=== PATIENT | female | born 1950 | race Caucasian/White ===

== ENCOUNTER 2017-04-01 11:14 | Day surgery (SDC) | payer MEDICARE, BC ==
[2017-03-31 08:33] VITALS: BMI 28.5
[~2017-04-01 11:14] MED LIST: ALBUTEROL NEB (CONC) 2.5 MG/0.5 ML INHALATION ONE; LACTATED RINGERS 1,000 ML IV ONE; LACTATED RINGERS 1,000 ML IV SCH; LIDOCAINE 1% 20 ML VIAL (10MG/ML) FOR IV START INTRADERMA PRN; LIDOCAINE 2% (PF) 20 MG/ML 10ML INHALATION ONE; Pre Op ABX Message 1 EACH MISC MISCELLANE ONE
[2017-04-01] MEDS ORDERED: PROPOFOL 10 MG/ML 20 ML VIAL IV ONE (12:44)
[2017-04-01] MEDS ORDERED: SUCCINYLCHOLINE CHLORIDE 100 MG/5 ML SYR IV ONE (12:44)
[2017-04-01] MEDS ORDERED: LIDOCAINE 1% 20 ML VIAL (10MG/ML) FOR IV START INTRATRACH ONE (12:51)
[2017-04-01 13:52] VITALS: RESP 16; TEMP 97.8
[2017-04-01] MEDS ORDERED: LACTATED RINGERS 1,000 ML IV ONE (14:28)
[2017-04-01 15:05] VITALS: BP 180/80; PULSE 65
--- NOTE | 2017-04-02 17:54 | P.PCN ---
Date of Procedure: 04/01/17 Preoperative Diagnosis: Mediastinal mass Postoperative Diagnosis: Mediastinal mass Procedure(s) Performed: bronchoscopy , TBNA of mediastinal mass/paratracheal LN Anesthesia: MAC Surgeon: Sasha Godfrey Counter Tacker #1: Aubrie Ramesh Estimated Blood Loss (ml): 500 Pathology: other Condition: stable Disposition: same day Operative Findings: The patient was brought in the bronchoscopy suite. A timeout was done. Following that the patient was started on sedation with the prevent under the supervision of TANGLED YARN WORKER. After achieving adequate sedation, a flexible bronchoscope was inserted through the right nostril was advanced upper airway. Examination of the upper airway included the posterior oropharynx, larynx, epiglottis, arytenoids and vocal cords and all of these upper airway structures were within normal limits. A total of 2 mL of 1% lidocaine was applied to the vocal cords and following that the bronchoscope was advanced upper trachea. Examination sacral bronchial tree was done. The upper and the mid trachea was within normal. The lower trachea was of normal. There was a mass effect over the anterolateral aspect of the tracheal wall and the cartilaginous rings were not well defined. Similarly, a mass effect was also seen in the right mainstem bronchus and the right upper lobe bronchus. All of the structures were extrinsically compressed and narrowed yet patent. I was able to pass the bronchoscope to the upper lobe and examination the right upper lobe was done along with a segments and no endobronchial tumor wasn't defined. Following that the bronchoscope was moved to the bronchus intermedius and then right middle lobe bronchus and right lower lobe bronchussegments were patent and within normal limits. Examination of the left side including left mainstem bronchus, left upper lobe and left lower lobe bronchi along with the various segments segments and the structures were all within normal limits. At this point in time, the bronchoscope was moved to the distal trachea and a transbronchial needle aspirate of the mediastinal/paratracheal mass was attempted. The 19-gauge cytology needle was introduced and as the needle touched the distal tracheal wall there was significant amount of bleeding from the tracheal surface which essentially obliterated the endoscopic visibility. After a single pass using the Levy needle, there was significant bleeding from the tracheal surface to the point where clots were forming and the bronchoscope was moved in and out of the airway several times while attempting to remove these blood clots. As the airway was being therapeutically suctioned and cleaned, we encountered bleeding from the right nostril which further complicated the visibility and our ability to maintain a patent airway. Immediately after and was applied to the right nostril and then to the left nostril. Pressure was also applied ,however ,at that point in time the patient started having some desaturation with her pulse ox dropped to the low 80s. Anesthesia was called to the scene and we felt it is most appropriate to secure the airway through an orotracheal tube. At that time, the patient was intubated by TANGLED YARN WORKER using a #7 orotracheal tube. The patient was ventilated using and on the back in the pulse ox was brought again up to 95%. A adapter was attached and orotracheal tube and as the patient was being ventilated, the flexible bronchoscope was introduced into the airway and tapered it was suctioning was done and the residual amount of blood clots were removed. At that point I attempted to take additional passes however this was quite difficult knowing that the patient had a #7 orotracheal tube and my ability to maneuver and manipulate the bronchoscope through the smaller orotracheal tube was quite limited. Few attempts were done, and similar to the original needle pass, we encountered significant amount of bleeding from the tracheal surface at the site of the puncture. Based on these findings, we decided to abort the procedure and sent the available samples for pathologic evaluation. We thought the available samples could potentially be best to a final diagnosis and we felt it was safer to abort the procedure specially the patient was having significant amount of bleeding in various puncture sites. During this time the epistaxis was controlled also. At the end of the procedure, therapeutic airway suctioning was done and the bronchoscope was removed. After the patient was fully awake the patient was extubated and she was transferred recovery in stable condition. The patient aroused nicely out of her sedation and she denies having any major it with difficulties in her pulse ox remained above 90% while her being on room air. I discussed the findings with the family. I also told them that the patient may possibly need a mediastinoscopy of the available samples stock turner to be nondiagnostic or not enough to make it final pathologic diagnosis. The patient was discharged home to follow up with me in the office.
== END 2017-04-01 15:16 | disposition home or self-care (01) ==
LOC: ORWHC2ENDO 11:14
PROVIDERS: ATTEND Internal Medicine Critical Care Medicine
DX: J44.9 Chronic obstructive pulmonary disease, unspecified (principal); I10 Essential (primary) hypertension; E03.9 Hypothyroidism, unspecified; Z87.891 Personal history of nicotine dependence; Z79.899 Other long term (current) drug therapy; Z88.0 Allergy status to penicillin
CPT/HCPCS: 94640; 88305; 88173; 31629; J2001; J0330; J2704

== ENCOUNTER → 2017-04-09 | Outpatient (CLI) | payer MEDICARE, BC ==
[2017-04-09 12:10] LABS: CH 29.5; CHCM 32.8; HCT 47.6 % (34.0-46.0); HDW 2.43; HGB 15.1 gm/dL (11.4-16.0); MCH 28.8 pg (25.0-35.0); MCHC 31.8 g/dL (31.0-37.0); MCV 90.4 fL (80.0-100.0); Mean Platelet Volume 6.2; RBC 5.26 m/uL (3.80-5.40); RDW 12.9 % (11.5-15.5); WBC 4.8 k/uL (3.8-10.6)
[2017-04-09 12:16] LABS: Anion Gap 12 mmol/L; Blood Urea Nitrogen 10 mg/dL (7-17); Carbon Dioxide 26 mmol/L (22-30); Chloride 104 mmol/L (98-107); Glucose 99 mg/dL (74-99); Non-African American GFR(MDRD) >60 (>60 ml/min/1.73 sqM); Potassium 3.9 mmol/L (3.5-5.1); Sodium 142 mmol/L (137-145)
[2017-04-09 12:17] LABS: Prothrombin Time 10.1 sec (9.0-12.0)
[2017-04-09 12:18] LABS: Partial Thromboplastin Time 22.6 sec (22.0-30.0)
== END | disposition home or self-care (01) ==
LOC: LABPAT 11:24
PROVIDERS: ATTEND Thoracic Surgery (Cardiothoracic Vascular Surgery)
DX: Z01.812 Encounter for preprocedural laboratory examination (principal); C34.90 Malignant neoplasm of unspecified part of unspecified bronchus or lung
CPT/HCPCS: 80051; 82565; 82947; 84520; 85027; 85610; 85730; 86850; 86900; 86901

== ENCOUNTER 2017-04-10 09:32 | Day surgery (SDC) | payer MEDICARE, BC ==
[2017-04-09 13:32] VITALS: BMI 28.2
[~2017-04-10 09:32] MED LIST changes: -ALBUTEROL NEB (CONC) 2.5 MG/0.5 ML INHALATION ONE; +CLINDAMYCIN 900 MG in DEXTROSE 5% IN WATER 50 ML IVPB ONE; +DEXAMETHASONE SOD PHOSPHATE 10 MG/ML 1 ML VIAL IV ONE; -LACTATED RINGERS 1,000 ML IV ONE; -LIDOCAINE 1% 20 ML VIAL (10MG/ML) FOR IV START INTRADERMA PRN; -LIDOCAINE 2% (PF) 20 MG/ML 10ML INHALATION ONE; +MIDAZOLAM 2 MG/2 ML VIAL IV PRN; -Pre Op ABX Message 1 EACH MISC MISCELLANE ONE
[2017-04-10] MEDS ORDERED: LIDOCAINE 1% 20 ML VIAL (10MG/ML) FOR IV START INTRADERMA ONE (10:18)
[2017-04-10] MEDS: ONDANSETRON 4 MG/2 ML VIAL IVP ONE ×2 (10:24→14:41)
[2017-04-10] MEDS ORDERED: MIDAZOLAM 2 MG/2 ML VIAL IV ONE (11:19)
[2017-04-10] MEDS ORDERED: MIDAZOLAM 2 MG/2 ML VIAL ONE (13:02)
[2017-04-10] MEDS ORDERED: LIDOCAINE 1% INJ 10MG/ML (20 ML MDV) ONE (13:02)
[2017-04-10] MEDS ORDERED: SUCCINYLCHOLINE CHLORIDE 100 MG/5 ML SYR IV ONE (13:02)
[2017-04-10] MEDS ORDERED: fentaNYL (PF) 50 MCG/ML 2 ML AMP ONE (13:02)
[2017-04-10] MEDS ORDERED: GLYCOPYRROLATE 0.2 MG/ML 2 ML VIAL ONE (13:02)
[2017-04-10] MEDS ORDERED: NEOSTIGMINE 1 MG/ML 10 ML VIAL ONE (13:02)
[2017-04-10] MEDS ORDERED: PROPOFOL 10 MG/ML 20 ML VIAL IV ONE (13:02)
[2017-04-10] MEDS ORDERED: ePHEDrine 50 MG/ML 1 ML AMP ONE (13:02)
[2017-04-10] MEDS ORDERED: ROCURONIUM BROMIDE 10 MG/ML 10 ML VIAL IV ONE (13:02)
[2017-04-10] MEDS ORDERED: THROMBIN (BOVINE) 5,000 UNIT VIAL TOPICAL ONE (13:34)
--- NOTE | 2017-04-10 14:28 | P.OP ---
Date of Procedure: 04/10/17 Preoperative Diagnosis: mediastinal mass Postoperative Diagnosis: mediastinal mass Procedure(s) Performed: Mediastinal endoscopy with biopsy of mediastinal mass Anesthesia: BETHANY Surgeon: Mariusz Zhao Estimated Blood Loss (ml): 10 IV fluids (ml): 200 Pathology: other (Mediastinal mass sent for frozen and permanent. Frozen section demonstrates benign tissue. Fluid from within mediastinal mass also sent for cytology) Condition: stable Disposition: PACU Indications for Procedure: Patient has a long distant smoking history she reports presented with a right- sided lung mass hilar fullness and a large mediastinal mass the mediastinal masses multiloculated multiple enlarged lymph nodes. Mediastinoscopy was indicated for both diagnosis and staging. Operative Findings: Anterior to the distal trachea we encountered a large multi loculated cystic mass. A needle was placed within the mass and murky fluid was obtained. This was sent for cytology. Multiple areas were aspirated. Once we had ascertained that there did not appear to be any specifically solid component to this mass, we biopsied the mass. A portion of the wall of the cyst was sent for pathology. The frozen section on this returned benign. Within the cystic mass there was more tissue and some of this was biopsied. All of the tissue was sent for pathology for permanent section. The area was packed with some thrombin and Gelfoam and good hemostasis was obtained. After assuring good hemostasis, 80 Stiner scope was removed and the incision closed with layers of Vicryl suture it was dressed with skin glue. The patient was extubated and transferred to recovery room in stable condition. Plan - Discharge Summary Discharge Medication List Levothyroxine Sodium [Synthroid] 125 mcg PO 0500 03/31/17 [History] Losartan Potassium [Cozaar] 50 mg PO QAM 03/31/17 [History] Methylphenidate HCl [Ritalin] 20 mg PO BID 04/09/17 [History]
[2017-04-10 14:35] VITALS: TEMP 98
[2017-04-10] MEDS: HYDROmorphone 1 MG/ML 1 ML SYRINGE IVP PRN ×4 (14:41→15:05)
[2017-04-10 15:00] VITALS: RESP 16
[2017-04-10 16:59] VITALS: BP 140/83; PULSE 60
== END 2017-04-10 16:56 | disposition home or self-care (01) ==
LOC: OR 09:32
PROVIDERS: ATTEND Thoracic Surgery (Cardiothoracic Vascular Surgery)
DX: J98.59 Other diseases of mediastinum, not elsewhere classified (principal); Q34.1 Congenital cyst of mediastinum; J44.9 Chronic obstructive pulmonary disease, unspecified; Z87.891 Personal history of nicotine dependence; Z79.899 Other long term (current) drug therapy; Z88.0 Allergy status to penicillin
CPT/HCPCS: 88108; 88305; 88342; 88331; 88341; 39401; J2250; J1100; J2710; J2405; J2001; J3010; J1170; J0330; J2704; 86850; 86900; 86901

== ENCOUNTER → 2017-04-18 | Outpatient (CLI) | payer MEDICARE, BC ==
--- NOTE | 2017-04-22 14:52 | PE ---
Nuclear medicine PET/CT HISTORY: R 91.8, lung carcinoma The patient received 13.5 mCi F-18 FDG intravenously. Delayed scanning performed from the skull base to the mid thighs. An attenuation correction CT, localization CT was also performed. No exam available for correlation. Neck and chest: The midline at the level of the thyroid gland there is a focus of activity present wi thin the ill-defined area of soft tissue which corresponds to a possible thyroid remnant or a thyrogl ossal duct remnant. SUV is 6.2 At the supraclavicular location on the right there is a soft tissue mass measuring approximately 16 m m in short axis with corresponding hypermetabolic activity, SUV is 4.5. At the lower aspect of the an terior cervical chain deep to the posterior margin of the sternocleidomastoid muscle, there is a soft tissue nodule which is not enlarged and shows an SUV of 2.6, there a is slightly larger lesion just inferiorly shows hypermetabolic uptake SUV 2.9 with a short axis of 14 mm. Right paratracheal, retroc aval pretracheal adenopathy is suspected with central low attenuation which may be due to necrosis, s imilar appearance in the subcarinal location, SUV mildly increased ranging 4-5. Right hilar adenopath y suspected, SUV 9.2. Mass in the right hilar location is noted, metabolic activity greatest anterio rly towards the right middle lobe, SUV 13.6. There are some associated air bronchograms, mass extensi on from the right hilum into the right lower lobe additionally. Extensive emphysematous changes are p resent within the lungs. Abdomen pelvis: Lucency within the liver likely related to pneumobilia. Left adrenal mass measures 13 mm it shows low attenuation likely represent adenoma, there is no associated hypermetabolic uptake. No retroperitoneal adenopathy. Osseous structures show degenerative changes. No suspicious hypermetabolic uptake No evident adrenal mass on the right. IMPRESSION: Findings compatible with patient's history of lung carcinoma. There is extensive mediasti nal, supraclavicular and lower anterior cervical adenopathy.
== END | disposition home or self-care (01) ==
LOC: RADPETMAIN 11:47
PROVIDERS: ATTEND Internal Medicine Critical Care Medicine
DX: R91.8 Other nonspecific abnormal finding of lung field (principal); R59.1 Generalized enlarged lymph nodes
CPT/HCPCS: 78815

== ENCOUNTER → 2017-05-19 | Outpatient (CLI) | payer MEDICARE, BC ==
--- NOTE | 2017-05-19 23:09 | MR ---
EXAMINATION TYPE: MR brain wo/w con DATE OF EXAM: 05/19/2017 COMPARISON: NONE HISTORY: HX off newly diagnosed Lung CA April 2017 per order. Symptoms of dizziness per patient. TECHNIQUE: Multiplanar, multisequence images of the brain and brainstem is performed without and with IV contras t, utilizing 15 mL intravenous MultiHance . FINDINGS: Diffusion weighted images demonstrate no evidence of a recent infarct or other diffusion ab normality. There is no extra-axial fluid collection or significant white matter signal abnormality. The ventricular system and cisternal spaces are normal in size and appearance. The brain volume is age appropriate. Midline structures demonstrate normal morphology. The craniocervical junction appears within normal limits. Post contrast images demonstrate no abnormal enhancement. The dural venous sinuses appear pa tent. The visualized sinuses are clear and the globes are intact. IMPRESSION: No suspicious enhancing intraparenchymal mass is seen to suggest metastatic disease. No s ignificant abnormality identified.
== END | disposition home or self-care (01) ==
LOC: RADMRIMAIN 21:26
PROVIDERS: ATTEND Radiology Radiation Oncology
DX: C34.2 Malignant neoplasm of middle lobe, bronchus or lung (principal)
CPT/HCPCS: 70553; A9577

== ENCOUNTER → 2017-05-20 | Outpatient (CLI) | payer MEDICARE, BC ==
--- NOTE | 2017-05-20 15:07 | XR ---
EXAMINATION TYPE: XR chest 2V DATE OF EXAM: 05/20/2017 COMPARISON: Nuclear medicine PET/CT 04/18/2017 HISTORY: Lung carcinoma TECHNIQUE: Frontal and lateral views of the chest are obtained. FINDINGS: Abnormal increased attenuation present at the right lung base compatible with effusion and associated atelectasis. There is thickening of the right paratracheal margin. No evident pneumothora x. Heart is enlarged. IMPRESSION: Findings compatible with patient's history of lung carcinoma. Cardiomegaly.
== END | disposition home or self-care (01) ==
LOC: RADXRMAIN 11:48
PROVIDERS: ATTEND Surgery
DX: C34.90 Malignant neoplasm of unspecified part of unspecified bronchus or lung (principal); I51.7 Cardiomegaly
CPT/HCPCS: 71020

== ENCOUNTER 2017-05-21 10:16 | Day surgery (SDC) | payer MEDICARE, BC ==
[2017-05-20 12:45] VITALS: BMI 27.6
[~2017-05-21 10:16] MED LIST changes: -DEXAMETHASONE SOD PHOSPHATE 10 MG/ML 1 ML VIAL IV ONE; +HEPARIN SODIUM,PORCINE 100 UNIT/ML 5 ML VIAL IV ONE; +IOHEXOL 350 MG/ML 50ML BOTTLE MISCELLANE ONE; -LACTATED RINGERS 1,000 ML IV SCH; +LIDOCAINE (PF) 10 MG/ML 2 ML VIAL SQ ONE; -MIDAZOLAM 2 MG/2 ML VIAL IV PRN
[2017-05-21] MEDS ORDERED: LACTATED RINGERS 1,000 ML IV ONE (10:44)
[2017-05-21] MEDS ORDERED: LIDOCAINE 1% 20 ML VIAL (10MG/ML) FOR IV START SQ ONE (10:45)
[2017-05-21] MEDS ORDERED: ONDANSETRON 4 MG/2 ML VIAL IVP ONE ×2 (10:54→12:47)
[2017-05-21] MEDS ORDERED: MIDAZOLAM 2 MG/2 ML VIAL IVP ONE (10:54)
[2017-05-21] MEDS ORDERED: MIDAZOLAM 2 MG/2 ML VIAL ONE (11:11)
[2017-05-21] MEDS ORDERED: fentaNYL (PF) 50 MCG/ML 2 ML AMP ONE (11:11)
[2017-05-21] MEDS ORDERED: LIDOCAINE (PF) 10 MG/ML 2 ML VIAL SQ ONE ×3 (11:11→12:28)
[2017-05-21] MEDS ORDERED: HEPARIN SODIUM,PORCINE 100 UNIT/ML 5 ML VIAL IV ONE (11:11)
[2017-05-21] MEDS ORDERED: IOHEXOL 350 MG/ML 50ML BOTTLE MISCELLANE ONE (11:11)
[2017-05-21] MEDS ORDERED: LIDOCAINE 1% INJ 10MG/ML (20 ML MDV) ONE (11:11)
[2017-05-21] MEDS ORDERED: PROPOFOL 10 MG/ML 20 ML VIAL IV ONE (11:11)
--- NOTE | 2017-05-21 12:41 | P.OP ---
Date of Procedure: 05/21/17 Preoperative Diagnosis: malignant Neoplasm of right lung Postoperative Diagnosis: Malignant neoplasm of right lung Procedure(s) Performed: Placement of 8 fr mediport on the left side Implants: 8 Fr mediport Anesthesia: regional Surgeon: Margaret Etienne Pathology: none sent Condition: stable Disposition: PACU Indications for Procedure: Operative Findings: Flouro 3 min 35 s Description of Procedure: The patient was brought to the operating room and placed in supine position with both arms tucked. A footboard was placed. Chlorhexidine was used to prep the neck followed by application of sterile drapes and an Ioban dressing . A timeout was performed to verify correct patient and correct procedure. Patient was confirmed to receive perioperative IV antibiotics and VTE prophylaxis. An ultrasound was performed of the right neck to identify the carotid artery and internal jugular vein. The internal jugular vein was compressible and patent . Photodocumentation was made. Local anesthetic was infiltrated to create a field block. Seldinger technique was used and the internal jugular vein was accessed under direct ultrasound guidance. There was good backflow of dark venous blood. The guidewire was inserted and fluoroscopic images obtained to confirm the tip in brachiocephalic vein The needle was removed followed by insertion of a dilator peel-away sheath. Local anesthetic was infiltrated along the inferior aspect of the right clavicle. A 2.5 cm skin incision was made and dissection was carried up to the pectoralis major muscle. A pocket was created for the port. The peel- away was cracked and removed with the port in appropriate position as confirmed by fluoroscopy and dye. A Rodrigo was used to tunnel from the expected port site all the way up to the small incision in the neck and the catheter was pulled down into the cavity and then, once cut to size and attached to the port. The connector was clipped shut into position after which fluoroscopy was done positioning. We did use radiopaque dye for this roughly 10 mL. all the was good flow when we tried to use hep saline there was no backflow and was noted there was a kink in the neck. At that time the catheter was repositioned so that the kink was removed and there was good backflow easily with hep saline. Position was checked and was at the junction of the brachiocephalic and the SVC. Once that was done subcutaneous tissue in the right pocket area was closed with 2-0 Vicryl. Skin was closed with 4-0 Monocryl for the port site as well as the initial access site. Dermabond was applied slight pressure dressing in the neck as well as Telfa with Tegaderm for the right pectoral region. Total fluoroscopic time was 2 minutes 34 seconds . Prior to leaving the operating room fluoroscopy showed the catheter tip in the appropriate site patient will get a chest x-ray in recovery. Plan - Discharge Summary New Discharge Prescriptions: No Action Levothyroxine Sodium [Synthroid] 125 mcg PO DAILY Losartan Potassium [Cozaar] 50 mg PO QAM Methylphenidate HCl [Ritalin] 20 mg PO BID Melatonin 1 mg PO HS HYDROcodone/APAP 7.5-325MG [[place] 7.5-325] 1 tab PO Q6HR PRN PRN Reason: Pain Discharge Medication List Levothyroxine Sodium [Synthroid] 125 mcg PO DAILY 03/31/17 [History] Losartan Potassium [Cozaar] 50 mg PO QAM 03/31/17 [History] Methylphenidate HCl [Ritalin] 20 mg PO BID 04/09/17 [History] HYDROcodone/APAP 7.5-325MG [[place] 7.5-325] 1 tab PO Q6HR PRN 05/20/17 [History] Melatonin 1 mg PO HS 05/20/17 [History]
[2017-05-21 12:46] VITALS: TEMP 97.2
--- NOTE | 2017-05-21 12:46 | FL ---
EXAMINATION TYPE: FL guided central line placemt DATE OF EXAM: 05/21/2017 CLINICAL HISTORY: Fluoroscopy time TECHNIQUE: Fluoroscopy. COMPARISON: None. FINDINGS: A total of 3 minutes and 35 seconds of fluoroscopic time was utilized during the procedur e. IMPRESSION: As Above.
[2017-05-21] MEDS ORDERED: HYDROcodone/APAP 7.5-325MG 1 EACH TAB PO ONE ×2 (12:59→13:00)
--- NOTE | 2017-05-21 13:00 | XR ---
EXAMINATION TYPE: XR chest 1V portable DATE OF EXAM: 05/21/2017 COMPARISON: 05/20/2017 HISTORY: Line placement FINDINGS: There are right pleural effusion with cardiomegaly and right basilar infiltrate. There is a diffuse interstitial pattern. Mediport catheter seen with no sizable pneumothorax. Tip overlies the SVC. Hype rtrophic change of the spine and shoulders noted. IMPRESSION: 1. Right-sided consolidation and pleural effusion are stable. Mediastinal widening may been the basis of adenopathy. 2. PICC line with the tip overlying the SVC and no sizable pneumothorax.
[2017-05-21 13:17] VITALS: BP 134/79; PULSE 74; RESP 18
== END 2017-05-21 13:29 | disposition home or self-care (01) ==
LOC: OR 10:16
PROVIDERS: ATTEND Surgery
DX: C34.91 Malignant neoplasm of unspecified part of right bronchus or lung (principal); I10 Essential (primary) hypertension; J90 Pleural effusion, not elsewhere classified; E07.9 Disorder of thyroid, unspecified; F17.200 Nicotine dependence, unspecified, uncomplicated; Z79.891 Long term (current) use of opiate analgesic; Z79.899 Other long term (current) drug therapy; Z88.0 Allergy status to penicillin
CPT/HCPCS: 71010; 77001; 36561; C1788; J2250; J2001 ×2; J1642; J2405; J3010; J2704; J1644; Q9967

== ENCOUNTER → 2017-07-09 | Outpatient (CLI) | payer MEDICARE, BC ==
[2017-07-09 14:23] LABS: Blood Urea Nitrogen 16 mg/dL (7-17); Non-African American GFR(MDRD) >60 (>60 ml/min/1.73 sqM)
--- NOTE | 2017-07-09 15:44 | CT ---
EXAMINATION TYPE: CT chest w con DATE OF EXAM: 07/09/2017 COMPARISON: Prior nuclear medicine PET/CT 04/18/2017 HISTORY: Patient has no complaints at time of study. Follow up for known lung CA. CT DLP: 288.2 mGycm Automated exposure control for dose reduction was used. CONTRAST: CT scan of the chest is performed with IV Contrast, patient injected with 100 mL of Omnipaque 300. FINDINGS: LUNGS: Extensive emphysematous changes are present. The perihilar density on the right has decreased in volume, the right hilar mass now shows low attenuation suggestive of necrotic nodes. MEDIASTINUM: Subcarinal location shows some low-attenuation, the retrocaval pretracheal node shows ce ntral low-attenuation and measures similar AP dimension and 3.7 cm. Superior mediastinal nodes show l ess full than on prior. No pleural or pericardial effusion. Vermiform high attenuation present at the level of the right middle lobe may represent posttreatment change. AORTA: No additional significant abnormality is seen. OTHER: Small nodule associated with the left adrenal gland is again noted and shows low attenuation. There is pneumobilia as on prior exam. Liver shows low attenuation likely due to fatty infiltration. IMPRESSION: Posttreatment changes are suspected.
== END | disposition home or self-care (01) ==
LOC: RADPROMAIN 13:35
PROVIDERS: ATTEND Internal Medicine Hematology & Oncology
DX: C34.31 Malignant neoplasm of lower lobe, right bronchus or lung (principal)
CPT/HCPCS: 82565; 84520; 71260; 36415; Q9967; J1642

== ENCOUNTER → 2017-10-13 | Outpatient (CLI) | payer MEDICARE, BC ==
[2017-10-13 11:02] LABS: Blood Urea Nitrogen 10 mg/dL (7-17); Non-African American GFR(MDRD) >60 (>60 ml/min/1.73 sqM)
--- NOTE | 2017-10-13 13:31 | CT ---
EXAMINATION TYPE: CT chest w con DATE OF EXAM: 10/13/2017 COMPARISON: 07/09/2017 and 04/18/2017 HISTORY: 67-year-old female Lung cancer, Observation for mets TECHNIQUE: Contiguous axial scanning of the chest after the administration of 100 ml mL of Omnipaque 300. Coronal/sagittal reconstructions performed. CT DLP: 242.40mGycm. Automatic exposure control utilized for a dose reduction. FINDINGS: Left anterior chest wall injection port with catheter tip in the upper to mid SVC. Heart is upper limits of normal size with trace pericardial fluid. Ascending aorta is ectatic at 3.6 cm. There is conventional branching anatomy. Residual precarinal lymph node measuring 2.2 x 2.0 cm versus 3.4 x 2.0 cm, previously. Fat stranding throughout the mediastinal fat likely posttreatment change. Subcarinal lymph node small at 1.1 cm versus 1.7 cm, previously. The right paratracheal lymphadenopathy has resolved. There is moderate to advanced centrilobular emphysema with surgical changes at the basilar right midd le lobe and essentially complete clearance of the right suprahilar density seen on the PET/CT of 04/18. Strandy atelectasis and scarring at the basilar right middle lobe. Small hiatal hernia. Suggestion of a trace right pleural effusion which is new from prior. Pneumobilia is unchanged as is the probable 1.5 cm left adrenal adenoma. There is Katie-en-Y gastric bypass. Bones: Endplate spondylosis throughout renal osseous destructive process seen. IMPRESSION: 1. Mediastinal lymph nodes show further improvement in size now measuring up to 2.2 cm versus 3.4 cm on 07/09/2017. 2. COPD with moderate to advanced emphysema and postsurgical changes at the basilar right middle lobe . 3. Unchanged 1.5 cm left adrenal gland nodule, likely adrenal adenoma.
== END | disposition home or self-care (01) ==
LOC: RADCTMAIN 10:13
PROVIDERS: ATTEND Internal Medicine Hematology & Oncology
DX: J43.9 Emphysema, unspecified (principal); C34.31 Malignant neoplasm of lower lobe, right bronchus or lung; Z98.890 Other specified postprocedural states
CPT/HCPCS: 82565; 84520; 71260; 36415; Q9967

== ENCOUNTER → 2017-12-08 | Outpatient (CLI) | payer MEDICARE, BC ==
[2017-12-08 14:11] LABS: Blood Urea Nitrogen 12 mg/dL (7-17)
--- NOTE | 2017-12-08 15:53 | CT ---
EXAMINATION TYPE: CT chest w con DATE OF EXAM: 12/08/2017 COMPARISON: 10/13/2017 HISTORY: Left sided Chest discomfort. Follow up lung cancer CT DLP: 556 mGycm, Automated exposure control for dose reduction was used. CONTRAST: Performed injected with 100 mL of Omnipaque 300. TECHNIQUE: Axial images were obtained at 5 mm thick sections. Reconstructed images are reviewed on [employer] computer in the coronal plane. FINDINGS: Thyroid is not visualized. No suspicious lung nodules or focal infiltrates are present. A small right pleural effusion is present. There is some vague increased density within the pretracheal space. Discrete enlarged lymph nodes or not identified. Underlying adenopathy however cannot be excluded. Findings appear stable. The ascend ing aorta diameter at the level of the main pulmonary artery is 3.4 cm. The main pulmonary artery di ameter at the bifurcation is 2.[address] sections are obtained through the upper abdomen. Some mild thickening of the left adrenal gland may be present measuring 1.2 cm. There is air within the biliary tree of the liver. IMPRESSIONS: 1. Stable appearance of mediastinum from comparison. 2. Minimal right pleural effusion, slightly increased from the previous exam
== END ==
LOC: RADPROMAIN 13:42
PROVIDERS: ATTEND Internal Medicine Hematology & Oncology
DX: Z03.89 Encounter for observation for other suspected diseases and conditions ruled out (principal); C34.31 Malignant neoplasm of lower lobe, right bronchus or lung; J90 Pleural effusion, not elsewhere classified; Z88.0 Allergy status to penicillin
CPT/HCPCS: 82565; 84520; 71260; 36415; Q9967

== ENCOUNTER → 2018-02-03 | Outpatient (CLI) | payer MEDICARE, BC ==
[2018-02-03 15:49] LABS: Blood Urea Nitrogen 15 mg/dL (7-17)
--- NOTE | 2018-02-03 16:57 | XR ---
EXAMINATION TYPE: XR Hip Bilateral and AP pelvis DATE OF EXAM: 02/03/2018 COMPARISON: Nuclear medicine PET/CT 04/18/2017 HISTORY: Hip pain TECHNIQUE: A single AP view of the pelvis is obtained. Two views of the bilateral hips are obtained. FINDINGS: There is no acute fracture/dislocation evident in the pelvis. The hips and sacroiliac abimael nts appear symmetric and unremarkable. The overlying soft tissue appears unremarkable. Bone minerali zation is mildly reduced. Two views of bilateral hips show no acute fracture or dislocation. No focal lytic or sclerotic lesio n seen in the proximal bilateral femurs. The overlying soft tissue is unremarkable. Probable calcif ied fibroid within the pelvis. Degenerative disc changes are present at the lumbosacral junction. Mil d marginal spurring at the hip joints. Vascular calcifications also noted incidentally. IMPRESSION: There is no acute fracture or dislocation in the pelvis or bilateral hips. Mild osteoart hritis suspected Degenerative disc disease, lumbar MRI may be of benefit.
--- NOTE | 2018-02-03 17:06 | CT ---
EXAMINATION TYPE: CT chest w con DATE OF EXAM: 02/03/2018 COMPARISON: Prior chest CT 01/04/2018, 12/08/2017 and 03/23/2017 HISTORY: Squamous cell carcinoma CT DLP: 257.5 mGycm Automated exposure control for dose reduction was used. CONTRAST: CT scan of the chest is performed with IV Contrast, patient injected with 100 mL of Omnipaque 300. FINDINGS: LUNGS: The lungs are remarkable for extensive emphysematous changes. Reticular bands are again noted in the perihilar region, right lower lobe and right middle lobe. No evident lung mass. Postop changes or calcification, posttreatment change suspected in the right middle lobe., there is no concerning p arenchymal mass or nodule identified. There is no pleural effusion or pneumothorax seen. The trach eobronchial tree is patent. MEDIASTINUM: Retrocaval pretracheal density shows a similar appearance to most recent exam, there is some esophageal thickening again noted at this level. Mediastinal fat shows some increased attenuatio n similar to most recent exam. There is a port the left pectoral region with the catheter present gosia aterally jugular approach and extending across the midline in the innominate vein from the left.. N o pericardial effusion is seen. AORTA: No additional significant abnormality is seen. Mild prominence of the pulmonary artery, corre late for possible pulmonary artery hypertension. Heart shows a stable appearance. OTHER: Low dense left adrenal mass is stable. There is pneumobilia as on previous exams. Postop peralta ges are noted to the stomach. Some prominence of the body of the pancreas is not thought to be signif icantly changed. There is a small hiatal hernia present. IMPRESSION: There is not a significant interval change from most recent exam. Posttreatment changes. Additional findings above.
== END | disposition home or self-care (01) ==
LOC: RADCTMAIN 15:11
PROVIDERS: ATTEND Internal Medicine Critical Care Medicine
DX: J43.9 Emphysema, unspecified (principal); C34.90 Malignant neoplasm of unspecified part of unspecified bronchus or lung; M16.0 Bilateral primary osteoarthritis of hip; J98.4 Other disorders of lung; Z88.0 Allergy status to penicillin; Z98.890 Other specified postprocedural states
CPT/HCPCS: 82565; 84520; 73521; 71260; 36415; Q9967

== ENCOUNTER → 2018-06-07 | Outpatient (CLI) | payer MEDICARE, BC ==
[2018-06-07 13:12] LABS: Blood Urea Nitrogen 11 mg/dL (7-17)
--- NOTE | 2018-06-07 15:03 | CT ---
EXAMINATION TYPE: CT brain w con DATE OF EXAM: 06/07/2018 COMPARISON: None HISTORY: 67-year-old female history of lung cancer, Confusion CT DLP: 1121.01 mGycm Automated exposure control for dose reduction was used. CONTRAST: CT scan of the head is performed with IV Contrast, patient injected with 100 ml mL of Isovue 300. FINDINGS: There is no abnormal enhancing mass or midline shift identified. The ventricles and sulci are within normal limits in size. Dural venous sinuses are patent. Partially empty sella incidentally noted. T he globes are intact. Mild mucosal thickening left maxillary sinus. IMPRESSION: No CT evidence for brain metastases.
--- NOTE | 2018-06-07 15:14 | CT ---
EXAMINATION TYPE: CT chest w con DATE OF EXAM: 06/07/2018 COMPARISON: 02/03/2018 and 12/08/2017 HISTORY: 67-year-old female follow-up lung cancer Lung Cancer TECHNIQUE: Contiguous axial scanning of the chest after the administration of 100 ml mL of Isovue 300 . Coronal/sagittal reconstructions performed. CT DLP: 547.08mGycm. Automatic exposure control utilized for a dose reduction. FINDINGS: Left anterior chest wall injection port with catheter tip at the upper to mid SVC level. Heart upper limits of normal in size without pericardial effusion. Mild ectasia ascending aorta at 3.6 cm. Conventional arch vessel branching anatomy. Pretracheal lymph node at 1.7 cm versus 1.9 cm on 02/03/2018. No enlarging thoracic lymphadenopathy see n. Volume loss and consolidation right perihilar region and medial aspect of the right middle lobe and r ight lower lobe. Some new nodularity measuring up to 5 mm peripheral right lower lobe and peripheral inferior right up per lobe, for example, axial images 27, 28, and 31 suspected to be on a inflammatory basis. Extensive volume loss and consolidation right middle lobe, superior segment right lower lobe, and sparkle ng the segmental basilar right lower lobe bronchi is redemonstrated. Some of the consolidative change s in the right middle lobe and superior segment right lower lobe are increased from 02/03/2018 but over all relatively similar. These changes have increased from 12/08/2017. Some postsurgical material at the basilar right middle lobe versus calcifications. There is COPD with moderate centrilobular emphysema noted. Left lung and pleural space are clear. No pleural effusions. Visualized upper abdomen shows a stable 1.5 cm nodule in the left adrenal gland, postsurgical changes of gastrojejunostomy, and redemonstrated pneumobilia. Bones: Endplate spondylosis at the lower thoracic spine. No osseous destructive process. IMPRESSION: 1. Volume loss and consolidation right perihilar region extending along the medial aspect of the righ t mid and lower lung likely corresponds to radiation port and post therapy change. The overall change s are relatively similar to 02/03/2018 but progressed from 12/08/2017. 2. Some new 5 mm and smaller nodularity peripherally in the right mid and lower lung suspected to be on an infectious/inflammatory basis such as due to bronchiolitis or other distal small airways impact ion either from mucoid debris or inflammatory cells. Follow-up can be performed to exclude any enlar ging pulmonary nodules. 3. A 1.7 cm pretracheal lymph node is slightly smaller, having measured 1.9 cm on 02/03/2018. 4. Stable 1.5 cm left adrenal nodule and pneumobilia. 5. COPD with moderate emphysema.
== END | disposition home or self-care (01) ==
LOC: RADCTMAIN 12:28
PROVIDERS: ATTEND Internal Medicine Critical Care Medicine
DX: C34.90 Malignant neoplasm of unspecified part of unspecified bronchus or lung (principal); J43.9 Emphysema, unspecified; R91.8 Other nonspecific abnormal finding of lung field
CPT/HCPCS: 82565; 84520; 70460; 71260; 36415; Q9967

== ENCOUNTER → 2018-10-04 | Outpatient (CLI) | payer MEDICARE, BC ==
[2018-10-04 10:19] LABS: Blood Urea Nitrogen 11 mg/dL (7-17)
--- NOTE | 2018-10-04 10:59 | CT ---
EXAMINATION TYPE: CT chest w con DATE OF EXAM: 10/04/2018 COMPARISON: 06/07/2018 HISTORY: Follow up of lung cancer CT DLP: 343.6 mGycm Automated exposure control for dose reduction was used. CONTRAST: CT scan of the chest is performed with IV Contrast, patient injected with 100 mL of . FINDINGS: LUNGS: Volume loss and consolidation right perihilar region and medial aspect of the right middle lob e and right lower lobe. Extensive volume loss and consolidation right middle lobe, superior segment right lower lobe, and sparkle ng the segmental basilar right lower lobe bronchi is redemonstrated. Some of the consolidative change s in the right middle lobe and superior segment right lower lobe are overall relatively similar. A previously noted peripheral nodularity in the right mid and lower lung is less apparent on today's exam and may be postinflammatory. Some postsurgical material in the right middle lobe versus calcifications. There is COPD with moderate centrilobular emphysema noted. Left lung and pleural space are clear. MEDIASTINUM: Mild ectasia ascending aorta at 3.6 cm. Conventional arch vessel branching anatomy. Pret valentino lymph node at 1.7 cm and stable. No enlarging thoracic lymphadenopathy seen. Stable mild aneu rysmal dilation of the origin of the brachiocephalic artery measuring 1.5 cm. OTHER: Visualized upper abdomen shows a stable 1.5 cm nodule in the left adrenal gland , postsurgica l changes of gastrojejunostomy, and redemonstrated pneumobilia. Bones: Endplate spondylosis at the lo wer thoracic spine. No osseous destructive process. Mediport catheter stable. Small hiatal hernia not ed. IMPRESSION: 1. Volume loss and consolidation right perihilar region extending along the medial aspect of the righ t mid and lower lung likely corresponds to radiation port and post therapy change. The overall change s are relatively similar to prior exam. 2. A 1.7 cm pretracheal lymph node is stable 3. Stable 1.5 cm left adrenal nodule and pneumobilia. 4. COPD with moderate emphysema.
== END | disposition home or self-care (01) ==
LOC: RADCTMAIN 09:51
PROVIDERS: ATTEND Internal Medicine Critical Care Medicine
DX: J43.9 Emphysema, unspecified (principal); C34.90 Malignant neoplasm of unspecified part of unspecified bronchus or lung; Z98.890 Other specified postprocedural states
CPT/HCPCS: 82565; 84520; 71260; 36415; Q9967

== ENCOUNTER → 2019-01-31 | Outpatient (CLI) | payer MEDICARE, BC ==
[2019-01-31 09:35] LABS: Blood Urea Nitrogen 16 mg/dL (7-17)
--- NOTE | 2019-01-31 10:57 | CT ---
EXAMINATION TYPE: CT chest w con DATE OF EXAM: 01/31/2019 COMPARISON: Prior CT chest 10/04/2018 HISTORY: Lung cancer follow up CT DLP: 364.4 mGycm Automated exposure control for dose reduction was used. CONTRAST: CT scan of the chest is performed with IV Contrast, patient injected with 100 mL of Isovue 300. FINDINGS: Left-sided port is in place via left jugular approach. LUNGS: The lungs are stable, probable scarring present in the right middle lobe, perihilar location a s on prior, there are extensive emphysematous changes present as on previous exam. There is no pleu ral effusion or pneumothorax seen. The tracheobronchial tree is patent. MEDIASTINUM: Soft tissue in the subcarinal, perihilar region on the right, retrocaval caval pretrache al location shows a similar appearance. No pericardial effusion is seen. AORTA: No additional significant abnormality is seen. OTHER: Postop changes are noted to the stomach as on prior exam. Pneumobilia is present, patient is post cholecystectomy. Liver shows low attenuation. Focal higher attenuation present in the posterior right lobe of the liver on axial image 45 shows a similar appearance however there is a focal oval ar ea of higher attenuation on axial image 46 measuring approximately 2.3 cm which was not seen on prior Left adrenal low dense lesion is stable. IMPRESSION: Chest shows a stable appearance. Findings in the liver are indeterminate and could be re lated to focal fatty sparing, liver MRI could be performed for additional evaluation versus short int erval follow-up to assess for stability, difficult to exclude mass.
== END ==
LOC: RADCTMAIN 08:59
PROVIDERS: ATTEND Internal Medicine Critical Care Medicine
DX: C34.90 Malignant neoplasm of unspecified part of unspecified bronchus or lung (principal); Z88.0 Allergy status to penicillin
CPT/HCPCS: 82565; 84520; 71260; 36415; Q9967

== ENCOUNTER → 2019-06-09 | Outpatient (CLI) | payer MEDICARE, BC ==
[2019-06-09 09:53] LABS: African American GFR (CKD) >90 (>60 ml/min/1.73 sqM); Blood Urea Nitrogen 15 mg/dL (7-17)
--- NOTE | 2019-06-09 19:23 | CT ---
EXAMINATION TYPE: CT chest w con DATE OF EXAM: 06/09/2019 COMPARISON: 01/31/2019 HISTORY: Follow up to lung CA CT DLP: 358.7 mGycm, Automated exposure control for dose reduction was used. CONTRAST: Performed injected with 100 mL of Isovue 300. TECHNIQUE: Axial images were obtained at 5 mm thick sections. Reconstructed images are reviewed on [employer] computer in the coronal plane. FINDINGS: Portion of the thyroid visualized is normal. Emphysematous changes are present. There is some stranding in the posterior medial left lung. Some st randing is through the mid right posterior lung, example images is for image 23. There is stranding a nd consolidation to the medial right lung base can be postradiation changes. Findings are similar to the comparison. Correlate with the history. No enlarged mediastinal or hilar adenopathy is evident. The ascending aorta diameter at the level o f the main pulmonary artery is 3.4 cm. The main pulmonary artery diameter at the bifurcation is 2.[address] sections are obtained through the upper abdomen. Note is made of a small amount of biliary air. Adrenal gland is enlarged measuring 1.6 cm. This is stable. IMPRESSIONS: 1. Chronic appearing changes which may reflect emphysematous change, scarring, radiation changes. 2. Stable appearance of an enlarged left adrenal gland.
== END | disposition home or self-care (01) ==
LOC: RADCTMAIN 09:21
PROVIDERS: ATTEND Internal Medicine Critical Care Medicine
DX: E27.8 Other specified disorders of adrenal gland (principal); C34.90 Malignant neoplasm of unspecified part of unspecified bronchus or lung; R22.2 Localized swelling, mass and lump, trunk; Z88.0 Allergy status to penicillin
CPT/HCPCS: 82565; 84520; 71260; 36415; Q9967

== ENCOUNTER → 2019-09-27 | Outpatient (CLI) | payer MEDICARE, BC ==
[2019-09-27 13:38] LABS: Basophils % (A) 0 %; Eosinophils # (A) 0.2 k/uL (0-0.7); Eosinophils % (A) 3 %; HCT 41.8 % (34.0-46.0); HGB 13.8 gm/dL (11.4-16.0); Lymphocytes # (A) 0.4 k/uL (1.0-4.8); Lymphocytes % (A) 8 %; MCH 29.2 pg (25.0-35.0); MCHC 32.9 g/dL (31.0-37.0); MCV 88.5 fL (80.0-100.0); Mean Platelet Volume 5.7; Monocytes # (A) 0.3 k/uL (0-1.0); Monocytes % (A) 5 %; Neutrophils # (A) 4.4 k/uL (1.3-7.7); Neutrophils % (A) 81 %; Platelet Count 306 k/uL (150-450); RBC 4.73 m/uL (3.80-5.40); RDW 13.2 % (11.5-15.5); WBC 5.5 k/uL (3.8-10.6)
[2019-09-27 19:58] LABS: African American GFR (CKD) 101.7 (60.0-200.0); Albumin 4.1 g/dL (3.80-4.90); Albumin/Globulin Ratio 1.64 (1.60-3.17); Anion Gap 11.7 mmol/L (4.00-12.00); BUN/Creat Ratio 15.71 Ratio (12.00-20.00); Calcium 8.4 mg/dL (8.7-10.3); Carbon Dioxide 27.3 mmol/L (21.6-31.8); Globulin 2.5 g/dL (1.6-3.3); Potassium 4.1 mmol/L (3.5-5.5); Total Bilirubin 0.4 mg/dL (0.2-1.2); Total Protein 6.6 g/dL (6.2-8.2)
[2019-09-27 20:04] LABS: T4, Free (Free Thyroxine) 1.3 ng/dL (0.80-1.80)
== END | disposition home or self-care (01) ==
LOC: LABWHC1 12:52
PROVIDERS: ATTEND Internal Medicine Critical Care Medicine
DX: C34.90 Malignant neoplasm of unspecified part of unspecified bronchus or lung (principal)
CPT/HCPCS: 36415; 80053; 84439; 84443; 85025

== ENCOUNTER → 2019-10-11 | Outpatient (CLI) | payer MEDICARE, BC ==
--- NOTE | 2019-10-11 12:18 | CT ---
EXAMINATION TYPE: CT soft tissue neck w con DATE OF EXAM: 10/11/2019 HISTORY: History of lung cancer. No complaints at time of scan COMPARISON: CT chest of the same date CT DLP: 449.9 mGycm. Automated Exposure Control for Dose Reduction was Utilized. TECHNIQUE: CT scan of the neck is performed with IV Contrast, patient injected with 100 mL of Isovue 300, axial images are obtained, coronal and sagittal reformatted images are reviewed. FINDINGS: The visualized portions of the chest chest in the CT chest dictation of the same date. Airway: Airway appears maintained. Parotid/submandibular glands: No gross abnormality seen. Carotid/Vascular Structures: No hemodynamically significant stenosis is seen. There is approximately 40% caliber narrowing of the right carotid bulb. Osseous Structures: There is moderate multilevel degenerative disc disease of the cervical spine and diffuse osseous demineralization. Posterior disc osteophyte complexes are seen at C3-C4, C4-C5, and C 5-C6. No high-grade spinal canal stenosis. No abnormal prevertebral soft tissue swelling Paranasal si nuses and mastoid air cells appear well aerated. Other: No new supraclavicular adenopathy is seen. No greater than 1 cm short axis lymph nodes in the neck. Slightly asymmetric but nonenlarged left submandibular lymph node measuring only 4 mm in short axis. Again there is redemonstration of a left-sided Mediport. IMPRESSION: No cervical adenopathy in this patient with history of lung cancer. No supraclavicular ad enopathy is seen. No suspicious osseous lesion.
== END | disposition home or self-care (01) ==
LOC: RADCTMAIN 09:42
PROVIDERS: ATTEND Internal Medicine Critical Care Medicine
DX: C34.90 Malignant neoplasm of unspecified part of unspecified bronchus or lung (principal)
CPT/HCPCS: 70491

== ENCOUNTER → 2019-10-11 | Outpatient (CLI) | payer MEDICARE, BC ==
[2019-10-11 10:36] LABS: African American GFR (CKD) >90 (>60 ml/min/1.73 sqM); Blood Urea Nitrogen 15 mg/dL (7-17)
--- NOTE | 2019-10-11 11:52 | CT ---
EXAMINATION TYPE: CT chest w con DATE OF EXAM: 10/11/2019 COMPARISON: Chest CTs of 06/09/2019 and 10/13/2017. HISTORY: History of lung cancer. No complaints at time of scan CT DLP: 455.4 mGycm. Automated Exposure Control for Dose Reduction was Utilized. TECHNIQUE: CT scan of the thorax is performed following with IV Contrast, patient injected with 100 mL of Isovue 300. FINDINGS: LUNGS: Postsurgical change and posttreatment changes seen in the right hilum. Consolidation in the ri ght middle lobe is likely postsurgical and atelectasis. This is difficult to measure as this abuts th e hemidiaphragm but overall appears similar in thickness to the prior. Within the posterior medial to right lung there is also a linear bandlike consolidation that appeared slightly hyperdense on the pr ior of 06/09/2019 and now appears hypoattenuated. This also appears smaller in thickness measuring 1.0 cm in thickness on image 32 and previously measuring up to 1.2 cm in greatest thickness. Trace right pleural effusion is also seen. Background advanced centrilobular and paraseptal emphysematous changes are present. There is interval enlargement of a left upper lobe pulmonary nodule on series 5 image 32 measuring 1. 0 x 0.8 cm on the current exam and previously measuring only 5 x 4 mm. MEDIASTINUM: There is a left-sided Mediport. There are no greater than 1 cm hilar or mediastinal lymp h nodes. No pericardial effusion is seen. Mild coronary calcifications are seen. No enlargement of the ascending thoracic aorta or main pulmonary artery. No central pulmonary embolus. Haziness throug hout the mediastinum is seen without discrete adenopathy, likely post radiation change. OTHER: There is low density of the hepatic parenchyma related to mild degree hepatic steatosis most c ommonly. This finding limits evaluation for hepatic masses although no gross hepatic masses seen on t cara's exam. The liver is not imaged in its entirety. Pneumobilia is again noted as well as right hem idiaphragm elevation, posttreatment change from right hemithorax volume loss. Left adrenal gland nodu le is similar measuring 1.5 cm. This does not have a Hounsfield unit compatible with a benign adenoma . Small hiatal hernia is seen. Moderate degenerative changes of the spine. Anterior osteophytes sugge sting diffuse atrophic silhouette hyperostosis. Diffuse osseous demineralization is also seen. IMPRESSION: 1. Definitive interval growth of a suspicious nodule on the left upper lobe pulmonary nodule measurin g up to 1.0 x [address] is recommended for this nodule. Percutaneous biopsy would be high risk g iven the advanced chronic emphysema. 2. Stable post therapy changes of the right hemithorax as detailed above. 3. Unchanged nonspecific left adrenal gland nodule (that does not fit criteria for a benign adenoma).
== END | disposition home or self-care (01) ==
LOC: RADCTMAIN 09:39
PROVIDERS: ATTEND Internal Medicine Hematology & Oncology
DX: Z03.89 Encounter for observation for other suspected diseases and conditions ruled out (principal); C34.31 Malignant neoplasm of lower lobe, right bronchus or lung; Z88.0 Allergy status to penicillin; Z98.890 Other specified postprocedural states
CPT/HCPCS: 82565; 84520; 71260; Q9967

== ENCOUNTER → 2019-11-24 | Outpatient (CLI) | payer MEDICARE, BC ==
--- NOTE | 2019-11-24 15:50 | XR ---
EXAMINATION TYPE: XR chest 2V DATE OF EXAM: 11/24/2019 COMPARISON: 10/11/2019 TECHNIQUE: PA and lateral views submitted. HISTORY: Lung cancer FINDINGS: Diffuse emphysematous changes are noted. Mediport catheter noted with no pneumothorax. Bilateral area s of vague consolidation are seen. No sizable pleural effusion or pneumothorax. Left upper lobe pulmo nary nodule noted by CT scan not as well-seen by standard x-ray. Heart size is prominent but stable. Degenerative change of the spine. Hyperinflation suggests COPD. IMPRESSION: 1. Vague areas of subsegmental consolidation may been the basis of atelectasis or infiltrate correlat e clinically. 2. Left upper lobe nodule not as well-seen by standard chest x-ray as reported by previous CT scan.
== END | disposition home or self-care (01) ==
LOC: RADXRMAIN 15:26
PROVIDERS: ATTEND Internal Medicine Hematology & Oncology
DX: C34.31 Malignant neoplasm of lower lobe, right bronchus or lung (principal); R91.8 Other nonspecific abnormal finding of lung field; J43.9 Emphysema, unspecified; M79.7 Fibromyalgia
CPT/HCPCS: 71046

== ENCOUNTER → 2019-12-31 | Outpatient (CLI) | payer MEDICARE, BC ==
--- NOTE | 2020-01-03 07:11 | PE ---
EXAMINATION TYPE: PET CT fusion skull to thigh DATE OF EXAM: 12/31/2019 COMPARISON: Chest CT October 11, 2019 and older CTs. Prior PET/CT April 18, 2017 HISTORY: Lung cancer progress study. Originally diagnosed 2017 with radiation and chemotherapy treatm ent. TECHNIQUE: Following the intravenous administration of 11.65mCi of F-18 FDG, whole body images are p erformed from the skull base to the midthigh. Images are reviewed on the computer in the coronal, ax ial, and sagittal planes. Reconstructed rotating images are created on independent workstation and r eviewed on the computer. A localization and attenuation correction CT is performed in conjunction w ith the PET scan. SCAN: Subsequent Scan FINDINGS: SKULL BASE AND NECK: No new areas of suspicious hypermetabolic uptake. Area of prior hypermetabolic uptake midline near the level of thyroid gland is not identified on current study. CHEST, MEDIASTINUM, AND HILAR REGION: No areas of recurrent or residual hypermetabolic uptake right s upraclavicular region, right paratracheal region along with right hilar and subcarinal levels. Backgr ound moderate to advanced underlying emphysematous change is redemonstrated. Surgical changes anterio r right lung base with sutures is now noted. There are air bronchograms centrally right infrahilar le marimar extending into the middle and lower lobes. There is trace right pleural effusion on current study . No abnormal hypermetabolic uptake. There is however hypermetabolic uptake in the new suspicious 1.1 x 1.0 cm left mid lung nodule axial image 78, max SUV is 3.44. ABDOMEN AND PELVIS: Prominent excretion in both kidneys. Stable 1.5 cm low dense left adrenal mass th at is ametabolic. No new areas of suspicious hypermetabolic uptake. OSSEOUS STRUCTURES: No new areas of suspicious hypermetabolic uptake. OTHER CT: Stable left internal jugular Mediport catheter terminating in SVC. Coronary artery calcific ation is present which is noted marked underlying coronary artery disease. Small hiatal hernia. Redemonstration of central pneumobilia. Gallbladder not visualized presumed surgically absent. Postsu rgical changes distal stomach with bowel anastomosis redemonstrated. Calcified fibroid uterus. Mild c alcified plaque of aorta extends into branch vessels. Moderate disc space narrowing L4-L5 and L5-S1 levels with some facet arthropathy. IMPRESSION: Abnormal hypermetabolic uptake is confirmed in the enlarging left mid lung 1.1 cm nodule consistent with active neoplastic recurrence.
== END | disposition home or self-care (01) ==
LOC: RADPETMAIN 08:46
PROVIDERS: ATTEND Internal Medicine Critical Care Medicine
DX: C34.82 Malignant neoplasm of overlapping sites of left bronchus and lung (principal)
CPT/HCPCS: 78815; A9552

== ENCOUNTER → 2020-03-27 | Outpatient (CLI) | payer MEDICARE, BC ==
[2020-03-27 12:17] LABS: African American GFR (CKD) >90 (>60 ml/min/1.73 sqM); Blood Urea Nitrogen 14 mg/dL (7-17); Non-African American GFR(CKD) 89 (>60 ml/min/1.73 sqM)
--- NOTE | 2020-03-27 13:09 | CT ---
EXAMINATION TYPE: CT chest w con DATE OF EXAM: 03/27/2020 COMPARISON: 10/11/2019 HISTORY: Follow up scan. Lung cancer CT DLP: 364 mGycm, Automated exposure control for dose reduction was used. CONTRAST: Performed injected with 100 mL of Isovue 300. TECHNIQUE: Axial images were obtained at 5 mm thick sections. Reconstructed images are reviewed on [employer] computer in the coronal plane. FINDINGS: Portion of the thyroid visualized is normal. Emphysematous changes are present. Some mild increased linear opacities are in the posterior medial l eft apex. There is a 0.7 x 1.3 cm area within the anterior left upper lung field. This has enlarged f rom comparison. Series 4 image 21 on lung windows. Mild increased pneumonitis changes within the righ t posterior midlung. Series 4 image 23. Additional areas of pneumonitis change within the right middl e lobe. Series 4 image 27-28. There is collapse and air bronchograms within the right middle lobe. Postsurgical changes also presen t. This area appears stable from 10/11/2019. There is a 1.0 cm lymph node in the pretracheal space. Series 3 image 20. The ascending aorta diamet er at the level of the main pulmonary artery is 3.7 cm. The main pulmonary artery diameter at the bi furcation is 2.[address] sections are obtained through the upper abdomen. Small amount of biliary air is present. L eft adrenal gland is thickened at 1.6 cm. IMPRESSIONS: 1. Slight increased size of the pneumonitis change within the left upper lung field. This was positiv e on the most recent PET scan at 12/31/2019. 2. Right middle lobe postsurgical changes appear stable. 3. Stable 1.0 cm lymph node pretracheal space.
== END | disposition home or self-care (01) ==
LOC: RADPROMAIN 11:14
PROVIDERS: ATTEND Internal Medicine Hematology & Oncology
DX: C34.31 Malignant neoplasm of lower lobe, right bronchus or lung (principal); Z88.0 Allergy status to penicillin; J18.9 Pneumonia, unspecified organism; R59.9 Enlarged lymph nodes, unspecified; Z98.890 Other specified postprocedural states
CPT/HCPCS: 82565; 84520; 71260; 36415; Q9967

== ENCOUNTER → 2020-08-09 | Outpatient (CLI) | payer MEDICARE, BC ==
[2020-08-09 14:25] LABS: African American GFR (CKD) >90 (>60 ml/min/1.73 sqM); Blood Urea Nitrogen 11 mg/dL (7-17); Non-African American GFR(CKD) 80 (>60 ml/min/1.73 sqM)
--- NOTE | 2020-08-09 15:25 | CT ---
EXAMINATION TYPE: CT chest abdomen w con DATE OF EXAM: 08/09/2020 COMPARISON: Most recent chest CT March 27, 2020 and older studies. Prior PET/CT December 31, 2019 and older study 2017. HISTORY: History of right-sided lung cancer diagnosed 2017 treated with surgery radiation and chemoth erapy. CT DLP: 990.5 mGycm. Automated Exposure Control for Dose Reduction was Utilized. CONTRAST: CT scan of the thorax and abdomen are performed with oral and with IV Contrast, patient injected with 100 mL of Isovue M300. FINDINGS: LUNGS: Bilateral moderate to advanced underlying emphysematous changes redemonstrated. Tiny right ple ural fluid collection on current study redemonstrated. Persistent scarring right hilar level extendin g inferiorly. Persistent focal surgical change and scarring anterior right lung base. Persistent righ t-sided volume loss. Prior visualized suspicious anterior left upper lung nodule is now slightly smaller and less well-def ined measuring 8 x 7 mm axial image 19. No new nodules or masses are present bilaterally. No pleural effusion or pneumothorax is seen. MEDIASTINUM: There are no new greater than 1 cm hilar or mediastinal lymph nodes. No cardiomegaly o r pericardial effusion is seen. OTHER: Stable left internal jugular Mediport catheter terminates in SVC. LIVER/GB: Pneumobilia is redemonstrated. Gallbladder noted surgically absent. PANCREAS: Resected pancreatic head once again demonstrated. SPLEEN: No significant abnormality is seen. ADRENALS: Stable 1.5 cm left adrenal mass axial image 50 back through 2017 study. KIDNEYS: No significant abnormality is seen. BOWEL: Oral contrast does not reach colonic level. No suspicious small or large bowel dilatation. LYMPH NODES: No greater than 1cm abdominal lymph nodes are appreciated. OSSEOUS STRUCTURES: Multilevel spurring in the spine. Disc space narrowing lumbosacral junction. OTHER: Suspected ventral wall hernia repair through the mid abdomen centrally. Mild to moderate mixed plaque in the aorta extends into branch vessels. IMPRESSION: Diminished size and prominence to the nonspecific area of concern roughly 1 cm left upper lung nodule. Stable posttreatment changes to the right lung. No new suspicious nodules or masses emeka yuriy identified.
== END | disposition home or self-care (01) ==
LOC: RADCTMAIN 13:52
PROVIDERS: ATTEND Internal Medicine Critical Care Medicine
DX: R91.1 Solitary pulmonary nodule (principal); Z98.890 Other specified postprocedural states; C34.90 Malignant neoplasm of unspecified part of unspecified bronchus or lung; K21.9 Gastro-esophageal reflux disease without esophagitis
CPT/HCPCS: 82565; 84520; 71260; 74160; 36415; Q9967 ×2

== ENCOUNTER 2020-08-22 11:20 | Day surgery (SDC) | payer MEDICARE, BC ==
[2020-08-20 16:41] VITALS: BMI 29.5
[2020-08-22 11:52] VITALS: BP 164/75; PULSE 81; TEMP 98.5
--- NOTE | 2020-09-14 09:46 | IR ---
Fluoroscopic portogram([facility]). HISTORY: Device malfunction. The patient presented to the [facility] with a Mccain needle within the port. Preliminary fluoroscopy demonst rated the catheter to be intact. 0.2 minutes of fluoroscopy. No aspirate could be obtained from th e catheter and therefore injection could not be performed. There is ectasia of the catheter extending up into the left neck with curvature. The tip of the catheter does appear to be overlying the region of the SVC. Correlate clinically. IMPRESSION: 1. See above.
== END 2020-08-22 12:33 | disposition home or self-care (01) ==
LOC: CATHCVL 11:20
PROVIDERS: ATTEND Radiology Diagnostic Radiology
DX: T85.618A Breakdown (mechanical) of other specified internal prosthetic devices, implants and grafts, initial encounter (principal); C34.31 Malignant neoplasm of lower lobe, right bronchus or lung; C34.90 Malignant neoplasm of unspecified part of unspecified bronchus or lung; J43.9 Emphysema, unspecified; M79.7 Fibromyalgia; A69.20 Lyme disease, unspecified; I10 Essential (primary) hypertension; E89.0 Postprocedural hypothyroidism; Z79.899 Other long term (current) drug therapy; Z79.52 Long term (current) use of systemic steroids; Z79.890 Hormone replacement therapy; Z88.0 Allergy status to penicillin; Z90.89 Acquired absence of other organs; Z98.890 Other specified postprocedural states; Z87.19 Personal history of other diseases of the digestive system; Z90.2 Acquired absence of lung [part of]; Z86.19 Personal history of other infectious and parasitic diseases; Z87.891 Personal history of nicotine dependence; Z78.0 Asymptomatic menopausal state; Z80.0 Family history of malignant neoplasm of digestive organs
CPT/HCPCS: 36598

== ENCOUNTER 2020-09-27 15:56 | Day surgery (SDC) | payer MEDICARE, BC ==
--- NOTE | 2020-09-27 07:39 | P.GSHP ---
History of Present Illness H&P Date: 09/27/20 CHIEF COMPLAINT: Lung cancer HISTORY OF PRESENT ILLNESS: The patient is a 70-year-old female diagnosed with lung cancer. She had a Mediport placement. She presents for Port-A-Cath removal upon completion of her chemotherapy. PAST MEDICAL HISTORY: Breast cancer. PAST SURGICAL HISTORY: Breast biopsy. CURRENT MEDICATIONS: See list. ALLERGIES: See list. SOCIAL HISTORY: See list. FAMILY HISTORY: See list. REVIEW OF ORGAN SYSTEMS: CONSTITUTIONAL: Denies any fever or chills. Denies recent weight loss or weight gain. HEENT: Denies any trouble with vision, hearing or nosebleeds. No difficulty swallowing. PHYSICAL EXAMINATION: Vital signs: Stable GENERAL: Well developed female and in no acute distress. Pleasant. HEENT: No sclera icterus. Extraocular movements grossly intact. Moist buccal mucosa. Head is atraumatic, normocephalic. Hears conversational speech. No nasal drainage. NECK: Supple without lymphadenopathy. No JV distention. CHEST: Non-labored respirations and equal bilateral excursions. CARDIOVASCULAR: Regular rate and rhythm. Palpable 2+ radial pulses. ABDOMEN: Nontender. MUSCULOSKELETAL: No clubbing, cyanosis or edema. NEUROLOGIC: No focal or lateralizing signs. PSYCH: Appropriate affect. Alert and oriented to person, place and time. ASSESSMENT: 1. Lung cancer 2. Need for chemotherapeutic access. PLAN: 1. Agree with Port-A-Cath Past Medical History Past Medical History: Cancer, COPD, Fibromyalgia, GERD/Reflux, Hypertension, Thyroid Disorder Additional Past Medical History / Comment(s): Pancreatic tumor 2006, had Whipple; hx benign tumor Thyroid. 2017 Lung cancer-had sx, chemo and radiation. Tick bite 20 years ago, lyme's disease. History of Any Multi-Drug Resistant Organisms: ESBL Date of last positivie culture/infection: 08/19/17 MDRO Source:: ESBL URINE Past Surgical History: Adenoidectomy, Breast Surgery, Hernia Repair, Tonsillectomy Additional Past Surgical History / Comment(s): Bronchoscopy, mediastinoscopy w/biopsy in March 2017, right partial lobectomy @[facility] 05-05-17, mediport lt upper chest. RT BREAST x 3 bx-neg. BILAT CATARACTS REMOVED. WHIPPLE 2006. Total Thyroidectomy. THYROIDECTOMY. VOCAL CORD SX Past Anesthesia/Blood Transfusion Reactions: Previous Problems w/ Anesthesia Additional Past Anesthesia/Blood Transfusion Reaction / Comment(s): Told I have "very skinny windpipe," difficult intubation. WOKE UP DURING CATARACT SURGERY. Past Psychological History: No Psychological Hx Reported Smoking Status: Former smoker Past Alcohol Use History: None Reported Additional Past Alcohol Use History / Comment(s): started smoking at age 12, quit smoking 2007, smoked 3ppd , recovering alcoholic-hasn't drank in 35 yrs. Past Drug Use History: None Reported - Past Family History Mother Family Medical History: Deep Vein Thrombosis (DVT) Father Family Medical History: Cancer Additional Family Medical History / Comment(s): lung cancer Medications and Allergies Home Medications Medication Instructions Recorded Confirmed Type Levothyroxine Sodium [Synthroid] 125 mcg PO QAM 03/31/17 09/25/20 History Losartan Potassium [Cozaar] 50 mg PO HS 03/31/17 09/25/20 History Acetaminophen Tab [Tylenol] 325 mg PO Q4H PRN 08/20/20 09/25/20 History Omeprazole [PriLOSEC] 20 mg PO HS 08/20/20 09/25/20 History Opdivo Infusion (Unknown Dose) 1 dose IV Q30D 08/20/20 09/25/20 History diphenhydrAMINE [Benadryl] 25 mg PO HS 08/20/20 09/25/20 History Cholecalciferol [Vitamin D3 (25 1 tab PO DAILY 09/25/20 09/25/20 History Mcg = 1000 Iu)] Flaxseed Oil 1,200 mg PO DAILY 09/25/20 09/25/20 History Allergies Allergy/AdvReac Type Severity Reaction Status Date / Time Penicillins Allergy Anaphylaxis Verified 09/25/20 10:52 ethanol alcohol AdvReac avoids Uncoded 09/25/20 10:52 drinking alcohol (recovering alcoholic)
[~2020-09-27 15:56] MED LIST changes: +DEXAMETHASONE SOD PHOSPHATE 10 MG/ML 1 ML VIAL IV ONE; -HEPARIN SODIUM,PORCINE 100 UNIT/ML 5 ML VIAL IV ONE; +HYDROmorphone 0.5 MG/0.5 ML SYRINGE IVP PRN; -IOHEXOL 350 MG/ML 50ML BOTTLE MISCELLANE ONE; +LACTATED RINGERS 1,000 ML IV SCH; -LIDOCAINE (PF) 10 MG/ML 2 ML VIAL SQ ONE; +ONDANSETRON 4 MG/2 ML VIAL IVP ONE
[2020-09-27] MEDS ORDERED: LIDOCAINE 1% (10MG/ML) FOR IV START INTRADERMA ONE (16:43)
[2020-09-27] MEDS ORDERED: MIDAZOLAM 2 MG/2 ML VIAL IV ONE (16:46)
[2020-09-27 16:53] VITALS: BP 149/79; PULSE 85; RESP 18; TEMP 98.9
--- NOTE | 2020-09-27 17:05 | P.HPADDEND ---
H&P Addendum H&P Addendum Date: 09/27/20 Patient reports first port placed on the left side not working. Port has not worked in 3 years. Patient was here for port removal. She reported port placement on the right side is being requested. As case was scheduled initially for port removal after hours, now with port placement, additional resources needed. Patient rescheduled for port placement for different day
--- NOTE | 2020-09-28 21:19 | P.PCN ---
Date of Procedure: 09/28/20 Description of Procedure: No procedures done for 09/27/20
== END 2020-09-27 17:22 | disposition home or self-care (01) ==
LOC: OR 15:56
PROVIDERS: ATTEND Surgery Plastic and Reconstructive Surgery
DX: C34.10 Malignant neoplasm of upper lobe, unspecified bronchus or lung (principal); Z53.8 Procedure and treatment not carried out for other reasons
CPT/HCPCS: J2250; J1100; J2405

== ENCOUNTER 2020-10-04 10:11 | Day surgery (SDC) | payer MEDICARE, BC ==
[2020-10-03 08:21] VITALS: BMI 29.0
--- NOTE | 2020-10-04 09:07 | P.GSHP ---
History of Present Illness H&P Date: 10/04/20 CHIEF COMPLAINT: Lung cancer HISTORY OF PRESENT ILLNESS: The patient is a 70-year-old female diagnosed with lung cancer. She needs a Mediport placement for chemotherapy. Separately she has a malfunctioning port that needs removal. PAST MEDICAL HISTORY: See list PAST SURGICAL HISTORY: See list CURRENT MEDICATIONS: See list. ALLERGIES: See list. SOCIAL HISTORY: See list. FAMILY HISTORY: See list. REVIEW OF ORGAN SYSTEMS: CONSTITUTIONAL: No fevers chills. PHYSICAL EXAMINATION: Vital signs: Stable GENERAL: Well developed and in no acute distress. Pleasant. HEENT: No sclera icterus. Extraocular movements grossly intact. Moist buccal mucosa. Head is atraumatic, normocephalic. Hears conversational speech. No nasal drainage. NECK: Supple without lymphadenopathy. No JV distention. CHEST: Non-labored respirations and equal bilateral excursions. CARDIOVASCULAR: Regular rate and rhythm. Palpable 2+ radial pulses. ABDOMEN: Nontender. MUSCULOSKELETAL: No clubbing, cyanosis or edema. NEUROLOGIC: No focal or lateralizing signs. PSYCH: Appropriate affect. Alert and oriented to person, place and time. ASSESSMENT: 1. Lung cancer 2. Need for chemotherapeutic access. PLAN: 1. Agree with Port-A-Cath placement with removal of nonfunctioning port along the left internal jugular vein Past Medical History Past Medical History: Cancer, COPD, Fibromyalgia, GERD/Reflux, Hypertension, Thyroid Disorder Additional Past Medical History / Comment(s): Pancreatic tumor 2006, had Whipple; hx benign tumor Thyroid. 2017 Lung cancer-had sx, chemo and radiation. Tick bite 20 years ago, lyme's disease. History of Any Multi-Drug Resistant Organisms: ESBL Date of last positivie culture/infection: 08/19/17 MDRO Source:: ESBL URINE Past Surgical History: Adenoidectomy, Breast Surgery, Hernia Repair, Tonsillectomy Additional Past Surgical History / Comment(s): Bronchoscopy, mediastinoscopy w/biopsy in March 2017, right partial lobectomy @[facility] 05-05-17, mediport lt upper chest. RT BREAST x 3 bx-neg. BILAT CATARACTS REMOVED. WHIPPLE 2006. Total Thyroidectomy. THYROIDECTOMY. VOCAL CORD SX Past Anesthesia/Blood Transfusion Reactions: Previous Problems w/ Anesthesia Additional Past Anesthesia/Blood Transfusion Reaction / Comment(s): Told I have "very skinny windpipe," difficult intubation. WOKE UP DURING CATARACT SURGERY, and was aware during breast sx Smoking Status: Former smoker - Past Family History Mother Family Medical History: Deep Vein Thrombosis (DVT) Father Family Medical History: Cancer Additional Family Medical History / Comment(s): lung cancer Medications and Allergies Home Medications Medication Instructions Recorded Confirmed Type Levothyroxine Sodium [Synthroid] 125 mcg PO QAM 03/31/17 10/03/20 History Losartan Potassium [Cozaar] 50 mg PO HS 03/31/17 10/03/20 History Acetaminophen Tab [Tylenol] 325 mg PO Q4H PRN 08/20/20 10/03/20 History Omeprazole [PriLOSEC] 20 mg PO HS 08/20/20 10/03/20 History Opdivo Infusion (Unknown Dose) 1 dose IV Q30D 08/20/20 10/03/20 History diphenhydrAMINE [Benadryl] 25 mg PO HS 08/20/20 10/03/20 History Cholecalciferol [Vitamin D3 (25 1 tab PO DAILY 09/25/20 10/03/20 History Mcg = 1000 Iu)] Flaxseed Oil 1,200 mg PO DAILY 09/25/20 10/03/20 History Allergies Allergy/AdvReac Type Severity Reaction Status Date / Time Penicillins Allergy Anaphylaxis Verified 10/03/20 08:18 ethanol alcohol AdvReac avoids Uncoded 10/03/20 08:18 drinking alcohol (recovering alcoholic)
[~2020-10-04 10:11] MED LIST changes: -DEXAMETHASONE SOD PHOSPHATE 10 MG/ML 1 ML VIAL IV ONE; +DEXAMETHASONE SOD PHOSPHATE 4 MG/ML 1 ML VIAL IV ONE; +LIDOCAINE 1% (10MG/ML) FOR IV START INTRADERMA PRN
[2020-10-04 11:11] VITALS: RESP 18; TEMP 98.6
[2020-10-04] MEDS ORDERED: MIDAZOLAM 2 MG/2 ML VIAL IVP ONE ×2 (11:23→11:28)
[2020-10-04] MEDS ORDERED: KETAMINE 10 MG/ML 20 ML VIAL ONE (11:39)
[2020-10-04] MEDS ORDERED: PROPOFOL 10 MG/ML 20 ML VIAL IV ONE (11:39)
[2020-10-04] MEDS ORDERED: fentaNYL (PF) 50 MCG/ML 2 ML AMP ONE (11:39)
[2020-10-04] MEDS ORDERED: MIDAZOLAM 2 MG/2 ML VIAL ONE (11:39)
[2020-10-04] MEDS ORDERED: HEPARIN SODIUM,PORCINE 100 UNIT/ML 5 ML VIAL IV ONE ×3 (11:58→12:52)
[2020-10-04] MEDS ORDERED: BUPIVACAINE (PF) 0.25% 30 ML VIAL SQ ONE ×3 (11:59→12:13)
[2020-10-04] MEDS ORDERED: SODIUM CHLORIDE 0.9% 500 ML 500 ML with HEPARIN SODIUM,PORCINE 5,000 UNIT IV ONE ×2 (12:20)
[2020-10-04] MEDS ORDERED: LACTATED RINGERS 1,000 ML IV ONE (12:44)
--- NOTE | 2020-10-04 13:14 | FL ---
EXAMINATION TYPE: FL guided central line placemt HISTORY: Fluoroscopy time Impression: 1. Fluoroscopy support provided to the referring physician. 3 seconds of fluoroscopy provided.
--- NOTE | 2020-10-04 13:35 | P.OP ---
Date of Procedure: 10/04/20 Description of Procedure: SURGEON: ESSENCE SUAREZ MD SCIENTIFIC PUBLICATIONS EDITOR: None. PREOPERATIVE DIAGNOSES: 1. Right lower lobe lung carcinoma 2. Need for chemotherapeutic access. 3. Chronic obstructive lung disease 4. Malfunctioning left internal jugular vein Port-A-Cath 5. Hypertensive heart disease 6. Hypothyroidism 7. Gastroesophageal reflux disease 8. History of pancreatic tumor POSTOPERATIVE DIAGNOSES: 1. Right lower lobe lung carcinoma 2. Need for chemotherapeutic access. 3. Chronic obstructive lung disease 4. Malfunctioning left internal jugular vein Port-A-Cath 5. Hypertensive heart disease 6. Hypothyroidism 7. Gastroesophageal reflux disease 8. History of pancreatic tumor PROCEDURES PERFORMED: 1. Ultrasound guided central venous access of the right internal jugular venous vein. 2. Fluoroscopic guidance for central venous access right internal jugular vein and removal of left internal jugular vein Port-A-Cath, 3 seconds 3. Placement of right internal jugular power port 6 Cymraes by AngiodynamSaqina, Xcela Plus Port 4. Removal of left internal jugular Port-A-Cath ANESTHESIA: IV sedation with local. ESTIMATED BLOOD LOSS: 2 mL. SPECIMENS REMOVED: None. COMPLICATIONS: None. INDICATIONS: The patient is a 70-year-old female with lung cancer. She has history of malfunctioning left internal jugular vein Port-A-Cath. She presents for chemotherapeutic access. Benefits and risks of surgical intervention were described including bleeding, infection, mechanical problems with his port. Informed consent was obtained. DESCRIPTION OR PROCEDURE: Patient was brought into the operating room, laid in supine position. After adequate IV sedation, the chest and right neck were prepped and draped in a standard sterile fashion including the shoulder with ChloraPrep. Timeout protocol was confirmed with the surgical team regarding the patient's name, procedure to be performed including preoperative medications for which she received IV antibiotics. Bilateral SCDs were placed. An ultrasound was used to capture views of the right internal jugular vein including right carotid artery, which was patent and without thrombus along its course. The right IJ was then localized using anesthetic for the skin. A 16 Cymraes needle was used to access the IJ. A guidewire was advanced into the IJ with dark nonpulsatile venous blood. Two fingerbreadths distal to the clavicle, on the lateral third, a transverse 1.5 to 2 cm incision was deepened into the skin after localizing the skin. A pocket was created for the port. The port on the back table was flushed with heparinized saline and then attached to the catheter tubing. An adapter was fastened to the actual port site over the tubing. The port easily had fit snug into the pocket. A subcutaneous tunneler was placed along the open end of the tubing and brought out through the separate stab incision. Fluoroscopic guidance confirmed no kinking along the tubing and the port site. Next, the J-wire was exchanged for a catheter sheath for which the tubing was cut to 40 cm marking (20 cm length) and then advanced through the catheter sheath. The Peel-away sheath was then removed and the tubing was secured at the junction of the superior vena cava as well as the right atrium. The tubing was found to be crossed however functional. This was all done under fluoroscopic guidance under 1 seconds. Easy pullback as well as return and aspiration was obtained of the port site. The skin incision was closed using layers using 3-0 Vicryl for the subcu followed by 4-0 Monocryl in a running subcuticular fashion. At the stick site this was also reapproximated using 4-0 Monocryl. The incisions were covered with Optifoam, The skin was cleansed and Exofin liquid glue was applied. Optifoam dressing was placed over the port site. Attention was brought to the left Port-A-Cath site which was localized with anesthetic. Attention was brought to the area of the port site, whereby a total of 30 mL of local was infiltrated into the skin for a field block. A #15 blade was used to incise along the previous cicatrix. Electro- Bovie cautery was used to control for hemostasis. Adhesions were lysed around the Mediport. The port was extracted without sequelae under fluoroscopy. Pressure for 2 minutes was placed along the internal jugular vein. Hemostasis was checked along the pocket of the Port-A-Cath site. The wound was closed in layers using 3-0 Vicryl for the deep subcutaneous tissues followed by 4-0 Monocryl in a running subcuticular fashion. Exofin was applied to the skin. Once dried a 4 x 4 Optifoam was applied. At the end of the procedure, needle, sponge, and instrument count was verified correct by surgical lead. Heparin lock of 5 mL was placed. The patient was awoken and pain free and taken to the second stage postanesthesia care unit. The patient tolerated the procedure well. FINDINGS: 1. No thrombus encountered along the right carotid artery or internal jugular vein. 2. Access of the right internal jugular vein under ultrasound guidance. 3. Unremarkable extraction of left internal jugular vein Port-A-Cath Plan - Discharge Summary Discharge Rx Participant: No New Discharge Prescriptions: New Acetaminophen [Tylenol] 325 mg PO Q4H #30 tab Continue Levothyroxine Sodium [Synthroid] 125 mcg PO QAM Losartan Potassium [Cozaar] 50 mg PO HS diphenhydrAMINE [Benadryl] 25 mg PO HS Omeprazole [PriLOSEC] 20 mg PO HS Acetaminophen Tab [Tylenol] 325 mg PO Q4H PRN PRN Reason: Pain Opdivo Infusion (Unknown Dose) 1 dose IV Q30D Cholecalciferol [Vitamin D3 (25 Mcg = 1000 Iu)] 1 tab PO DAILY Flaxseed Oil 1,200 mg PO DAILY Discharge Medication List Levothyroxine Sodium [Synthroid] 125 mcg PO QAM 03/31/17 [History] Losartan Potassium [Cozaar] 50 mg PO HS 03/31/17 [History] Acetaminophen Tab [Tylenol] 325 mg PO Q4H PRN 08/20/20 [History] Omeprazole [PriLOSEC] 20 mg PO HS 08/20/20 [History] Opdivo Infusion (Unknown Dose) 1 dose IV Q30D 08/20/20 [History] diphenhydrAMINE [Benadryl] 25 mg PO HS 08/20/20 [History] Cholecalciferol [Vitamin D3 (25 Mcg = 1000 Iu)] 1 tab PO DAILY 09/25/20 [History] Flaxseed Oil 1,200 mg PO DAILY 09/25/20 [History] Acetaminophen [Tylenol] 325 mg PO Q4H #30 tab 10/04/20 [Rx] Follow up Appointment(s)/Referral(s): Essence Suarez MD [STAFF PHYSICIAN] - As Needed Patient Instructions/Handouts: *Surgery [facility] - (Anesthesia) Discharge Instructions Outpatient Surgery, Implanted Venous Access Port (DC), Central Line Removal (DC) Activity/Diet/Wound Care/Special Instructions: Remove dressing on Oct 09. May shower. No bathtub soaks for 2 weeks, Oct 18 No wide motions of the right arm to prevent dislodge of your port for 2 weeks, Oct 18 EXPECT BRUISING AND SLEEP WITH 2 TO 3 PILLOWS. BRUISING RESOLVES IN 2 TO 3 WEEKS. Take Tylenol, Aleve or ibuprofen for pain as needed Discharge Disposition: HOME SELF-CARE
[2020-10-04 13:36] VITALS: BP 126/75; PULSE 91
--- NOTE | 2020-10-04 13:46 | XR ---
EXAMINATION TYPE: XR chest 1V confirm line [facility] DATE OF EXAM: 10/04/2020 COMPARISON: 10/25/2019 HISTORY: Lung cancer TECHNIQUE: Single frontal view of the chest is obtained. FINDINGS: Right-sided Mediport catheter seen and there is increased density in the right hilum and r ight lower lobe. Underlying COPD and chronic pulmonary fibrosis suspected. No sizable pneumothorax. T ip of the catheter overlies the SVC. IMPRESSION: 1. COPD with chronic interstitial lung disease and right perihilar increased density similar to the p rior exam. 2. New right-sided Mediport catheter with the tip overlying the SVC and no pneumothorax.
== END 2020-10-04 14:09 | disposition home or self-care (01) ==
LOC: OR 10:11
PROVIDERS: ATTEND Surgery Plastic and Reconstructive Surgery
DX: T82.594A Other mechanical complication of infusion catheter, initial encounter (principal); C34.31 Malignant neoplasm of lower lobe, right bronchus or lung; J44.9 Chronic obstructive pulmonary disease, unspecified; I11.9 Hypertensive heart disease without heart failure; K21.9 Gastro-esophageal reflux disease without esophagitis; M79.7 Fibromyalgia; E89.0 Postprocedural hypothyroidism; Z87.19 Personal history of other diseases of the digestive system; Z88.0 Allergy status to penicillin; Z98.890 Other specified postprocedural states; Z92.21 Personal history of antineoplastic chemotherapy; Z92.3 Personal history of irradiation; Z86.19 Personal history of other infectious and parasitic diseases; Z90.89 Acquired absence of other organs; Z90.2 Acquired absence of lung [part of]; Z98.41 Cataract extraction status, right eye; Z98.42 Cataract extraction status, left eye; Z91.89 Other specified personal risk factors, not elsewhere classified; Z87.891 Personal history of nicotine dependence; Z79.890 Hormone replacement therapy; Z79.899 Other long term (current) drug therapy; Z97.2 Presence of dental prosthetic device (complete) (partial); Z82.49 Family history of ischemic heart disease and other diseases of the circulatory system; Z80.1 Family history of malignant neoplasm of trachea, bronchus and lung
CPT/HCPCS: 77001; 36561; 36590; C1788; J2250; J1644; J1642; J1100; J2405; J3010; J2704

== ENCOUNTER → 2020-11-19 | Outpatient (CLI) | payer MEDICARE, BC ==
[2020-11-19 09:20] LABS: African American GFR (CKD) >90 (>60 ml/min/1.73 sqM); Blood Urea Nitrogen 14 mg/dL (7-17); Non-African American GFR(CKD) 80 (>60 ml/min/1.73 sqM)
--- NOTE | 2020-11-19 11:17 | CT ---
EXAMINATION TYPE: CT chest w con DATE OF EXAM: 11/19/2020 COMPARISON: 08/09/2020 HISTORY: 70-year-old female C34.31, follow-up Lung cancer TECHNIQUE: Contiguous axial scanning of the chest after the administration of 100 ml mL of Isovue 300 . Coronal/sagittal reconstructions performed. CT DLP: 446mGycm. Automatic exposure control utilized for a dose reduction. FINDINGS: Heart upper limits of normal size without pericardial effusion. Ectatic ascending aorta at 3.5 cm with conventional arch vessel branching anatomy. Right anterior chest wall injection port with catheter tip at the cavoatrial junction. Moderate to advanced centrilobular emphysema. 8 mm lower pretracheal lymph node is unchanged. No new or progressive thoracic lymphadenopathy. Surgical material and postsurgical change right middle lobe. Volume loss and consolidation extending to the right infrahilar level and around the bronchus basalis is unchanged. Trace right pleural effusion remains, unchanged. No significant residual nodularity anterior left midlung as seen on 08/09/2020 or 03/27/2020 exams. Small hiatal hernia. Query prior hepaticojejunostomy with biliary air which is unchanged. Additional gastrojejunostomy partially seen. 1.7 cm left adrenal nodule is unchanged. Bones: DISH within the mid and lower thoracic spine with accentuated midthoracic kyphosis. IMPRESSION: 1. Stable surgical change in the right middle lobe with volume loss and consolidation extending up to the right infrahilar region and down the right bronchus basalis. Likely corresponds to site of treat ed disease and posttreatment change. No changes to suggest disease progression at this time. Trace ri ght pleural effusion also unchanged. 2. COPD with moderate to advanced emphysema.
== END | disposition home or self-care (01) ==
LOC: RADCTMAIN 08:24
PROVIDERS: ATTEND Internal Medicine Hematology & Oncology
DX: J43.9 Emphysema, unspecified (principal); C34.31 Malignant neoplasm of lower lobe, right bronchus or lung; J90 Pleural effusion, not elsewhere classified; Z88.0 Allergy status to penicillin
CPT/HCPCS: 82565; 84520; 71260; 36415; Q9967

== ENCOUNTER → 2020-12-31 | Outpatient (CLI) | payer MEDICARE, BC ==
--- NOTE | 2020-12-31 13:43 | MR ---
EXAMINATION TYPE: MR brain wo/w con DATE OF EXAM: 12/31/2020 12:53 PM COMPARISON: 05/19/2017 HISTORY: Lung cancer and confusion CONTRAST: Patient received 7.5 mL intravenous Gadavist gadolinium contrast. Multiplanar and multispin-echo imaging of the brain was performed . Pre and post contrast enhanced i mages are obtained. The ventricles, basal cisterns and sulci overlying the cerebral convexities are mildly enlarged. There is evidence of mild periventricular white matter ischemic demyelination. Remote deep white matter insults are also noted. No acute edema is seen on diffusion weighted imaging. There is no evidence for midline shift or mass effect. Acute intracranial hemorrhage or extra-axial collection is not evident. No enhancing lesions are seen. The paranasal sinuses and mastoid air cells are well-aerated. IMPRESSION: Age-related atrophic and chronic small vessel ischemic change. No acute intracranial process at this time. No enhancing lesions are seen.
== END | disposition home or self-care (01) ==
LOC: RADMRIMAIN 11:48
PROVIDERS: ATTEND Internal Medicine Hematology & Oncology
DX: G31.9 Degenerative disease of nervous system, unspecified (principal); I67.82 Cerebral ischemia; C34.31 Malignant neoplasm of lower lobe, right bronchus or lung; R41.0 Disorientation, unspecified
CPT/HCPCS: 70553; A9585

== ENCOUNTER → 2021-04-12 | Outpatient (CLI) | payer MEDICARE, BC ==
[2021-04-12 14:51] LABS: African American GFR (CKD) >90 (>60 ml/min/1.73 sqM); Blood Urea Nitrogen 12 mg/dL (7-17); Non-African American GFR(CKD) 90 (>60 ml/min/1.73 sqM)
--- NOTE | 2021-04-12 19:48 | CT ---
EXAMINATION TYPE: CT chest w con DATE OF EXAM: 04/12/2021 COMPARISON: 11/19/2020 HISTORY: f/u lung ca CT DLP: 506 mGycm Automated exposure control for dose reduction was used. TECHNIQUE: CT scan of the chest is performed with IV Contrast, patient injected with 100 mL of Isovue 300. MIP Images are created on CT scanner and reviewed. 3D reconstructed images are created on an independent workstation and reviewed. FINDINGS: LUNGS: Emphysematous changes are seen. There is interlobular septal thickening compatible with chroni c interstitial lung disease and there is areas of consolidation involving the left upper and lower lo be with groundglass changes. Calcific density involving the medial margin of the right upper lobe not ed and appears stable. Postsurgical changes are noted involving the right middle lobe with volume los s. MEDIASTINUM: There are no greater than 1 cm hilar or mediastinal lymph nodes. No pericardial effusi on is seen. OTHER: Mediport catheter noted. Stable pneumobilia. Hypodensity within the liver too small to charac terize but retrospectively stable from prior exam measuring 4 mm. Left adrenal nodule measures 1.7 cm and 46 Hounsfield units and is indeterminate. Hypertrophic and degenerative changes of the spine. Th ickening along the right hemidiaphragm stable from prior exam. Postsurgical change involving the stom ach and bowel are noted with a few prominent small bowel loops in the upper abdomen. Correlate for ga strojejunostomy. IMPRESSION: 1. Stable diffuse emphysematous and chronic interstitial lung disease suggestive of pulmonary fibrosi s. Stable postsurgical changes involving the right middle lobe with areas of consolidation unchanged from prior exam and therefore likely benign and related to posttreatment change. 2. Stable thickening of the right hemidiaphragm unchanged from prior exam. 3. Stable left adrenal nodule indeterminate by Hounsfield unit measurement. 4. Stable adenopathy in the peripancreatic space unchanged from prior exam with the maximal measureme nt of 1 cm in short axis. 5. Stable sub-5 mm hepatic lesion too small to characterize but stable from prior exam. Most likely b enign.
== END | disposition home or self-care (01) ==
LOC: RADPROMAIN 13:50
PROVIDERS: ATTEND Internal Medicine Hematology & Oncology
DX: C34.90 Malignant neoplasm of unspecified part of unspecified bronchus or lung (principal); J84.9 Interstitial pulmonary disease, unspecified; J43.9 Emphysema, unspecified
CPT/HCPCS: 82565; 84520; 71260; 36415; Q9967

== ENCOUNTER → 2021-09-05 | Outpatient (CLI) | payer MEDICARE, BC ==
--- NOTE | 2021-09-05 16:10 | CT ---
EXAMINATION TYPE: CT chest w con DATE OF EXAM: 09/05/2021 COMPARISON: Chest CT April 12, 2021 and older studies. HISTORY: h/o lung CA originally diagnosed 2017 CT DLP: 367.5 mGycm. Automated Exposure Control for Dose Reduction was Utilized. TECHNIQUE: CT scan of the thorax is performed following with IV Contrast, patient injected with 100 mL of Isovue 300. FINDINGS: LUNGS: Bilateral moderate to advanced underlying emphysematous change is redemonstrated. Tiny right p leural fluid collection on current study redemonstrated. Persistent scarring right hilar level extend ing anteriorly inferiorly redemonstrated. Persistent focal surgical change and scarring anterior righ t lung base. Persistent right-sided volume loss. Moderate focal scarring anterior left upper to mid lung at site of prior recurrent neoplasm or nodule axial image 19 is not significantly changed from most recent CT. No new or enlarging greater than 5 mm nodules or masses are present bilaterally. No pleural effusion or pneumothorax is seen. MEDIASTINUM: There are no new greater than 1 cm mediastinal lymph nodes. Prominent but subcentimeter bilateral hilar lymph nodes redemonstrated. Stable mild cardiomegaly. No pericardial effusion is seen . OTHER: Right internal jugular Mediport catheter terminates in right atrium on current study. Central pneumobilia is redemonstrated. Stable 1.7 cm left adrenal mass. Osseous structures are demineralized. Bridging osteophytes anteriorly and laterally are present. Resected pancreatic head redemonstrated. IMPRESSION: Moderate to advanced emphysematous change with posttreatment changes bilaterally redemons trated. No new suspicious mass or adenopathy to suggest active neoplastic recurrence. No significant change from most recent CT.
== END | disposition home or self-care (01) ==
LOC: RADCTMAIN 14:56
PROVIDERS: ATTEND Internal Medicine Hematology & Oncology
DX: J43.9 Emphysema, unspecified (principal); Z85.118 Personal history of other malignant neoplasm of bronchus and lung
CPT/HCPCS: 82565; 84520; 71260; 36415; Q9967

== ENCOUNTER → 2021-10-12 | Outpatient (CLI) | payer MEDICARE, BC ==
--- NOTE | 2021-10-12 15:27 | MR ---
EXAMINATION TYPE: MR brain wo/w con DATE OF EXAM: 10/12/2021 COMPARISON: 12/31/2020 HISTORY: Lung Cancer, Headache, Occular pain left eye CONTRAST: Performed utilizing 8 mL intravenous Gadavist gadolinium contrast. TECHNIQUE: Multiplanar, multiecho imaging on a 3.0 Rahel magnet is performed through the brain. Stud y is performed within 24 hours of arrival to the hospital. The craniovertebral junction is normal. The pituitary is normal. Diffusion-weighted imaging is performed. No abnormal hyperintensity is present to suggest an acute i ntracranial infarct or acute ischemic change. There are a few scattered punctate areas of hyperintensity on T2 and Inversion Recovery weighted sequ ences which are non-specific but can be related to microvascular ischemic changes. No suspicious changes to suggest metastatic lesions. Following contrast administration, no abnormal e nhancement is evident. Orbits appear normal. Suprasellar cistern is normal. No abnormality to account for left ocular pain. Ventricles and sulci are appropriate for the patient age. IMPRESSIONS: 1. Mild punctate white matter changes, likely on the basis of chronic white matter ischemic change. 2. No suspicious change to suggest metastatic disease.
== END ==
LOC: RADMRIMAIN 09:41
PROVIDERS: ATTEND Internal Medicine Hematology & Oncology
DX: C34.31 Malignant neoplasm of lower lobe, right bronchus or lung (principal); M54.50 Low back pain, unspecified; R51.9 Headache, unspecified; H57.12 Ocular pain, left eye
CPT/HCPCS: 70553; A9585

== ENCOUNTER → 2022-05-26 | Outpatient (CLI) | payer MEDICARE, BC ==
--- NOTE | 2022-05-27 04:12 | MR ---
EXAMINATION TYPE: MR brain wo/w con DATE OF EXAM: 05/26/2022 COMPARISON: 10/12/2021 HISTORY: Vertigo, hx lung cancer. CONTRAST: Standard multiplanar, multisequence MRI departmental protocol images were obtained without contrast a nd with 8 mL intravenous Gadavist gadolinium contrast. FINDINGS: The diffusion images show no sign of an acute infarct. There is mild cerebral cortical atrophy. There is no mass effect or midline shift. No sign of intracranial hemorrhage. There are scattered's tiny w yumiko matter high signal foci on the T2 and FLAIR images at the avila-white matter junction of the cere bral hemispheres that measure less than 3 mm. Total numbers less than 10. The brainstem is intact. Ce rebellum is intact. Corpus callosum is intact. Sella turcica appears normal. No evidence of orbital m ass. The contrast images show no pathologic enhancement. There is normal enhancement of the venous sinuses . IMPRESSION: Minimal white matter signal changes could relate to some microvascular ischemia with no adverse pickens e compared to old exam. No evidence of metastatic disease.
== END | disposition home or self-care (01) ==
LOC: RADMRIMAIN 10:17
PROVIDERS: ATTEND Internal Medicine Hematology & Oncology
DX: I67.82 Cerebral ischemia (principal)
CPT/HCPCS: 70553; A9585

== ENCOUNTER → 2022-07-02 | Outpatient (CLI) | payer MEDICARE, BC ==
[2022-07-02 15:22] LABS: African American GFR (CKD) >90 (>60 ml/min/1.73 sqM); Blood Urea Nitrogen 11 mg/dL (7-17); Non-African American GFR(CKD) >90 (>60 ml/min/1.73 sqM)
--- NOTE | 2022-07-02 16:57 | CT ---
EXAMINATION TYPE: CT chest w con DATE OF EXAM: 07/02/2022 COMPARISON: 03/03/2022 HISTORY: malignant neoplasm of lower lobe CT DLP: 393.80 mGycm, Automated exposure control for dose reduction was used. CONTRAST: Performed injected with 100 mL of Isovue 300. TECHNIQUE: Axial images were obtained at 5 mm thick sections. Reconstructed images are reviewed on [employer] computer in the coronal plane. FINDINGS: Portion of the thyroid visualized is normal. Infiltrate extends through the left anterior midlung. This was present previously. Some mild streak o pacities in the posterior right lower lung field appears stable. Right middle lobe consolidation and atelectasis is evident. Underlying mass could be considered at this level. This is stable from compar cordell. No enlarged mediastinal or hilar adenopathy is evident. The ascending aorta diameter at the level o f the main pulmonary artery is 3.5 cm. The main pulmonary artery diameter at the bifurcation is 3.[address] sections are obtained through the upper abdomen. Abdomen is essentially unremarkable. IMPRESSIONS: 1. Diffuse increased density especially noted in the right middle lobe are present within the posteri or right lung base and through the lingular region. Findings appear present previously and stable. 2. No suspicious changes to suggest recurrent or metastatic lung cancer. 3. Emphysematous changes remain present.
== END | disposition home or self-care (01) ==
LOC: RADCTMAIN 14:37
PROVIDERS: ATTEND Internal Medicine Hematology & Oncology
DX: C34.31 Malignant neoplasm of lower lobe, right bronchus or lung (principal); J43.9 Emphysema, unspecified
CPT/HCPCS: 82565; 84520; 71260; 36415; J1642; Q9967; 80053

== ENCOUNTER 2022-07-31 17:21 | Inpatient (IN) | payer MEDICARE, BC ==
[2022-07-31 18:07] LABS: Basophils % (A) 1 %; Eosinophils # (A) 0.3 k/uL (0-0.7); Eosinophils % (A) 5 %; HCT 40.1 % (34.0-46.0); HGB 12.7 gm/dL (11.4-16.0); Lymphocytes # (A) 0.2 k/uL (1.0-4.8); Lymphocytes % (A) 4 %; MCH 27.8 pg (25.0-35.0); MCHC 31.8 g/dL (31.0-37.0); MCV 87.4 fL (80.0-100.0); Mean Platelet Volume 7.1; Monocytes # (A) 0.3 k/uL (0-1.0); Monocytes % (A) 5 %; Neutrophils % (A) 85 %; Platelet Count 257 k/uL (150-450); RBC 4.59 m/uL (3.80-5.40); RDW 13.2 % (11.5-15.5); WBC 5.9 k/uL (3.8-10.6)
[2022-07-31 18:21] LABS: ALT 20 U/L (4-34); AST 28 U/L (14-36); African American GFR (CKD) >90 (>60 ml/min/1.73 sqM); Albumin 3.3 g/dL (3.5-5.0); Alkaline Phosphatase 127 U/L (38-126); Amylase 47 U/L (30-110); Anion Gap 10 mmol/L; Blood Urea Nitrogen 7 mg/dL (7-17); Calcium 7.4 mg/dL (8.4-10.2); Carbon Dioxide 23 mmol/L (22-30); Chloride 104 mmol/L (98-107); Creatine Kinase 38 U/L (30-135); Glucose 106 mg/dL (74-99); Lipase 51 U/L (23-300); Magnesium 1.7 mg/dL (1.6-2.3); Non-African American GFR(CKD) 86 (>60 ml/min/1.73 sqM); Potassium 3.7 mmol/L (3.5-5.1); Sodium 137 mmol/L (137-145); Total Bilirubin 0.2 mg/dL (0.2-1.3); Total Protein 6.1 g/dL (6.3-8.2)
--- NOTE | 2022-07-31 18:35 | XR ---
EXAM: Abdomen radiograph. HISTORY: Pain. TECHNIQUE: Supine and upright AP views of the abdomen. COMPARISON: None available FINDINGS: There are nondilated bowel loops with a nonobstructive pattern. There are no pathologic calcification s. No acute osseous abnormality seen. No pneumoperitoneum. Calcified fibroid noted. IMPRESSION: No acute process.
--- NOTE | 2022-07-31 18:38 | XR ---
Result: History: Low back pain. Comparison: None available. Technique: 5 views of the lumbar spine. Findings: The bone mineralization is normal. Images of the lumbar spine demonstrate 5 lumbar-type vertebrae. There is no acute fracture or sublux ation. The vertebral body heights are preserved throughout the imaged lumbar spine. The vertebral e lements are in anatomic alignment. There is moderate to severe disc height narrowing and facet arthr opathy at L4-S1. No definite pars defects. Impression: Degenerative changes without acute osseous abnormality.
[2022-07-31] MEDS ORDERED: HYDROmorphone 1 MG/ML 1 ML SYRINGE IVP STA (19:03)
--- NOTE | 2022-07-31 19:46 | ED ---
General Adult HPI - General Chief complaint: Urogenital Stated complaint: UTI back pain Time Seen by Provider: 07/31/22 17:28 Source: patient, EMS, RN notes reviewed Mode of arrival: EMS Limitations: no limitations - History of Present Illness Initial comments: 72-year-old female sent here for evaluation due to abdominal pain. She states she has had lower abdominal pain it radiates around to the back. Sharp in nature no trauma no recent heavy lifting. She was brought here from an urgent care she was noted have a blood pressure 90/56 initially she does have a history of small cell lung cancer several years ago which she believes is in remission right now. Also had a history of recent UTI. She has a fevers chills nausea vomiting sweats. She was given Toradol and morphine by paramedics which did totally resolve the pain. - Related Data Home Medications Medication Instructions Recorded Confirmed Losartan Potassium [Cozaar] 50 mg PO HS 03/31/17 12/03/21 Acetaminophen Tab [Tylenol] 325 - 650 mg PO Q4H PRN 08/20/20 12/03/21 Opdivo Infusion (Unknown Dose) 1 dose IV Q30D 08/20/20 12/03/21 Levothyroxine Sodium 100 mcg PO DAILY 12/03/21 Allergies Allergy/AdvReac Type Severity Reaction Status Date / Time Penicillins Allergy Anaphylaxis Verified 07/31/22 17:33 ethanol alcohol AdvReac avoids Uncoded 07/31/22 17:33 drinking alcohol (recovering alcoholic) Review of Systems ROS Statement: Those systems with pertinent positive or pertinent negative responses have been documented in the HPI. ROS Other: All systems not noted in ROS Statement are negative. Past Medical History Past Medical History: Cancer, COPD, Fibromyalgia, GERD/Reflux, Hypertension, Thyroid Disorder Additional Past Medical History / Comment(s): Pancreatic tumor 2006, had Whipple; hx benign tumor Thyroid. 2017 Lung cancer-had sx, chemo and radiation. Tick bite 20 years ago, lyme's disease. History of Any Multi-Drug Resistant Organisms: ESBL Date of last positivie culture/infection: 08/19/17 MDRO Source:: ESBL URINE Past Surgical History: Adenoidectomy, Breast Surgery, Hernia Repair, Tonsillectomy Additional Past Surgical History / Comment(s): Bronchoscopy, mediastinoscopy w/biopsy in March 2017, right partial lobectomy @[facility] 05-05-17, mediport lt upper chest. RT BREAST x 3 bx-neg. BILAT CATARACTS REMOVED. FREIDA 2007. Total Thyroidectomy. THYROIDECTOMY. VOCAL CORD SX Past Anesthesia/Blood Transfusion Reactions: Previous Problems w/ Anesthesia Additional Past Anesthesia/Blood Transfusion Reaction / Comment(s): Told I have "very skinny windpipe," difficult intubation. WOKE UP DURING CATARACT SURGERY, and was aware during breast sx Past Psychological History: No Psychological Hx Reported Smoking Status: Former smoker - Past Family History Mother Family Medical History: Deep Vein Thrombosis (DVT) Father Family Medical History: Cancer Additional Family Medical History / Comment(s): lung cancer General Exam - General Exam Comments Initial Comments: This is a well-developed well-nourished awake alert oriented 4 female Limitations: no limitations General appearance: alert, in no apparent distress Head exam: Present: atraumatic, normocephalic, normal inspection Eye exam: Present: normal appearance, PERRL, EOMI. Absent: scleral icterus, conjunctival injection, periorbital swelling ENT exam: Present: normal exam, mucous membranes moist Neck exam: Present: normal inspection, full ROM, other (stridor JVD or bruits). Absent: tenderness, meningismus, lymphadenopathy Respiratory exam: Present: normal lung sounds bilaterally. Absent: respiratory distress, wheezes, rales, rhonchi, stridor Cardiovascular Exam: Present: regular rate, normal rhythm, normal heart sounds. Absent: systolic murmur, diastolic murmur, rubs, gallop, clicks GI/Abdominal exam: Present: soft, normal bowel sounds. Absent: distended, tenderness, guarding, rebound, rigid, bruit, pulsatile mass Rectal exam: Present: deferred Extremities exam: Present: normal inspection, full ROM, normal capillary refill. Absent: tenderness, pedal edema, joint swelling, calf tenderness Back exam: Present: normal inspection Neurological exam: Present: alert, oriented X3, CN II-XII intact Psychiatric exam: Present: normal affect, normal mood Skin exam: Present: warm, dry, intact, normal color. Absent: rash Course Vital Signs 07/31/22 07/31/22 07/31/22 17:29 17:33 19:02 Temperature 98.7 F Pulse Rate 88 85 Respiratory 18 18 Rate Blood Pressure 134/66 127/73 O2 Sat by Pulse 89 L 95 92 L Oximetry 07/31/22 07/31/22 07/31/22 20:00 20:49 22:09 Temperature 98.4 F Pulse Rate 87 101 H 92 Respiratory 17 18 Rate Blood Pressure 137/72 128/79 O2 Sat by Pulse 94 L 96 Oximetry - Reevaluation(s) Reevaluation #1: 07/31/22 21:42 Repeat EKG after the patient complained of some indigestion sinus rhythm 85 AZ interval 210 QRS duration 80 QT since QTC 375/417 evidence of first-degree AV block RVH Reevaluation #2: 07/31/22 21:43 The patient was noted continuously redemonstrate desaturation into the 70s on room air 1 she walked to the bathroom origin or so. The patient will be admitted I did discuss the case with Dr. Dwyer. Also the patient and her . EKG Findings - EKG Results: EKG: interpreted by ESTEE, sinus rhythm (Sinus rhythm of 81. Interval 201 QRS duration 99 QT since QTC 397/434 indeterminate axis low-voltage) Medical Decision Making - Medical Decision Making Patient was noted be hypoxic on ambulation she does have a history of smoking she states she quit 15 years ago. She is short of breath with exertion. She also did complain of a couple episodes of "indigestion" initial EKG showed no acute findings initial troponin within normal limits d-dimer was mildly elevated patient will be admitted I did discuss case with Dr. Dwyer. UA is pending at this time as his repeat troponins - Lab Data Result diagrams: 07/31/22 17:43 07/31/22 17:43 Lab Results 07/31/22 07/31/22 07/31/22 Range/Units 17:43 17:43 17:43 WBC 5.9 (3.8-10.6) k/uL RBC 4.59 (3.80-5.40) m/uL Hgb 12.7 (11.4-16.0) gm/dL Hct 40.1 (34.0-46.0) % MCV 87.4 (80.0-100.0) fL MCH 27.8 (25.0-35.0) pg MCHC 31.8 (31.0-37.0) g/dL RDW 13.2 (11.5-15.5) % Plt Count 257 (150-450) k/uL MPV 7.1 Neutrophils % 85 % Lymphocytes % 4 % Monocytes % 5 % Eosinophils % 5 % Basophils % 1 % Neutrophils # 5.0 (1.3-7.7) k/uL Lymphocytes # 0.2 L (1.0-4.8) k/uL Monocytes # 0.3 (0-1.0) k/uL Eosinophils # 0.3 (0-0.7) k/uL Basophils # 0.0 (0-0.2) k/uL D-Dimer (<0.60) mg/L FEU Sodium 137 (137-145) mmol/L Potassium 3.7 (3.5-5.1) mmol/L Chloride 104 (98-107) mmol/L Carbon Dioxide 23 (22-30) mmol/L Anion Gap 10 mmol/L BUN 7 (7-17) mg/dL Creatinine 0.70 (0.52-1.04) mg/dL Est GFR (CKD-EPI)AfAm >90 (>60 ml/min/1.73 sqM) Est GFR (CKD-EPI)NonAf 86 (>60 ml/min/1.73 sqM) Glucose 106 H (74-99) mg/dL Plasma Lactic Acid Eduardo 0.9 (0.7-2.0) mmol/L Calcium 7.4 L (8.4-10.2) mg/dL Magnesium 1.7 (1.6-2.3) mg/dL Total Bilirubin 0.2 (0.2-1.3) mg/dL AST 28 (14-36) U/L ALT 20 (4-34) U/L Alkaline Phosphatase 127 H (38-126) U/L Creatine Kinase 38 (30-135) U/L Troponin I (0.000-0.034) ng/mL Total Protein 6.1 L (6.3-8.2) g/dL Albumin 3.3 L (3.5-5.0) g/dL Amylase 47 (30-110) U/L Lipase 51 (23-300) U/L 07/31/22 07/31/22 Range/Units 17:43 17:43 WBC (3.8-10.6) k/uL RBC (3.80-5.40) m/uL Hgb (11.4-16.0) gm/dL Hct (34.0-46.0) % MCV (80.0-100.0) fL MCH (25.0-35.0) pg MCHC (31.0-37.0) g/dL RDW (11.5-15.5) % Plt Count (150-450) k/uL MPV Neutrophils % % Lymphocytes % % Monocytes % % Eosinophils % % Basophils % % Neutrophils # (1.3-7.7) k/uL Lymphocytes # (1.0-4.8) k/uL Monocytes # (0-1.0) k/uL Eosinophils # (0-0.7) k/uL Basophils # (0-0.2) k/uL D-Dimer 1.25 H (<0.60) mg/L FEU Sodium (137-145) mmol/L Potassium (3.5-5.1) mmol/L Chloride (98-107) mmol/L Carbon Dioxide (22-30) mmol/L Anion Gap mmol/L BUN (7-17) mg/dL Creatinine (0.52-1.04) mg/dL Est GFR (CKD-EPI)AfAm (>60 ml/min/1.73 sqM) Est GFR (CKD-EPI)NonAf (>60 ml/min/1.73 sqM) Glucose (74-99) mg/dL Plasma Lactic Acid Eduardo (0.7-2.0) mmol/L Calcium (8.4-10.2) mg/dL Magnesium (1.6-2.3) mg/dL Total Bilirubin (0.2-1.3) mg/dL AST (14-36) U/L ALT (4-34) U/L Alkaline Phosphatase (38-126) U/L Creatine Kinase (30-135) U/L Troponin I <0.012 (0.000-0.034) ng/mL Total Protein (6.3-8.2) g/dL Albumin (3.5-5.0) g/dL Amylase (30-110) U/L Lipase (23-300) U/L - Radiology Data Radiology results: report reviewed (Imaging reviewed no acute findings aorta appears be intact), image reviewed Disposition Clinical Impression: COPD exacerbation, Hypoxemia, Low back pain, Epigastric pain Disposition: ADMITTED IP TO THIS [facility] Condition: Fair Referrals: Cas Lomeli MD [Primary Care Provider] - 1-2 days Decision Date: 07/31/22 Decision Time: 21:30
--- NOTE | 2022-07-31 20:01 | CT ---
Exam: CTA ABDOMEN AND PELVIS Clinical Indication: Radiating back pain. Comparison: None. Technique: CTA imaging of the abdomen and pelvis is performed following the use of 200 mL Isovue 370 intravenous contrast. Coronal , sagittal and MIPs reformats are provided and reviewed. Findings: CT ANGIOGRAM: The abdominal aorta is grossly normal in caliber. There is mild to moderate atherosclerotic disease. There is no evidence of aneurysmal dilatation, dissection or rupture. The SMA, HONEY and bilateral iliac arteries and branches are grossly intact without high-grade stenosis , dissection or rupture. ABDOMEN/PELVIS: The visualized lower lung shows small right pleural effusion with accompanying moderate bibasilar opa city. There is a hepatic steatosis. Otherwise no acute abnormality of the liver, pancreas, bilateral adrena l glands or spleen. No hydronephrosis or nephrolithiasis. A 13 mm left adrenal nodule. Cholecystectom y with benign pneumobilia seen. No significant biliary ductal dilatation. There is no bowel obstruction, free air or fluid. No acute appendicitis. Multiple borderline to mildl y prominent upper abdominal mesenteric lymph nodes with index lesion measuring up to 0.8 cm. The urinary bladder is unremarkable. A 4 cm calcified fibroid noted. OSSEOUS STRUCTURES: There is no acute fracture or dislocation of the imaged osseous structures. The vertebral and disc he ights are maintained throughout the spine. Impression: Small right pleural effusion with bibasilar opacity. Nonspecific borderline to mildly prominent upper abdominal mesenteric lymph nodes. Recommend clinical correlation and follow-up as indicated. Left adrenal nodule. Otherwise no acute abnormality of the CTA abdomen/pelvis. Additional chronic and incidental findings as above.
[2022-07-31] MEDS ORDERED: ONDANSETRON 4 MG/2 ML VIAL IVP STA (20:26)
[2022-07-31] MEDS ORDERED: KETOROLAC 15 MG/ML 1 ML VIAL IVP STA (20:26)
[2022-07-31] MEDS ORDERED: IPRATROPIUM-ALBUTEROL 3 ML NEB INHALATION STA (20:47)
[2022-07-31] MEDS ORDERED: NALOXONE 0.4 MG/ML 1 ML VIAL IVP PRN (22:16)
[2022-07-31] MEDS ORDERED: NITROGLYCERIN SL TABS 0.4 MG TAB SUBLINGUAL PRN (22:18)
[2022-08-01 00:01] LABS: Appearance,Urine Clear (Clear); Bacteria,Urine Rare /hpf; Bilirubin,Urine Negative (Negative); Blood,Urine Negative (Negative); Color,Urine Yellow; Glucose,Urine (UA) Negative (Negative); Ketones,Urine Negative (Negative); Leukocyte Esterase,Urine Small (Negative); Mucus,Urine Rare /hpf; Nitrite,Urine Negative (Negative); Protein,Urine Trace (Negative); Squamous Epithelial Cell,Urine 16 /hpf (0-4); Urobilinogen,Urine <2.0 mg/dL (<2.0); WBC,Urine 29 /hpf (0-5)
[2022-08-01 00:24] LABS: Specific Gravity,Urine >1.050 (1.001-1.035)
[2022-08-01] MEDS: methylPREDNISolone SOD SUCCI 125 MG/2 ML VIAL IV SCH ×5 (00:54→23:41)
[2022-08-01] MEDS: ACETAMINOPHEN TAB 325 MG TAB PO PRN ×3 (00:57→23:48)
[2022-08-01] MEDS: LEVOTHYROXINE 100 MCG TAB PO SCH (06:10)
[2022-08-01] MEDS: IPRATROPIUM-ALBUTEROL 3 ML NEB INHALATION SCH ×4 (07:30→19:56)
[2022-08-01] MEDS ORDERED: ASPIRIN 325 MG TAB PO SCH (09:00)
[2022-08-01 09:26] LABS: Chol/HDL Ratio 3.99 Ratio; LDL Cholesterol,Calculated 101.8 mg/dL (0.0-131.0)
--- NOTE | 2022-08-01 13:46 | XR ---
EXAMINATION TYPE: XR chest 2V DATE OF EXAM: 08/01/2022 COMPARISON: 10/04/2020 TECHNIQUE: PA and lateral views submitted. HISTORY: SOB FINDINGS: Mediport catheter seen with tip over the SVC. There is right perihilar and left. Hilar subsegmental a reas of consolidation. Right-sided consolidation and pleural effusion stable. Coarsened interstitium suggests chronic interstitial lung disease. No pneumothorax. Arthropathy of the shoulders with diffus e osteopenia. Hypertrophic and degenerative changes of the spine. IMPRESSION: 1. Correlate for chronic interstitial lung disease with bilateral areas of consolidation and small ri ght pleural effusion similar to prior exam.
[2022-08-01] MEDS: BUDESONIDE 1 MG/2 ML NEBU INHALATION SCH ×2 (14:18→19:56)
--- NOTE | 2022-08-01 14:35 | CT ---
EXAMINATION TYPE: CT lumbar spine w con DATE OF EXAM: 08/01/2022 COMPARISON: CTA abdomen and pelvis one day earlier. Lumbar spine x-ray one day earlier. HISTORY: back pain, hx of lung ca CT DLP: 1508.3 mGycm Automated exposure control for dose reduction was used. CONTRAST: CT scan of the lumbar is performed with IV Contrast, patient injected with 100 mL of Isovue 370. Images are pulled and reconstructed 1 day earlier from CTA study. Technologist uses the noncontrast i mages. There are 5 lumbar-type vertebra. No acute displaced fracture. Vertebral body heights are maintained. Ixch-lj-jhmmxsks disc space narrowing at L2-L3 level. Moderate to borderline severe disc space narro wing with some endplate sclerosis at the L4-L5 level. Wgyrahds-cx-nyodal disc space narrowing with mo derate left lateral spurring at L5-S1 level. Axial images at L2-L3 level mild broad disc bulge mildly effaces the anterior thecal sac and mild fac et arthropathy bilaterally. There is mild bilateral intervertebral foraminal narrowing seen. Axial images at L4-L5 level show mild/moderate central disc protrusion effacing anterior thecal sac. There is mild facet arthropathy and ligamentum flavum hypertrophy effacing posterior lateral thecal s ac. There is mild bilateral anterior inferior neural foraminal narrowing. Axial images at the L5-S1 level show mild facet arthropathy bilaterally. There is tiny central disc p rotrusion. Bilateral neural foramina are patent. Review of the postcontrast images shows no suspicious enhancement in the region of the lumbar spine. IMPRESSION: Multilevel degenerative changes in the lumbar spine as detailed above. No acute findings are evident.
--- NOTE | 2022-08-01 15:39 | P.HPIM ---
History of Present Illness H&P Date: 08/01/22 Chief Complaint: Not feeling well This is a very pleasant 72-year-old patient who follows with Dr. Cas david. Chronic stable medical conditions include fibromyalgia, GERD, hypertension, hypothyroid, 2006 had pancreatic tumor with Whipple's procedure, 2016 had lung cancer with right partial lobectomy at [facility] in 2016 followed by chemotherapy and radiation. 20 years ago had Lyme's disease with tick bite. Patient had baseline does get short of breath. Her 2 weeks has been increasing fever and chills. Feeling terrible. Went to see her family doctor 2 days ago was diagnosed over UTI and was given Bactrim. Last few days patient had been having increasing shortness of breath cough and significant amount of wheezing. Poor appetite. Some cloudy sputum. Also has lost about 6 pounds this week. No real urinary symptoms. Ex up some dysuria for 1 day. In the ER patient was noted to drop on her pulse ox to 77%. 2 days ago she noticed significant pain in the sacral area going across to both the hips. He lung cancer has been in remission. She has followed with Dr. Godfrey. On July [address] chest with contrast that showed: Diffuse increased density especially noted in the right middle lobe felt to be unchanged from before. Advised many changes. No suspicious changes to suggest recurrence or metastatic lung cancer. Review of systems: GEN.: Fever or chills decreased appetite tired some weight loss EYES: None HEENT: None NECK: None RESPIRATORY: As above CARDIOVASCULAR: None GASTROINTESTINAL: None GENITOURINARY: None MUSCULOSKELETAL: None LYMPHATICS: None HEMATOLOGICAL: None PSYCHIATRY: None NEUROLOGICAL: None Past medical history to include: Pancreatic tumor 2006 with Whipple's procedure, 2069 lung cancer treated with right partial lobectomy at [facility] in 2016 with followed by chemotherapy and radiation treatment, tick bite. Lyme's disease, fibromyalgia, GERD, hypertension, hypothyroid Social history: . Started smoking age of 12 stopped in 2007 smoked 3 packs a day. Has not drank alcohol over 35 years. Physical examination: VITAL SIGNS: 98.7, 88, 18, 1 34 x 66, 89% room air/dropping down to 77% with activity GENERAL: BMI 28.8, reclining in bed awake not in distress. EYES: Pupils equal. Conjunctiva normal. HEENT: External appearance of nose and ears normal, oral cavity grossly normal. NECK: JVD not raised; masses not palpable. HEART: First and second heart sounds are normal; no edema. LUNGS: Respiratory rate increased; diminished breath sounds. ABDOMEN: Soft, nontender, liver spleen not palpable, no masses palpable. PSYCH: Alert and oriented x3; mood and affect normal. MUSCULOSKELETAL:No Clubbing/cyanosis;muscles-grossly intact, evidence of OA NEUROLOGICAL: Cranial nerves grossly intact; no facial asymmetry, power and sensation grossly intact. LYMPHATICS: No lymph nodes palpable in the axilla and neck INVESTIGATIONS, reviewed in the clinical context: White count 5.9 hemoglobin 12.7 platelets 257 potassium 3.7 creatinine 0.7 Troponin I less than 0.0123 Amylase 47 lipase 51 UA: Negative for nitrite Coronavirus PCR: Not detected EKG tracing personally reviewed by me-normal sinus rhythm. Rate 81 Chest x-ray film personally reviewed by me-mediastinal border the right. Decreased right-sided lung volume. Possible infiltrate Lumbar spine x-ray: Moderate to severe disc height narrowing and facet arthropathy at L4-L5. CT abdomen pelvis: Left adrenal nodule. Other nonspecific findings. Lumbar spine CT: Multiple level DJD changes. Assessment and plan: -Pneumonia, suspect gram-negative organism. IV ceftriaxone. Sputum for Gram stain and culture. Mucinex. Pulmonary consulted. -Acute hypoxic respiratory failure from underlying pneumonia Supplemental oxygen, currently on 3 L -Acute COPD exacerbation in a ex-smoker DuoNeb. IV Solu-Medrol. Nebulized Pulmicort. -Suspect underlying chronic hypoxic respiratory failure with activity. Does of discharge to evaluate oxygen with activity. Recheck with Dr. Godfrey the patient has PFTs of the office. -History of lung cancer in 2017 with right-sided lumpectomy and chemoradiation treatment. In remission -History of Whipple's procedure for pancreatic tumor 2006 -GERD Pepcid -Essential hypertension Cozaar -Hypothyroid Levothyroxine -Chronic fibromyalgia IV ceftriaxone. DuoNeb. IV Solu-Medrol. Nebulized Pulmicort. Sputum for Gram stain and culture. Home medications resumed. Subcu Lovenox. Given the complexity and severity of patient's condition expect the patient to be in the hospital at least for 2 overnights Past Medical History Past Medical History: Cancer, COPD, Fibromyalgia, GERD/Reflux, Hypertension, Thyroid Disorder Additional Past Medical History / Comment(s): Pancreatic tumor 2006, had Whipple; hx benign tumor Thyroid. 2017 Lung cancer-had sx, chemo and radiation. Tick bite 20 years ago, lyme's disease. History of Any Multi-Drug Resistant Organisms: ESBL Date of last positivie culture/infection: 08/19/17 MDRO Source:: ESBL URINE Past Surgical History: Adenoidectomy, Breast Surgery, Hernia Repair, Tonsillectomy Additional Past Surgical History / Comment(s): Bronchoscopy, mediastinoscopy w/biopsy in March 2017, right partial lobectomy @[facility] 05-05-17, mediport lt upper chest. RT BREAST x 3 bx-neg. BILAT CATARACTS REMOVED. WHIPPLE 2006. Total Thyroidectomy. THYROIDECTOMY. VOCAL CORD SX Past Anesthesia/Blood Transfusion Reactions: Previous Problems w/ Anesthesia Additional Past Anesthesia/Blood Transfusion Reaction / Comment(s): Told I have "very skinny windpipe," difficult intubation. WOKE UP DURING CATARACT SURGERY, and was aware during breast sx Past Psychological History: No Psychological Hx Reported Smoking Status: Former smoker - Past Family History Mother Family Medical History: Deep Vein Thrombosis (DVT) Father Family Medical History: Cancer Additional Family Medical History / Comment(s): lung cancer Medications and Allergies Home Medications Medication Instructions Recorded Confirmed Type Losartan Potassium [Cozaar] 50 mg PO DAILY 03/31/17 07/31/22 History Acetaminophen Tab [Tylenol Tab] 1,000 mg PO Q6HR PRN 07/31/22 07/31/22 History Levothyroxine Sodium [Euthyrox] 125 mcg PO DAILY 07/31/22 07/31/22 History Sulfamethoxazole/Trimethoprim 1 tab PO BID 07/31/22 07/31/22 History [Bactrim DS 800-160 mg] diphenhydrAMINE [Benadryl] 25 mg PO HS 07/31/22 07/31/22 History Allergies Allergy/AdvReac Type Severity Reaction Status Date / Time Penicillins Allergy Anaphylaxis, Verified 07/31/22 23:16 swelling ethanol alcohol AdvReac avoids Uncoded 07/31/22 17:33 drinking alcohol (recovering alcoholic) Physical Exam Vitals: Vital Signs Temp Pulse Resp BP Pulse Ox 08/01/22 09:44 90 16 134/74 96 08/01/22 08:24 98.1 F 94 18 116/62 96 08/01/22 07:38 91 08/01/22 07:35 98.6 F 89 16 110/55 97 08/01/22 07:30 90 94 L 08/01/22 06:12 77 17 116/59 94 L 08/01/22 06:00 98.2 F 93 16 135/70 95 08/01/22 05:00 88 17 133/70 94 L 08/01/22 02:00 98.6 F 89 16 106/74 95 08/01/22 00:00 82 16 114/60 95 07/31/22 22:19 100 07/31/22 22:09 92 07/31/22 22:00 83 18 148/99 93 L 07/31/22 20:49 101 H 18 128/79 96 07/31/22 20:00 98.4 F 87 17 137/72 94 L 07/31/22 19:02 85 18 127/73 92 L 07/31/22 17:33 95 07/31/22 17:29 98.7 F 88 18 134/66 89 L Intake and Output 07/31/22 08/01/22 08/01/22 22:59 06:59 14:59 Other: Weight 78.471 kg Results CBC & Chem 7: 07/31/22 17:43 07/31/22 17:43 Labs: Abnormal Lab Results - Last 24 Hours (Table) 07/31/22 07/31/22 07/31/22 Range/Units 17:43 17:43 17:43 Lymphocytes # 0.2 L (1.0-4.8) k/uL D-Dimer 1.25 H (<0.60) mg/L FEU Glucose 106 H (74-99) mg/dL Calcium 7.4 L (8.4-10.2) mg/dL Alkaline Phosphatase 127 H (38-126) U/L Total Protein 6.1 L (6.3-8.2) g/dL Albumin 3.3 L (3.5-5.0) g/dL Ur Specific [place] (1.001-1.035) Urine Protein (Negative) Ur Leukocyte Esterase (Negative) Urine WBC (0-5) /hpf Ur Squamous Epith Cells (0-4) /hpf Urine Bacteria (None) /hpf Urine Mucus (None) /hpf 07/31/22 Range/Units 23:15 Lymphocytes # (1.0-4.8) k/uL D-Dimer (<0.60) mg/L FEU Glucose (74-99) mg/dL Calcium (8.4-10.2) mg/dL Alkaline Phosphatase (38-126) U/L Total Protein (6.3-8.2) g/dL Albumin (3.5-5.0) g/dL Ur Specific [place] >1.050 H (1.001-1.035) Urine Protein Trace H (Negative) Ur Leukocyte Esterase Small H (Negative) Urine WBC 29 H (0-5) /hpf Ur Squamous Epith Cells 16 H (0-4) /hpf Urine Bacteria Rare H (None) /hpf Urine Mucus Rare H (None) /hpf Microbiology - Last 24 Hours (Table) 07/31/22 23:15 Urine Culture - Preliminary Urine,Voided
--- NOTE | 2022-08-01 15:42 | P.CNPUL ---
History of Present Illness Consult date: 08/01/22 Reason for consult: dyspnea History of present illness: 72-year-old female patient who is having some difficulty is with shortness of breath and hypoxemia. This is unusual for her as the patient does not use home O2. She is known to me for COPD and previous history of non-small cell lung cancer that has been in remission for now. 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 She end up having a lot of side effects to immunotherapy that was subsequently discontinued. Follow-up CAT scan from September 2019 showed a new left upper lobe pulmonary nodule measuring 10 x 8 mm in size that was growing. The patient had a PET/CT that showed increased uptake in that area and the patient was given radiosurgery. Subsequently, she was placed on OPdivo. Ultimately, the abnormalities disappeared and follow-up CAT scans of the chest from 2020 and 2021 showed no acute abnormalities. Most recent CAT scan of the chest that was done on 07/02/2022 showed no evidence of any disease recurrence and will believe that the patient is currently in remission. The patient was having some issues with back pain and UTI and she was seen in urgent care. Subsequently she became more sick and hypotensive and she came in to the ED having a blood pressure 90/56 with a suspected UTI. Denied having any fever or chills. Denied having any cough or sputum production. She was noticing some worsening shortness of breath, exertional. In the ED, the patient was afebrile hemodynamically stable. Pulse ox was ranging between 89-95% and she was desaturating with activity. The white cell count of 5.9 with hemoglobin of 12.7 and a platelet count of 257. The BUN is at 7 with a creatinine of 0.7 and sodium level of 137. Glucose is 106. The LFTs were essentially within normal limits. D-dimer was 1.25. Troponins were negative. She has been fully vaccinated for COVID 19. A repeat scope in testing came back negative. UA was abnormal. The patient was given a CAT scan of the abdomen and pelvis and this showed very tiny right-sided pleural effusion and basilar opacity. Otherwise, no other acute abnormalities within the abdomen. Some mildly prominent upper abdominal mesenteric lymph nodes were noted. The KUB and x-ray of the lumbar spine showed degenerative changes and this was followed up by CAT scan of the lumbar spine that showed multilevel degenerative changes in the lumbar spine without any acute abnormalities. Patient was started on IV Rocephin. The patient is also on DuoNeb and IV Solu-Medrol for any potential COPD exacerbation. He is currently on 2 L of O2 nasal cannula. She was taken a course of Bactrim on outpatient basis. as far as his COPD, the patient has an FEV1 of 67% of predictedbaseline spirometry was done in 2019. Her previous PFT that was done in 2017 showed an FEV1 of 81%, diffusion capacity of 52% and the total lung capacity of 89%. comorbid conditions include fibromyalgia, hypertension, hypothyroidism Review of Systems Patient reports no night sweats and no exercise intolerance; chronic fatigue without any significant weight loss. She reports shortness of breath but reports no coughing up blood and no sleep apnea; Mainly on exertion. She reports arthralgias/joint pain but reports no muscle aches, no muscle weakness, no back pain, and no swelling in the extremities; hip pain. She reports weakness but reports no loss of consciousness, no numbness, no seizures, no dizziness, no migraines, no headaches, and no tremor. She reports fatigue. She reports no dry eyes, no vision change, and no irritation. She reports no difficulty hearing and no ear pain. She reports no frequent nosebleeds, no nose problems, and no sinus problems. She reports no sore throat, no bleeding gums, no snoring, no dry mouth, no mouth ulcers, no oral abnormalities, and no teeth problems. She repor ts no chest pain, no arm pain on exertion, no shortness of breath when walking, no shortness of breath when lying down, no palpitations, and no known heart murmur. She reports no abdominal pain, no nausea, no vomiting, no constipation, normal appetite, no diarrhea, not vomiting blood, no dyspepsia, and no GERD. She reports no incontinence, no difficulty urinating, no hematuria, and no increased frequency. She reports no abnormal mole, no jaundice, no rashes, and no laceration. She reports no depression, no sleep disturbances, feeling safe in a relationship, no alcohol abuse, no anxiety, no hallucinations, and no suicidal thoughts. She reports no swollen glands, no bruising, and no excessive bleeding. She reports no runny nose, no sinus pressure, no itching, no hives, and no frequent sneezing. Past Medical History Past Medical History: Cancer, COPD, Fibromyalgia, GERD/Reflux, Hypertension, Thyroid Disorder Additional Past Medical History / Comment(s): Pancreatic tumor 2006, had Whipple; hx benign tumor Thyroid. 2017 Lung cancer-had sx, chemo and radiation. Tick bite 20 years ago, lyme's disease. History of Any Multi-Drug Resistant Organisms: ESBL Date of last positivie culture/infection: 08/19/17 MDRO Source:: ESBL URINE Past Surgical History: Adenoidectomy, Breast Surgery, Hernia Repair, Tonsillectomy Additional Past Surgical History / Comment(s): Bronchoscopy, mediastinoscopy w/biopsy in March 2017, right partial lobectomy @[facility] 05-05-17, [facility] upper chest. RT BREAST x 3 bx-neg. BILAT CATARACTS REMOVED. WHIPPLE 2006. Total Thyroidectomy. THYROIDECTOMY. VOCAL CORD SX Past Anesthesia/Blood Transfusion Reactions: Previous Problems w/ Anesthesia Additional Past Anesthesia/Blood Transfusion Reaction / Comment(s): Told I have "very skinny windpipe," difficult intubation. WOKE UP DURING CATARACT SURGERY, and was aware during breast sx Past Psychological History: No Psychological Hx Reported Smoking Status: Former smoker - Past Family History Mother Family Medical History: Deep Vein Thrombosis (DVT) Father Family Medical History: Cancer Additional Family Medical History / Comment(s): lung cancer Medications and Allergies Home Medications Medication Instructions Recorded Confirmed Type Losartan Potassium [Cozaar] 50 mg PO DAILY 03/31/17 07/31/22 History Acetaminophen Tab [Tylenol Tab] 1,000 mg PO Q6HR PRN 07/31/22 07/31/22 History Levothyroxine Sodium [Euthyrox] 125 mcg PO DAILY 07/31/22 07/31/22 History Sulfamethoxazole/Trimethoprim 1 tab PO BID 07/31/22 07/31/22 History [Bactrim DS 800-160 mg] diphenhydrAMINE [Benadryl] 25 mg PO HS 07/31/22 07/31/22 History Allergies Allergy/AdvReac Type Severity Reaction Status Date / Time Penicillins Allergy Anaphylaxis, Verified 07/31/22 23:16 swelling ethanol alcohol AdvReac avoids Uncoded 07/31/22 17:33 drinking alcohol (recovering alcoholic) Physical Exam Vitals: Vital Signs Temp Pulse Resp BP Pulse Ox 08/01/22 15:29 100 08/01/22 15:27 98.5 F 89 16 124/52 95 08/01/22 15:21 98 08/01/22 13:29 96 18 151/82 94 L 08/01/22 12:07 98 18 143/96 93 L 08/01/22 11:27 97 08/01/22 11:16 92 08/01/22 11:00 98.8 F 92 16 114/76 96 08/01/22 10:42 98.8 F 98 18 125/80 95 08/01/22 09:44 90 16 134/74 96 08/01/22 08:24 98.1 F 94 18 116/62 96 08/01/22 07:38 91 08/01/22 07:35 98.6 F 89 16 110/55 97 08/01/22 07:30 90 94 L 08/01/22 06:12 77 17 116/59 94 L 08/01/22 06:00 98.2 F 93 16 135/70 95 08/01/22 05:00 88 17 133/70 94 L 08/01/22 02:00 98.6 F 89 16 106/74 95 08/01/22 00:00 82 16 114/60 95 07/31/22 22:19 100 07/31/22 22:09 92 07/31/22 22:00 83 18 148/99 93 L 07/31/22 20:49 101 H 18 128/79 96 07/31/22 20:00 98.4 F 87 17 137/72 94 L 07/31/22 19:02 85 18 127/73 92 L 07/31/22 17:33 95 07/31/22 17:29 98.7 F 88 18 134/66 89 L Intake and Output 08/01/22 08/01/22 08/01/22 06:59 14:59 22:59 Other: Voiding Method Toilet Gen. appearance this is calm and comfortable no distress on 2 L by nasal cannula Head exam was generally normal. There was no scleral icterus or corneal arcus. Mucous membranes were moist. Neck was supple and without jugular venous distension, thyromegaly, or carotid bruits. Carotids were easily palpable bilaterally. There was no adenopathy.Patient is currently a thyroidectomy over the lower neck area. Cardiac exam revealed the PMI to be normally situated and sized. The rhythm was regular and no extrasystoles were noted during several minutes of auscultation. The first and second heart sounds were normal and physiologic splitting of the second heart sound was noted. There were no murmurs, rubs, clicks, or gallops. Lungs sounds are diminished bilaterally along with some few scattered expiratory wheeze Abdominal exam revealed normal bowel sounds. The abdomen was soft, non-tender, and without masses, organomegaly, or appreciable enlargement of the abdominal aorta. Examination of the extremities revealed easily palpable radial, femoral and pe kahlil pulses. There was no cyanosis, clubbing or edema. Examination of the skin revealed no evidence of significant rashes, suspicious appearing nevi or other concerning lesions. Neurologically, the patient is awake and alert and the patient does not have any focal neurological deficit. Cranial nerves are essentially intact. Results - Laboratory Findings CBC and BMP: 07/31/22 17:43 07/31/22 17:43 PT/INR, D-dimer D-Dimer 1.25 mg/L FEU (<0.60) H 07/31/22 17:43 Abnormal lab findings: Abnormal Labs 07/31/22 07/31/22 07/31/22 17:43 17:43 17:43 Lymphocytes # 0.2 L D-Dimer 1.25 H Glucose 106 H Calcium 7.4 L Alkaline Phosphatase 127 H Total Protein 6.1 L Albumin 3.3 L Ur Specific [place] Urine Protein Ur Leukocyte Esterase Urine WBC Ur Squamous Epith Cells Urine Bacteria Urine Mucus 07/31/22 23:15 Lymphocytes # D-Dimer Glucose Calcium Alkaline Phosphatase Total Protein Albumin Ur Specific [place] >1.050 H Urine Protein Trace H Ur Leukocyte Esterase Small H Urine WBC 29 H Ur Squamous Epith Cells 16 H Urine Bacteria Rare H Urine Mucus Rare H - Diagnostic Findings Chest x-ray: image reviewed Assessment and Plan Plan: acute hypoxic respiratory failure, likely on the basis of COPD, rule out possible bibasilar pneumonia COPD moderate severe with an FEV1 of 67% of predicted at baseline History of squamous cell carcinoma .Patient has stage III B squamous cell carcinoma of the lung and she underwent a wedge resection of the right upper lobe along with lymph node dissection and establish the diagnosis. She was given systemic chemotherapy and following that she was given immunotherapy utilizing Imfinzi. She did well initially, however after that, she experienced a lot of side effects. Upon follow-up CAT scan from September 2019, there was a new left upper lobe pulmonary nodule measuring 10 x 8 mm in size that had grown and there was a concern for malignancy. The PET scan showed some increased uptake in that area. Patient received SBRT. Subsequently, she was placed on Opdivo . most recent CAT scan of the chest that was done on 07/02/2022 showed that the patient's disease remains in remission. The patient had moderate emphysematous changes bilaterally along with postsurgical changes without evidence of any disease recurrence or tumors. UTI Back pain with degenerative changes as noted in the CAT scan of the lumbar spine Fibromyalgia History of pancreatic tumor with previous Whipple's procedure History of benign thyroid tumor Hypertension Plan admit the patient to the hospital DuoNeb nebulizers [id number] IV Solu Medrol 60 milligrams Every [address] angiogram to rule out any pulmonary embolism urine cultures Pro calcitonin level We'll continue to follow
[2022-08-01 17:39] LABS: African American GFR (CKD) >90 (>60 ml/min/1.73 sqM); Blood Urea Nitrogen 11 mg/dL (7-17); Non-African American GFR(CKD) 89 (>60 ml/min/1.73 sqM)
--- NOTE | 2022-08-01 18:40 | CT ---
EXAMINATION TYPE: CT chest angio for PE DATE OF EXAM: 08/01/2022 COMPARISON: None HISTORY: SOB, lung ca CT DLP: 315 mGycm Automated exposure control for dose reduction was used. CONTRAST: Performed with IV Contrast, patient injected with 60cc mL of Isovue 370. Images obtained from the thoracic inlet through the diaphragm with the IV contrast. There are Three-D postprocessed images. There is mild to moderate right pleural effusion. There is air in the biliary tree consistent with re flux. Heart size is fairly normal. No pericardial effusion. There is patchy consolidation and atelect asis in the right mid and lower lung field. There is pulmonary interstitial moderate infiltrates. The re is pulmonary emphysema. There is some patchy anterior left upper lobe airspace infiltrate. There is no evidence of filling defect in the pulmonary arteries. The thoracic spine is intact. There is degenerative spur formation. No compression fracture. The ster num is intact. No rib fractures seen. IMPRESSION: No evidence of pulmonary embolism. Extensive pulmonary interstitial infiltrates and emphysema. There is coalescent airspace infiltrate and atelectasis right lower lobe and in the anterior segment left u pper lobe. Right pleural effusion increased compared to old exam. Pulmonary infiltrates are increased compared to old exam.
[2022-08-01] MEDS: guaiFENesin 600 MG TABLET.ER PO SCH ×2 (18:45→21:38)
[2022-08-01] MEDS: ENOXAPARIN 40 MG/0.4 ML SYRINGE SQ SCH (18:45)
[2022-08-01] MEDS ORDERED: ZOLPIDEM 5 MG TAB PO PRN (18:59)
[2022-08-01] MEDS ORDERED: LOSARTAN 50 MG TAB PO SCH (21:00)
[2022-08-02] MEDS: methylPREDNISolone SOD SUCCI 125 MG/2 ML VIAL IV SCH (06:57)
[2022-08-02] MEDS: LEVOTHYROXINE 100 MCG TAB PO SCH (06:57)
[2022-08-02] MEDS: BUDESONIDE 1 MG/2 ML NEBU INHALATION SCH (08:27)
[2022-08-02] MEDS: IPRATROPIUM-ALBUTEROL 3 ML NEB INHALATION SCH ×2 (08:27→12:02)
[2022-08-02] MEDS: guaiFENesin 600 MG TABLET.ER PO SCH ×2 (09:44→13:07)
[2022-08-02] MEDS: ENOXAPARIN 40 MG/0.4 ML SYRINGE SQ SCH (09:44)
[2022-08-02] MEDS ORDERED: predniSONE 20 MG TAB PO SCH (11:15)
[2022-08-02 11:30] VITALS: BP 160/86; RESP 22; TEMP 98.6
[2022-08-02 12:05] VITALS: PULSE 100
--- NOTE | 2022-08-02 14:02 | P.PN ---
Subjective Progress Note Date: 08/02/22 On 08/02/2022, the patient is feeling well and she has no specific complaints and currently is on 2 L of oxygen by nasal cannula. She is still desaturating with mobility. CAT scan of the chest was done that showed no evidence of any malignancy. It showed no evidence of any pulmonary embolism. There was some postsurgical changes and some postsurgical inflammatory changes and radiation changes or chronic. There could be also some new areas of infiltration and this obviously raises the concern for immunotherapy induced pneumonitis. The patient is currently off immunotherapy and the patient is subjected to a prednisone taper course. I'm suggesting 20 mg for one week, 10 mg for one week along with a home oxygen therapy for this patient also has moderate to severe emphysema. She can discharge home on oral antibiotics consisting covering UTI. Urine cultures been negative. The patient was on antibiotics on outpatient basis. COVID 19 testing was also negative. Objective - Vital Signs Vital signs: Vital Signs Temp 98.6 F 08/02/22 11:28 Pulse 100 08/02/22 12:16 Resp 22 08/02/22 11:28 BP 160/86 08/02/22 11:28 Pulse Ox 95 08/02/22 11:28 FiO2 Intake & Output 08/01/22 08/02/22 08/02/22 18:59 06:59 18:59 Intake Total 480 123 Balance 480 123 Weight 78.471 kg Intake: IV 5 Invasive Line 1 5 Oral 480 118 Other: Voiding Method Toilet Toilet Toilet # Voids 2 - Exam Gen. appearance this is calm and comfortable no distress on 2 L by nasal cannula Head exam was generally normal. There was no scleral icterus or corneal arcus. Mucous membranes were moist. Neck was supple and without jugular venous distension, thyromegaly, or carotid bruits. Carotids were easily palpable bilaterally. There was no a denopathy.Patient is currently a thyroidectomy over the lower neck area. Cardiac exam revealed the PMI to be normally situated and sized. The rhythm was regular and no extrasystoles were noted during several minutes of auscultation. The first and second heart sounds were normal and physiologic splitting of the second heart sound was noted. There were no murmurs, rubs, clicks, or gallops. Lungs sounds are diminished bilaterally along with some few scattered expiratory wheeze Abdominal exam revealed normal bowel sounds. The abdomen was soft, non-tender, and without masses, organomegaly, or appreciable enlargement of the abdominal aorta. Examination of the extremities revealed easily palpable radial, femoral and pedal pulses. There was no cyanosis, clubbing or edema. Examination of the skin revealed no evidence of significant rashes, suspicious appearing nevi or other concerning lesions. Neurologically, the patient is awake and alert and the patient does not have any focal neurological deficit. Cranial nerves are essentially intact. - Labs CBC & Chem 7: 07/31/22 17:43 08/01/22 17:22 Labs: Microbiology - Last 24 Hours (Table) 07/31/22 23:15 Urine Culture - Final Urine,Voided Assessment and Plan Plan: acute hypoxic respiratory failure, likely on the basis of COPD, rule out possible bibasilar pneumonia, improved clinically. The patient will need oxygen at 2 L at the time of discharge. CAT scan of the chest was noted. No significant concerns of pneumonia. Pneumonitis latest immunotherapy is felt to be less likely. COPD moderate severe with an FEV1 of 67% of predicted at baseline History of squamous cell carcinoma .Patient has stage III B squamous cell carcinoma of the lung and she underwent a wedge resection of the right upper lobe along with lymph node dissection and establish the diagnosis. She was given systemic chemotherapy and following that she was given immunotherapy utilizing Imfinzi. She did well initially, however after that, she experienced a lot of side effects. Upon follow-up CAT scan from September 2019, there was a new left upper lobe pulmonary nodule measuring 10 x 8 mm in size that had grown and there was a concern for malignancy. The PET scan showed some increased uptake in that area. Patient received SBRT. Subsequently, she was placed on Opdivo . most recent CAT scan of the chest that was done on 07/02/2022 showed that the patient's disease remains in remission. The patient had moderate emphysematous changes bilaterally along with postsurgical changes without evidence of any disease recurrence or tumors. UTI Back pain with degenerative changes as noted in the CAT scan of the lumbar spine Fibromyalgia History of pancreatic tumor with previous Whipple's procedure History of benign thyroid tumor Hypertension Plan Discharge the patient home today DuoNeb nebulizers [id number] Arrange home O2 Prednisone 20 mg for one week and 10 mg for only can discontinue Oral Ceftin Outpatient follow-up can be discharged home today
--- NOTE | 2022-08-02 18:07 | P.DS ---
Providers Date of admission: 07/31/22 22:16 Expected date of discharge: 08/02/22 Attending physician: David Dwyer Consults: 07/31/22 22:16 Consult Physician Routine Consulting Provider: Sasha Godfrey Consult Reason/Comments: COPD exacerbation, hypoxemia Do you want consulting provider notified?: Yes, Notify in am Primary care physician: Cas Lomeli Procedures: Chief Complaint: Not feeling well This is a very pleasant 72-year-old patient who follows with Dr. Cas lomeli. Chronic stable medical conditions include fibromyalgia, GERD, hypertension, hypothyroid, 2006 had pancreatic tumor with Whipple's procedure, 2016 had lung cancer with right partial lobectomy at [facility] in 2016 followed by chemotherapy and radiation. 20 years ago had Lyme's disease with tick bite. Patient had baseline does get short of breath. Her 2 weeks has been increasing fever and chills. Feeling terrible. Went to see her family doctor 2 days ago was diagnosed over UTI and was given Bactrim. Last few days patient had been having increasing shortness of breath cough and significant amount of wheezing. Poor appetite. Some cloudy sputum. Also has lost about 6 pounds this week. No real urinary symptoms. Ex up some dysuria for 1 day. In the ER patient was noted to drop on her pulse ox to 77%. 2 days ago she noticed significant pain in the sacral area going across to both the hips. He lung cancer has been in remission. She has followed with Dr. Godfrey. On July [address] chest with contrast that showed: Diffuse increased density especially noted in the right middle lobe felt to be unchanged from before. Advised many changes. No suspicious changes to suggest recurrence or metastatic lung cancer. Admitted with pneumonia, acute hypoxic respiratory failure, COPD exacerbation. Started on ceftriaxone, bronchodilators, steroids. August 02: Patient feeling much better. Discussed with Dr. Godfrey. Follow- up in the office. Patient will repeat outpatient PFTs. Probably poor diffusion capacity. Discussed with patient. Symbicort added. Discussed with patient. Home oxygen being arranged Discussion and discharge planning more than 35 minutes Past medical history to include: Pancreatic tumor 2006 with Whipple's procedure, 2069 lung cancer treated with right partial lobectomy at [facility] in 2016 with followed by chemotherapy and radiation treatment, tick bite. Lyme's disease, fibromyalgia, GERD, hypertension, hypothyroid Social history: . Started smoking age of 12 stopped in 2007 smoked 3 packs a day. Has not drank alcohol over 35 years. Physical examination: VITAL SIGNS: 98.6, 95, 22, 160/86, pulse ox 83% with activity. GENERAL: BMI 28.8, reclining in bed awake not in distress. EYES: Pupils equal. Conjunctiva normal. HEENT: External appearance of nose and ears normal, oral cavity grossly normal. NECK: JVD not raised; masses not palpable. HEART: First and second heart sounds are normal; no edema. LUNGS: Respiratory rate normal; diminished breath sounds. ABDOMEN: Soft, nontender, liver spleen not palpable, no masses palpable. PSYCH: Alert and oriented x3; mood and affect normal. MUSCULOSKELETAL:No Clubbing/cyanosis;muscles-grossly intact, evidence of OA INVESTIGATIONS, reviewed in the clinical context: White count 5.9 hemoglobin 12.7 platelets 257 potassium 3.7 creatinine 0.7 Troponin I less than 0.0123 Amylase 47 lipase 51 UA: Negative for nitrite Coronavirus PCR: Not detected EKG tracing personally reviewed by me-normal sinus rhythm. Rate 81 Chest x-ray film personally reviewed by me-mediastinal border the right. Decreased right-sided lung volume. Possible infiltrate Lumbar spine x-ray: Moderate to severe disc height narrowing and facet arthropathy at L4-L5. CT abdomen pelvis: Left adrenal nodule. Other nonspecific findings. Lumbar spine CT: Multiple level DJD changes. Assessment and plan: -Pneumonia, suspect gram-negative organism. IV ceftriaxone. Sputum for Gram stain and culture. Mucinex. Ceftin 5 mg twice a day for 3 days -Acute hypoxic respiratory failure from underlying pneumonia: Better Supplemental oxygen, currently on 3 L -Acute COPD exacerbation in a ex-smoker DuoNeb. IV Solu-Medrol. Nebulized Pulmicort. -Suspect underlying chronic hypoxic respiratory failure with activity. From COPD. And restrictive lung disease. From prior wedge lung surgery. DC with home oxygen -History of lung cancer in 2017 with right-sided lumpectomy and chemoradiation treatment. In remission -History of Whipple's procedure for pancreatic tumor 2006 -GERD Pepcid -Essential hypertension Cozaar -Hypothyroid Levothyroxine -Chronic fibromyalgia Disposition: Home Patient Condition at Discharge: Stable Plan - Discharge Summary Discharge Rx Participant: No New Discharge Prescriptions: New guaiFENesin [Mucinex] 600 mg PO QID #20 tab Albuterol Sulfate [Albuterol Sulfate Hfa] 1 puff PO Q4-6H #8.5 gm cefUROXime axetiL [Ceftin] 500 mg PO BID #10 tab predniSONE 10 mg PO DAILY #30 tab Budesonide-Formot 160-4.5 Mcg [Symbicort 160-4.5 Mcg Inhaler] 1 puff INHALATION BID #10.2 gm Continue Losartan Potassium [Cozaar] 50 mg PO DAILY diphenhydrAMINE [Benadryl] 25 mg PO HS Levothyroxine Sodium [Euthyrox] 125 mcg PO DAILY Acetaminophen Tab [Tylenol] 1,000 mg PO Q6HR PRN PRN Reason: Pain Or Fever > 100.5 Discontinued Sulfamethoxazole/Trimethoprim [Bactrim DS 800-160 mg] 1 tab PO BID Discharge Medication List Losartan Potassium [Cozaar] 50 mg PO DAILY 03/31/17 [History] Acetaminophen Tab [Tylenol] 1,000 mg PO Q6HR PRN 07/31/22 [History] Levothyroxine Sodium [Euthyrox] 125 mcg PO DAILY 07/31/22 [History] diphenhydrAMINE [Benadryl] 25 mg PO HS 07/31/22 [History] Albuterol Sulfate [Albuterol Sulfate Hfa] 1 puff PO Q4-6H #8.5 gm 08/02/22 [Rx] Budesonide-Formot 160-4.5 Mcg [Symbicort 160-4.5 Mcg Inhaler] 1 puff INHALATION BID #10.2 gm 08/02/22 [Rx] cefUROXime axetiL [Ceftin] 500 mg PO BID #10 tab 08/02/22 [Rx] guaiFENesin [Mucinex] 600 mg PO QID #20 tab 08/02/22 [Rx] predniSONE 10 mg PO DAILY #30 tab 08/02/22 [Rx] Follow up Appointment(s)/Referral(s): Cas Lomeli MD [Primary Care Provider] - 1-2 days (Please call Thursday to make a follow up appointment.) Sasha Godfrey MD [STAFF PHYSICIAN] - 2 Weeks (Please call Thursday to make a follow up appointment. ) Patient Instructions/Handouts: Using Oxygen at Home (DC), COPD (Chronic Obstructive Pulmonary Disease) (DC) Discharge Disposition: HOME SELF-CARE
== END 2022-08-02 13:55 | disposition home or self-care (01) | DRG 177 ==
LOC: EC 17:21 → 4SSUR 22:16 → 3SCARD 08-01 15:43
PROVIDERS: ADMIT Hospitalist; ATTEND Hospitalist
DX: J15.6 Pneumonia due to other Gram-negative bacteria (principal); J96.21 Acute and chronic respiratory failure with hypoxia; N39.0 Urinary tract infection, site not specified; J43.9 Emphysema, unspecified; Z20.822 Contact with and (suspected) exposure to COVID-19; I10 Essential (primary) hypertension; K21.9 Gastro-esophageal reflux disease without esophagitis; E89.0 Postprocedural hypothyroidism; M47.816 Spondylosis without myelopathy or radiculopathy, lumbar region; M79.7 Fibromyalgia; Z79.890 Hormone replacement therapy; Z79.899 Other long term (current) drug therapy; Z87.891 Personal history of nicotine dependence; Z86.03 Personal history of neoplasm of uncertain behavior; Z85.118 Personal history of other malignant neoplasm of bronchus and lung; Z92.21 Personal history of antineoplastic chemotherapy; Z92.3 Personal history of irradiation; Z90.411 Acquired partial absence of pancreas; Z86.19 Personal history of other infectious and parasitic diseases; Z88.0 Allergy status to penicillin; Z91.048 Other nonmedicinal substance allergy status; Z80.1 Family history of malignant neoplasm of trachea, bronchus and lung
CPT/HCPCS: 36415; 71046; 71275; 72110; 72132; 74018; 74174; 80053; 80061; 81001; 82150; 82550; 82565; 83605; 83690; 83735; 84145; 84484; 84520; 85025; 85379; 87086; 87635; 93005; 94640; 94760; 96365; 96375; 96376; 99285

== ENCOUNTER → 2022-09-18 | Outpatient (CLI) | payer MEDICARE, BC ==
[2022-09-18 12:45] LABS: African American GFR (CKD) >90 (>60 ml/min/1.73 sqM); Blood Urea Nitrogen 9 mg/dL (7-17); Non-African American GFR(CKD) 87 (>60 ml/min/1.73 sqM)
--- NOTE | 2022-09-18 13:21 | CT ---
EXAMINATION TYPE: CT chest w con CT DLP: 322.4 mGycm, Automated exposure control for dose reduction was used. DATE OF EXAM: 09/18/2022 1:06 PM COMPARISON: CT chest 07/02/2022, 03/03/2022, CTA chest 08/01/22. CLINICAL INDICATION:Female, 72 years old with history of LUNG CANCER C34.31; PHH, SOB, recent pneumon ia, hx of lung ca TECHNIQUE: Multiple axial images were obtained through the chest following the administration of 70 c c of Isovue 300. Coronal and sagittal reformats reviewed. FINDINGS: LUNGS/ PLEURA: Unchanged small right pleural effusion. No pneumothorax. Moderate centrilobular and pa raseptal emphysematous changes. Persistent scarring along the right hilar level extending anteriorly inferiorly near site of sutures. Persistent right-sided volume loss. Moderate focal scarring of the a nterior left upper to midlung at site of prior recurrent neoplasm is unchanged. No new or enlarging p ulmonary nodules. AIRWAY: Patent and unremarkable.. HEART: Mildly prominent size. No pericardial effusion. Coronary artery calcifications. MEDIASTINUM: No gross evidence of adenopathy. VASCULATURE: No aortic aneurysm. Right chest wall Mediport catheter terminates in the superior vena cava atrial junction. MUSCULOSKELETAL: No acute osseous abnormalities. No aggressive osseous lesion. Degenerative changes o f the visualized spine. Likely benign vertebral hemangioma within the T6 vertebral body. SOFT TISSUES/LYMPH NODES: Unremarkable. LOWER NECK: No significant findings. UPPER ABDOMEN: Small hiatal hernia. Pneumobilia redemonstrated. Stable left adrenal gland nodule ashly uring up to 1.6 cm. Stable subcentimeter GE junction lymph nodes. IMPRESSION: 1. Small right pleural effusion with similar posttreatment changes bilaterally. No CT evidence to sharpe ggest active neoplastic recurrence. 2. Moderate COPD changes.
== END | disposition home or self-care (01) ==
LOC: RADCTMAIN 12:11
PROVIDERS: ATTEND Internal Medicine Hematology & Oncology
DX: C34.31 Malignant neoplasm of lower lobe, right bronchus or lung (principal); J90 Pleural effusion, not elsewhere classified; J44.9 Chronic obstructive pulmonary disease, unspecified
CPT/HCPCS: 82565; 84520; 71260; 36415; Q9967

== ENCOUNTER 2022-10-18 10:26 | Inpatient (IN) | payer MEDICARE, BC ==
[2022-10-18] MEDS ORDERED: SODIUM CHLORIDE 0.9% 1,000 ML IV STA (10:50)
[2022-10-18] MEDS ORDERED: IBUPROFEN 600 MG TAB PO STA (10:50)
--- NOTE | 2022-10-18 11:03 | ED ---
General Adult HPI - General Chief complaint: Upper Respiratory Infection Stated complaint: fever Time Seen by Provider: 10/18/22 10:40 Source: patient, RN notes reviewed Mode of arrival: ambulatory Limitations: no limitations - History of Present Illness Initial comments: This a 72-year-old female presents emergency Department chief complaint of fever cough congestion shortness breath weakness. Patient states she is currently being treated for small cell lung cancer, states she's developed increasing shortness breath, fever and cough last week. She was placed on antibiotics yesterday. Patient states that she is still using worse. She is very nauseated especially after she eats. states she sees Dr. Dai, Dr. Godfrey. She did take Tylenol as morning no ibuprofen. - Related Data Home Medications Medication Instructions Recorded Confirmed Losartan Potassium [Cozaar] 50 mg PO DAILY 03/31/17 07/31/22 Acetaminophen Tab [Tylenol] 1,000 mg PO Q6HR PRN 07/31/22 07/31/22 Levothyroxine Sodium [Euthyrox] 125 mcg PO DAILY 07/31/22 07/31/22 diphenhydrAMINE [Benadryl] 25 mg PO HS 07/31/22 07/31/22 Previous Rx's Medication Instructions Recorded Albuterol Sulfate [Albuterol 1 puff PO Q4-6H #8.5 gm 08/02/22 Sulfate Hfa] Budesonide-Formot 160-4.5 Mcg 1 puff INHALATION BID #10.2 gm 08/02/22 [Symbicort 160-4.5 Mcg Inhaler] cefUROXime axetiL [Ceftin] 500 mg PO BID #10 tab 08/02/22 guaiFENesin [Mucinex] 600 mg PO QID #20 tab 08/02/22 predniSONE 10 mg PO DAILY #30 tab 08/02/22 Allergies Allergy/AdvReac Type Severity Reaction Status Date / Time Penicillins Allergy Anaphylaxis, Verified 10/18/22 10:36 swelling ethanol alcohol AdvReac avoids Uncoded 10/18/22 10:36 drinking alcohol (recovering alcoholic) Review of Systems ROS Statement: Those systems with pertinent positive or pertinent negative responses have been documented in the HPI. ROS Other: All systems not noted in ROS Statement are negative. Past Medical History Past Medical History: Cancer, COPD, Fibromyalgia, GERD/Reflux, Hypertension, Thyroid Disorder Additional Past Medical History / Comment(s): Pancreatic tumor 2006, had Whipple; hx benign tumor Thyroid. 2017 Lung cancer-had sx, chemo and radiation. Tick bite 20 years ago, lyme's disease. History of Any Multi-Drug Resistant Organisms: ESBL Date of last positivie culture/infection: 08/19/17 MDRO Source:: ESBL URINE Past Surgical History: Adenoidectomy, Breast Surgery, Hernia Repair, Tonsillectomy Additional Past Surgical History / Comment(s): Bronchoscopy, mediastinoscopy w/biopsy in March 2017, right partial lobectomy @[facility] 05-05-17, mediport lt upper chest. RT BREAST x 3 bx-neg. BILAT CATARACTS REMOVED. WHIPPLE 2006. Total Thyroidectomy. THYROIDECTOMY. VOCAL CORD SX Past Anesthesia/Blood Transfusion Reactions: Previous Problems w/ Anesthesia Additional Past Anesthesia/Blood Transfusion Reaction / Comment(s): Told I have "very skinny windpipe," difficult intubation. WOKE UP DURING CATARACT SURGERY, and was aware during breast sx Past Psychological History: No Psychological Hx Reported Smoking Status: Former smoker Past Alcohol Use History: None Reported Past Drug Use History: None Reported - Past Family History Mother Family Medical History: Deep Vein Thrombosis (DVT) Father Family Medical History: Cancer Additional Family Medical History / Comment(s): lung cancer General Exam Limitations: no limitations General appearance: alert, in no apparent distress Head exam: Present: atraumatic, normocephalic, normal inspection Eye exam: Present: normal appearance, PERRL, EOMI. Absent: scleral icterus, conjunctival injection, periorbital swelling ENT exam: Present: normal exam, normal oropharynx, mucous membranes moist Neck exam: Present: normal inspection, full ROM. Absent: tenderness, meningismus, lymphadenopathy Respiratory exam: Present: decreased breath sounds. Absent: normal lung sounds bilaterally, respiratory distress, wheezes, rales, rhonchi, stridor Cardiovascular Exam: Present: normal rhythm, tachycardia, normal heart sounds. Absent: systolic murmur, diastolic murmur, rubs, gallop, clicks GI/Abdominal exam: Present: soft, normal bowel sounds. Absent: distended, tenderness, guarding, rebound, rigid Neurological exam: Present: alert Skin exam: Present: warm, dry, intact, normal color. Absent: rash Course Vital Signs 10/18/22 10:31 Temperature 100 F H Pulse Rate 107 H Respiratory 18 Rate Blood Pressure 137/86 O2 Sat by Pulse 90 L Oximetry Medical Decision Making - Medical Decision Making 72-year-old female presents emergency department for fever cough shortness of breath patient's currently been on antibiotics with no improvement. Patient's had T-max of 103. Patient chest x-ray read shows to lobe pneumonia on the right, patient was started on broad-spectrum antibiotics given patient is currently being treated for lung cancer, has had recent recurrent pneumonia. Patient be admitted for further treatment with consult to pulmonology and hematology - Lab Data Result diagrams: 10/18/22 11:17 10/18/22 11:17 Lab Results 10/18/22 10/18/22 10/18/22 Range/Units 11:17 11:17 11:17 WBC 8.0 (3.8-10.6) k/uL RBC 4.60 (3.80-5.40) m/uL Hgb 13.2 (11.4-16.0) gm/dL Hct 39.3 (34.0-46.0) % MCV 85.4 (80.0-100.0) fL MCH 28.6 (25.0-35.0) pg MCHC 33.5 (31.0-37.0) g/dL RDW 13.4 (11.5-15.5) % Plt Count 220 (150-450) k/uL MPV 7.7 Neutrophils % 86 % Lymphocytes % 4 % Monocytes % 5 % Eosinophils % 3 % Basophils % 0 % Neutrophils # 6.9 (1.3-7.7) k/uL Lymphocytes # 0.3 L (1.0-4.8) k/uL Monocytes # 0.4 (0-1.0) k/uL Eosinophils # 0.2 (0-0.7) k/uL Basophils # 0.0 (0-0.2) k/uL Sodium 134 L (137-145) mmol/L Potassium 3.5 (3.5-5.1) mmol/L Chloride 102 (98-107) mmol/L Carbon Dioxide 24 (22-30) mmol/L Anion Gap 8 mmol/L BUN 7 (7-17) mg/dL Creatinine 0.59 (0.52-1.04) mg/dL Est GFR (CKD-EPI)AfAm >90 (>60 ml/min/1.73 sqM) Est GFR (CKD-EPI)NonAf >90 (>60 ml/min/1.73 sqM) Glucose 123 H (74-99) mg/dL Plasma Lactic Acid Eduardo 0.9 (0.7-2.0) mmol/L Calcium 7.6 L (8.4-10.2) mg/dL Total Bilirubin 0.9 (0.2-1.3) mg/dL AST 22 (14-36) U/L ALT 25 (4-34) U/L Alkaline Phosphatase 136 H (38-126) U/L Total Protein 6.1 L (6.3-8.2) g/dL Albumin 3.4 L (3.5-5.0) g/dL Urine Color Urine Appearance (Clear) Urine pH (5.0-8.0) Ur Specific Bucklin (1.001-1.035) Urine Protein (Negative) Urine Glucose (UA) (Negative) Urine Ketones (Negative) Urine Blood (Negative) Urine Nitrite (Negative) Urine Bilirubin (Negative) Urine Urobilinogen (<2.0) mg/dL Ur Leukocyte Esterase (Negative) Urine RBC (0-5) /hpf Urine WBC (0-5) /hpf Ur Squamous Epith Cells (0-4) /hpf Urine Mucus (None) /hpf Influenza Type A (PCR) (Not Detectd) Influenza Type B (PCR) (Not Detectd) RSV (PCR) (Not Detectd) SARS-CoV-2 (PCR) (Not Detectd) 10/18/22 10/18/22 Range/Units 11:17 12:52 WBC (3.8-10.6) k/uL RBC (3.80-5.40) m/uL Hgb (11.4-16.0) gm/dL Hct (34.0-46.0) % MCV (80.0-100.0) fL MCH (25.0-35.0) pg MCHC (31.0-37.0) g/dL RDW (11.5-15.5) % Plt Count (150-450) k/uL MPV Neutrophils % % Lymphocytes % % Monocytes % % Eosinophils % % Basophils % % Neutrophils # (1.3-7.7) k/uL Lymphocytes # (1.0-4.8) k/uL Monocytes # (0-1.0) k/uL Eosinophils # (0-0.7) k/uL Basophils # (0-0.2) k/uL Sodium (137-145) mmol/L Potassium (3.5-5.1) mmol/L Chloride (98-107) mmol/L Carbon Dioxide (22-30) mmol/L Anion Gap mmol/L BUN (7-17) mg/dL Creatinine (0.52-1.04) mg/dL Est GFR (CKD-EPI)AfAm (>60 ml/min/1.73 sqM) Est GFR (CKD-EPI)NonAf (>60 ml/min/1.73 sqM) Glucose (74-99) mg/dL Plasma Lactic Acid Eduardo (0.7-2.0) mmol/L Calcium (8.4-10.2) mg/dL Total Bilirubin (0.2-1.3) mg/dL AST (14-36) U/L ALT (4-34) U/L Alkaline Phosphatase (38-126) U/L Total Protein (6.3-8.2) g/dL Albumin (3.5-5.0) g/dL Urine Color Yellow Urine Appearance Clear (Clear) Urine pH 6.0 (5.0-8.0) Ur Specific Bucklin 1.009 (1.001-1.035) Urine Protein Negative (Negative) Urine Glucose (UA) Negative (Negative) Urine Ketones 1+ H (Negative) Urine Blood Negative (Negative) Urine Nitrite Negative (Negative) Urine Bilirubin Negative (Negative) Urine Urobilinogen <2.0 (<2.0) mg/dL Ur Leukocyte Esterase Large H (Negative) Urine RBC 3 (0-5) /hpf Urine WBC 22 H (0-5) /hpf Ur Squamous Epith Cells 3 (0-4) /hpf Urine Mucus Rare H (None) /hpf Influenza Type A (PCR) Not Detected (Not Detectd) Influenza Type B (PCR) Not Detected (Not Detectd) RSV (PCR) Not Detected (Not Detectd) SARS-CoV-2 (PCR) Not Detected (Not Detectd) Disposition Clinical Impression: Pneumonia, COPD exacerbation, Hypoxemia, Lung cancer Disposition: ADMITTED IP TO THIS HOSP Condition: Fair Referrals: Cas Lomeli MD [Primary Care Provider] - 1-2 days Time of Disposition: 13:20
[2022-10-18 11:32] LABS: Basophils % (A) 0 %; Eosinophils # (A) 0.2 k/uL (0-0.7); Eosinophils % (A) 3 %; HCT 39.3 % (34.0-46.0); HGB 13.2 gm/dL (11.4-16.0); Lymphocytes # (A) 0.3 k/uL (1.0-4.8); Lymphocytes % (A) 4 %; MCH 28.6 pg (25.0-35.0); MCHC 33.5 g/dL (31.0-37.0); MCV 85.4 fL (80.0-100.0); Mean Platelet Volume 7.7; Monocytes # (A) 0.4 k/uL (0-1.0); Monocytes % (A) 5 %; Neutrophils # (A) 6.9 k/uL (1.3-7.7); Neutrophils % (A) 86 %; Platelet Count 220 k/uL (150-450); RDW 13.4 % (11.5-15.5)
[2022-10-18 11:44] LABS: ALT 25 U/L (4-34); AST 22 U/L (14-36); African American GFR (CKD) >90 (>60 ml/min/1.73 sqM); Albumin 3.4 g/dL (3.5-5.0); Alkaline Phosphatase 136 U/L (38-126); Anion Gap 8 mmol/L; Blood Urea Nitrogen 7 mg/dL (7-17); Calcium 7.6 mg/dL (8.4-10.2); Carbon Dioxide 24 mmol/L (22-30); Chloride 102 mmol/L (98-107); Glucose 123 mg/dL (74-99); Non-African American GFR(CKD) >90 (>60 ml/min/1.73 sqM); Potassium 3.5 mmol/L (3.5-5.1); Sodium 134 mmol/L (137-145); Total Bilirubin 0.9 mg/dL (0.2-1.3); Total Protein 6.1 g/dL (6.3-8.2)
--- NOTE | 2022-10-18 11:47 | XR ---
EXAMINATION TYPE: XR chest 2V DATE OF EXAM: 10/18/2022 COMPARISON: 08/01/2022, 09/04/2022 HISTORY: 72-year-old female with fever, nausea, vomiting, cough TECHNIQUE: PA and lateral views FINDINGS: Mild cardiomegaly. Mild hyperinflation. Right anterior chest wall injection port with catheter tip at the cavoatrial junction. Patchy opacity throughout the right mid and lower lung. Findings similar co mpared to 08/01/2022 but increased from 09/04/2022. IMPRESSION: Patchy infiltrates right mid and lower lung have increased from 09/04/2022. Correlate for pneumonia.
[2022-10-18] MEDS ORDERED: CEFEPIME 2 GM in SODIUM CHLORIDE 0.9% 100 ML IVPB STA (13:50)
[2022-10-18] MEDS ORDERED: PNEUMONIA PROTOCOL UTILIZED 1 EACH MISC PO PRN (13:50)
[2022-10-18] MEDS ORDERED: AZITHROMYCIN 500 MG in SODIUM CHLORIDE 0.9% 250 ML IVPB STA (13:50)
[2022-10-18] MEDS ORDERED: ACETAMINOPHEN TAB 325 MG TAB PO PRN (13:52)
[2022-10-18 13:53] LABS: Appearance,Urine Clear (Clear); Bilirubin,Urine Negative (Negative); Blood,Urine Negative (Negative); Color,Urine Yellow; Glucose,Urine (UA) Negative (Negative); Ketones,Urine 1+ (Negative); Leukocyte Esterase,Urine Large (Negative); Mucus,Urine Rare /hpf; Nitrite,Urine Negative (Negative); Protein,Urine Negative (Negative); RBC,Urine 3 /hpf (0-5); Specific Gravity,Urine 1.009 (1.001-1.035); Squamous Epithelial Cell,Urine 3 /hpf (0-4); Urobilinogen,Urine <2.0 mg/dL (<2.0); WBC,Urine 22 /hpf (0-5)
[2022-10-18] MEDS ORDERED: METHYLPHENIDATE HCL 10 MG TAB PO PRN (16:18)
[2022-10-18] MEDS ORDERED: IPRATROPIUM-ALBUTEROL 3 ML NEB INHALATION PRN (16:22)
--- NOTE | 2022-10-18 16:27 | P.CNPUL ---
History of Present Illness Consult date: 10/18/22 Requesting physician: Sergio Robb Reason for consult: dyspnea, abnormal CXR/CT Chief complaint: Shortness of breath, cough, congestion History of present illness: This is a very pleasant 72-year-old female patient who follows with Dr. Lomeli as her primary care provider. She has a history of hypertension, hypothyroidism, gastroesophageal reflux disease, hypertension, fibromyalgia. She also has a history of squamous cell lung cancer stage IIIB diagnosed many years ago. She had undergone wedge resection of the right upper lobe and lymph node dissections. She had been given systemic chemotherapy and subsequent immunotherapy including iImfinzi that she had multiple side effects for she was most recently on Opdivo and stopped that in June 2022 related to frequent pneumonias. Her most recent CAT scan in July 2022 was stable. She follows with Dr. Giles is her oncologist. She follows with Dr. Godfrey in our office. She does have hypoxemic and hypercapnic respiratory failure secondary to COPD and is on home oxygen. She was most recently on Breztri. She presented here to the emergency room with complaints of increasing shortness of breath, cough and congestion. She had been seen at her PCPs office and given doxycycline and Augmentin. Chest x-ray reveals patchy infiltrate in the right mid and lower lung that have increased from last x-ray on 09/04/2022. White count 8.0. Hemoglobin 13.2. Sodium 134. Potassium 3.5. BUN 7. Creatinine 0.59. Glucose 123. Influenza screen negative. RSV screen negative. Rolle virus screen negative. She was initiated on cefepime and azithromycin. If she is seen in consultation today on the regular medical floor. She is up ambulating in her room. Awake and alert in no acute distress. Maintaining O2 saturations in the 90s on 2 L/m per nasal cannula. Initial temperature 100.0. Currently 98.2. Review of Systems REVIEW OF SYSTEMS: CONSTITUTIONAL: Denies any recent significant weight loss or weight gain. EYES: Denies change in vision. EARS, NOSE, MOUTH, THROAT: Denies headaches, denies sore throat. CARDIOVASCULAR: Denies chest pain, palpitations or syncopal episodes. RESPIRATORY: Positive for shortness of breath, cough, congestion no hemoptysis. GASTROINTESTINAL: Denies change in appetite, denies abdominal pain GENITOURINARY: Denies hematuria, denies infections. MUSKULOSKELETAL: Denies pain, denies swelling. INTEGUMENTARY: Denies rash, denies eczema. NEUROLOGICAL: Denies recent memory loss, no recent seizure activity. PSYCHIATRIC: Denies anxiety, denies depression. HEMATOLOGIC/LYMPHATIC: Denies anemia, denies enlarged lymph nodes. Past Medical History Past Medical History: Cancer, COPD, Fibromyalgia, GERD/Reflux, Hypertension, Thyroid Disorder Additional Past Medical History / Comment(s): Pancreatic tumor 2006, had Whipple; hx benign tumor Thyroid. 2017 Lung cancer-had sx, chemo and radiation. Tick bite 20 years ago, lyme's disease. History of Any Multi-Drug Resistant Organisms: ESBL Date of last positivie culture/infection: 08/19/17 MDRO Source:: ESBL URINE Past Surgical History: Adenoidectomy, Breast Surgery, Hernia Repair, Tonsillectomy Additional Past Surgical History / Comment(s): Bronchoscopy, mediastinoscopy w/biopsy in March 2017, right partial lobectomy @[facility] 05-05-17, [facility] upper chest. RT BREAST x 3 bx-neg. BILAT CATARACTS REMOVED. WHIPPLE 2006. Total T hyroidectomy. THYROIDECTOMY. VOCAL CORD SX Past Anesthesia/Blood Transfusion Reactions: Previous Problems w/ Anesthesia Additional Past Anesthesia/Blood Transfusion Reaction / Comment(s): Told I have "very skinny windpipe," difficult intubation. WOKE UP DURING CATARACT SURGERY, and was aware during breast sx Past Psychological History: No Psychological Hx Reported Smoking Status: Former smoker Past Alcohol Use History: None Reported Past Drug Use History: None Reported - Past Family History Mother Family Medical History: Deep Vein Thrombosis (DVT) Father Family Medical History: Cancer Additional Family Medical History / Comment(s): lung cancer Medications and Allergies Home Medications Medication Instructions Recorded Confirmed Type Losartan Potassium [Cozaar] 50 mg PO HS 03/31/17 10/18/22 History Levothyroxine Sodium [Euthyrox] 125 mcg PO AC-BRKFST 07/31/22 10/18/22 History diphenhydrAMINE [Benadryl] 25 mg PO HS 07/31/22 10/18/22 History Acetaminophen [Tylenol] 325 mg PO DAILY 10/18/22 10/18/22 History Amoxic-Pot Clav 875-125Mg 1 tab PO BID 10/18/22 10/18/22 History [Augmentin 875-125] Benzonatate [Tessalon Perles] 100 mg PO TID PRN 10/18/22 10/18/22 History Budesonide/Glycopyr/Formoterol 1 puff INHALATION RT-BID 10/18/22 10/18/22 History [Breztri Aerosphere Inhaler] Cholecalciferol [Vitamin D3 (25 25 mcg PO DAILY 10/18/22 10/18/22 History Mcg = 1000 Iu)] Doxycycline Monohydrate [Monodox] 100 mg PO BID 10/18/22 10/18/22 History Methylphenidate HCl [Ritalin] 10 mg PO TID PRN 10/18/22 10/18/22 History Omeprazole 40 mg PO DAILY 10/18/22 10/18/22 History Allergies Allergy/AdvReac Type Severity Reaction Status Date / Time Penicillins Allergy Anaphylaxis, Verified 10/18/22 14:26 swelling of face & lips ethanol alcohol AdvReac avoids Uncoded 10/18/22 14:26 drinking alcohol (recovering alcoholic) Physical Exam Vitals: Vital Signs Temp Pulse Pulse Resp BP BP Pulse Ox 10/18/22 15:45 98.2 F 101 H 19 118/61 97 10/18/22 14:22 95 18 145/78 98 10/18/22 10:31 100 F H 107 H 18 137/86 90 L Intake and Output 10/18/22 10/18/22 10/18/22 06:59 14:59 22:59 Other: Weight 74.571 kg GENERAL EXAM: Alert, active, very pleasant 72-year-old female, on 2 L nasal cannula comfortable in no apparent distress. HEAD: Normocephalic. EYES: Normal reaction of pupils, equal size. NOSE: Clear with pink turbinates. THROAT: No erythema or exudates. NECK: No masses, no JVD. CHEST: No chest wall deformity. LUNGS: Equal air entry with few scattered rhonchi fo the right lung. CVS: S1 and S2 normal with no audible murmur, regular rhythm. ABDOMEN: No hepatosplenomegaly, normal bowel sounds, no guarding or rigidity. SPINE: No scoliosis or deformity SKIN: No rashes CENTRAL NERVOUS SYSTEM: No focal deficits, tone is normal in all 4 extremities. EXTREMITIES: There is no peripheral edema. No clubbing, no cyanosis. Peripheral pulses are intact. Results - Laboratory Findings CBC and BMP: 10/18/22 11:17 10/18/22 11:17 Abnormal lab findings: Abnormal Labs 10/18/22 10/18/22 10/18/22 11:17 11:17 12:52 Lymphocytes # 0.3 L Sodium 134 L Glucose 123 H Calcium 7.6 L Alkaline Phosphatase 136 H Total Protein 6.1 L Albumin 3.4 L Urine Ketones 1+ H Ur Leukocyte Esterase Large H Urine WBC 22 H Urine Mucus Rare H - Diagnostic Findings Chest x-ray: image reviewed Assessment and Plan Assessment: Acute on chronic hypoxemic respiratory failure secondary to an early right lung pneumonia, community-acquired. Failed outpatient therapy. Coronavirus, influenza and RSV all ruled out Febrile illness secondary to above History of chronic hypoxemic and hypercapnic respiratory failure secondary to chronic obstructive pulmonary disease Chronic obstructive pulmonary disease History of 45 years of chronic tobacco dependence History of stage IIIB squamous cell carcinoma of the lung with previous wedge resection of the right upper lobe and lymph node dissection. Status post systemic chemotherapy and subsequent immunotherapy. She was initially on Imfinzi with multiple side effects and subsequently on Opdivo which was also stopped in June 2022 due to side effects. Most recent CAT scan in July 2022 was stable. Follow-up CAT scan pending in October 2022. Hypothyroidism Hypertension Fibromyalgia Previous history of alcoholism History of ADHD Plan: The patient was seen and evaluated Chest x-ray, labs and medications reviewed Discontinue cefepime and azithromycin Initiate Levaquin 750 mg by mouth daily Obtain a pro-calcitonin Titrate her FiO2 as tolerated We will continue to follow and make further recommendations based on her clinical status I have personally seen and examined the patient, performed the documentation and the assessment and plan as written. Number of minutes spent on the visit: 20.
[2022-10-18] MEDS: LEVOFLOXACIN 750 MG TAB PO SCH (18:41)
[2022-10-18] MEDS: SYMBICORT 160-4.5 MCG INHALER INHALATION SCH (19:45)
[2022-10-18] MEDS: IPRATROPIUM-ALBUTEROL 3 ML NEB INHALATION SCH (19:45)
[2022-10-18] MEDS ORDERED: BUDESONIDE 1 MG/2 ML NEBU INHALATION SCH (20:00)
[2022-10-18] MEDS: diphenhydrAMINE 25 MG CAP PO SCH (20:20)
[2022-10-18] MEDS: LOSARTAN 50 MG TAB PO SCH (20:20)
[2022-10-18] MEDS: HEPARIN SODIUM,PORCINE/PF 5,000 UNIT/0.5 ML SYRINGE SQ SCH (20:20)
[2022-10-18] MEDS: BENZONATATE 100 MG CAP PO PRN (20:21)
[2022-10-18] MEDS ORDERED: CEFEPIME 2 GM in SODIUM CHLORIDE 0.9% 100 ML IVPB SCH (22:00)
--- NOTE | 2022-10-19 03:10 | HP ---
HISTORY AND PHYSICAL CHIEF COMPLAINT: Fever and pneumonia. HISTORY OF PRESENT ILLNESS: This 72-year-old woman with a past medical history of multiple medical problems including lung cancer, COPD, also had multiple treatments. Currently, the patient is having fever on and off and pneumonia for the last 3 months according to her. The patient is running high fever and diffuse weakness. The patient came to [facility], pneumonia admitted for further evaluation and treatment. There is no history of any headache, loss of consciousness, COVID, RSV and flu are negative. PAST MEDICAL HISTORY: Reviewed include lung cancer on the right side, status post chemotherapy and immunotherapy. The rest of the history and the whole chart is reviewed. MEDICATIONS: Ritalin dose and rest of medications reviewed. ALLERGIES: Reviewed include penicillin. FAMILY HISTORY: History of DVT. SOCIAL HISTORY: Previous history of smoking. REVIEW OF SYSTEMS: Fourteen-point review of systems negative except as mentioned earlier. PHYSICAL EXAMINATION: VITAL SIGNS: Pulse 107, blood pressure, respirations 18. HEENT: Conjunctivae normal. NECK: No jugular venous distention. CARDIOVASCULAR: Breath sounds diminished at the bases. RESPIRATORY: Scattered rhonchi and crackles. Harsh breathing on the right side. ABDOMEN: Soft, nontender. LEGS: No edema. No cyanosis. NERVOUS SYSTEM: No focal deficit. SKIN: No rash. JOINTS: No active arthropathy. LYMPHATICS: No lymph LABS: Reviewed. Chest x-ray reviewed personally. ASSESSMENT: 1. Right-sided pneumonia possibly gram-negative postobstructive. 2. Cell lung cancer. 3. Chronic obstructive pulmonary disease. 4. Hypertension. 5. Multiple medical issues. 6. History of ESBL. RECOMMENDATION AND DISCUSSION: This 72-year-old woman who presented with multiple complex medical issues. We will monitor the patient closely. I would continue the current medication. Initiate empiric antibiotics. Resume the home medications intensive bronchodilator treatment, pulmonary consultation. I would also recommend infectious disease evaluation the possibility of atypical pneumonia pneumonia or even fungal pneumonias, unusual type of pneumonias. Overall, prognosis guarded. See orders for details and further recommendations to follow. MMODL / IJN: [id number] / MTDD
[2022-10-19] MEDS: BENZONATATE 100 MG CAP PO PRN ×3 (03:21→23:09)
[2022-10-19] MEDS ORDERED: PANTOPRAZOLE 40 MG TABLET PO SCH ×2 (07:30)
--- NOTE | 2022-10-19 07:42 | XR ---
EXAMINATION TYPE: XR chest 2V DATE OF EXAM: 10/19/2022 COMPARISON: 10/18/2022 HISTORY: 72-year-old female with pneumonia TECHNIQUE: Frontal and lateral views FINDINGS: Right anterior chest wall port with catheter tip at the cavoatrial junction. Heart mildly enlarged. M ild hyperinflation. Interstitial prominence similar. Patchy opacity throughout the right mid and lowe r lung persists. Band of atelectasis or scarring in the left midlung remains as well. IMPRESSION: Mild cardiomegaly. Infiltrate persists throughout the right mid and lower lung.
[2022-10-19] MEDS: ACETAMINOPHEN TAB 325 MG TAB PO SCH (08:09)
[2022-10-19] MEDS: CHOLECALCIFEROL 25 MCG (1000 IU) TABLET PO SCH (08:09)
[2022-10-19] MEDS: LEVOTHYROXINE 125 MCG TAB PO SCH (08:10)
[2022-10-19] MEDS: HEPARIN SODIUM,PORCINE/PF 5,000 UNIT/0.5 ML SYRINGE SQ SCH ×2 (08:11→20:41)
[2022-10-19] MEDS: IPRATROPIUM-ALBUTEROL 3 ML NEB INHALATION SCH ×4 (08:54→21:21)
[2022-10-19] MEDS: SYMBICORT 160-4.5 MCG INHALER INHALATION SCH ×2 (08:54→21:21)
[2022-10-19 09:52] LABS: Basophils # (A) 0.02 X 10*3/uL (0.00-0.10); Basophils % (A) 0.3 %; Eosinophils # (A) 0.39 X 10*3/uL (0.04-0.35); Eosinophils % (A) 6.4 %; HGB 11.8 g/dL (12.0-15.0); Immature Grans, Automated 0.2 %; Lymphocytes # (A) 0.36 X 10*3/uL (0.90-5.00); Lymphocytes % (A) 5.9 %; MCH 28.1 pg (27.0-32.0); MCHC 31.9 g/dL (32.0-37.0); MCV 88.1 fL (80.0-97.0); Mean Platelet Volume 10.1 fL (9.5-12.2); Monocytes # (A) 0.65 X 10*3/uL (0.20-1.00); Monocytes % (A) 10.7 %; NRBC Per 100 WBC 0 /100 WBCS (0.0-0.0); Neutrophils # (A) 4.63 X 10*3/uL (1.80-7.70); Neutrophils % (A) 76.5 %; Platelet Count 232 X 10*3/uL (140-440); RDW 13.8 % (11.5-14.5); WBC 6.06 X 10*3/uL (4.50-10.00)
[2022-10-19 10:17] LABS: African American GFR (CKD) 104.8 (60.0-200.0); Anion Gap 10.3 mmol/L (10.00-18.00); BUN/Creat Ratio 9.33 Ratio (12.00-20.00); Blood Urea Nitrogen 5.6 mg/dL (9.0-27.0); Calcium 7.9 mg/dL (8.7-10.3); Carbon Dioxide 24.7 mmol/L (20.0-27.5); Non-African American GFR(CKD) 90.4 (60.0-200.0)
[2022-10-19] MEDS ORDERED: ONDANSETRON 4 MG/2 ML VIAL IVP PRN (10:50)
[2022-10-19] MEDS ORDERED: PANTOPRAZOLE 40 MG/10 ML VIAL IVP SCH (11:00)
--- NOTE | 2022-10-19 11:54 | P.CONS ---
History of Present Illness - Reason for Consult Consult date: 10/19/22 Pneumonia, Lung ca - History of Present Illness The patient is 72-year-old white female, well known to our service. She is followed by Dr. Giles in the outpatient setting. She was diagnosed with squamous cell lung cancer, stage IV, in 2016. She was initially on carboplatin and Taxol, and then switch to PD1 immunotherapy with Imfinzi. Due to tolerance issues, she was then switched to Opdivo. She has not been on any treatment since 07/21. At that time she had no definite measurable disease on imaging. The patient was admitted to the hospital in 08/21 for COPD exacerbation and possible pneumonia. Imaging at that time, scan and CT of the chest in 09/20 showed no evidence of recurrence/progression. The patient states that she felt well for some time after her last discharge, but then started to have some worsening of her baseline shortness breath starting in late 09/20. His symptoms became more prominent over the last few days, along with development of a cough productive of yellowish/greenish sputum. Therefore came back to the emergency room, with chest x-ray showing progressive infiltrate in the right middle and lower lobes. She was therefore admitted for further management She does report some difficulty in swallowing off and on, but no history of any choking, or symptoms suspicious for aspiration. Review of Systems Constitutional: Reports fatigue Eyes: denies blurred vision, denies pain Ears: deny: decreased hearing, ear discharge, earache, tinnitus Ears, nose, mouth and throat: Denies headache, Denies sore throat Cardiovascular: Reports palpitations, Reports shortness of breath Respiratory: Reports cough with sputum, Reports dyspnea Gastrointestinal: Reports as per HPI Genitourinary: Denies dysuria, Denies hematuria Menstruation: Reports postmenopausal Musculoskeletal: Reports muscle weakness Integumentary: Denies pruritus, Denies rash Neurological: Reports weakness Psychiatric: Denies anxiety, Denies depression Endocrine: Reports fatigue Hematologic/Lymphatic: Reports as per HPI Past Medical History Past Medical History: Cancer, COPD, Fibromyalgia, GERD/Reflux, Hypertension, Thyroid Disorder Additional Past Medical History / Comment(s): Pancreatic tumor 2006, had Whipple; hx benign tumor Thyroid. 2017 Lung cancer-had sx, chemo and radiation. Tick bite 20 years ago, lyme's disease. History of Any Multi-Drug Resistant Organisms: ESBL Year Discovered:: 08/19/17 MDRO Source:: ESBL URINE Past Surgical History: Adenoidectomy, Breast Surgery, Hernia Repair, Tonsillectomy Additional Past Surgical History / Comment(s): Bronchoscopy, mediastinoscopy w/biopsy in March 2017, right partial lobectomy @[facility] 05-05-17, [facility] upper chest. RT BREAST x 3 bx-neg. BILAT CATARACTS REMOVED. WHIPPLE 2006. Total Thyroidectomy. THYROIDECTOMY. VOCAL CORD SX Past Anesthesia/Blood Transfusion Reactions: Previous Problems w/ Anesthesia Additional Past Anesthesia/Blood Transfusion Reaction / Comm: Told I have "very skinny windpipe," difficult intubation. WOKE UP DURING CATARACT SURGERY, and was aware during breast sx Past Psychological History: No Psychological Hx Reported Smoking Status: Former smoker Past Alcohol Use History: None Reported Past Drug Use History: None Reported - Past Family History Mother Family Medical History: Deep Vein Thrombosis (DVT) Father Family Medical History: Cancer Additional Family Medical History / Comment(s): lung cancer Medications and Allergies Home Medications Medication Instructions Recorded Confirmed Type Losartan Potassium [Cozaar] 50 mg PO HS 03/31/17 10/18/22 History Levothyroxine Sodium [Euthyrox] 125 mcg PO AC-BRKFST 07/31/22 10/18/22 History diphenhydrAMINE [Benadryl] 25 mg PO HS 07/31/22 10/18/22 History Acetaminophen [Tylenol] 325 mg PO DAILY 10/18/22 10/18/22 History Amoxic-Pot Clav 875-125Mg 1 tab PO BID 10/18/22 10/18/22 History [Augmentin 875-125] Benzonatate [Tessalon Perles] 100 mg PO TID PRN 10/18/22 10/18/22 History Budesonide/Glycopyr/Formoterol 1 puff INHALATION RT-BID 10/18/22 10/18/22 His tory [Breztri Aerosphere Inhaler] Cholecalciferol [Vitamin D3 (25 25 mcg PO DAILY 10/18/22 10/18/22 History Mcg = 1000 Iu)] Doxycycline Monohydrate [Monodox] 100 mg PO BID 10/18/22 10/18/22 History Methylphenidate HCl [Ritalin] 10 mg PO TID PRN 10/18/22 10/18/22 History Omeprazole 40 mg PO DAILY 10/18/22 10/18/22 History Allergies Allergy/AdvReac Type Severity Reaction Status Date / Time Penicillins Allergy Anaphylaxis, Verified 10/18/22 14:26 swelling of face & lips ethanol alcohol AdvReac avoids Uncoded 10/18/22 14:26 drinking alcohol (recovering alcoholic) Physical Exam Vitals: Vital Signs Temp Pulse Pulse Resp BP BP Pulse Ox 10/19/22 09:07 99 10/19/22 08:55 97 94 L 10/19/22 08:00 104 H 16 10/19/22 03:57 99.5 F 104 H 16 126/72 95 10/19/22 00:12 99.6 F 10/18/22 21:00 99.5 F 103 H 16 111/72 97 10/18/22 20:00 100 10/18/22 19:45 104 H 16 10/18/22 15:45 98.2 F 101 H 19 118/61 97 10/18/22 14:22 95 18 145/78 98 Intake and Output 10/18/22 10/19/22 10/19/22 22:59 06:59 14:59 Intake Total 250 600 Balance 250 600 Intake: IV 250 Azithromycin 500 mg In 250 Sodium Chloride 0.9% 250 ml @ 250 mls/hr IVPB ONCE STA Rx#:[id number] Oral 600 Other: Voiding Method Toilet Toilet # Voids 2 Weight 74.571 kg - Constitutional On O2 General appearance: no acute distress - EENT Eyes: EOMI, PERRLA ENT: hearing grossly normal, normal oropharynx - Neck Neck: no lymphadenopathy Thyroid: bilateral: normal size - Respiratory Respiratory: right: rales - Cardiovascular Rhythm: regular Heart sounds: normal: S1, S2 - Gastrointestinal General gastrointestinal: normal bowel sounds, soft - Integumentary Integumentary: normal - Neurologic Neurologic: CNII-XII intact - Musculoskeletal Musculoskeletal: generalized weakness, strength equal bilaterally - Psychiatric Psychiatric: A&O x's 3, appropriate affect Results CBC & Chem 7: 10/19/22 05:34 10/19/22 05:34 Labs: Abnormal Lab Results - Last 24 Hours (Table) 10/18/22 10/19/22 10/19/22 Range/Units 12:52 05:34 05:34 Hgb 11.8 L (12.0-15.0) g/dL Hct 37.0 L (37.2-46.3) % MCHC 31.9 L (32.0-37.0) g/dL Lymphocytes # 0.36 L (0.90-5.00) X 10*3/uL Eosinophils # 0.39 H (0.04-0.35) X 10*3/uL BUN 5.6 L (9.0-27.0) mg/dL BUN/Creatinine Ratio 9.33 L (12.00-20.00) Ratio Calcium 7.9 L (8.7-10.3) mg/dL Urine Ketones 1+ H (Negative) Ur Leukocyte Esterase Large H (Negative) Urine WBC 22 H (0-5) /hpf Urine Mucus Rare H (None) /hpf Microbiology - Last 24 Hours (Table) 10/18/22 12:52 Urine Culture - Preliminary Urine,Voided Chest x-ray: report reviewed CT scan - chest: report reviewed Assessment and Plan (1) Pneumonia Narrative/Plan: The patient's current admission appears to be due to pneumonia, based on her symptoms, as well as x-ray appearance. The patient is improved with treatment. Therefore to the admitting service and other consultants for ongoing management. Current Visit: Yes Status: Acute Code(s): J18.9 - PNEUMONIA, UNSPECIFIED ORGANISM SNOMED Code(s): 032065377 (2) Lung cancer Narrative/Plan: History as noted in the HPI. The patient has not been on any treatment since 07/21 due to progressive intolerance to her last immunotherapy regimen. At that time there was no evidence of obvious measurable disease. Similarly CT scans in 09/20 did not show any evidence of recurrence/progression either. - At this time it appears that her presentation is most likely unrelated. The patient has upcoming follow-up and scans with Dr. Giles in the next month or so. - The patient continues to have recurrent episodes of pneumonia, without evidence of malignancy recurrence on imaging, discussed with pulmonary medicine about considering bronchoscopy in the future Current Visit: Yes Status: Acute Code(s): C34.90 - MALIGNANT NEOPLASM OF UNSP PART OF UNSP BRONCHUS OR LUNG SNOMED Code(s): 954578516
[2022-10-19] MEDS ORDERED: AZITHROMYCIN 500 MG in SODIUM CHLORIDE 0.9% 250 ML IVPB SCH (16:00)
[2022-10-19] MEDS: LEVOFLOXACIN 750 MG TAB PO SCH (16:16)
[2022-10-19] MEDS: methylPREDNISolone SOD SUCCI 125 MG/2 ML VIAL IV SCH ×2 (16:17→23:09)
--- NOTE | 2022-10-19 17:50 | P.PN ---
Subjective Progress Note Date: 10/19/22 Principal diagnosis: Shortness of breath and cough. This is a very pleasant 72-year-old female patient who follows with Dr. Lomeli as her primary care provider. She has a history of hypertension, hypothyroidism, gastroesophageal reflux disease, hypertension, fibromyalgia. She also has a history of squamous cell lung cancer stage IIIB diagnosed many years ago. She had undergone wedge resection of the right upper lobe and lymph node dissections. She had been given systemic chemotherapy and subsequent immunotherapy including iImfinzi that she had multiple side effects for she was most recently on Opdivo and stopped that in June 2022 related to frequent pneumonias. Her most recent CAT scan in July 2022 was stable. She follows with Dr. Giles is her oncologist. She follows with Dr. Godfrey in our office. She does have hypoxemic and hypercapnic respiratory failure secondary to COPD and is on home oxygen. She was most recently on Breztri. She presented here to the emergency room with complaints of increasing shortness of breath, cough and congestion. She had been seen at her PCPs office and given doxycycline and Augmentin. Chest x-ray reveals patchy infiltrate in the right mid and lower lung that have increased from last x-ray on 09/04/2022. White count 8.0. Hemoglobin 13.2. Sodium 134. Potassium 3.5. BUN 7. Creatinine 0.59. Glucose 123. Influenza screen negative. RSV screen negative. Rolle virus screen negative. She was initiated on cefepime and azithromycin. If she is seen in consultation today on the regular medical floor. She is up ambulating in her room. Awake and alert in no acute distress. Maintaining O2 saturations in the 90s on 2 L/m per nasal cannula. Initial temperature 100.0. Currently 98.2. Progress note dated 10/19/2022. 72-year-old female seen yesterday in consultation. Please see the note above. The patient is seen in room 528. Currently, she is on 2 L of oxygen. Her chest x-ray revealed a right lung pneumonia. Today we added some Solu-Medrol, 60 mg every 8 hours. She's feeling only a bit better today. She asked about whether or not she could go home, and I told her she should stay at least another day. White count 6.06, hemoglobin 11.8, hematocrit 37, and platelet count 232,000. Sodium 137, potassium 4, chlorides 102, CO2 25, BUN 5.6, and creatinine 0.6. Chest x-ray today continues to show a right midlung and right lower lobe infiltrate. Objective - Vital Signs Vital signs: Vital Signs Temp 99.3 F 10/19/22 12:23 Pulse 92 10/19/22 16:59 Resp 18 10/19/22 12:23 BP 132/72 10/19/22 12:23 Pulse Ox 95 10/19/22 12:23 FiO2 Intake & Output 10/18/22 10/19/22 10/19/22 18:59 06:59 18:59 Intake Total 250 600 Balance 250 600 Weight 74.571 kg Intake: IV 250 Azithromycin 500 mg In 250 Sodium Chloride 0.9% 250 ml @ 250 mls/hr IVPB ONCE STA Rx#:[id number] Oral 600 Other: Voiding Method Toilet Toilet # Voids 2 - Exam No acute distress, oriented 3. Currently on 2 L. In no acute distress. She does have a wet congested cough. HEENT examination is grossly unremarkable. Neck supple. Full range of motion. No adenopathy thyromegaly or neck vein dis tention. Cardiovascular examination reveals regular rhythm rate. S1-S2 normal. No S3 or S4. No discernible murmur noted. Heart sounds are distant. Heart rate 90 bpm. Lungs reveal bilateral scattered rhonchi. No wheezes or crackles. Adventitious lung sounds are more prominent in the right lung. 2 L saturation is 94%. Abdomen soft bowel sounds are heard. No masses or tenderness. Extremities are intact. No cyanosis clubbing or edema. Skin is without rash or lesion. Neurologic examination is brief but nonfocal. - Labs CBC & Chem 7: 10/19/22 05:34 10/19/22 05:34 Labs: Abnormal Lab Results - Last 24 Hours (Table) 10/19/22 10/19/22 Range/Units 05:34 05:34 Hgb 11.8 L (12.0-15.0) g/dL Hct 37.0 L (37.2-46.3) % MCHC 31.9 L (32.0-37.0) g/dL Lymphocytes # 0.36 L (0.90-5.00) X 10*3/uL Eosinophils # 0.39 H (0.04-0.35) X 10*3/uL BUN 5.6 L (9.0-27.0) mg/dL BUN/Creatinine Ratio 9.33 L (12.00-20.00) Ratio Calcium 7.9 L (8.7-10.3) mg/dL Microbiology - Last 24 Hours (Table) 10/18/22 11:17 Blood Culture - Preliminary Blood No Growth after 24 hours 10/18/22 11:17 Blood Culture - Preliminary Blood No Growth after 24 hours 10/18/22 12:52 Urine Culture - Preliminary Urine,Voided Assessment and Plan Assessment: Acute on chronic hypoxemic respiratory failure secondary to an early right lung pneumonia, community-acquired. Failed outpatient therapy. Coronavirus, influenza and RSV all ruled out. Febrile illness secondary to above. History of chronic hypoxemic and hypercapnic respiratory failure secondary to chronic obstructive pulmonary disease. Chronic obstructive pulmonary disease. History of 45 years of chronic tobacco dependence. History of stage IIIB squamous cell carcinoma of the lung with previous wedge resection of the right upper lobe and lymph node dissection. Status post systemic chemotherapy and subsequent immunotherapy. She was initially on Imfinzi with multiple side effects and subsequently on Opdivo which was also stopped in June 2022 due to side effects. Most recent CAT scan in July 2022 was stable. Follow-up CAT scan pending in October 2022. Hypothyroidism. Hypertension. Fibromyalgia. Previous history of alcoholism. History of ADHD. Plan: Plan dated 10/19/2022. The patient is doing a bit better today. Chest x-ray continues to show a right midlung and right lower lobe infiltrate. Labs, medications, and x-rays are reviewed. The patient will continue to be followed, and we will make recommendations along the way. The patient was anxious to be discharged, but I believe it is best to keep her into the hospital for at least another 24 hours. We will reassess her in the morning. Additional recommendations and suggestions are forthcoming. I added steroids, because she was a bit more bronchospastic. Time with Patient: Less than 30
[2022-10-19] MEDS: LOSARTAN 50 MG TAB PO SCH (20:41)
[2022-10-19] MEDS: diphenhydrAMINE 25 MG CAP PO SCH (20:41)
[2022-10-19] MEDS: PANTOPRAZOLE 40 MG/10 ML VIAL IVP SCH (20:41)
[2022-10-19] MEDS: TEMAZEPAM 15 MG CAP PO PRN (23:09)
--- NOTE | 2022-10-20 00:23 | PN ---
PROGRESS NOTE DATE OF SERVICE: 10/19/2022 SUBJECTIVE: This is a 72-year-old woman who was admitted with possibly right-sided pneumonia with a history of lung cancer, who is being closely monitored. The patient is on IV antibiotics at this time and steroids. No chest pain, no palpitations. OBJECTIVE: VITAL SIGNS: Pulse 95, blood pressure 138/70, respirations 16. HEENT: Conjunctivae normal. NECK: No JVD. CARDIOVASCULAR: S1, S2. RESPIRATIONS: Few scattered rhonchi, no crackles. ABDOMEN: Soft. NERVOUS SYSTEM: Nonfocal. LABORATORY DATA: Labs reviewed. ASSESSMENT: 1. Right-sided pneumonia, possibly postobstructive. 2. Lung cancer. 3. Chronic obstructive pulmonary disease. 4. Hypertension. 5. Multiple medical issues. 6. ESBL. RECOMMENDATIONS: Recommended to continue current management, continue symptomatic treatment. Closely follow with Pulmonary and as well as Infectious Disease. Guarded prognosis. Further recommendations to follow. MMODL / IJN: [id number] /
[2022-10-20] MEDS: BENZONATATE 100 MG CAP PO PRN (06:21)
[2022-10-20] MEDS: LEVOTHYROXINE 125 MCG TAB PO SCH (08:02)
[2022-10-20] MEDS: methylPREDNISolone SOD SUCCI 125 MG/2 ML VIAL IV SCH ×3 (08:02→23:41)
[2022-10-20] MEDS: CHOLECALCIFEROL 25 MCG (1000 IU) TABLET PO SCH (08:03)
[2022-10-20] MEDS: PANTOPRAZOLE 40 MG/10 ML VIAL IVP SCH ×2 (08:03→21:31)
--- NOTE | 2022-10-20 08:54 | P.CONS ---
History of Present Illness - Reason for Consult Consult date: 10/19/22 Fever Requesting physician: Sergio Robb - Chief Complaint Fever and cough x few days - History of Present Illness Patient is a 72-year-old female with a past medical history significant for hypertension hypothyroidism GERD severe reflux disease fibromyalgia stage IIIb squamous cell cancer in this patient is status post wedge resection of the right upper lobe electrodissection has been on systemic chemotherapy subsequent has been switched over to Opdivo that was stopped because of frequent pneumonias patient is now presenting to the ER for evaluation of increasing shortness of breath congested cough in this patient symptom has been going on for few days before presentation to the hospital patient has been evaluated by the PCP and has been treated with doxycycline and Augmentin however the patient did not have significant improvement in her symptoms patient cough has been moderate intensity has been developed some sputum no hemoptysis no pleuritic chest pain patient on presentation to the hospital did have a low-grade fever of 100 degrees for a night patient did have normal white count kidney function has been normal limits of the normal urine was mildly positive influenza SARS-CoV-2 and RSV PCR was negative patient did have a chest x-ray right mid and lower lobe infiltrate patient is currently being treated with the Levaquin infectious disease was consulted for further management of antibiotic therapy Review of Systems Positive point has been mentioned in the HPI rest of the systems are negative Past Medical History Past Medical History: Cancer, COPD, Fibromyalgia, GERD/Reflux, Hypertension, Thyroid Disorder Additional Past Medical History / Comment(s): Pancreatic tumor 2006, had Whipple; hx benign tumor Thyroid. 2017 Lung cancer-had sx, chemo and radiation. Tick bite 20 years ago, lyme's disease. History of Any Multi-Drug Resistant Organisms: ESBL Year Discovered:: 08/19/17 MDRO Source:: ESBL URINE Past Surgical History: Adenoidectomy, Breast Surgery, Hernia Repair, Tonsillectomy Additional Past Surgical History / Comment(s): Bronchoscopy, mediastinoscopy w/biopsy in March 2017, right partial lobectomy @[facility] 05-05-17, [facility] upper chest. RT BREAST x 3 bx-neg. BILAT CATARACTS REMOVED. WHIPPLE 2006. Total Thyroidectomy. THYROIDECTOMY. VOCAL CORD SX Past Anesthesia/Blood Transfusion Reactions: Previous Problems w/ Anesthesia Additional Past Anesthesia/Blood Transfusion Reaction / Comm: Told I have "very skinny windpipe," difficult intubation. WOKE UP DURING CATARACT SURGERY, and was aware during breast sx Past Psychological History: No Psychological Hx Reported Smoking Status: Former smoker Past Alcohol Use History: None Reported Past Drug Use History: None Reported - Past Family History Mother Family Medical History: Deep Vein Thrombosis (DVT) Father Family Medical History: Cancer Additional Family Medical History / Comment(s): lung cancer Medications and Allergies Home Medications Medication Instructions Recorded Confirmed Type Losartan Potassium [Cozaar] 50 mg PO HS 03/31/17 10/18/22 History Levothyroxine Sodium [Euthyrox] 125 mcg PO AC-BRKFST 07/31/22 10/18/22 History diphenhydrAMINE [Benadryl] 25 mg PO HS 07/31/22 10/18/22 History Acetaminophen [Tylenol] 325 mg PO DAILY 10/18/22 10/18/22 History Amoxic-Pot Clav 875-125Mg 1 tab PO BID 10/18/22 10/18/22 History [Augmentin 875-125] Benzonatate [Tessalon Perles] 100 mg PO TID PRN 10/18/22 10/18/22 History Budesonide/Glycopyr/Formoterol 1 puff INHALATION RT-BID 10/18/22 10/18/22 History [Breztri Aerosphere Inhaler] Cholecalciferol [Vitamin D3 (25 25 mcg PO DAILY 10/18/22 10/18/22 History Mcg = 1000 Iu)] Doxycycline Monohydrate [Monodox] 100 mg PO BID 10/18/22 10/18/22 History Methylphenidate HCl [Ritalin] 10 mg PO TID PRN 10/18/22 10/18/22 History Omeprazole 40 mg PO DAILY 10/18/22 10/18/22 History Allergies Allergy/AdvReac Type Severity Reaction Status Date / Time Penicillins Allergy Anaphylaxis, Verified 10/18/22 14:26 swelling of face & lips ethanol alcohol AdvReac avoids Uncoded 10/18/22 14:26 drinking alcohol (recovering alcoholic) Physical Exam Vitals: Vital Signs Temp Pulse Pulse Resp BP Pulse Ox 10/19/22 12:58 96 10/19/22 12:46 95 10/19/22 12:23 99.3 F 95 18 132/72 95 10/19/22 09:07 99 10/19/22 08:55 97 94 L 10/19/22 08:00 104 H 16 10/19/22 03:57 99.5 F 104 H 16 126/72 95 10/19/22 00:12 99.6 F 10/18/22 21:00 99.5 F 103 H 16 111/72 97 10/18/22 20:00 100 10/18/22 19:45 104 H 16 10/18/22 15:45 98.2 F 101 H 19 118/61 97 Intake and Output 10/18/22 10/19/22 10/19/22 22:59 06:59 14:59 Intake Total 250 600 Balance 250 600 Intake: IV 250 Azithromycin 500 mg In 250 Sodium Chloride 0.9% 250 ml @ 250 mls/hr IVPB ONCE STA Rx#:[id number] Oral 600 Other: Voiding Method Toilet Toilet # Voids 2 Weight 74.571 kg GENERAL DESCRIPTION: Elderly female lying in bed, no distress. No tachypnea or accessory muscle of respiration use. HEENT: Shows Pallor , no scleral icterus. Oral mucous membrane is dry. No pharyngeal erythema or thrush NECK: Trachea central, no thyromegaly. LUNGS: Unlabored breathing. Coarse breath sounds bilaterally HEART: S1, S2, regular rate and rhythm. No loud murmur ABDOMEN: Soft, no tenderness , guarding or rigidity, no organomegaly EXTREMITIES: No edema of feet. SKIN: No rash, no masses palpable. NEUROLOGICAL: The patient is awake, alert, oriented x3, mood and affect normal. Results CBC & Chem 7: 10/19/22 05:34 10/19/22 05:34 Labs: Abnormal Lab Results - Last 24 Hours (Table) 10/19/22 10/19/22 Range/Units 05:34 05:34 Hgb 11.8 L (12.0-15.0) g/dL Hct 37.0 L (37.2-46.3) % MCHC 31.9 L (32.0-37.0) g/dL Lymphocytes # 0.36 L (0.90-5.00) X 10*3/uL Eosinophils # 0.39 H (0.04-0.35) X 10*3/uL BUN 5.6 L (9.0-27.0) mg/dL BUN/Creatinine Ratio 9.33 L (12.00-20.00) Ratio Calcium 7.9 L (8.7-10.3) mg/dL Microbiology - Last 24 Hours (Table) 10/18/22 11:17 Blood Culture - Preliminary Blood No Growth after 24 hours 10/18/22 11:17 Blood Culture - Preliminary Blood No Growth after 24 hours 10/18/22 12:52 Urine Culture - Preliminary Urine,Voided Assessment and Plan (1) Pneumonia Current Visit: Yes Status: Acute Code(s): J18.9 - PNEUMONIA, UNSPECIFIED ORGANISM SNOMED Code(s): 650607795 Plan: 1patient is a 72-year-old female with a past medical history difficult for squamous cell carcinoma of the lung and history of recurrent pneu monia presented to hospital with increasing shortness of breath and cough did have low-grade fever and did have evidence of right middle lower lobe infiltrate concerning for pneumonia questionably from negative this patient failing outpatient oral Augmentin and doxycycline. 2we will check a CRP procalcitonin and obtain sputum for gram stain and culture. 3we will add cefepime while waiting for the culture to finalize. We will follow on clinical condition and cultures to further adjust medication if needed Thank you for this consultation will follow this patient along with you
[2022-10-20] MEDS: SYMBICORT 160-4.5 MCG INHALER INHALATION SCH ×2 (09:27→19:49)
[2022-10-20] MEDS: IPRATROPIUM-ALBUTEROL 3 ML NEB INHALATION SCH ×4 (09:27→19:49)
[2022-10-20] MEDS: HEPARIN SODIUM,PORCINE/PF 5,000 UNIT/0.5 ML SYRINGE SQ SCH ×2 (10:01→21:31)
[2022-10-20] MEDS: CEFEPIME 2 GM in SODIUM CHLORIDE 0.9% 100 ML IVPB SCH ×2 (10:45→17:56)
[2022-10-20] MEDS: ACETAMINOPHEN TAB 325 MG TAB PO SCH (12:44)
--- NOTE | 2022-10-20 17:40 | P.PN ---
Subjective Progress Note Date: 10/20/22 This is a very pleasant 72-year-old female patient who follows with Dr. Lomeli as her primary care provider. She has a history of hypertension, hypothyroidism, gastroesophageal reflux disease, hypertension, fibromyalgia. She also has a history of squamous cell lung cancer stage IIIB diagnosed many years ago. She had undergone wedge resection of the right upper lobe and lymph node dissections. She had been given systemic chemotherapy and subsequent immunotherapy including iImfinzi that she had multiple side effects for she was most recently on Opdivo and stopped that in June 2022 related to frequent pneumonias. Her most recent CAT scan in July 2022 was stable. She follows with Dr. Giles is her oncologist. She follows with Dr. Godfrey in our office. She does have hypoxemic and hypercapnic respiratory failure secondary to COPD and is on home oxygen. She was most recently on Breztri. She presented here to the emergency room with complaints of increasing shortness of breath, cough and congestion. She had been seen at her PCPs office and given doxycycline and Augmentin. Chest x-ray reveals patchy infiltrate in the right mid and lower lung that have increased from last x-ray on 09/04/2022. White count 8.0. Hemoglobin 13.2. Sodium 134. Potassium 3.5. BUN 7. Creatinine 0.59. Glucose 123. Influenza screen negative. RSV screen negative. Rolle virus screen negative. She was initiated on cefepime and azithromycin. If she is seen in consultation today on the regular medical floor. She is up ambulating in her room. Awake and alert in no acute distress. Maintaining O2 saturations in the 90s on 2 L/m per nasal cannula. Initial temperature 100.0. Currently 98.2. Progress note dated 10/19/2022. 72-year-old female seen yesterday in consultation. Please see the note above. The patient is seen in room 528. Currently, she is on 2 L of oxygen. Her chest x-ray revealed a right lung pneumonia. Today we added some Solu-Medrol, 60 mg every 8 hours. She's feeling only a bit better today. She asked about whether or not she could go home, and I told her she should stay at least another day. White count 6.06, hemoglobin 11.8, hematocrit 37, and platelet count 232,000. Sodium 137, potassium 4, chlorides 102, CO2 25, BUN 5.6, and creatinine 0.6. Chest x-ray today continues to show a right midlung and right lower lobe infiltrate. On 10/20/2022, I'm seeing the patient for a follow-up. The patient overall is doing well. No significant shortness of breath at rest. She is to bronchus spastic and wheezing this is gradually improving. She is known to me. She is known to have COPD and previous history of non-small cell lung cancer stage IIIB in her disease currently inactive and stable. She seems to be in remission for now. She is on broad-spectrum antibiotics for now. The pro calcitonin level is at 0.1. Influenza screen was negative. Covid 19 testing was also negative. The chest x-ray is consistent with mild cardiomegaly, limited infiltrates in the lung base bilaterally more so on the right. No other significant issues otherwise for now. Objective - Vital Signs Vital signs: Vital Signs Temp 97.3 F L 10/20/22 11:21 Pulse 96 10/20/22 16:37 Resp 16 10/20/22 11:21 BP 133/66 10/20/22 11:21 Pulse Ox 92 L 10/20/22 11:21 FiO2 Intake & Output 10/19/22 10/20/22 10/20/22 18:59 06:59 18:59 Intake Total 200 600 Balance 200 600 Intake: Intake, IV Titration 200 Amount Cefepime 2 gm In Sodium 200 Chloride 0.9% 100 ml @ 25 mls/hr IVPB Q8H [facility] Rx#: [id number] Oral 600 Other: Voiding Method Toilet Toilet Toilet # Voids 2 - Exam No acute distress, oriented 3. Currently on 2 L. In no acute distress. She does have a wet congested cough. HEENT examination is grossly unremarkable. Neck supple. Full range of motion. No adenopathy thyromegaly or neck vein distention. Cardiovascular examination reveals regular rhythm rate. S1-S2 normal. No S3 or S4. No discernible murmur noted. Heart sounds are distant. Heart rate 90 bpm. Lungs reveal bilateral scattered rhonchi. No wheezes or crackles. Adventitious lung sounds are more prominent in the right lung. 2 L saturation is 94%. Abdomen soft bowel sounds are heard. No masses or tenderness. Extremities are intact. No cyanosis clubbing or edema. Skin is without rash or lesion. Neurologic examination is brief but nonfocal. - Labs CBC & Chem 7: 10/19/22 05:34 10/19/22 05:34 Labs: Abnormal Lab Results - Last 24 Hours (Table) 10/20/22 10/20/22 Range/Units 04:39 04:39 C-Reactive Protein 13.10 H (0.00-0.80) mg/dL Procalcitonin 0.10 H (0.02-0.09) ng/mL Microbiology - Last 24 Hours (Table) 10/20/22 10:00 Sputum Culture - Preliminary Sputum 10/18/22 11:17 Blood Culture - Preliminary Blood No Growth after 48 hours 10/18/22 11:17 Blood Culture - Preliminary Blood No Growth after 48 hours 10/18/22 12:52 Urine Culture - Final Urine,Voided Assessment and Plan Plan: Acute on chronic hypoxemic respiratory failure secondary to an early right lung pneumonia, community-acquired. Failed outpatient therapy. Coronavirus, influenza and RSV all ruled out. Clinically improving and the patient is less short of breath compared to yesterday. Febrile illness secondary to above. Afebrile for now History of chronic hypoxemic and hypercapnic respiratory failure secondary to chronic obstructive pulmonary disease. Chronic obstructive pulmonary disease. History of 45 years of chronic tobacco dependence. History of stage IIIB squamous cell carcinoma of the lung with previous wedge resection of the right upper lobe and lymph node dissection. Status post systemic chemotherapy and subsequent immunotherapy. She was initially on Imfinzi with multiple side effects and subsequently on Opdivo which was also stopped in June 2022 due to side effects. Most recent CAT scan in July 2022 was stable. Follow-up CAT scan pending in October 2022. Hypothyroidism. Hypertension. Fibromyalgia. Previous history of alcoholism. History of ADHD. Plan: Clinically improving Continue bronchodilators Continue on steroids and the patient remains on IV Solu-Medrol 60 mg every 8 hours Keep Symbicort as maintenance DuoNeb neb treatments [id number] We'll continue to follow. Possible discharge in the next 24-48 hours based on her progress
[2022-10-20] MEDS: LEVOFLOXACIN 750 MG TAB PO SCH (17:56)
[2022-10-20] MEDS: diphenhydrAMINE 25 MG CAP PO SCH (21:31)
[2022-10-20] MEDS: LOSARTAN 50 MG TAB PO SCH (21:31)
--- NOTE | 2022-10-20 22:54 | P.PN ---
Progress Note - Text Progress Note Date: 10/20/22 Hospital course this is a very pleasant 72-year-old patient who follows with Dr. Cas david. Chronic stable medical conditions include fibromyalgia, GERD, hypertension, hypothyroid, 2007 had pancreatic tumor with Whipple's procedure, 2017 had lung cancer with right partial lobectomy at [facility] in 2017 followed by chemotherapy and radiation. 20 years ago had Lyme's disease with tick bite. Home oxygen 2 L. lung cancer has been in remission. followed with Dr. Godfrey. On July [address] chest with contrast that showed: Diffuse increased density especially noted in the right middle lobe felt to be unchanged from before. Patient now presented with pneumonia and acute hypoxic respiratory failure. 10/20/2022: I assumed care of the patient from [facility] today. Sitting up in bed. Having cough. Some below rib cage pain bilaterally with the same. Oral intake well. Decreased sputum production. Has been up to the bathroom. Some shortness of breath. Active Medications Acetaminophen (Acetaminophen Tab 325 Mg Tab) 650 mg PO Q6HR PRN PRN Reason: Fever and/ or Mild Pain Last Admin: 10/20/22 16:20 Dose: 650 mg Acetaminophen (Acetaminophen Tab 325 Mg Tab) 325 mg PO DAILY [facility] Last Admin: 10/20/22 12:44 Dose: Not Given Albuterol/Ipratropium (Ipratropium-Albuterol 3 Ml Neb) 3 ml INHALATION RT-QID [facility] Last Admin: 10/20/22 19:49 Dose: 3 ml Albuterol/Ipratropium (Ipratropium-Albuterol 3 Ml Neb) 3 ml INHALATION RT-QID PRN PRN Reason: Shortness Of Breath Or Wheezing Benzonatate (Benzonatate 100 Mg Cap) 100 mg PO TID PRN PRN Reason: Cough Last Admin: 10/20/22 06:21 Dose: 100 mg Budesonide/Formoterol Fumarate (Symbicort 160-4.5 Mcg Inhaler) 2 puff INHALATION RT-BID [facility] Last Admin: 10/20/22 19:49 Dose: 2 puff Cholecalciferol (Cholecalciferol 25 Mcg (1000 Iu) Tablet) 25 mcg PO DAILY [facility] Last Admin: 10/20/22 08:03 Dose: 25 mcg Diphenhydramine HCl (Diphenhydramine 25 Mg Cap) 25 mg PO HS [facility] Last Admin: 10/20/22 21:31 Dose: 25 mg Heparin Sodium (Porcine) (Heparin Sodium,Porcine/Pf 5,000 Unit/0.5 Ml Syringe) 5,000 unit SQ Q12HR [facility] Last Admin: 10/20/22 21:31 Dose: 5,000 unit Cefepime HCl 2 gm/ Sodium (Chloride) 100 mls @ 25 mls/hr IVPB Q8H [facility]; Protocol Last Admin: 10/20/22 17:56 Dose: 25 mls/hr Levofloxacin (Levofloxacin 750 Mg Tab) 750 mg PO Q24H [facility]; Protocol Last Admin: 10/20/22 17:56 Dose: 750 mg Levothyroxine Sodium (Levothyroxine 125 Mcg Tab) 125 mcg PO DAILY@0630 [facility] Losartan Potassium (Losartan 50 Mg Tab) 50 mg PO HS [facility] Last Admin: 10/20/22 21:31 Dose: 50 mg Methylphenidate HCl (Methylphenidate Hcl 10 Mg Tab) 10 mg PO TID PRN PRN Reason: ADHD/Reading Methylprednisolone Sodium Succinate (Methylprednisolone Sod Succi 125 Mg/2 Ml Vial) 60 mg IV Q8HR [facility] Last Admin: 10/20/22 16:04 Dose: 60 mg Miscellaneous Information (Pneumonia Protocol Utilized 1 Each Misc) 1 each PO ONCE PRN PRN Reason: Per Protocol Ondansetron HCl (Ondansetron 4 Mg/2 Ml Vial) 4 mg IVP Q6HR PRN PRN Reason: Nausea And Vomiting Last Admin: 10/19/22 13:53 Dose: 4 mg Pantoprazole Sodium (Pantoprazole 40 Mg/10 Ml Vial) 40 mg IVP BID [facility] Last Admin: 10/20/22 21:31 Dose: 40 mg Temazepam (Temazepam 15 Mg Cap) 15 mg PO HS PRN PRN Reason: Insomnia Last Admin: 10/19/22 23:09 Dose: 15 mg Past medical history to include: Pancreatic tumor 2006 with Whipple's procedure, 2069 lung cancer treated with right partial lobectomy at [facility] in 2016 with followed by chemotherapy and radiation treatment, tick bite. Lyme's disease, fibromyalgia, GERD, hypertension, hypothyroid Social history: . Started smoking age of 12 stopped in 2007 smoked 3 packs a day. Has not drank alcohol over 35 years. Physical examination: VITAL SIGNS: 97.3, 94, 16, 133/66, 92% on 2 L GENERAL: Sitting on bed, awake, bit tired and coughing EYES: Pupils equal. Conjunctiva normal. HEENT: External appearance of nose and ears normal, oral cavity grossly normal. NECK: JVD not raised; masses not palpable. HEART: First and second heart sounds are normal; no edema. LUNGS: Respiratory rate increased; diminished breath sounds. ABDOMEN: Soft, nontender, liver spleen not palpable, no masses palpable. PSYCH: Alert and oriented x3; mood and affect normal. MUSCULOSKELETAL:No Clubbing/cyanosis;muscles-grossly intact, evidence of OA INVESTIGATIONS, reviewed in the clinical context: Chest x-ray showed infiltrates White count 6 hemoglobin 11.8 platelets 232 potassium 4 creatinine 0.566 CRP 13.1 procalcitonin 0.10 Assessment and plan: -Pneumonia, suspect gram-negative organism. IV cefepime. -Acute hypoxic and hypercapnic respiratory failure from underlying pneumonia: Supplemental oxygen, -Chronic hypoxic respiratory failure from COPD On 2-2.5 L of home oxygen. -Acute COPD exacerbation in a ex-smoker DuoNeb. IV Solu-Medrol. 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 Status post systemic chemotherapy and subsequent immunotherapy. She was initially on Imfinzi with multiple side effects and subsequently on Opdivo which was also stopped in June 2022 due to side effects. Most recent CAT scan in July 2022 was stable. Follow-up CAT scan pending in October 2022. Being followed by Dr. Godfrey -History of Whipple's procedure for pancreatic tumor 2006 -GERD Pepcid -Essential hypertension Cozaar -Hypothyroid Levothyroxine -Chronic fibromyalgia Continue oxygen. IV cefepime. Other medications to continue. DuoNeb. IV Solu-Medrol. Up in a chair. Activity as tolerated.
--- NOTE | 2022-10-20 23:01 | P.PN ---
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 On today's evaluation that is 10/20/2022, the patient is afebrile this morning the patient is currently breathing comfortably on 2 L nasal cannula patient d enies having any chest pain of a decreased intensity was able to provide a sputum sample no nausea no vomiting no abdominal pain no diarrhea Objective - Vital Signs Vital signs: Vital Signs Temp 97.3 F L 10/20/22 11:21 Pulse 88 10/20/22 12:35 Resp 16 10/20/22 11:21 BP 133/66 10/20/22 11:21 Pulse Ox 92 L 10/20/22 11:21 FiO2 Intake & Output 10/19/22 10/20/22 10/20/22 18:59 06:59 18:59 Intake Total 200 600 Balance 200 600 Intake: Intake, IV Titration 200 Amount Cefepime 2 gm In Sodium 200 Chloride 0.9% 100 ml @ 25 mls/hr IVPB Q8H [facility] Rx#: [id number] Oral 600 Other: Voiding Method Toilet Toilet Toilet # Voids 2 - Exam GENERAL DESCRIPTION: An elderly female lying in bed in no distress RESPIRATORY SYSTEM: Unlabored breathing , decreased breath sounds at bases HEART: S1 S2 regular rate and rhythm , ABDOMEN: Soft , no tenderness EXTREMITIES: No edema feet - Labs CBC & Chem 7: 10/19/22 05:34 10/19/22 05:34 Labs: Abnormal Lab Results - Last 24 Hours (Table) 10/20/22 10/20/22 Range/Units 04:39 04:39 C-Reactive Protein 13.10 H (0.00-0.80) mg/dL Procalcitonin 0.10 H (0.02-0.09) ng/mL Microbiology - Last 24 Hours (Table) 10/18/22 12:52 Urine Culture - Final Urine,Voided 10/18/22 11:17 Blood Culture - Preliminary Blood No Growth after 24 hours 10/18/22 11:17 Blood Culture - Preliminary Blood No Growth after 24 hours Assessment and Plan (1) Pneumonia Current Visit: Yes Status: Acute Code(s): J18.9 - PNEUMONIA, UNSPECIFIED ORGANISM SNOMED Code(s): 487698370 Plan: 1patient is a 72-year-old female with a past medical history difficult for squamous cell carcinoma of the lung and history of recurrent pneumonia presented to hospital with increasing shortness of breath and cough did have low-grade fever and did have evidence of right middle lower lobe in filtrate concerning for pneumonia questionably from negative this patient failing outpatient oral Augmentin and doxycycline. 2 sputum for gram stain and culture has been collected and currently pending. 3 patient to continue with cefepime while waiting for the culture to finalize.
[2022-10-20] MEDS: TEMAZEPAM 15 MG CAP PO PRN (23:42)
[2022-10-21] MEDS: CEFEPIME 2 GM in SODIUM CHLORIDE 0.9% 100 ML IVPB SCH ×3 (04:54→17:22)
[2022-10-21] MEDS: LEVOTHYROXINE 125 MCG TAB PO SCH (05:49)
[2022-10-21] MEDS: IPRATROPIUM-ALBUTEROL 3 ML NEB INHALATION SCH ×4 (07:41→19:27)
[2022-10-21] MEDS: SYMBICORT 160-4.5 MCG INHALER INHALATION SCH ×2 (07:41→19:28)
[2022-10-21] MEDS: ACETAMINOPHEN TAB 325 MG TAB PO SCH (08:04)
[2022-10-21] MEDS: HEPARIN SODIUM,PORCINE/PF 5,000 UNIT/0.5 ML SYRINGE SQ SCH ×2 (08:04→20:37)
[2022-10-21] MEDS: CHOLECALCIFEROL 25 MCG (1000 IU) TABLET PO SCH (08:04)
[2022-10-21] MEDS: methylPREDNISolone SOD SUCCI 125 MG/2 ML VIAL IV SCH (08:04)
[2022-10-21] MEDS: PANTOPRAZOLE 40 MG/10 ML VIAL IVP SCH (08:05)
--- NOTE | 2022-10-21 15:21 | P.PN ---
Subjective Progress Note Date: 10/21/22 This is a very pleasant 72-year-old female patient who follows with Dr. Lomeli as her primary care provider. She has a history of hypertension, hypothyroidism, gastroesophageal reflux disease, hypertension, fibromyalgia. She also has a history of squamous cell lung cancer stage IIIB diagnosed many years ago. She had undergone wedge resection of the right upper lobe and lymph node dissections. She had been given systemic chemotherapy and subsequent immunotherapy including iImfinzi that she had multiple side effects for she was most recently on Opdivo and stopped that in June 2022 related to frequent pneumonias. Her most recent CAT scan in July 2022 was stable. She follows with Dr. Giles is her oncologist. She follows with Dr. Godfrey in our office. She does have hypoxemic and hypercapnic respiratory failure secondary to COPD and is on home oxygen. She was most recently on Breztri. She presented here to the emergency room with complaints of increasing shortness of breath, cough and congestion. She had been seen at her PCPs office and given doxycycline and Augmentin. Chest x-ray reveals patchy infiltrate in the right mid and lower lung that have increased from last x-ray on 09/04/2022. White count 8.0. Hemoglobin 13.2. Sodium 134. Potassium 3.5. BUN 7. Creatinine 0.59. Glucose 123. Influenza screen negative. RSV screen negative. Rolle virus screen negative. She was initiated on cefepime and azithromycin. If she is seen in consultation today on the regular medical floor. She is up ambulating in her room. Awake and alert in no acute distress. Maintaining O2 saturations in the 90s on 2 L/m per nasal cannula. Initial temperature 100.0. Currently 98.2. Progress note dated 10/19/2022. 72-year-old female seen yesterday in consultation. Please see the note above. The patient is seen in room 528. Currently, she is on 2 L of oxygen. Her chest x-ray revealed a right lung pneumonia. Today we added some Solu-Medrol, 60 mg every 8 hours. She's feeling only a bit better today. She asked about whether or not she could go home, and I told her she should stay at least another day. White count 6.06, hemoglobin 11.8, hematocrit 37, and platelet count 232,000. Sodium 137, potassium 4, chlorides 102, CO2 25, BUN 5.6, and creatinine 0.6. Chest x-ray today continues to show a right midlung and right lower lobe infiltrate. On 10/20/2022, I'm seeing the patient for a follow-up. The patient overall is doing well. No significant shortness of breath at rest. She is to bronchus spastic and wheezing this is gradually improving. She is known to me. She is known to have COPD and previous history of non-small cell lung cancer stage IIIB in her disease currently inactive and stable. She seems to be in remission for now. She is on broad-spectrum antibiotics for now. The pro calcitonin level is at 0.1. Influenza screen was negative. Covid 19 testing was also negative. The chest x-ray is consistent with mild cardiomegaly, limited infiltrates in the lung base bilaterally more so on the right. No other significant issues otherwise for now. The patient seen today 10/21/2022 in follow-up on the regular medical floor. She is sitting up in bed. Awake and alert in no acute distress. Feeling nearly back to her baseline. No worsening shortness of breath or congestion. The cultures are revealing no growth. Urine culture revealed no growth. Sputum culture pending. Pro calcitonin 0.10. She is continued on DuoNeb inhalations, Symbicort, IV Solu-Medrol. Remains on antibiotics in the form of Levaquin and cefepime. Tessalon Perles for cough. Objective - Vital Signs Vital signs: Vital Signs Temp 98.3 F 10/21/22 11:45 Pulse 94 10/21/22 12:13 Resp 18 10/21/22 11:45 BP 157/80 10/21/22 11:45 Pulse Ox 94 L 10/21/22 11:45 FiO2 Intake & Output 10/20/22 10/21/22 10/21/22 18:59 06:59 18:59 Intake Total 100 240 Balance 100 240 Intake: Intake, IV Titration 100 Amount Cefepime 2 gm In Sodium 100 Chloride 0.9% 100 ml @ 25 mls/hr IVPB Q8H [facility] Rx#: [id number] Oral 240 Other: Voiding Method Toilet Toilet Toilet # Voids 2 3 - Exam Awake, very pleasant 72-year-old female patient, no acute distress, oriented 3. Currently on 2 L. In no acute distress. She does have a wet congested cough. HEENT examination is grossly unremarkable. Neck supple. Full range of motion. No adenopathy thyromegaly or neck vein distention. Cardiovascular examination reveals regular rhythm rate. S1-S2 normal. No S3 or S4. No discernible murmur noted. Heart sounds are distant. Lungs reveal bilateral scattered rhonchi. No wheezes or crackles. Adventitious lung sounds are more prominent in the right lung. . Abdomen soft bowel sounds are heard. No masses or tenderness. Extremities are intact. No cyanosis clubbing or edema. Skin is without rash or lesion. Neurologic examination is brief but nonfocal. - Labs CBC & Chem 7: 10/19/22 05:34 10/19/22 05:34 Labs: Microbiology - Last 24 Hours (Table) 10/18/22 11:17 Blood Culture - Preliminary Blood No Growth after 72 hours 10/18/22 11:17 Blood Culture - Preliminary Blood No Growth after 72 hours 10/20/22 10:00 Gram Stain - Preliminary Sputum Sputum Culture - Preliminary Assessment and Plan Assessment: Acute on chronic hypoxemic respiratory failure secondary to an early right lung pneumonia, community-acquired. Failed outpatient therapy. 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 Status post systemic chemotherapy and subsequent immunotherapy. She was initially on Imfinzi with multiple side effects and subsequently on Opdivo which was also stopped in June 2022 due to side effects. Most recent CAT scan in July 2022 was stable. Follow-up CAT scan pending in October 2022. Hypothyroidism Hypertension Fibromyalgia Previous history of alcoholism History of ADHD Plan: The patient was seen and evaluated Feeling improved and back to her baseline Cleared for discharge from the pulmonary standpoint Complete a course of antibiotics per ID services Follow-up in the office in 1 week I have personally seen and examined the patient, performed the documentation and the assessment and plan as written. Number of minutes spent on the visit: 10. On today's evaluation of 10/21/2022, the patient is doing well. No new complaints. Less short of breath. Sputum cultures negative. The patient can be potentially discharged home today on a prednisone burst taper, and she already uses Breztri 2 puffs twice a day at home and albuterol about treatments [id number]. The patient be cleared from the pulmonary standpoint.
--- NOTE | 2022-10-21 15:58 | P.PN ---
Progress Note - Text Progress Note Date: 10/21/22 Hospital course this is a very pleasant 72-year-old patient who follows with Dr. Cas david. Chronic stable medical conditions include fibromyalgia, GERD, hypertension, hypothyroid, 2007 had pancreatic tumor with Whipple's procedure, 2017 had lung cancer with right partial lobectomy at [facility] in 2017 followed by chemotherapy and radiation. 20 years ago had Lyme's disease with tick bite. Home oxygen 2 L. lung cancer has been in remission. followed with Dr. Godfrey. On July [address] chest with contrast that showed: Diffuse increased density especially noted in the right middle lobe felt to be unchanged from before. Patient now presented with pneumonia and acute hypoxic respiratory failure. 10/20/2022: [facility] Sitting up in bed. Having cough. Some below rib cage pain bilaterally with the same. Oral intake well. Decreased sputum production. Has been up to the bathroom. Some shortness of breath. 10/21/2022: Feeling better. Decreased sputum production. Breathing better. Oral intake better. Sputum culture pending. On IV cefepime. Up in chair. Active Medications Acetaminophen (Acetaminophen Tab 325 Mg Tab) 650 mg PO Q6HR PRN PRN Reason: Fever and/ or Mild Pain Last Admin: 10/20/22 16:20 Dose: 650 mg Acetaminophen (Acetaminophen Tab 325 Mg Tab) 325 mg PO DAILY [facility] Last Admin: 10/21/22 08:04 Dose: 325 mg Albuterol/Ipratropium (Ipratropium-Albuterol 3 Ml Neb) 3 ml INHALATION RT-QID [facility] Last Admin: 10/21/22 15:27 Dose: 3 ml Albuterol/Ipratropium (Ipratropium-Albuterol 3 Ml Neb) 3 ml INHALATION RT-QID PRN PRN Reason: Shortness Of Breath Or Wheezing Benzonatate (Benzonatate 100 Mg Cap) 100 mg PO TID PRN PRN Reason: Cough Last Admin: 10/20/22 06:21 Dose: 100 mg Budesonide/Formoterol Fumarate (Symbicort 160-4.5 Mcg Inhaler) 2 puff INHALATION RT-BID [facility] Last Admin: 10/21/22 07:41 Dose: Not Given Cholecalciferol (Cholecalciferol 25 Mcg (1000 Iu) Tablet) 25 mcg PO DAILY [facility] Last Admin: 10/21/22 08:04 Dose: 25 mcg Diphenhydramine HCl (Diphenhydramine 25 Mg Cap) 25 mg PO HS [facility] Last Admin: 10/20/22 21:31 Dose: 25 mg Heparin Sodium (Porcine) (Heparin Sodium,Porcine/Pf 5,000 Unit/0.5 Ml Syringe) 5,000 unit SQ Q12HR [facility] Last Admin: 10/21/22 08:04 Dose: 5,000 unit Cefepime HCl 2 gm/ Sodium (Chloride) 100 mls @ 25 mls/hr IVPB Q8H [facility]; Protocol Last Admin: 10/21/22 10:24 Dose: 25 mls/hr Levofloxacin (Levofloxacin 750 Mg Tab) 750 mg PO Q24H [facility]; Protocol Last Admin: 10/20/22 17:56 Dose: 750 mg Levothyroxine Sodium (Levothyroxine 125 Mcg Tab) 125 mcg PO DAILY@0630 [facility] Last Admin: 10/21/22 05:49 Dose: 125 mcg Losartan Potassium (Losartan 50 Mg Tab) 50 mg PO HS [facility] Last Admin: 10/20/22 21:31 Dose: 50 mg Methylphenidate HCl (Methylphenidate Hcl 10 Mg Tab) 10 mg PO TID PRN PRN Reason: ADHD/Reading Methylprednisolone Sodium Succinate (Methylprednisolone Sod Succi 125 Mg/2 Ml Vial) 60 mg IV Q8HR [facility] Last Admin: 10/21/22 08:04 Dose: 60 mg Miscellaneous Information (Pneumonia Protocol Utilized 1 Each Misc) 1 each PO ONCE PRN PRN Reason: Per Protocol Ondansetron HCl (Ondansetron 4 Mg/2 Ml Vial) 4 mg IVP Q6HR PRN PRN Reason: Nausea And Vomiting Last Admin: 10/19/22 13:53 Dose: 4 mg Pantoprazole Sodium (Pantoprazole 40 Mg/10 Ml Vial) 40 mg IVP BID [facility] Last Admin: 10/21/22 08:05 Dose: 40 mg Temazepam (Temazepam 15 Mg Cap) 15 mg PO HS PRN PRN Reason: Insomnia Last Admin: 10/20/22 23:42 Dose: 15 mg Past medical history to include: Pancreatic tumor 2006 with Whipple's procedure, 2069 lung cancer treated with right partial lobectomy at [facility] in 2016 with followed by chemotherapy and radiation treatment, tick bite. Lyme's disease, fibromyalgia, GERD, hypertension, hypothyroid Social history: . Started smoking age of 12 stopped in 2007 smoked 3 packs a day. Has not drank alcohol over 35 years. Physical examination: VITAL SIGNS: 98.3, 96, 18, 157/80, 94% on 2 L GENERAL: Up in a chair, breathing better EYES: Pupils equal. Conjunctiva normal. HEENT: External appearance of nose and ears normal, oral cavity grossly normal. NECK: JVD not raised; masses not palpable. HEART: First and second heart sounds are normal; no edema. LUNGS: Respiratory rate increased; diminished breath sounds. ABDOMEN: Soft, nontender, liver spleen not palpable, no masses palpable. PSYCH: Alert and oriented x3; mood and affect normal. MUSCULOSKELETAL:No Clubbing/cyanosis;muscles-grossly intact, evidence of OA INVESTIGATIONS, reviewed in the clinical context: Chest x-ray showed infiltrates White count 6 hemoglobin 11.8 platelets 232 potassium 4 creatinine 0.566 CRP 13.1 procalcitonin 0.10 Assessment and plan: -Pneumonia, suspect gram-negative organism.: Improving IV cefepime. -Acute hypoxic and hypercapnic respiratory failure from underlying pneumonia: Supplemental oxygen, -Chronic hypoxic respiratory failure from COPD On 2-2.5 L of home oxygen. -Acute COPD exacerbation in a ex-smoker DuoNemandi. Decrease IV Solu-Medrol. 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 Status post systemic chemotherapy and subsequent immunotherapy. She was initially on Imfinzi with multiple side effects and subsequently on Opdivo which was also stopped in June 2022 due to side effects. Most recent CAT scan in July 2022 was stable. Follow-up CAT scan pending in October 2022. Being followed by Dr. Godfrey -History of Whipple's procedure for pancreatic tumor 2006 -GERD Pepcid -Essential hypertension Cozaar -Hypothyroid Levothyroxine -Chronic fibromyalgia Continue oxygen. IV cefepime. Sputum culture pending. Cutback IV Solu-Medrol. Increase activity. Discussed with patient.
[2022-10-21] MEDS: LEVOFLOXACIN 750 MG TAB PO SCH (17:22)
[2022-10-21] MEDS: methylPREDNISolone SOD SUCCI 40 MG/ML 1 ML VIAL IV SCH (20:37)
[2022-10-21] MEDS: LOSARTAN 50 MG TAB PO SCH (20:38)
[2022-10-21] MEDS: TEMAZEPAM 15 MG CAP PO PRN (20:38)
[2022-10-21] MEDS: diphenhydrAMINE 25 MG CAP PO SCH (20:38)
[2022-10-22] MEDS: CEFEPIME 2 GM in SODIUM CHLORIDE 0.9% 100 ML IVPB SCH ×2 (02:53→10:29)
[2022-10-22] MEDS: LEVOTHYROXINE 125 MCG TAB PO SCH (05:19)
[2022-10-22] MEDS: ACETAMINOPHEN TAB 325 MG TAB PO SCH (08:31)
[2022-10-22] MEDS: CHOLECALCIFEROL 25 MCG (1000 IU) TABLET PO SCH (08:31)
[2022-10-22] MEDS: methylPREDNISolone SOD SUCCI 40 MG/ML 1 ML VIAL IV SCH (08:32)
[2022-10-22] MEDS: HEPARIN SODIUM,PORCINE/PF 5,000 UNIT/0.5 ML SYRINGE SQ SCH (08:32)
[2022-10-22] MEDS: IPRATROPIUM-ALBUTEROL 3 ML NEB INHALATION SCH ×2 (09:21→14:13)
[2022-10-22] MEDS: SYMBICORT 160-4.5 MCG INHALER INHALATION SCH (09:21)
[2022-10-22 11:32] VITALS: BP 175/83; PULSE 95; RESP 16; TEMP 98.9
--- NOTE | 2022-10-22 13:58 | P.PN ---
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 On today's evaluation that is 10/21/2022 the patient is afebrile, the patient is currently breathing comfortably on 2 L nasal cannula, the patient denies having any chest pain patient did have a cough not bring up any sputum no nausea vomiting no abdominal pain no diarrhea Objective - Vital Signs Vital signs: Vital Signs Temp 98.3 F 10/21/22 11:45 Pulse 94 10/21/22 12:13 Resp 18 10/21/22 11:45 BP 157/80 10/21/22 11:45 Pulse Ox 94 L 10/21/22 11:45 FiO2 Intake & Output 10/20/22 10/21/22 10/21/22 18:59 06:59 18:59 Intake Total 100 240 Balance 100 240 Intake: Intake, IV Titration 100 Amount Cefepime 2 gm In Sodium 100 Chloride 0.9% 100 ml @ 25 mls/hr IVPB Q8H [facility] Rx#: [id number] Oral 240 Other: Voiding Method Toilet Toilet Toilet # Voids 2 3 - Exam GENERAL DESCRIPTION: An elderly female lying in bed in no distress RESPIRATORY SYSTEM: Unlabored breathing , decreased breath sounds at bases HEART: S1 S2 regular rate and rhythm , ABDOMEN: Soft , no tenderness EXTREMITIES: No edema feet - Labs CBC & Chem 7: 10/19/22 05:34 10/19/22 05:34 Labs: Microbiology - Last 24 Hours (Table) 10/18/22 11:17 Blood Culture - Preliminary Blood No Growth after 72 hours 10/18/22 11:17 Blood Culture - Preliminary Blood No Growth after 72 hours 10/20/22 10:00 Gram Stain - Preliminary Sputum Sputum Culture - Preliminary Assessment and Plan (1) Pneumonia Current Visit: Yes Status: Acute Code(s): J18.9 - PNEUMONIA, UNSPECIFIED ORGANISM SNOMED Code(s): 156378816 Plan: 1patient is a 72-year-old female with a past medical history difficult for squamous cell carcinoma of the lung and history of recurrent pneumonia presented to hospital with increasing shortness of breath and cough did have low-grade fever and did have evidence of right middle lower lobe infiltrate concerning for pneumonia questionably from negative this patient failing outpatient oral Augmentin and doxycycline. 2 sputum for gram stain and culture has been collected and currently pending. 3 Patient has shown clinical improvement and will continue with the cefepime with the discharge antibiotic on the basis of final culture Time with Patient: Less than 30
--- NOTE | 2022-10-22 14:00 | P.PN ---
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 On today's evaluation that is 10/22/2022 the patient remains to be afebrile patient is breathing comfortably on 2 L nasal cannula, the patient denies having any chest pain the patient cough decrease intensity mostly dry in nature no nausea vomiting no abdominal pain no diarrhea Objective - Vital Signs Vital signs: Vital Signs Temp 98.9 F 10/22/22 11:15 Pulse 95 10/22/22 11:15 Resp 16 10/22/22 11:15 BP 175/83 10/22/22 11:15 Pulse Ox 95 10/22/22 11:15 FiO2 Intake & Output 10/21/22 10/22/22 10/22/22 18:59 06:59 18:59 Intake Total 120 Output Total 1 Balance 119 Intake: Oral 120 Output: Urine 1 Other: Voiding Method Toilet Toilet # Voids 3 2 - Exam GENERAL DESCRIPTION: An elderly female lying in bed in no distress RESPIRATORY SYSTEM: Unlabored breathing , decreased breath sounds at bases HEART: S1 S2 regular rate and rhythm , ABDOMEN: Soft , no tenderness EXTREMITIES: No edema feet - Labs CBC & Chem 7: 10/19/22 05:34 10/19/22 05:34 Labs: Microbiology - Last 24 Hours (Table) 10/18/22 11:17 Blood Culture - Preliminary Blood No Growth after 96 hours 10/18/22 11:17 Blood Culture - Preliminary Blood No Growth after 96 hours 10/20/22 10:00 Gram Stain - Final Sputum Sputum Culture - Final Assessment and Plan (1) Pneumonia Current Visit: Yes Status: Acute Code(s): J18.9 - PNEUMONIA, UNSPECIFIED ORGANISM SNOMED Code(s): 434187236 Plan: 1patient is a 72-year-old female with a past medical history difficult for squamous cell carcinoma of the lung and history of recurrent pneumonia presented to hospital with increasing shortness of breath and cough did have low-grade fever and did have evidence of right middle lower lobe infiltrate concerning for pneumonia questionably from negative this patient failing outpatient oral Augmentin and doxycycline. 2 Patient sputum has been usual respiratory slim blood culture has been negative. 3patient shown overall clinical improvement with a sputum negative for any resistant pathogen she will finish therapy with oral Ceftin prescription sent to the pharmacy and close outpatient follow-up Time with Patient: Less than 30
--- NOTE | 2022-10-22 15:22 | P.PN ---
Subjective Progress Note Date: 10/22/22 This is a very pleasant 72-year-old female patient who follows with Dr. Lomeli as her primary care provider. She has a history of hypertension, hypothyroidism, gastroesophageal reflux disease, hypertension, fibromyalgia. She also has a history of squamous cell lung cancer stage IIIB diagnosed many years ago. She had undergone wedge resection of the right upper lobe and lymph node dissections. She had been given systemic chemotherapy and subsequent immunotherapy including iImfinzi that she had multiple side effects for she was most recently on Opdivo and stopped that in June 2022 related to frequent pneumonias. Her most recent CAT scan in July 2022 was stable. She follows with Dr. Giles is her oncologist. She follows with Dr. Godfrey in our office. She does have hypoxemic and hypercapnic respiratory failure secondary to COPD and is on home oxygen. She was most recently on Breztri. She presented here to the emergency room with complaints of increasing shortness of breath, cough and congestion. She had been seen at her PCPs office and given doxycycline and Augmentin. Chest x-ray reveals patchy infiltrate in the right mid and lower lung that have increased from last x-ray on 09/04/2022. White count 8.0. Hemoglobin 13.2. Sodium 134. Potassium 3.5. BUN 7. Creatinine 0.59. Glucose 123. Influenza screen negative. RSV screen negative. Rolle virus screen negative. She was initiated on cefepime and azithromycin. If she is seen in consultation today on the regular medical floor. She is up ambulating in her room. Awake and alert in no acute distress. Maintaining O2 saturations in the 90s on 2 L/m per nasal cannula. Initial temperature 100.0. Currently 98.2. Progress note dated 10/19/2022. 72-year-old female seen yesterday in consultation. Please see the note above. The patient is seen in room 528. Currently, she is on 2 L of oxygen. Her chest x-ray revealed a right lung pneumonia. Today we added some Solu-Medrol, 60 mg every 8 hours. She's feeling only a bit better today. She asked about whether or not she could go home, and I told her she should stay at least another day. White count 6.06, hemoglobin 11.8, hematocrit 37, and platelet count 232,000. Sodium 137, potassium 4, chlorides 102, CO2 25, BUN 5.6, and creatinine 0.6. Chest x-ray today continues to show a right midlung and right lower lobe infiltrate. On 10/20/2022, I'm seeing the patient for a follow-up. The patient overall is doing well. No significant shortness of breath at rest. She is to bronchus spastic and wheezing this is gradually improving. She is known to me. She is known to have COPD and previous history of non-small cell lung cancer stage IIIB in her disease currently inactive and stable. She seems to be in remission for now. She is on broad-spectrum antibiotics for now. The pro calcitonin level is at 0.1. Influenza screen was negative. Covid 19 testing was also negative. The chest x-ray is consistent with mild cardiomegaly, limited infiltrates in the lung base bilaterally more so on the right. No other significant issues otherwise for now. The patient seen today 10/21/2022 in follow-up on the regular medical floor. She is sitting up in bed. Awake and alert in no acute distress. Feeling nearly back to her baseline. No worsening shortness of breath or congestion. The cultures are revealing no growth. Urine culture revealed no growth. Sputum culture pending. Pro calcitonin 0.10. She is continued on DuoNeb inhalations, Symbicort, IV Solu-Medrol. Remains on antibiotics in the form of Levaquin and cefepime. Tessalon Perles for cough. The patient is seen today 10/22/2022 in follow-up on the regular medical floor. She is up ambulating in her room. Awake and alert in no acute distress. she is afebrile. Maintaining good O2 saturations in the 90s on 2 L/m per nasal cannula. final sputum culture revealed no growth. Blood cultures reveal no growth. Urine culture no growth. She is continued on Symbicort, DuoNeb inhalations, IV Solu-Medrol. Heparin for DVT prophylaxis. Antibiotics in form of cefepime and Levaquin. Objective - Vital Signs Vital signs: Vital Signs Temp 98.9 F 10/22/22 11:15 Pulse 95 10/22/22 11:15 Resp 16 10/22/22 11:15 BP 175/83 10/22/22 11:15 Pulse Ox 95 10/22/22 11:15 FiO2 Intake & Output 10/21/22 10/22/22 10/22/22 18:59 06:59 18:59 Intake Total 120 Output Total 1 Balance 119 Intake: Oral 120 Output: Urine 1 Other: Voiding Method Toilet Toilet # Voids 3 2 - Exam Awake, very pleasant 72-year-old female patient,, Oriented 3. Currently on 2 L. In no acute distress. HEENT examination is grossly unremarkable. Neck supple. Full range of motion. No adenopathy thyromegaly or neck vein distention. Cardiovascular examination reveals regular rhythm rate. S1-S2 normal. No S3 or S4. No discernible murmur noted. Heart sounds are distant. Lungs reveal bilateral scattered rhonchi. No wheezes or crackles. Adventitious lung sounds are more prominent in the right lung. . Abdomen soft bowel sounds are heard. No masses or tenderness. Extremities are intact. No cyanosis clubbing or edema. Skin is without rash or lesion. Neurologic examination is brief but nonfocal. - Labs CBC & Chem 7: 10/19/22 05:34 10/19/22 05:34 Labs: Microbiology - Last 24 Hours (Table) 10/18/22 11:17 Blood Culture - Preliminary Blood No Growth after 96 hours 10/18/22 11:17 Blood Culture - Preliminary Blood No Growth after 96 hours 10/20/22 10:00 Gram Stain - Final Sputum Sputum Culture - Final Assessment and Plan Assessment: Acute on chronic hypoxemic respiratory failure secondary to an early right lung pneumonia, community-acquired. Failed outpatient therapy. 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 Status post sys temic chemotherapy and subsequent immunotherapy. She was initially on Imfinzi with multiple side effects and subsequently on Opdivo which was also stopped in June 2022 due to side effects. Most recent CAT scan in July 2022 was stable. Follow-up CAT scan pending in October 2022. Hypothyroidism Hypertension Fibromyalgia Previous history of alcoholism History of ADHD Plan: The patient was seen and evaluated Medications reviewed Feeling improved and back to her baseline Cleared for discharge from the pulmonary standpoint Complete a course of antibiotics per ID services Complete a prednisone taper starting at 40 mg daily for 4 days Follow-up in the office in 1 week I have personally seen and examined the patient, performed the documentation and the assessment and plan as written. Number of minutes spent on the visit: 10. Evaluation that was done along with the nurse practitioner. I agree on the above-mentioned plan. The patient was seen in conjunction with the GEAR HOBBER OPERATOR. This evaluation was done in more than 20 minutes.
--- NOTE | 2022-10-22 17:41 | P.DS ---
Providers Date of admission: 10/18/22 14:52 Expected date of discharge: 10/22/22 Attending physician: David Dwyer Consults: 10/18/22 13:50 Consult Physician Routine Consulting Provider: Maria Isabel Giles Consult Reason/Comments: Lung cancer Do you want consulting provider notified?: Yes Consult Physician Routine Consulting Provider: Sasha Godfrey Consult Reason/Comments: COPD/pneumonia Do you want consulting provider notified?: Yes 10/18/22 16:19 Consult Physician Routine Consulting Provider: Ton Lerner Consult Reason/Comments: fever Do you want consulting provider notified?: Yes [facility] care physician: [facility] Course: Hospital course this is a very pleasant 72-year-old patient who follows with Dr. Cas david. Chronic stable medical conditions include fibromyalgia, GERD, hypertension, hypothyroid, 2006 had pancreatic tumor with Whipple's procedure, 2016 had lung cancer with right partial lobectomy at [facility] in 2016 followed by chemotherapy and radiation. 20 years ago had Lyme's disease with tick bite. Home oxygen 2 L. lung cancer has been in remission. followed with Dr. Godfrey. On July [address] chest with contrast that showed: Diffuse increased density especially noted in the right middle lobe felt to be unchanged from before. Patient now presented with pneumonia and acute hypoxic respiratory failure. 10/20/2022: I assumed care of the patient from [facility] hospitalist today. Sitting up in bed. Having cough. Some below rib cage pain bilaterally with the same. Oral intake well. Decreased sputum production. Has been up to the bathroom. Some shortness of breath. 10/21/2022: Feeling better. Decreased sputum production. Breathing better. Oral intake better. Sputum culture pending. On IV cefepime. Up in chair. 10/22/2022: 20 much better. Breathing better. Sputum culture unremarkable. But ID patient to be discharged on Ceftin. We'll add DuoNeb and prednisone ta per. Care was discussed with the patient. Questions answered. 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 Discussion and discharge planning more than 35 minutes Past medical history to include: Pancreatic tumor 2006 with Whipple's procedure, 2069 lung cancer treated with right partial lobectomy at [facility] in 2016 with followed by chemotherapy and radiation treatment, tick bite. Lyme's disease, fibromyalgia, GERD, hypertension, hypothyroid Social history: . Started smoking age of 12 stopped in 2007 smoked 3 packs a day. Has not drank alcohol over 35 years. Physical examination: VITAL SIGNS: 98.5, 94, 18, 150/85, 95% GENERAL: Up in a chair, irritable EYES: Pupils equal. Conjunctiva normal. HEENT: External appearance of nose and ears normal, oral cavity grossly normal. NECK: JVD not raised; masses not palpable. HEART: First and second heart sounds are normal; no edema. LUNGS: Respiratory rate normal; improved air entry. ABDOMEN: Soft, nontender, liver spleen not palpable, no masses palpable. PSYCH: Alert and oriented x3; mood and affect normal. MUSCULOSKELETAL:No Clubbing/cyanosis;muscles-grossly intact, evidence of OA INVESTIGATIONS, reviewed in the clinical context: Sputum culture unremarkable Chest x-ray showed infiltrates White count 6 hemoglobin 11.8 platelets 232 potassium 4 creatinine 0.566 CRP 13.1 procalcitonin 0.10 Assessment and plan: -Pneumonia, suspect gram-negative organism.: IV cefepime. Discharged on Ceftin 500 mg twice a day for 7 days -Acute hypoxic and hypercapnic respiratory failure from underlying pneumonia: Better Supplemental oxygen, -Chronic hypoxic respiratory failure from COPD On 2-2.5 L of home oxygen. -Acute COPD exacerbation in a ex-smoker DuoNeb 3 times a day. 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 Status post systemic chemotherapy and subsequent immunotherapy. She was initially on Imfinzi with multiple side effects and subsequently on Opdivo which was also stopped in June 2022 due to side effects. Most recent CAT scan in July 2022 was stable. Follow-up CAT scan pending in October 2022. Being followed by Dr. Godfrey -History of Whipple's procedure for pancreatic tumor 2006 -GERD Pepcid -Essential hypertension Cozaar -Hypothyroid Levothyroxine -Chronic fibromyalgia Disposition: Home Plan - Discharge Summary New Discharge Prescriptions: New cefUROXime axetiL [Ceftin] 500 mg PO BID 7 Days #14 tab Ipratropium-Albuterol Nebulize [Duoneb 0.5 mg-3 mg/3 ml Soln] 3 ml INHALATION TID #90 each predniSONE 10 mg PO DAILY #30 tab Continue Losartan Potassium [Cozaar] 50 mg PO HS diphenhydrAMINE [Benadryl] 25 mg PO HS Benzonatate [Tessalon Perles] 100 mg PO TID PRN PRN Reason: Cough Cholecalciferol [Vitamin D3 (25 Mcg = 1000 Iu)] 25 mcg PO DAILY Methylphenidate HCl [Ritalin] 10 mg PO TID PRN PRN Reason: ADHD/Reading Levothyroxine Sodium [Euthyrox] 125 mcg PO AC-BRKFST Omeprazole 40 mg PO DAILY Budesonide/Glycopyr/Formoterol [Breztri Aerosphere Inhaler] 1 puff INHALATION RT-BID Acetaminophen [Tylenol] 325 mg PO DAILY Discontinued Amoxic-Pot Clav 875-125Mg [Augmentin 875-125] 1 tab PO BID Doxycycline Monohydrate [Monodox] 100 mg PO BID Discharge Medication List Losartan Potassium [Cozaar] 50 mg PO HS 03/31/17 [History] Levothyroxine Sodium [Euthyrox] 125 mcg PO AC-BRKFST 07/31/22 [History] diphenhydrAMINE [Benadryl] 25 mg PO HS 07/31/22 [History] Acetaminophen [Tylenol] 325 mg PO DAILY 10/18/22 [History] Benzonatate [Tessalon Perles] 100 mg PO TID PRN 10/18/22 [History] Budesonide/Glycopyr/Formoterol [Breztri Aerosphere Inhaler] 1 puff INHALATION RT-BID 10/18/22 [History] Cholecalciferol [Vitamin D3 (25 Mcg = 1000 Iu)] 25 mcg PO DAILY 10/18/22 [History] Methylphenidate HCl [Ritalin] 10 mg PO TID PRN 10/18/22 [History] Omeprazole 40 mg PO DAILY 10/18/22 [History] Ipratropium-Albuterol Nebulize [Duoneb 0.5 mg-3 mg/3 ml Soln] 3 ml INHALATION TID #90 each 10/22/22 [Rx] cefUROXime axetiL [Ceftin] 500 mg PO BID 7 Days #14 tab 10/22/22 [Rx] predniSONE 10 mg PO DAILY #30 tab 10/22/22 [Rx] Follow up Appointment(s)/Referral(s): Cas David MD [Primary Care Provider] - 1-2 days Favian Giles MD [STAFF PHYSICIAN] - 01/05/23 10:00 am (This appt is at the office Located at [facility]) Sasha Godfrey MD [STAFF PHYSICIAN] - 11/03/22 1:30 pm Patient Instructions/Handouts: COPD (Chronic Obstructive Pulmonary Disease) (DC), Hypoxemia (DC) Activity/Diet/Wound Care/Special Instructions: 12/29/[address] scan at [facility] PH-f/u scan for lung cancer Discharge Disposition: HOME SELF-CARE
[2022-10-23] MEDS ORDERED: predniSONE 20 MG TAB PO SCH (09:00)
== END 2022-10-22 15:37 | disposition home or self-care (01) | DRG 177 ==
LOC: EC 10:26 → 5NMEDONC 14:52
PROVIDERS: ADMIT Hospitalist; ATTEND Hospitalist
DX: J15.6 Pneumonia due to other Gram-negative bacteria (principal); J96.21 Acute and chronic respiratory failure with hypoxia; J96.22 Acute and chronic respiratory failure with hypercapnia; J44.0 Chronic obstructive pulmonary disease with (acute) lower respiratory infection; J44.1 Chronic obstructive pulmonary disease with (acute) exacerbation; F10.21 Alcohol dependence, in remission; Z20.822 Contact with and (suspected) exposure to COVID-19; E89.0 Postprocedural hypothyroidism; I10 Essential (primary) hypertension; K21.9 Gastro-esophageal reflux disease without esophagitis; M79.7 Fibromyalgia; F90.9 Attention-deficit hyperactivity disorder, unspecified type; G47.00 Insomnia, unspecified; R13.10 Dysphagia, unspecified; Z99.81 Dependence on supplemental oxygen; Z79.51 Long term (current) use of inhaled steroids; Z79.890 Hormone replacement therapy; Z79.899 Other long term (current) drug therapy; Z87.891 Personal history of nicotine dependence; Z87.01 Personal history of pneumonia (recurrent); Z85.118 Personal history of other malignant neoplasm of bronchus and lung; Z87.19 Personal history of other diseases of the digestive system; Z92.21 Personal history of antineoplastic chemotherapy; Z92.3 Personal history of irradiation; Z86.19 Personal history of other infectious and parasitic diseases; Z88.0 Allergy status to penicillin; Z88.8 Allergy status to other drugs, medicaments and biological substances
CPT/HCPCS: 36415; 71046; 80048; 80053; 81001; 83605; 84145; 85025; 86140; 87040; 87070; 87086; 87205; 87636; 94640; 94760; 96361; 96365; 96368; 99285

== ENCOUNTER → 2022-12-12 | Outpatient (CLI) | payer MEDICARE, BC ==
--- NOTE | 2022-12-14 10:09 | PE ---
EXAMINATION TYPE: PET CT fusion skull to thigh DATE OF EXAM: 12/12/2022 CLINICAL INDICATION:Female, 72 years old with history of R91.8 lung nodule; TECHNIQUE: Following the intravenous administration of 11.2 mCi of F-18 FDG, whole body images are performed from the skull base to the midthigh. Images are reviewed on the computer in the coronal, a xial, and sagittal planes. Reconstructed rotating images are created on independent workstation and reviewed on the computer. A non-contrast CT is performed in conjunction with the PET scan. Glucose level 92 mg/dL COMPARISON: CT 09/18/2022, PET/CT 12/31/2019, FINDINGS: Mediastinal SUV mean is 1.9. Hepatic parenchyma SUV mean is 2.4. SKULL BASE AND NECK: No suspicious radiotracer activity. CHEST, MEDIASTINUM, AND HILAR REGION: There is fibrotic lung disease changes with small right pleural effusion. Prior left lung nodule is no longer definitively visualized, there is streaky bandlike opa city now present. No suspicious FDG activity is identified. ABDOMEN AND PELVIS: No suspicious radiotracer activity. OSSEOUS STRUCTURES: No suspicious radiotracer activity. OTHER CT: Bilateral aphakia right chest wall [id number] with tip terminating in the superior vena cava. The heart is mildly enlarged for size. Mild atherosclerosis of the arterial vasculature and cor onary arteries. Pneumobilia with surgically absent gallbladder. Uterine fibroid with calcification. IMPRESSION: Left midlung nodule there is no longer visualized there is streaky atelectasis scarring present in th e general area on today's exam. No suspicious FDG activity identified on today's exam.
== END | disposition home or self-care (01) ==
LOC: RADPETMAIN 06:57
PROVIDERS: ATTEND Internal Medicine Critical Care Medicine
DX: J98.11 Atelectasis (principal); R91.1 Solitary pulmonary nodule
CPT/HCPCS: 78815; A9552

== ENCOUNTER → 2023-04-02 | Outpatient (CLI) | payer MEDICARE, BC ==
[2023-04-02 10:53] LABS: African American GFR (CKD) >90 (>60 ml/min/1.73 sqM); Blood Urea Nitrogen 13 mg/dL (7-17); Non-African American GFR(CKD) >90 (>60 ml/min/1.73 sqM)
--- NOTE | 2023-04-02 15:33 | CT ---
EXAMINATION TYPE: CT chest w con CT DLP: 382 mGycm, Automated exposure control for dose reduction was used. DATE OF EXAM: 04/02/2023 11:40 AM COMPARISON: Pet/CT 12/12/2022, 09/18/2022 CT CLINICAL INDICATION:Female, 72 years old with history of C34.31 Malignant neoplasm of lower lobe, rig , Malignant neoplasm of lower lobe, right TECHNIQUE: Multiple axial images were obtained through the chest. Sagittal and coronal reformats were created for review. Contrast used:100 ml mL of Isovue 300 with IV Contrast Oral contrast used: none. FINDINGS: LUNGS/ PLEURA: Mildly decreased right pleural effusion now tracer. No pneumothorax. Moderate centrilo bular and paraseptal emphysematous changes. Persistent scarring along the right hilar level extending anteriorly inferiorly near site of sutures. Persistent right-sided volume loss. Moderate focal scarr ing of the anterior left upper to midlung at site of prior recurrent neoplasm is unchanged. No new or enlarging pulmonary nodules. Unchanged right major fissure intrafissural lymph node. AIRWAY: Patent and unremarkable.. HEART: Mildly prominent size. No pericardial effusion. Coronary artery calcifications. MEDIASTINUM: No gross evidence of adenopathy. VASCULATURE: No aortic aneurysm. Right chest wall Mediport catheter terminates in the superior vena cava atrial junction. MUSCULOSKELETAL: No acute osseous abnormalities. No aggressive osseous lesion. Degenerative changes o f the visualized spine. Likely benign vertebral hemangioma within the T6 vertebral body. SOFT TISSUES/LYMPH NODES: Unremarkable. LOWER NECK: No significant findings. UPPER ABDOMEN: Small hiatal hernia. Pneumobilia redemonstrated. Stable left adrenal gland nodule ashly uring up to 1.6 cm. Stable subcentimeter GE junction lymph nodes. IMPRESSION: 1. Similar morphology to the right lung posttreatment change with now trace right pleural effusion. No CT evidence to suggest active neoplastic recurrence. 2. Moderate COPD changes.
== END | disposition home or self-care (01) ==
LOC: RADCTMAIN 09:54
PROVIDERS: ATTEND Internal Medicine Hematology & Oncology
DX: Z03.89 Encounter for observation for other suspected diseases and conditions ruled out (principal); C34.31 Malignant neoplasm of lower lobe, right bronchus or lung; J90 Pleural effusion, not elsewhere classified; J44.9 Chronic obstructive pulmonary disease, unspecified
CPT/HCPCS: 82565; 84520; 71260; 36415; Q9967

== ENCOUNTER → 2023-07-16 | Outpatient (CLI) | payer MEDICARE, BC ==
[2023-07-16 10:52] LABS: African American GFR (CKD) >90 (>60 ml/min/1.73 sqM); Blood Urea Nitrogen 11 mg/dL (7-17); Non-African American GFR(CKD) 89 (>60 ml/min/1.73 sqM)
--- NOTE | 2023-07-16 11:46 | CT ---
EXAMINATION TYPE: CT chest w con CT DLP: 441 mGycm, Automated exposure control for dose reduction was used. DATE OF EXAM: 07/16/2023 11:37 AM COMPARISON: Multiple CT chest with most recent 04/02/2023. PET/CT 12/12/2022 CLINICAL INDICATION:Female, 72 years old with history of C34.90 Lung Ca; PHH, Lung Cancer TECHNIQUE: Multiple axial images were obtained through the chest following the administration of 100 cc of Isovue 300. . Coronal and sagittal reformats reviewed. FINDINGS: LUNGS/ PLEURA: Trace right pleural effusion redemonstrated. No pneumothorax. Moderate centrilobular a nd paraseptal emphysematous changes. Persistent scarring along the right hilar level extending anteri cristine inferiorly near site of sutures. Associated persistent right-sided volume loss. Moderate focal s carring of the anterior left upper to midlung at site of prior recurrent neoplasm is unchanged. No ne w or enlarging pulmonary nodules. AIRWAY: Patent and unremarkable.. HEART: Mildly prominent size. No pericardial effusion. Coronary artery calcifications. MEDIASTINUM: No pathologic adenopathy. VASCULATURE: No aortic aneurysm. Right chest wall Mediport catheter terminates in the superior vena cava atrial junction. MUSCULOSKELETAL: No acute osseous abnormalities. No aggressive osseous lesion. Degenerative changes o f the visualized spine. Likely benign vertebral hemangioma within the T6 vertebral body again. SOFT TISSUES/LYMPH NODES: Unremarkable. LOWER NECK: No significant findings. UPPER ABDOMEN: Small hiatal hernia. Pneumobilia redemonstrated. Stable left adrenal gland nodule ashly uring up to 1.4 cm. Stable subcentimeter GE junction lymph nodes. Fatty infiltration of the pancreati c body. IMPRESSION: 1. No significant change in right lung posttreatment changes with trace right pleural effusion. No C T evidence to suggest active neoplastic recurrence. 2. Moderate COPD changes.
== END | disposition home or self-care (01) ==
LOC: RADCTMAIN 09:48
PROVIDERS: ATTEND Internal Medicine Hematology & Oncology
DX: Z03.89 Encounter for observation for other suspected diseases and conditions ruled out (principal); C34.31 Malignant neoplasm of lower lobe, right bronchus or lung; J44.9 Chronic obstructive pulmonary disease, unspecified; J90 Pleural effusion, not elsewhere classified
CPT/HCPCS: 82565; 84520; 71260; 36415; Q9967

== ENCOUNTER 2023-09-19 16:05 | Emergency (ER) | payer MEDICARE, BC ==
[2023-09-19] MEDS ORDERED: SODIUM CHLORIDE 0.9% 1,000 ML IV STA (17:00)
--- NOTE | 2023-09-19 17:04 | ED ---
General Adult HPI - General Chief complaint: Fever Stated complaint: Fever Time Seen by Provider: 09/19/23 16:43 Source: patient, RN notes reviewed Mode of arrival: ambulatory Limitations: no limitations - History of Present Illness Initial comments: 73-year-old female past medical history of lung cancer presents to the emergency department chief complaint of fever. She states that this morning she developed a temperature and it was 102.6. She does admit that she was nauseated last night. She took some Tylenol this morning around 11 AM and has been trying to hydrate well. She states that she has significant fatigue at baseline. She states that she has had fevers on and off for quite some time and reports fevers to 3 times per month. She states that she was told by her primary care provider that she should be evaluated in the emergency Department if her temperature is above 102. - Related Data Home Medications Medication Instructions Recorded Confirmed Losartan Potassium [Cozaar] 50 mg PO HS 03/31/17 10/18/22 Levothyroxine Sodium [Euthyrox] 125 mcg PO AC-BRKFST 07/31/22 10/18/22 diphenhydrAMINE [Benadryl] 25 mg PO HS 07/31/22 10/18/22 Acetaminophen [Tylenol] 325 mg PO DAILY 10/18/22 10/18/22 Benzonatate [Tessalon Perles] 100 mg PO TID PRN 10/18/22 10/18/22 Budesonide/Glycopyr/Formoterol 1 puff INHALATION RT-BID 10/18/22 10/18/22 [Breztri Aerosphere Inhaler] Cholecalciferol [Vitamin D3 (25 25 mcg PO DAILY 10/18/22 10/18/22 Mcg = 1000 Iu)] Methylphenidate HCl [Ritalin] 10 mg PO TID PRN 10/18/22 10/18/22 Omeprazole 40 mg PO DAILY 10/18/22 10/18/22 Previous Rx's Medication Instructions Recorded Ipratropium-Albuterol Nebulize 3 ml INHALATION TID #90 each 10/22/22 [Duoneb 0.5 mg-3 mg/3 ml Soln] cefUROXime axetiL [Ceftin] 500 mg PO BID 7 Days #14 tab 10/22/22 predniSONE 10 mg PO DAILY #30 tab 11/23/22 Sulfamethox-Tmp 800-160Mg [Bactrim 1 each PO Q12HR #20 tab 09/19/23 Ds] Allergies Allergy/AdvReac Type Severity Reaction Status Date / Time Penicillins Allergy Anaphylaxis, Verified 09/19/23 16:42 swelling of face & lips ethanol alcohol AdvReac avoids Uncoded 09/19/23 16:42 drinking alcohol (recovering alcoholic) Review of Systems ROS Statement: Those systems with pertinent positive or pertinent negative responses have been documented in the HPI. ROS Other: All systems not noted in ROS Statement are negative. Past Medical History Past Medical History: Cancer, COPD, Fibromyalgia, GERD/Reflux, Hypertension, Thyroid Disorder Additional Past Medical History / Comment(s): Pancreatic tumor 2006, had Whipple; hx benign tumor Thyroid. 2017 Lung cancer-had sx, chemo and radiation. Tick bite 20 years ago, lyme's disease. History of Any Multi-Drug Resistant Organisms: ESBL Date of last positivie culture/infection: 08/19/17 MDRO Source:: ESBL URINE Past Surgical History: Adenoidectomy, Breast Surgery, Hernia Repair, Tonsillectomy Additional Past Surgical History / Comment(s): Bronchoscopy, mediastinoscopy w/biopsy in March 2017, right partial lobectomy [facility] 05-05-17, mediport lt upper chest. RT BREAST x 3 bx-neg. BILAT CATARACTS REMOVED. WHIPPLE 2006. Total Thyroidectomy. THYROIDECTOMY. VOCAL CORD SX Past Anesthesia/Blood Transfusion Reactions: Previous Problems w/ Anesthesia Additional Past Anesthesia/Blood Transfusion Reaction / Comment(s): Told I have "very skinny windpipe," difficult intubation. WOKE UP DURING CATARACT SURGERY, and was aware during breast sx Past Psychological History: No Psychological Hx Reported Smoking Status: Former smoker Past Alcohol Use History: None Reported Past Drug Use History: None Reported - Past Family History Mother Family Medical History: Deep Vein Thrombosis (DVT) Father Family Medical History: Cancer Additional Family Medical History / Comment(s): lung cancer General Exam Limitations: no limitations General appearance: alert, in no apparent distress Head exam: Present: atraumatic, normocephalic, normal inspection Eye exam: Present: normal appearance, PERRL, EOMI. Absent: scleral icterus, conjunctival injection, periorbital swelling ENT exam: Present: normal exam, mucous membranes moist Neck exam: Present: normal inspection, full ROM. Absent: tenderness, meningismus, lymphadenopathy Respiratory exam: Present: normal lung sounds bilaterally. Absent: respiratory distress, wheezes, rales, rhonchi, stridor Cardiovascular Exam: Present: regular rate, normal rhythm, normal heart sounds. Absent: systolic murmur, diastolic murmur, rubs, gallop, clicks GI/Abdominal exam: Present: soft, normal bowel sounds. Absent: distended, tenderness, guarding, rebound, rigid Extremities exam: Present: normal inspection, full ROM, normal capillary refill. Absent: tenderness, pedal edema, joint swelling, calf tenderness Back exam: Present: normal inspection Neurological exam: Present: alert, oriented X3 Psychiatric exam: Present: normal affect, normal mood Skin exam: Present: warm, dry, intact, normal color. Absent: rash Course Vital Signs 09/19/23 09/19/23 09/19/23 16:38 17:42 20:08 Temperature 98 F 101.0 F H 99.0 F Pulse Rate 108 H 79 Respiratory 18 16 Rate Blood Pressure 168/82 128/79 O2 Sat by Pulse 96 93 L Oximetry Medical Decision Making - Medical Decision Making Was pt. sent in by a medical professional or institution (, PA, REPORT CHECKER, urgent care, hospital, or longterm...) When possible be specific @ -No Did you speak to anyone other than the patient for history (EMS, parent, family, police, friend...)? What history was obtained from this source @ -No Did you review nursing and triage notes (agree or disagree)? Why? @ -I reviewed and agree with nursing and triage notes Were old charts reviewed (outside hosp., previous admission, EMS record, old EKG, old radiological studies, urgent care reports/EKG's, longterm records)? Report findings @ -No old charts were reviewed Differential Diagnosis (chest pain, altered mental status, abdominal pain women, abdominal pain men, vaginal bleeding, weakness, fever, dyspnea, syncope, headache, dizziness, GI bleed, back pain, seizure, CVA, palpatations, mental health, musculoskeletal)? @ -Differential Fever: Pneumonia, viral URI, endocarditis, myocarditis, pericarditis, otitis, sinusitis, peritonsillar Abscess, retropharyngeal Abscess, epiglottitis, peritonitis, appendicitis, Gela cystitis, diverticulitis, hepatitis, colitis, UTI, PID, TOA, pyelonephritis, prostatitis, epididymitis, meningitis, encephalitis, pulmonary embolism, CVA, thyroid storm, pancreatitis, adrenal crisis, cavernous sinus thrombosis, this is not meant to be an all-inclusive list. EKG interpreted by me (3pts min.). @ -As above X-rays interpreted by me (1pt min.). @ -None done CT interpreted by me (1pt min.). @ -None done U/S interpreted by me (1pt. min.). @ -None done What testing was considered but not performed or refused? (CT, X-rays, U/S, labs)? Why? @ -None What meds were considered but not given or refused? Why? @ -None Did you discuss the management of the patient with other professionals (professionals i.e. , PA, REPORT CHECKER, lab, RT, psych nurse, rn social services, general labor forklift operator, teacher, [employer] officer, case management manager)? Give summary @ -No Was smoking cessation discussed for >3mins.? @ -No Was critical care preformed (if so, how long)? @ -No Were there social determinants of health that impacted care today? How? (Homelessness, low income, unemployed, alcoholism, drug addiction, transportation, low edu. Level, literacy, decrease access to med. care, assisted, rehab)? @ -No Was there de-escalation of care discussed even if they declined (Discuss DNR or withdrawal of care, Hospice)? DNR status @ -No What co-morbidities impacted this encounter? (DM, HTN, Smoking, COPD, CAD, Cancer, CVA, ARF, Chemo, Hep., AIDS, mental health diagnosis, sleep apnea, mor bid obesity)? @ -None Was patient admitted / discharged? Hospital course, mention meds given and route, prescriptions, significant lab abnormalities, going to OR and other pertinent info. @ -Discharged. Patient presented emergency department chief complaint of fever 2 days. Patient has a history of lung cancer and was told to come to the emergency Department if she run a fever greater than 102. She has been taking Tylenol and Motrin at home for fevers which improves it. CBC within normal limits, CMP shows sodium 137, potassium 3.8, AST 97, ALT 61 UA shows large esterase, 30 wbc's; Covid, influenza, RSV negative. Patient will be started on antibiotics for UTI. Advised to follow up with her PCP and oncologist. Patient stable at time of discharge. Case discussed with Dr. Hirsch Undiagnosed new problem with uncertain prognosis? @ -No Drug Therapy requiring intensive monitoring for toxicity (Heparin, Nitro, Insulin, Cardizem)? @ -No Were any procedures done? @ -No Diagnosis/symptom? @ -UTI Acute, or Chronic, or Acute on Chronic? @ -acute Uncomplicated (without systemic symptoms) or Complicated (systemic symptoms)? @ -uncomplicated Side effects of treatment? @ -No Exacerbation, Progression, or Severe Exacerbation? @ -No Poses a threat to life or bodily function? How? (Chest pain, [place], [place], pneumonia, PE, COPD, DKA, ARF, appy, cholecystitis, CVA, Diverticulitis, Homicidal, Suicidal, threat to staff... and all critical care pts) @ -No - Lab Data Result diagrams: 09/19/23 17:21 09/19/23 17:21 Lab Results 09/19/23 09/19/23 09/19/23 Range/Units 17:21 17:21 17:21 WBC 8.3 (3.8-10.6) k/uL RBC 5.04 (3.80-5.40) m/uL Hgb 14.4 (11.4-16.0) gm/dL Hct 43.8 (34.0-46.0) % MCV 86.9 (80.0-100.0) fL MCH 28.6 (25.0-35.0) pg MCHC 33.0 (31.0-37.0) g/dL RDW 13.5 (11.5-15.5) % Plt Count 227 (150-450) k/uL MPV 7.0 Neutrophils % 90 % Lymphocytes % 4 % Monocytes % 4 % Eosinophils % 1 % Basophils % 0 % Neutrophils # 7.5 (1.3-7.7) k/uL Lymphocytes # 0.4 L (1.0-4.8) k/uL Monocytes # 0.3 (0-1.0) k/uL Eosinophils # 0.1 (0-0.7) k/uL Basophils # 0.0 (0-0.2) k/uL Sodium 137 (137-145) mmol/L Potassium 3.8 (3.5-5.1) mmol/L Chloride 101 (98-107) mmol/L Carbon Dioxide 26 (22-30) mmol/L Anion Gap 10 mmol/L BUN 10 (7-17) mg/dL Creatinine 0.66 (0.52-1.04) mg/dL Est GFR (CKD-EPI)AfAm >90 (>60 ml/min/1.73 sqM) Est GFR (CKD-EPI)NonAf 87 (>60 ml/min/1.73 sqM) Glucose 101 H (74-99) mg/dL Calcium 8.2 L (8.4-10.2) mg/dL Total Bilirubin 1.0 (0.2-1.3) mg/dL AST 97 H (14-36) U/L ALT 61 H (4-34) U/L Alkaline Phosphatase 126 (38-126) U/L Total Protein 7.6 (6.3-8.2) g/dL Albumin 4.2 (3.5-5.0) g/dL Urine Color Colorless Urine Appearance Clear (Clear) Urine pH 7.0 (5.0-8.0) Ur Specific Correll 1.007 (1.001-1.035) Urine Protein Negative (Negative) Urine Glucose (UA) Negative (Negative) Urine Ketones Negative (Negative) Urine Blood Negative (Negative) Urine Nitrite Negative (Negative) Urine Bilirubin Negative (Negative) Urine Urobilinogen <2.0 (<2.0) mg/dL Ur Leukocyte Esterase Large H (Negative) Urine RBC <1 (0-5) /hpf Urine WBC 30 H (0-5) /hpf Ur Squamous Epith Cells 1 (0-4) /hpf Urine Mucus Rare H (None) /hpf Influenza Type A (PCR) (Not Detectd) Influenza Type B (PCR) (Not Detectd) RSV (PCR) (Not Detectd) SARS-CoV-2 (PCR) (Not Detectd) 09/19/23 Range/Units 17:21 WBC (3.8-10.6) k/uL RBC (3.80-5.40) m/uL Hgb (11.4-16.0) gm/dL Hct (34.0-46.0) % MCV (80.0-100.0) fL MCH (25.0-35.0) pg MCHC (31.0-37.0) g/dL RDW (11.5-15.5) % Plt Count (150-450) k/uL MPV Neutrophils % % Lymphocytes % % Monocytes % % Eosinophils % % Basophils % % Neutrophils # (1.3-7.7) k/uL Lymphocytes # (1.0-4.8) k/uL Monocytes # (0-1.0) k/uL Eosinophils # (0-0.7) k/uL Basophils # (0-0.2) k/uL Sodium (137-145) mmol/L Potassium (3.5-5.1) mmol/L Chloride (98-107) mmol/L Carbon Dioxide (22-30) mmol/L Anion Gap mmol/L BUN (7-17) mg/dL Creatinine (0.52-1.04) mg/dL Est GFR (CKD-EPI)AfAm (>60 ml/min/1.73 sqM) Est GFR (CKD-EPI)NonAf (>60 ml/min/1.73 sqM) Glucose (74-99) mg/dL Calcium (8.4-10.2) mg/dL Total Bilirubin (0.2-1.3) mg/dL AST (14-36) U/L ALT (4-34) U/L Alkaline Phosphatase (38-126) U/L Total Protein (6.3-8.2) g/dL Albumin (3.5-5.0) g/dL Urine Color Urine Appearance (Clear) Urine pH (5.0-8.0) Ur Specific Correll (1.001-1.035) Urine Protein (Negative) Urine Glucose (UA) (Negative) Urine Ketones (Negative) Urine Blood (Negative) Urine Nitrite (Negative) Urine Bilirubin (Negative) Urine Urobilinogen (<2.0) mg/dL Ur Leukocyte Esterase (Negative) Urine RBC (0-5) /hpf Urine WBC (0-5) /hpf Ur Squamous Epith Cells (0-4) /hpf Urine Mucus (None) /hpf Influenza Type A (PCR) Not Detected (Not Detectd) Influenza Type B (PCR) Not Detected (Not Detectd) RSV (PCR) Not Detected (Not Detectd) SARS-CoV-2 (PCR) Not Detected (Not Detectd) Disposition Clinical Impression: Fever, UTI (urinary tract infection) Disposition: HOME SELF-CARE Condition: Stable Instructions (If sedation given, give patient instructions): Fever in Adults (ED) Additional Instructions: Please follow up with your primary care provider and oncologist. Return to the emergency department for new or worsening symptoms. Prescriptions: Sulfamethox-Tmp 800-160Mg [Bactrim Ds] 1 each PO Q12HR #20 tab Is patient prescribed a controlled substance at d/c from ED?: No Referrals: Cas Lomeli MD [Primary Care Provider] - 1-2 days
[2023-09-19] MEDS ORDERED: ACETAMINOPHEN TAB 325 MG TAB PO STA (17:34)
[2023-09-19] MEDS ORDERED: IBUPROFEN 600 MG TAB PO STA (17:34)
[2023-09-19 17:41] LABS: Basophils % (A) 0 %; Eosinophils # (A) 0.1 k/uL (0-0.7); Eosinophils % (A) 1 %; HCT 43.8 % (34.0-46.0); HGB 14.4 gm/dL (11.4-16.0); Lymphocytes # (A) 0.4 k/uL (1.0-4.8); Lymphocytes % (A) 4 %; MCH 28.6 pg (25.0-35.0); MCV 86.9 fL (80.0-100.0); Monocytes # (A) 0.3 k/uL (0-1.0); Monocytes % (A) 4 %; Neutrophils # (A) 7.5 k/uL (1.3-7.7); Neutrophils % (A) 90 %; Platelet Count 227 k/uL (150-450); RBC 5.04 m/uL (3.80-5.40); RDW 13.5 % (11.5-15.5); WBC 8.3 k/uL (3.8-10.6)
[2023-09-19 17:44] LABS: Appearance,Urine Clear (Clear); Bilirubin,Urine Negative (Negative); Blood,Urine Negative (Negative); Color,Urine Colorless; Glucose,Urine (UA) Negative (Negative); Ketones,Urine Negative (Negative); Leukocyte Esterase,Urine Large (Negative); Mucus,Urine Rare /hpf; Nitrite,Urine Negative (Negative); Protein,Urine Negative (Negative); RBC,Urine <1 /hpf (0-5); Specific Gravity,Urine 1.007 (1.001-1.035); Squamous Epithelial Cell,Urine 1 /hpf (0-4); Urobilinogen,Urine <2.0 mg/dL (<2.0); WBC,Urine 30 /hpf (0-5)
[2023-09-19 17:56] LABS: ALT 61 U/L (4-34); AST 97 U/L (14-36); African American GFR (CKD) >90 (>60 ml/min/1.73 sqM); Albumin 4.2 g/dL (3.5-5.0); Alkaline Phosphatase 126 U/L (38-126); Anion Gap 10 mmol/L; Blood Urea Nitrogen 10 mg/dL (7-17); Calcium 8.2 mg/dL (8.4-10.2); Carbon Dioxide 26 mmol/L (22-30); Chloride 101 mmol/L (98-107); Glucose 101 mg/dL (74-99); Non-African American GFR(CKD) 87 (>60 ml/min/1.73 sqM); Potassium 3.8 mmol/L (3.5-5.1); Sodium 137 mmol/L (137-145); Total Protein 7.6 g/dL (6.3-8.2)
--- NOTE | 2023-09-19 19:25 | XR ---
EXAMINATION TYPE: XR chest 2V DATE OF EXAM: 09/19/2023 7:04 PM CLINICAL INDICATION:Female, 73 years old with history of fever; [facility] COMPARISON: Chest radiographs from 10/19/2022 TECHNIQUE: XR chest 2V Frontal and lateral views of the chest. FINDINGS: Lungs/Pleura: There is no evidence of pleural effusion, focal consolidation, or pneumothorax. Pulmonary vascularity: Pulmonary vascular congestion. Heart/mediastinum: Cardiomediastinal silhouette is enlarged and stable. Musculoskeletal: No acute osseous pathology. Other findings: None Lines/Tubes: [id number] projecting over the right hemithorax with distal tip at the cavoatrial junction. IMPRESSION: Cardiomegaly and mild pulmonary vascular congestion. Correlate with BNP for congestive heart failure.
[2023-09-19] MEDS ORDERED: cefTRIAXone IN SWFI 1,000 MG/10 ML SYRINGE IVP STA (19:46)
[2023-09-19] MEDS ORDERED: SULFAMETHOX-TMP 800-160MG 1 EACH TAB PO STA (19:49)
[2023-09-19 20:15] VITALS: BP 128/79; PULSE 79; RESP 16; TEMP 99
== END 2023-09-19 20:09 | disposition home or self-care (01) ==
LOC: EC 16:05
DX: N39.0 Urinary tract infection, site not specified (principal); B96.20 Unspecified Escherichia coli [E. coli] as the cause of diseases classified elsewhere; I10 Essential (primary) hypertension; J44.9 Chronic obstructive pulmonary disease, unspecified; M79.7 Fibromyalgia; K21.9 Gastro-esophageal reflux disease without esophagitis; E07.9 Disorder of thyroid, unspecified; Z79.890 Hormone replacement therapy; Z79.51 Long term (current) use of inhaled steroids; Z79.899 Other long term (current) drug therapy; Z88.0 Allergy status to penicillin; Z91.048 Other nonmedicinal substance allergy status; Z20.822 Contact with and (suspected) exposure to COVID-19; Z87.891 Personal history of nicotine dependence
CPT/HCPCS: 36415; 71046; 80053; 81001; 85025; 87040; 87077; 87086; 87186; 87636; 96360; 99284

== ENCOUNTER 2023-12-01 21:42 | Inpatient (IN) | payer MEDICARE, BC ==
--- NOTE | 2023-12-01 22:13 | ED ---
General Adult HPI - General Source: patient Mode of arrival: wheelchair Limitations: no limitations <Raymond Lanza - Last Filed: 12/01/23 22:49> <Cas Ybarra - Last Filed: 12/02/23 00:54> - General Chief complaint: Altered Mental Status Stated complaint: Poss UTI,AMS, Fever Time Seen by Provider: 12/01/23 21:56 - History of Present Illness Initial comments: Dictation was produced using Videof[employer] dictation software. please excuse any grammatical, word or spelling errors. Chief Complaint: 73-year-old female presents emergency part of her fever and altered mental status History of Present Illness: 73-year-old female she has not been feeling well for the last week. She was diagnosed with UTI by primary care doctor earlier today. Patient has been having frequent fevers up to 104. She's been taking Tylenol for fever control. Patient denies any urinary symptoms. No cough or runny nose or sore throat. Denies any rash. No abdominal pain. Patient has a history of lung cancer. The ROS documented in this emergency department record has been reviewed and confirmed by me. Those systems with pertinent positive or negative responses have been documented in the HPI. All other systems are other negative and/or noncontributory. (Raymond Lanza) - Related Data Home Medications Medication Instructions Recorded Confirmed Losartan Potassium [Cozaar] 50 mg PO HS 03/31/17 12/01/23 Levothyroxine Sodium [Euthyrox] 125 mcg PO DAILY 07/31/22 12/01/23 Acetaminophen Tab [Tylenol Tab] 1,000 mg PO Q5H 12/01/23 12/01/23 Ciprofloxacin HCl [Cipro] 500 mg PO Q12HR 12/01/23 12/01/23 Allergies Allergy/AdvReac Type Severity Reaction Status Date / Time Penicillins Allergy Anaphylaxis, Verified 12/01/23 22:56 swelling of face & lips ethanol alcohol AdvReac avoids Uncoded 12/01/23 22:56 drinking alcohol (recovering alcoholic) Review of Systems ROS Other: All systems not noted in ROS Statement are negative. <Raymond Lanza - Last Filed: 12/01/23 22:49> ROS Other: All systems not noted in ROS Statement are negative. <Cas Ybarra - Last Filed: 12/02/23 00:54> ROS Statement: Those systems with pertinent positive or pertinent negative responses have been documented in the HPI. Past Medical History Past Medical History: Cancer, COPD, Fibromyalgia, GERD/Reflux, Hypertension, Thyroid Disorder Additional Past Medical History / Comment(s): Pancreatic tumor 2006, had Whipple; hx benign tumor Thyroid. 2017 Lung cancer-had sx, chemo and radiation. Tick bite 20 years ago, lyme's disease. History of Any Multi-Drug Resistant Organisms: ESBL Date of last positivie culture/infection: 08/19/17 MDRO Source:: ESBL URINE Past Surgical History: Adenoidectomy, Breast Surgery, Hernia Repair, Tonsillectomy Additional Past Surgical History / Comment(s): Bronchoscopy, mediastinoscopy w/biopsy in March 2017, right partial lobectomy @[facility] 05-05-17, mediport upper chest. RT BREAST x 3 bx-neg. BILAT CATARACTS REMOVED. WHIPPLE 2006. Total Thyroidectomy. THYROIDECTOMY. VOCAL CORD SX Past Anesthesia/Blood Transfusion Reactions: Previous Problems w/ Anesthesia Additional Past Anesthesia/Blood Transfusion Reaction / Comment(s): Told I have "very skinny windpipe," difficult intubation. WOKE UP DURING CATARACT SURGERY, and was aware during breast sx Past Psychological History: No Psychological Hx Reported Smoking Status: Former smoker Past Alcohol Use History: None Reported Past Drug Use History: None Reported - Past Family History Mother Family Medical History: Deep Vein Thrombosis (DVT) Father Family Medical History: Cancer Additional Family Medical History / Comment(s): lung cancer <Raymond Lanza - Last Filed: 12/01/23 22:49> General Exam Limitations: no limitations <Raymond Lanza - Last Filed: 12/01/23 22:49> - General Exam Comments Initial Comments: PHYSICAL EXAM: General Impression: Alert and oriented x3, not in acute distress HEENT: Normocephalic atraumatic, extra-ocular movements intact, pupils equal and reactive to light bilaterally, mucous membranes moist. Cardiovascular: Heart regular rate and rhythm Chest: Able to complete full sentences, no retractions, no tachypnea Abdomen: abdomen soft, non-tender, non-distended, no organomegaly Musculoskeletal: Pulses present and equal in all extremities, no peripheral edema Motor: no focal deficits noted Neurological: CN II-XII grossly intact, no focal motor or sensory deficits noted, negative Kernig's negative Brudzinski's Skin: Intact with no visualized rashes Psych: Normal affect and mood (Raymond Lanza) Course Vital Signs 12/01/23 12/01/23 12/01/23 21:45 22:03 22:08 Temperature 98.9 F Pulse Rate 109 H 104 H 99 Respiratory 18 25 H 22 Rate Blood Pressure 78/52 102/55 102/55 O2 Sat by Pulse 96 96 92 L Oximetry 12/01/23 12/01/23 22:30 22:45 Temperature Pulse Rate 93 Respiratory 26 H Rate Blood Pressure 96/57 95/59 O2 Sat by Pulse 93 L Oximetry EKG Findings - EKG Comments: EKG Findings:: My EKG interpretation: Ventricular rate 99, sinus rhythm,. 196, QRS 105, QTC 417. No RI prolongation, no QTC prolongation, no ST or T-wave changes noted. . Overall, this EKG is unremarkable <Raymond Lanza - Last Filed: 12/01/23 22:49> Medical Decision Making - Lab Data Result diagrams: 12/01/23 22:07 <Raymond Lanza - Last Filed: 12/01/23 22:49> - Lab Data Result diagrams: 12/01/23 22:07 12/01/23 22:07 <Cas Ybarra - Last Filed: 12/02/23 00:54> - Medical Decision Making Was pt. sent in by a medical professional or institution (, PA, HEAD KNITTING MACHINE FIXER, urgent care, hospital, or alf...) When possible be specific @ -No Did you speak to anyone other than the patient for history (EMS, parent, family, police, friend...)? What history was obtained from this source @ -No Did you review nursing and triage notes (agree or disagree)? Why? @ -I reviewed and agree with nursing and triage notes Were old charts reviewed (outside hosp., previous admission, EMS record, old EKG, old radiological studies, urgent care reports/EKG's, alf records)? Report findings @ -No old charts were reviewed Differential Diagnosis (chest pain, altered mental status, abdominal pain women, abdominal pain men, vaginal bleeding, musculoskeletal, weakness, fever, dyspnea, syncope, headache, dizziness, GI bleed, back pain, seizure, CVA, palpatations, mental health)? @ -Differential Fever: Pneumonia, viral URI, endocarditis, myocarditis, pericarditis, otitis, sinusitis, peritonsillar Abscess, retropharyngeal Abscess, epiglottitis, peritonitis, appendicitis, Gela cystitis, diverticulitis, hepatitis, colitis, UTI, PID, TOA, pyelonephritis, prostatitis, epididymitis, meningitis, encephalitis, pulmonary embolism, CVA, thyroid storm, pancreatitis, adrenal crisis, cavernous sinus thrombosis, this is not meant to be an all-inclusive list. EKG interpreted by me (3pts min.). @ -None done X-rays interpreted by me (1pt min.). @ -X-ray is not acute CT interpreted by me (1pt min.). @ -None done U/S interpreted by me (1pt. min.). @ -None done What testing was considered but not performed or refused? (CT, X-rays, U/S, labs)? Why? @ -None What meds were considered but not given or refused? Why? @ -None Did you discuss the management of the patient with other professionals (professionals i.e. , PA, HEAD KNITTING MACHINE FIXER, lab, RT, psych nurse, social studies teacher, patent lawyer, teacher, jailer/training officer, case aide)? Give summary @ -No Was smoking cessation discussed for >3mins.? @ -No Was critical care preformed (if so, how long)? @ -No Were there social determinants of health that impacted care today? How? (Homelessness, low income, unemployed, alcoholism, drug addiction, transportation, low edu. Level, literacy, decrease access to med. care, senior care, rehab)? @ -No Was there de-escalation of care discussed even if they declined (Discuss DNR or withdrawal of care, Hospice)? DNR status @ -No What co-morbidities impacted this encounter? (DM, HTN, Smoking, COPD, CAD, Ca ncer, CVA, ARF, Chemo, Hep., AIDS, mental health diagnosis, sleep apnea, morbid obesity)? @ -None Was patient admitted / discharged? Hospital course, mention meds given and route, prescriptions, significant lab abnormalities, going to OR and other pertinent info. @ -73-year-old male past medical history lung cancer presents with constitutio nal symptoms. She does not have any localizing symptoms. Vital signs upon arrival shows temperature of 98.9. Initial blood pressure 78/52, repeat blood pressure is 102/55. Mild tachycardic 109. Patient given IV fluids. Patient is signed out to Dr. bYarra for pending labs and determination of final disposition. Undiagnosed new problem with uncertain prognosis? @ -No Drug Therapy requiring intensive monitoring for toxicity (Heparin, Nitro, Insulin, Cardizem)? @ -No Were any procedures done? @ -No Diagnosis/symptom? Acute, or Chronic, or Acute on Chronic? Uncomplicated (without systemic symptoms) or Complicated (systemic symptoms)? @ -Fever Side effects of treatment? @ -No Exacerbation, Progression, or Severe Exacerbation? @ -No Poses a threat to life or bodily function? How? (Chest pain, [place], [place], pneumonia, PE, COPD, DKA, ARF, appy, cholecystitis, CVA, Diverticulitis, Homicidal, Suicidal, threat to staff... and all critical care pts) @ -yes (Raymond Lanza) - Lab Data Lab Results 12/01/23 12/01/23 12/01/23 Range/Units 22:07 22:07 22:07 WBC 13.7 H (3.8-10.6) k/uL RBC 4.68 (3.80-5.40) m/uL Hgb 13.6 (11.4-16.0) gm/dL Hct 40.6 (34.0-46.0) % MCV 86.6 (80.0-100.0) fL MCH 29.0 (25.0-35.0) pg MCHC 33.5 (31.0-37.0) g/dL RDW 13.4 (11.5-15.5) % Plt Count 184 (150-450) k/uL MPV 7.8 Neutrophils % 93 % Lymphocytes % 3 % Monocytes % 3 % Eosinophils % 1 % Basophils % 0 % Neutrophils # 12.7 H (1.3-7.7) k/uL Lymphocytes # 0.4 L (1.0-4.8) k/uL Monocytes # 0.4 (0-1.0) k/uL Eosinophils # 0.1 (0-0.7) k/uL Basophils # 0.0 (0-0.2) k/uL PT (10.0-12.5) sec INR (<1.2) APTT (22.0-30.0) sec Sodium 125 L (137-145) mmol/L Potassium 3.5 (3.5-5.1) mmol/L Chloride 94 L (98-107) mmol/L Carbon Dioxide 19 L (22-30) mmol/L Anion Gap 12 mmol/L BUN 11 (7-17) mg/dL Creatinine 0.82 (0.52-1.04) mg/dL Est GFR (CKD-EPI)AfAm 82 (>60 ml/min/1.73 sqM) Est GFR (CKD-EPI)NonAf 71 (>60 ml/min/1.73 sqM) Glucose 226 H (74-99) mg/dL Plasma Lactic Acid Eduardo (0.7-2.0) mmol/L Calcium 7.3 L (8.4-10.2) mg/dL Magnesium 1.6 (1.6-2.3) mg/dL Total Bilirubin 1.1 (0.2-1.3) mg/dL AST 32 (14-36) U/L ALT 36 H (4-34) U/L Alkaline Phosphatase 176 H (38-126) U/L Troponin I (0.000-0.034) ng/mL Total Protein 5.9 L (6.3-8.2) g/dL Albumin 3.0 L (3.5-5.0) g/dL Urine Color Urine Appearance (Clear) Urine pH (5.0-8.0) Ur Specific Woodrow (1.001-1.035) Urine Protein (Negative) Urine Glucose (UA) (Negative) Urine Ketones (Negative) Urine Blood (Negative) Urine Nitrite (Negative) Urine Bilirubin (Negative) Urine Urobilinogen (<2.0) mg/dL Ur Leukocyte Esterase (Negative) Urine RBC (0-5) /hpf Urine WBC (0-5) /hpf Urine WBC Clumps (None) /hpf Ur Squamous Epith Cells (0-4) /hpf Urine Bacteria (None) /hpf Hyaline Casts (0-2) /lpf Granular Casts (0) /lpf Urine Mucus (None) /hpf Influenza Type A (PCR) Not Detected (Not Detectd) Influenza Type B (PCR) Not Detected (Not Detectd) RSV (PCR) Not Detected (Not Detectd) SARS-CoV-2 (PCR) Not Detected (Not Detectd) 12/01/23 12/01/23 12/01/23 Range/Units 22:07 22:07 22:07 WBC (3.8-10.6) k/uL RBC (3.80-5.40) m/uL Hgb (11.4-16.0) gm/dL Hct (34.0-46.0) % MCV (80.0-100.0) fL MCH (25.0-35.0) pg MCHC (31.0-37.0) g/dL RDW (11.5-15.5) % Plt Count (150-450) k/uL MPV Neutrophils % % Lymphocytes % % Monocytes % % Eosinophils % % Basophils % % Neutrophils # (1.3-7.7) k/uL Lymphocytes # (1.0-4.8) k/uL Monocytes # (0-1.0) k/uL Eosinophils # (0-0.7) k/uL Basophils # (0-0.2) k/uL PT 11.3 (10.0-12.5) sec INR 1.0 (<1.2) APTT 25.5 (22.0-30.0) sec Sodium (137-145) mmol/L Potassium (3.5-5.1) mmol/L Chloride (98-107) mmol/L Carbon Dioxide (22-30) mmol/L Anion Gap mmol/L BUN (7-17) mg/dL Creatinine (0.52-1.04) mg/dL Est GFR (CKD-EPI)AfAm (>60 ml/min/1.73 sqM) Est GFR (CKD-EPI)NonAf (>60 ml/min/1.73 sqM) Glucose (74-99) mg/dL Plasma Lactic Acid Eduardo 1.9 (0.7-2.0) mmol/L Calcium (8.4-10.2) mg/dL Magnesium (1.6-2.3) mg/dL Total Bilirubin (0.2-1.3) mg/dL AST (14-36) U/L ALT (4-34) U/L Alkaline Phosphatase (38-126) U/L Troponin I (0.000-0.034) ng/mL Total Protein (6.3-8.2) g/dL Albumin (3.5-5.0) g/dL Urine Color Yellow Urine Appearance Cloudy H (Clear) Urine pH 5.5 (5.0-8.0) Ur Specific Woodrow 1.025 (1.001-1.035) Urine Protein 1+ H (Negative) Urine Glucose (UA) Negative (Negative) Urine Ketones Trace H (Negative) Urine Blood Negative (Negative) Urine Nitrite Negative (Negative) Urine Bilirubin 1+ H (Negative) Urine Urobilinogen 3.0 (<2.0) mg/dL Ur Leukocyte Esterase Large H (Negative) Urine RBC 1 (0-5) /hpf Urine WBC 54 H (0-5) /hpf Urine WBC Clumps Rare H (None) /hpf Ur Squamous Epith Cells 3 (0-4) /hpf Urine Bacteria Rare H (None) /hpf Hyaline Casts 90 H (0-2) /lpf Granular Casts 1 (0) /lpf Urine Mucus Few H (None) /hpf Influenza Type A (PCR) (Not Detectd) Influenza Type B (PCR) (Not Detectd) RSV (PCR) (Not Detectd) SARS-CoV-2 (PCR) (Not Detectd) 12/01/23 Range/Units 22:07 WBC (3.8-10.6) k/uL RBC (3.80-5.40) m/uL Hgb (11.4-16.0) gm/dL Hct (34.0-46.0) % MCV (80.0-100.0) fL MCH (25.0-35.0) pg MCHC (31.0-37.0) g/dL RDW (11.5-15.5) % Plt Count (150-450) k/uL MPV Neutrophils % % Lymphocytes % % Monocytes % % Eosinophils % % Basophils % % Neutrophils # (1.3-7.7) k/uL Lymphocytes # (1.0-4.8) k/uL Monocytes # (0-1.0) k/uL Eosinophils # (0-0.7) k/uL Basophils # (0-0.2) k/uL PT (10.0-12.5) sec INR (<1.2) APTT (22.0-30.0) sec Sodium (137-145) mmol/L Potassium (3.5-5.1) mmol/L Chloride (98-107) mmol/L Carbon Dioxide (22-30) mmol/L Anion Gap mmol/L BUN (7-17) mg/dL Creatinine (0.52-1.04) mg/dL Est GFR (CKD-EPI)AfAm (>60 ml/min/1.73 sqM) Est GFR (CKD-EPI)NonAf (>60 ml/min/1.73 sqM) Glucose (74-99) mg/dL Plasma Lactic Acid Eduardo (0.7-2.0) mmol/L Calcium (8.4-10.2) mg/dL Magnesium (1.6-2.3) mg/dL Total Bilirubin (0.2-1.3) mg/dL AST (14-36) U/L ALT (4-34) U/L Alkaline Phosphatase (38-126) U/L Troponin I <0.012 (0.000-0.034) ng/mL Total Protein (6.3-8.2) g/dL Albumin (3.5-5.0) g/dL Urine Color Urine Appearance (Clear) Urine pH (5.0-8.0) Ur Specific Woodrow (1.001-1.035) Urine Protein (Negative) Urine Glucose (UA) (Negative) Urine Ketones (Negative) Urine Blood (Negative) Urine Nitrite (Negative) Urine Bilirubin (Negative) Urine Urobilinogen (<2.0) mg/dL Ur Leukocyte Esterase (Negative) Urine RBC (0-5) /hpf Urine WBC (0-5) /hpf Urine WBC Clumps (None) /hpf Ur Squamous Epith Cells (0-4) /hpf Urine Bacteria (None) /hpf Hyaline Casts (0-2) /lpf Granular Casts (0) /lpf Urine Mucus (None) /hpf Influenza Type A (PCR) (Not Detectd) Influenza Type B (PCR) (Not Detectd) RSV (PCR) (Not Detectd) SARS-CoV-2 (PCR) (Not Detectd) Disposition <Raymond Lanza - Last Filed: 12/01/23 22:49> Is patient prescribed a controlled substance at d/c from ED?: No Time of Disposition: 00:54 <Cas Ybarra N - Last Filed: 12/02/23 00:54> Clinical Impression: Altered mental status, Fever, UTI (urinary tract infection) Disposition: ADMITTED IP TO THIS HOSP Condition: Stable Referrals: Cas Lomeli MD [Primary Care Provider] - 1-2 days
[2023-12-01 22:32] LABS: Basophils % (A) 0 %; Eosinophils # (A) 0.1 k/uL (0-0.7); Eosinophils % (A) 1 %; HCT 40.6 % (34.0-46.0); HGB 13.6 gm/dL (11.4-16.0); Lymphocytes # (A) 0.4 k/uL (1.0-4.8); Lymphocytes % (A) 3 %; MCHC 33.5 g/dL (31.0-37.0); MCV 86.6 fL (80.0-100.0); Mean Platelet Volume 7.8; Monocytes # (A) 0.4 k/uL (0-1.0); Monocytes % (A) 3 %; Neutrophils # (A) 12.7 k/uL (1.3-7.7); Neutrophils % (A) 93 %; Platelet Count 184 k/uL (150-450); RBC 4.68 m/uL (3.80-5.40); RDW 13.4 % (11.5-15.5); WBC 13.7 k/uL (3.8-10.6)
[2023-12-01] MEDS ORDERED: SODIUM CHLORIDE 0.9% 1,000 ML IV STA (22:51)
[2023-12-01 22:52] LABS: ALT 36 U/L (4-34); AST 32 U/L (14-36); African American GFR (CKD) 82 (>60 ml/min/1.73 sqM); Alkaline Phosphatase 176 U/L (38-126); Anion Gap 12 mmol/L; Blood Urea Nitrogen 11 mg/dL (7-17); Calcium 7.3 mg/dL (8.4-10.2); Carbon Dioxide 19 mmol/L (22-30); Chloride 94 mmol/L (98-107); Glucose 226 mg/dL (74-99); Magnesium 1.6 mg/dL (1.6-2.3); Non-African American GFR(CKD) 71 (>60 ml/min/1.73 sqM); Potassium 3.5 mmol/L (3.5-5.1); Sodium 125 mmol/L (137-145); Total Bilirubin 1.1 mg/dL (0.2-1.3); Total Protein 5.9 g/dL (6.3-8.2)
[2023-12-01 23:02] LABS: Partial Thromboplastin Time 25.5 sec (22.0-30.0); Prothrombin Time 11.3 sec (10.0-12.5)
[2023-12-01] MEDS: SODIUM CHLORIDE 0.9% 1,000 ML IV SCH (23:39)
[2023-12-01] MEDS ORDERED: LEVOFLOXACIN 500MG-D5W PMX 500 MG in DEXTROSE/WATER 1 100ML.BAG IVPB STA (23:49)
[2023-12-01 23:51] LABS: Appearance,Urine Cloudy (Clear); Bacteria,Urine Rare /hpf; Bilirubin,Urine 1+ (Negative); Blood,Urine Negative (Negative); Color,Urine Yellow; Glucose,Urine (UA) Negative (Negative); Granular Casts,Urine 1 /lpf (0); Hyaline Casts,Urine 90 /lpf (0-2); Ketones,Urine Trace (Negative); Leukocyte Esterase,Urine Large (Negative); Mucus,Urine Few /hpf; Nitrite,Urine Negative (Negative); PH, Urine 5.5 (5.0-8.0); Protein,Urine 1+ (Negative); RBC,Urine 1 /hpf (0-5); Specific Gravity,Urine 1.025 (1.001-1.035); Squamous Epithelial Cell,Urine 3 /hpf (0-4); WBC,Urine 54 /hpf (0-5)
[2023-12-02] MEDS ORDERED: NALOXONE 0.4 MG/ML 1 ML VIAL IV PRN (00:53)
[2023-12-02] MEDS ORDERED: VANCOMYCIN IV PER PHARMACY 1 EACH MISC MISCELLANE PRN (00:54)
[2023-12-02] MEDS: SODIUM CHLORIDE 0.9% 1,000 ML IV SCH ×2 (00:56→11:24)
[2023-12-02] MEDS ORDERED: SODIUM CHLORIDE 0.9% 1,000 ML IV SCH (01:00)
[2023-12-02] MEDS ORDERED: VANCOMYCIN 1,500 MG in SODIUM CHLORIDE 0.9% 500 ML 500 ML IVPB ONE (02:00)
[2023-12-02] MEDS: MELATONIN 5 MG TABLET PO SCH ×2 (02:26→21:55)
--- NOTE | 2023-12-02 03:14 | XR ---
EXAM: XR Chest, 2 Views CLINICAL HISTORY: ITS.REASON XR Reason: fever TECHNIQUE: Frontal and lateral views of the chest. COMPARISON: Chest radiograph on 09/19/2023 FINDINGS: Hardware: None. Lungs/pleura: Small right pleural effusion. Right lower lung opacity may represent atelectasis versus pneumonia. Atelectasis or scarring in the upper/mid lungs. Emphysematous changes. Possible pulmonary vasculature congestion. Heart/mediastinum: Normal. No cardiomegaly. Soft tissues: Unremarkable. Bones: No acute fracture. Degenerative changes of the spine. Upper abdomen: Normal. IMPRESSION: 1. Small right pleural effusion. Possible pulmonary vasculature congestion. 2. Right lower lung opacity may represent atelectasis versus pneumonia. Atelectasis or scarring in the upper/mid lungs. 3. Emphysematous changes.
[2023-12-02] MEDS: LEVOTHYROXINE 125 MCG TAB PO SCH (11:24)
[2023-12-02] MEDS ORDERED: ONDANSETRON 4 MG/2 ML VIAL IVP PRN (12:17)
[2023-12-02] MEDS ORDERED: LACTULOSE 20 GM/30 ML CUP PO PRN (12:17)
[2023-12-02] MEDS ORDERED: CALCIUM CARBONATE 500 MG CHEWABLE PO PRN (12:17)
[2023-12-02] MEDS: LACTATED RINGERS 1,000 ML IV SCH ×4 (12:34→23:04)
--- NOTE | 2023-12-02 14:55 | P.HPIM ---
History of Present Illness H&P Date: 12/02/23 Chief Complaint: Fever Hospital course this is a very pleasant 73-year-old patient who follows with Dr. Cas david. Chronic stable medical conditions include fibromyalgia, GERD, hypertension, hypothyroid, 2006 had pancreatic tumor with Whipple's procedure, 2016 had lung cancer with right partial lobectomy at [facility] in 2016 followed by chemotherapy and radiation. 20 years ago had Lyme's disease with tick bite. Home oxygen 2 L. lung cancer has been in remission. followed with Dr. Godfrey. Patient now presents with fever up to 104 at home. For last 5 days. Patient has noticed some dysuria and frequency of the urine. Patient is independent chr onic cough. Nothing new. Appetite has been decreased. She states that her has been telling her that she has been babbling at home. She went to see her doctor today and she was sent to the ER for that reason. Given vancomycin and Levaquin in the ER. Was tired. No nausea vomiting. Doesn't feel confused this morning. Review of systems: GEN.: High fevers EYES: None HEENT: None NECK: None RESPIRATORY: intermittent cough CARDIOVASCULAR: None GASTROINTESTINAL: None GENITOURINARY: As above MUSCULOSKELETAL: None LYMPHATICS: None HEMATOLOGICAL: None PSYCHIATRY: Fusion at home NEUROLOGICAL: None Past medical history to include: Pancreatic tumor 2006 with Whipple's procedure, 2069 lung cancer treated with right partial lobectomy at [facility] in 2016 with followed by rosemary motherapy and radiation treatment, tick bite. Lyme's disease, fibromyalgia, GERD, hypertension, hypothyroid Social history: . Started smoking age of 12 stopped in 2007 smoked 3 packs a day. Has not drank alcohol over 35 years. Physical examination: VITAL SIGNS: 98.9, 109, 18, 78/52, 96% room air upon presentation. Fever reported oh 104 at home.] GENERAL: BMI 26.8, laying in bed tired. EYES: Pupils equal. Conjunctiva normal. HEENT: External appearance of nose and ears normal, oral cavity grossly normal. NECK: JVD not raised; masses not palpable. HEART: First and second heart sounds are normal; no edema. LUNGS: Respiratory rate normal; clear to auscultation. ABDOMEN: Soft, nontender, liver spleen not palpable, no masses palpable. PSYCH: Alert and oriented x3; mood and affect normal. MUSCULOSKELETAL:No Clubbing/cyanosis;muscles-grossly intact. OA NEUROLOGICAL: Cranial nerves grossly intact; no facial asymmetry, power and sensation grossly intact. LYMPHATICS: No lymph nodes palpable in the axilla and neck INVESTIGATIONS, reviewed in the clinical context: 12/01/2023: White count 13.7 hemoglobin 13.6 platelets 184 sodium 125 progression 3.5 BUN 11 creatinine 0.82 UA positive for leukoesterase WBC 54 bacteria rare Influenza type A, type B, RSV, COVID-19: Not detected EKG tracing personally reviewed by me-normal sinus rhythm. Rate 99 Chest x-ray film personally reviewed by me-right basal haziness Assessment and plan: -Sepsis and delirium, likely from UTI/pneumonia. Suspect gram-negative organism. IV Levaquin. IV fluids -Chronic hypoxic respiratory failure from COPD On 2-2.5 L of home oxygen. 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 Status post systemic chemotherapy and subsequent immunotherapy. She was initially on Imfinzi with multiple side effects and subsequently on Opdivo which was also stopped in June 2022 due to side effects. Most recent CAT scan in July 2022 was stable. Follow-up CAT scan pending in October 2022. Being followed by Dr. Godfrey -History of Whipple's procedure for pancreatic tumor 2006 -GERD Pepcid -Essential hypertension Cozaar -Hypothyroid Levothyroxine -Chronic fibromyalgia Discussed patient.. IV fluids Past Medical History Past Medical History: Cancer, COPD, Fibromyalgia, GERD/Reflux, Hypertension, Thyroid Disorder Additional Past Medical History / Comment(s): Pancreatic tumor 2006, had Whipple; hx benign tumor Thyroid. 2017 Lung cancer-had sx, chemo and radiation. Tick bite 20 years ago, lyme's disease. History of Any Multi-Drug Resistant Organisms: ESBL Date of last positivie culture/infection: 08/19/17 MDRO Source:: ESBL URINE Past Surgical History: Adenoidectomy, Breast Surgery, Hernia Repair, Tonsillecto my Additional Past Surgical History / Comment(s): Bronchoscopy, mediastinoscopy w/biopsy in March 2017, right partial lobectomy @[facility] 05-05-17, mediport upper chest. RT BREAST x 3 bx-neg. BILAT CATARACTS REMOVED. WHIPPLE 2007. Total Thyroidectomy. THYROIDECTOMY. VOCAL CORD SX Past Anesthesia/Blood Transfusion Reactions: Previous Problems w/ Anesthesia Additional Past Anesthesia/Blood Transfusion Reaction / Comment(s): Told I have "very skinny windpipe," difficult intubation. WOKE UP DURING CATARACT SURGERY, and was aware during breast sx Past Psychological History: No Psychological Hx Reported Smoking Status: Former smoker Past Alcohol Use History: None Reported Past Drug Use History: None Reported - Past Family History Mother Family Medical History: Deep Vein Thrombosis (DVT) Father Family Medical History: Cancer Additional Family Medical History / Comment(s): lung cancer Medications and Allergies Home Medications Medication Instructions Recorded Confirmed Type Losartan Potassium [Cozaar] 50 mg PO HS 03/31/17 12/01/23 History Levothyroxine Sodium [Euthyrox] 125 mcg PO DAILY 07/31/22 12/01/23 History Acetaminophen Tab [Tylenol Tab] 1,000 mg PO Q5H 12/01/23 12/01/23 History Ciprofloxacin HCl [Cipro] 500 mg PO Q12HR 12/01/23 12/01/23 History Allergies Allergy/AdvReac Type Severity Reaction Status Date / Time Penicillins Allergy Anaphylaxis, Verified 12/01/23 22:56 swelling of face & lips ethanol alcohol AdvReac avoids Uncoded 12/01/23 22:56 drinking alcohol (recovering alcoholic) Physical Exam Vitals: Vital Signs Temp Pulse Pulse Resp BP BP Pulse Ox 12/02/23 08:00 98.1 F 98 18 102/50 94 L 12/02/23 06:00 97 12/02/23 04:00 84 18 136/84 96 12/02/23 02:00 82 18 113/60 95 12/01/23 22:45 93 26 H 95/59 93 L 12/01/23 22:30 96/57 12/01/23 22:08 99 22 102/55 92 L 12/01/23 22:03 104 H 25 H 102/55 96 12/01/23 21:45 98.9 F 109 H 18 78/52 96 Intake and Output 12/01/23 12/02/23 12/02/23 22:59 06:59 14:59 Other: Weight 75.296 kg Results CBC & Chem 7: 12/01/23 22:07 01/02/24 22:07 Labs: Abnormal Lab Results - Last 24 Hours (Table) 12/01/23 12/01/23 12/01/23 Range/Units 22:07 22:07 22:07 WBC 13.7 H (3.8-10.6) k/uL Neutrophils # 12.7 H (1.3-7.7) k/uL Lymphocytes # 0.4 L (1.0-4.8) k/uL Sodium 125 L (137-145) mmol/L Chloride 94 L (98-107) mmol/L Carbon Dioxide 19 L (22-30) mmol/L Glucose 226 H (74-99) mg/dL Calcium 7.3 L (8.4-10.2) mg/dL ALT 36 H (4-34) U/L Alkaline Phosphatase 176 H (38-126) U/L Total Protein 5.9 L (6.3-8.2) g/dL Albumin 3.0 L (3.5-5.0) g/dL Urine Appearance Cloudy H (Clear) Urine Protein 1+ H (Negative) Urine Ketones Trace H (Negative) Urine Bilirubin 1+ H (Negative) Ur Leukocyte Esterase Large H (Negative) Urine WBC 54 H (0-5) /hpf Urine WBC Clumps Rare H (None) /hpf Urine Bacteria Rare H (None) /hpf Hyaline Casts 90 H (0-2) /lpf Urine Mucus Few H (None) /hpf
[2023-12-02] MEDS: ACETAMINOPHEN TAB 325 MG TAB PO PRN (15:58)
[2023-12-02] MEDS ORDERED: VANCOMYCIN 1,500 MG in SODIUM CHLORIDE 0.9% 500 ML 500 ML IVPB SCH (18:00)
[2023-12-02] MEDS ORDERED: MELATONIN 5 MG TABLET PO SCH (21:00)
[2023-12-02] MEDS ORDERED: LEVOFLOXACIN 500MG-D5W PMX 500 MG in DEXTROSE/WATER 1 100ML.BAG IVPB SCH (21:00)
[2023-12-02] MEDS: ALPRAZolam 0.25 MG TAB PO PRN (21:55)
[2023-12-02] MEDS: LOSARTAN 50 MG TAB PO SCH (21:55)
--- NOTE | 2023-12-02 22:38 | P.CONS ---
History of Present Illness - Reason for Consult Consult date: 12/02/23 - History of Present Illness Patient is a 73-year-old female past medical history Significant for COPD fibromyalgia hypertension reflux hypothyroidism did have history of pancreatic tumor and did have a Whipple surgery patient was sent to the ER for evaluation of fever apparently patient has not been feeling well over the last 1 week and the patient denies having any headache or URI symptoms no chest pain shortness of breath or cough no abdominal pain or any diarrhea patient on presentation to the hospital was afebrile she was nontachycardic hypertensive or hypoxic did have margin of 13.7 with a left shift creatinine 0.82 80 was mildly elevated urine was positive influenza RSV and COVID testing was negative patient did have a chest x-ray small right effusion right lobe opacity may represent atelectasis versus pneumonia emphysematous changes patient was started on Levaquin and vancomycin infectious disease was consulted for further management of antibiotic therapy, most information has been obtained from review the chart patient overall not a very good historian Past Medical History Past Medical History: Cancer, COPD, Fibromyalgia, GERD/Reflux, Hypertension, Thyroid Disorder Additional Past Medical History / Comment(s): Pancreatic tumor 2006, had Whipple; hx benign tumor Thyroid. 2017 Lung cancer-had sx, chemo and radiation. Tick bite 20 years ago, lyme's disease. History of Any Multi-Drug Resistant Organisms: ESBL Year Discovered:: 08/19/17 MDRO Source:: ESBL URINE Past Surgical History: Adenoidectomy, Breast Surgery, Hernia Repair, Tonsillectomy Additional Past Surgical History / Comment(s): Bronchoscopy, mediastinoscopy w/biopsy in March 2017, right partial lobectomy @[facility] 05-05-17, [facility] upper chest. RT BREAST x 3 bx-neg. BILAT CATARACTS REMOVED. WHIPPLE 2006. Total Thyroidectomy. THYROIDECTOMY. VOCAL CORD SX Past Anesthesia/Blood Transfusion Reactions: Previous Problems w/ Anesthesia Additional Past Anesthesia/Blood Transfusion Reaction / Comm: Told I have "very skinny windpipe," difficult intubation. WOKE UP DURING CATARACT SURGERY, and was aware during breast sx Past Psychological History: No Psychological Hx Reported Smoking Status: Former smoker Past Alcohol Use History: None Reported Past Drug Use History: None Reported - Past Family History Mother Family Medical History: Deep Vein Thrombosis (DVT) Father Family Medical History: Cancer Additional Family Medical History / Comment(s): lung cancer Medications and Allergies Home Medications Medication Instructions Recorded Confirmed Type Losartan Potassium [Cozaar] 50 mg PO HS 03/31/17 12/01/23 History Levothyroxine Sodium [Euthyrox] 125 mcg PO DAILY 07/31/22 12/01/23 History Acetaminophen Tab [Tylenol Tab] 1,000 mg PO Q5H 12/01/23 12/01/23 History Ciprofloxacin HCl [Cipro] 500 mg PO Q12HR 12/01/23 12/01/23 History Allergies Allergy/AdvReac Type Severity Reaction Status Date / Time Penicillins Allergy Anaphylaxis, Verified 12/01/23 22:56 swelling of face & lips ethanol alcohol AdvReac avoids Uncoded 12/01/23 22:56 drinking alcohol (recovering alcoholic) Physical Exam Vitals: Vital Signs Temp Pulse Pulse Resp BP BP Pulse Ox 12/02/23 08:00 98.1 F 98 18 102/50 94 L 12/02/23 06:00 97 12/02/23 04:00 84 18 136/84 96 12/02/23 02:00 82 18 113/60 95 12/01/23 22:45 93 26 H 95/59 93 L 12/01/23 22:30 96/57 12/01/23 22:08 99 22 102/55 92 L 12/01/23 22:03 104 H 25 H 102/55 96 12/01/23 21:45 98.9 F 109 H 18 78/52 96 Intake and Output 12/01/23 12/02/23 12/02/23 22:59 06:59 14:59 Other: Weight 75.296 kg Results CBC & Chem 7: 12/03/23 08:00 12/03/23 08:00 Labs: Abnormal Lab Results - Last 24 Hours (Table) 12/01/23 12/01/23 12/01/23 Range/Units 22:07 22:07 22:07 WBC 13.7 H (3.8-10.6) k/uL Neutrophils # 12.7 H (1.3-7.7) k/uL Lymphocytes # 0.4 L (1.0-4.8) k/uL Sodium 125 L (137-145) mmol/L Chloride 94 L (98-107) mmol/L Carbon Dioxide 19 L (22-30) mmol/L Glucose 226 H (74-99) mg/dL Calcium 7.3 L (8.4-10.2) mg/dL ALT 36 H (4-34) U/L Alkaline Phosphatase 176 H (38-126) U/L Total Protein 5.9 L (6.3-8.2) g/dL Albumin 3.0 L (3.5-5.0) g/dL Urine Appearance Cloudy H (Clear) Urine Protein 1+ H (Negative) Urine Ketones Trace H (Negative) Urine Bilirubin 1+ H (Negative) Ur Leukocyte Esterase Large H (Negative) Urine WBC 54 H (0-5) /hpf Urine WBC Clumps Rare H (None) /hpf Urine Bacteria Rare H (None) /hpf Hyaline Casts 90 H (0-2) /lpf Urine Mucus Few H (None) /hpf Assessment and Plan Plan: 1patient presented to hospital with fever confusion in this patient who did have elevated white count and positive UA concerning for possible UTI however the patient also have history of COPD and opacity seen on the chest x-ray possible component of pneumonia not entirely excluded 2-patient with a history of penicillin allergy but no anaphylaxis 3-we will discontinue Levaquin and vancomycin 4-start the patient on Rocephin 2 g daily 5-check a CRP procalcitonin and obtain sputum for culture We will follow on clinical condition and cultures to further adjust medication if needed Thank you for this consultation we will follow the patient along with you Dictation was produced using [employer] dictation software. please excuse any grammatical, word or spelling errors. Time with Patient: Greater than 30
[2023-12-03] MEDS: LACTATED RINGERS 1,000 ML IV SCH ×3 (03:55→15:14)
[2023-12-03] MEDS: LEVOTHYROXINE 125 MCG TAB PO SCH (06:43)
[2023-12-03 08:31] LABS: Basophils % (A) 0 %; Eosinophils # (A) 0.1 k/uL (0-0.7); Eosinophils % (A) 2 %; HCT 36.8 % (34.0-46.0); HGB 12.4 gm/dL (11.4-16.0); Lymphocytes # (A) 0.5 k/uL (1.0-4.8); Lymphocytes % (A) 9 %; MCH 29.4 pg (25.0-35.0); MCHC 33.7 g/dL (31.0-37.0); MCV 87.5 fL (80.0-100.0); Mean Platelet Volume 7.4; Monocytes # (A) 0.3 k/uL (0-1.0); Monocytes % (A) 6 %; Neutrophils # (A) 3.9 k/uL (1.3-7.7); Neutrophils % (A) 79 %; Platelet Count 182 k/uL (150-450); RBC 4.21 m/uL (3.80-5.40); RDW 13.5 % (11.5-15.5)
[2023-12-03 08:53] LABS: African American GFR (CKD) >90 (>60 ml/min/1.73 sqM); Anion Gap 10 mmol/L; Blood Urea Nitrogen 7 mg/dL (7-17); Calcium 7.7 mg/dL (8.4-10.2); Carbon Dioxide 22 mmol/L (22-30); Chloride 104 mmol/L (98-107); Glucose 126 mg/dL (74-99); Non-African American GFR(CKD) >90 (>60 ml/min/1.73 sqM); Potassium 3.3 mmol/L (3.5-5.1); Sodium 136 mmol/L (137-145)
[2023-12-03 10:52] LABS: C Reactive Protein 20.6 mg/dL (<1.0)
--- NOTE | 2023-12-03 10:55 | P.PN ---
Progress Note - Text Progress Note Date: 12/03/23 Chief Complaint: Fever Hospital course this is a very pleasant 73-year-old patient who follows with Dr. Cas david. Chronic stable medical conditions include fibromyalgia, GERD, hypertension, hypothyroid, 2007 had pancreatic tumor with Whipple's procedure, 2017 had lung cancer with right partial lobectomy at [facility] in 2017 followed by chemotherapy and radiation. 20 years ago had Lyme's disease with tick bite. Home oxygen 2 L. lung cancer has been in remission. followed with Dr. Godfrey. Patient now presents with fever up to 104 at home. For last 5 days. Patient has noticed some dysuria and frequency of the urine. Patient is independent chronic cough. Nothing new. Appetite has been decreased. She states that her has been telling her that she has been babbling at home. She went to see her doctor today and she was sent to the ER for that reason. Given vancomycin and Levaquin in the ER. Was tired. No nausea vomiting. Doesn't feel confused this morning. 12/03/2023: Laying in bed. Feeling better. Did eat some breakfast. No further fever. Improvement in urinary symptoms. On IV ceftriaxone. Was cutback IV fluids. Active Medications Acetaminophen (Acetaminophen Tab 325 Mg Tab) 650 mg PO Q6HR PRN PRN Reason: Mild Pain or Fever > 100.5 Last Admin: 12/02/23 15:58 Dose: 650 mg Alprazolam (Alprazolam 0.25 Mg Tab) 0.25 mg PO Q6HR PRN PRN Reason: Anxiety Last Admin: 12/02/23 21:55 Dose: 0.25 mg Calcium Carbonate/Glycine (Calcium Carbonate 500 Mg Chewable) 1,000 mg PO Q4HR PRN PRN Reason: Dyspepsia Lactated Ringer's (Lactated Ringers) 1,000 mls @ 135 mls/hr IV .Q7H25M [facility] Last Admin: 12/03/23 03:55 Dose: 135 mls/hr Ceftriaxone Sodium 2 gm/ (Sodium Chloride) 50 mls @ 100 mls/hr IVPB Q24HR [facility]AS[facility]; Protocol Last Admin: 12/03/23 08:27 Dose: 100 mls/hr Lactulose (Lactulose 20 Gm/30 Ml Cup) 20 gm PO DAILY PRN PRN Reason: Constipation Levothyroxine Sodium (Levothyroxine 125 Mcg Tab) 125 mcg PO 0630 [facility] Last Admin: 12/03/23 06:43 Dose: 125 mcg Losartan Potassium (Losartan 50 Mg Tab) 50 mg PO [facility] Last Admin: 12/02/23 21:55 Dose: 50 mg Melatonin (Melatonin 5 Mg Tablet) 5 mg PO [facility] Last Admin: 12/02/23 21:55 Dose: 5 mg Naloxone HCl (Naloxone 0.4 Mg/Ml 1 Ml Vial) 0.2 mg IV Q2M PRN PRN Reason: Opioid Reversal Ondansetron HCl (Ondansetron 4 Mg/2 Ml Vial) 4 mg IVP Q8HR PRN PRN Reason: Nausea And Vomiting Past medical history to include: Pancreatic tumor 2006 with Whipple's procedure, 2069 lung cancer treated with right partial lobectomy at [facility] in 2016 with followed by chemotherapy and radiation treatment, tick bite. Lyme's disease, fibromyalgia, GERD, hypertension, hypothyroid Social history: . Started smoking age of 12 stopped in 2007 smoked 3 packs a day. Has not drank alcohol over 35 years. Physical examination: VITAL SIGNS: 98.4, 96, 18, 140/88, 98% room air GENERAL: In bed, appears more comfortable EYES: Pupils equal. Conjunctiva normal. HEENT: External appearance of nose and ears normal, oral cavity grossly normal. NECK: JVD not raised; masses not palpable. HEART: First and second heart sounds are normal; no edema. LUNGS: Respiratory rate normal; clear to auscultation. ABDOMEN: Soft, nontender, liver spleen not palpable, no masses palpable. PSYCH: Alert and oriented x3; mood and affect normal. MUSCULOSKELETAL:No Clubbing/cyanosis;muscles-grossly intact. OA INVESTIGATIONS, reviewed in the clinical context: 12/03/2023: White count 4-year-old woman 12.4 sodium 136 potassium 3.3 creatinine 0.5 to 12/01/2023: White count 13.7 hemoglobin 13.6 platelets 184 sodium 125 progression 3.5 BUN 11 creatinine 0.82 UA positive for leukoesterase WBC 54 bacteria rare Influenza type A, type B, RSV, COVID-19: Not detected EKG tracing personally reviewed by me-normal sinus rhythm. Rate 99 Chest x-ray film personally reviewed by me-right basal haziness Assessment and plan: -Sepsis and delirium, likely from UTI/pneumonia. Suspect gram-negative organism.: Improving IV ceftriaxone. IV fluids -Right basal pneumonia suspect gram-negative organism IV ceftriaxone -Acute UTI with cystitis IV ceftriaxone -Chronic hypoxic respiratory failure from COPD On 2-2.5 L of home oxygen. 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 Status post systemic chemotherapy and subsequent immunotherapy. She was initially on Imfinzi with multiple side effects and subsequently on Opdivo which was also stopped in June 2022 due to side effects. Most recent CAT scan in July 2022 was stable. Follow-up CAT scan pending in October 2022. Being followed by Dr. Godfrey -History of Whipple's procedure for pancreatic tumor 2006 -GERD Pepcid -Essential hypertension Cozaar -Hypothyroid Levothyroxine -Chronic fibromyalgia Patient agrees to be out of bed. Cutback IV fluids. Continue IV ceftriaxone. Past Medical History Past Medical History: Cancer, COPD, Fibromyalgia, GERD/Reflux, Hypertension, Thyroid Disorder Additional Past Medical History / Comment(s): Pancreatic tumor 2006, had Whipple; hx benign tumor Thyroid. 2017 Lung cancer-had sx, chemo and radiation. Tick bite 20 years ago, lyme's disease. History of Any Multi-Drug Resistant Organisms: ESBL Date of last positivie culture/infection: 08/19/17 MDRO Source:: ESBL URINE Past Surgical History: Adenoidectomy, Breast Surgery, Hernia Repair, Tons illectomy Additional Past Surgical History / Comment(s): Bronchoscopy, mediastinoscopy w/biopsy in March 2017, right partial lobectomy @[facility] 05-05-17, [facility]. RT BREAST x 3 bx-neg. BILAT CATARACTS REMOVED. WHIPPLE 2006. Total Thyroidectomy. THYROIDECTOMY. VOCAL CORD SX Past Anesthesia/Blood Transfusion Reactions: Previous Problems w/ Anesthesia Additional Past Anesthesia/Blood Transfusion Reaction / Comment(s): Told I have "very skinny windpipe," difficult intubation. WOKE UP DURING CATARACT SURGERY, and was aware during breast sx Past Psychological History: No Psychological Hx Reported Smoking Status: Former smoker Past Alcohol Use History: None Reported Past Drug Use History: None Reported
--- NOTE | 2023-12-03 18:35 | P.PN ---
Subjective Progress Note Date: 12/03/23 Principal diagnosis: Reason for follow-up is urinary tract infection Patient is a 73-year-old female past medical history Significant for COPD fibromyalgia hypertension reflux hypothyroidism did have history of pancreatic tumor and did have a Whipple surgery patient was sent to the ER for evaluation of fever apparently patient has not been feeling well over the last 1 week, patient did have a positive UA concerning for symptomatic urinary tract infection. On today's evaluation that is 12/03/2023 the patient remains to be afebrile, patient is breathing comfortably on room air patient denies having any chest pain shortness of breath or cough no nausea vomiting no abdominal pain no diarrhea mention feeling better today. Patient white count normalized to 5.0, creatinine 0.52 CRP 20.6 procalcitonin is 2.48 cultures are pending Objective - Vital Signs Vital signs: Vital Signs Temp 98.4 F 12/03/23 07:24 Pulse 59 L 12/03/23 11:23 Resp 18 12/03/23 11:23 BP 158/91 12/03/23 11:23 Pulse Ox 97 12/03/23 11:23 FiO2 Intake & Output 12/02/23 12/03/23 12/03/23 18:59 06:59 18:59 Intake Total 810 Balance 810 Intake: IV 810 Lactated Ringers 1,000 ml 810 @ 135 mls/hr IV .Q7H25M [facility] Rx#:[id number] Other: # Voids 3 - Exam GENERAL DESCRIPTION: An elderly female lying in bed in no distress RESPIRATORY SYSTEM: Unlabored breathing , decreased breath sounds at bases HEART: S1 S2 regular rate and rhythm , ABDOMEN: Soft , no tenderness EXTREMITIES: No edema feet - Labs CBC & Chem 7: 12/03/23 08:00 12/03/23 08:00 Labs: Abnormal Lab Results - Last 24 Hours (Table) 12/03/23 12/03/23 12/03/23 Range/Units 08:00 08:00 08:00 Lymphocytes # 0.5 L (1.0-4.8) k/uL Sodium 136 L (137-145) mmol/L Potassium 3.3 L (3.5-5.1) mmol/L Glucose 126 H (74-99) mg/dL Calcium 7.7 L (8.4-10.2) mg/dL C-Reactive Protein 20.6 H (<1.0) mg/dL Procalcitonin 2.48 H (0.02-0.09) ng/mL Microbiology - Last 24 Hours (Table) 12/01/23 22:07 Urine Culture - Final Urine,Voided 12/01/23 22:00 Blood Culture - Preliminary Blood 12/01/23 22:15 Blood Culture - Preliminary Blood Assessment and Plan (1) Penicillin allergy Current Visit: Yes Status: Acute Code(s): Z88.0 - ALLERGY STATUS TO PENICILLIN SNOMED Code(s): 18968020 (2) Fever Current Visit: Yes Status: Acute Code(s): R50.9 - FEVER, UNSPECIFIED SNOMED Code(s): 673128257 (3) UTI (urinary tract infection) Current Visit: Yes Status: Acute Code(s): N39.0 - URINARY TRACT INFECTION, SITE NOT SPECIFIED SNOMED Code(s): 19023077 Plan: 1patient presented to hospital with fever confusion in this patient who did have elevated white count and positive UA concerning for possible UTI however the patient also have history of COPD and opacity seen on the chest x-ray possib le component of pneumonia not entirely excluded 2patient seem to have shown some clinical improvement the patient white count normalized we will keep the patient on Rocephin while waiting for the culture to finalize Dictation was produced using [employer] dictation software. please excuse any grammatical, word or spelling errors.
[2023-12-03] MEDS: LOSARTAN 50 MG TAB PO SCH (21:10)
[2023-12-03] MEDS: MELATONIN 5 MG TABLET PO SCH (21:10)
[2023-12-03] MEDS: ALPRAZolam 0.25 MG TAB PO PRN (21:10)
[2023-12-04] MEDS: LACTATED RINGERS 1,000 ML IV SCH ×2 (04:34→13:57)
[2023-12-04] MEDS: LEVOTHYROXINE 125 MCG TAB PO SCH (06:21)
[2023-12-04] MEDS: ACETAMINOPHEN TAB 325 MG TAB PO PRN (07:44)
--- NOTE | 2023-12-04 15:59 | P.PN ---
Subjective Progress Note Date: 12/04/23 Principal diagnosis: Reason for follow-up is urinary tract infection Patient is a 73-year-old female past medical history Significant for COPD fibromyalgia hypertension reflux hypothyroidism did have history of pancreatic tumor and did have a Whipple surgery patient was sent to the ER for evaluation of fever apparently patient has not been feeling well over the last 1 week, patient did have a positive UA concerning for symptomatic urinary tract infection. On today's evaluation that is 12/04/2023, the patient denies having any fever or any chills patient is breathing comfortably and has been complaining of some pain to the right lower chest area did have occasional cough no sputum production no nausea vomiting no abdominal pain no diarrhea. The patient white count of 5.0 creatinine 0.52 as of yesterday procalcitonin 2.48 cultures so far negative Objective - Vital Signs Vital signs: Vital Signs Temp 97.9 F 12/04/23 12:00 Pulse 91 12/04/23 12:00 Resp 17 12/04/23 12:00 BP 135/75 12/04/23 12:00 Pulse Ox 97 12/04/23 12:00 FiO2 Intake & Output 12/03/23 12/04/23 12/04/23 18:59 06:59 18:59 Intake Total 240 Balance 240 Intake: Oral 240 Other: # Voids 3 1 # Bowel Movements 0 - Exam GENERAL DESCRIPTION: An elderly female lying in bed in no distress RESPIRATORY SYSTEM: Unlabored breathing , decreased breath sounds at bases HEART: S1 S2 regular rate and rhythm , ABDOMEN: Soft , no tenderness EXTREMITIES: No edema feet - Labs CBC & Chem 7: 12/03/23 08:00 12/03/23 08:00 Labs: Microbiology - Last 24 Hours (Table) 12/01/23 22:00 Blood Culture - Preliminary Blood 12/01/23 22:15 Blood Culture - Preliminary Blood 12/01/23 22:07 Urine Culture - Final Urine,Voided Assessment and Plan (1) Penicillin allergy Current Visit: Yes Status: Acute Code(s): Z88.0 - ALLERGY STATUS TO PENICILLIN SNOMED Code(s): 41400195 (2) Fever Current Visit: Yes Status: Acute Code(s): R50.9 - FEVER, UNSPECIFIED SNOMED Code(s): 006947738 (3) UTI (urinary tract infection) Current Visit: Yes Status: Acute Code(s): N39.0 - URINARY TRACT INFECTION, SITE NOT SPECIFIED SNOMED Code(s): 71836108 Plan: 1patient presented to hospital with fever confusion in this patient who did have elevated white count and positive UA concerning for possible UTI however the patient also have history of COPD and opacity seen on the chest x-ray possible component of pneumoniaTo the right lower lobe not entirely excluded patient did have elevated procalcitonin chest x-ray will be repeated document further evaluation. 2patient to continue with Rocephin and try to obtain a sputum for analysis Dictation was produced using [employer] dictation software. please excuse any grammatical, word or spelling errors. Time with Patient: Less than 30
--- NOTE | 2023-12-04 16:11 | XR ---
EXAMINATION TYPE: XR chest 2V DATE OF EXAM: 12/04/2023 2:20 PM CLINICAL INDICATION:Female, 73 years old with history of pneumonia; [facility] COMPARISON: Chest radiographs from 07/16/2023 TECHNIQUE: XR chest 2V Frontal and lateral views of the chest. FINDINGS: Lungs/Pleura: Posttreatment changes right lung base. There is streaky atelectasis in the mid lungs bi laterally. There is no evidence of pleural effusion, focal consolidation, or pneumothorax. Pulmonary vascularity: Unremarkable. Heart/mediastinum: Cardiomediastinal silhouette is enlarged and stable. Atherosclerotic calcificatio ns are seen in the aorta. Musculoskeletal: No acute osseous pathology. Other findings: None Lines/Tubes: [id number] projecting over the right hemithorax with distal tip at the cavoatrial junction. IMPRESSION: 1. Post treatment changes the right lung base. 2. Cardiomegaly.
--- NOTE | 2023-12-04 16:53 | P.PN ---
Progress Note - Text Progress Note Date: 12/04/23 Chief Complaint: Fever Hospital course this is a very pleasant 73-year-old patient who follows with Dr. Cas david. Chronic stable medical conditions include fibromyalgia, GERD, hypertension, hypothyroid, 2007 had pancreatic tumor with Whipple's procedure, 2017 had lung cancer with right partial lobectomy at [facility] in 2017 followed by chemotherapy and radiation. 20 years ago had Lyme's disease with tick bite. Home oxygen 2 L. lung cancer has been in remission. followed with Dr. Godfrey. Patient now presents with fever up to 104 at home. For last 5 days. Patient has noticed some dysuria and frequency of the urine. Patient is independent chronic cough. Nothing new. Appetite has been decreased. She states that her has been telling her that she has been babbling at home. She went to see her doctor today and she was sent to the ER for that reason. Given vancomycin and Levaquin in the ER. Was tired. No nausea vomiting. Doesn't feel confused this morning. 12/03/2023: Laying in bed. Feeling better. Did eat some breakfast. No further fever. Improvement in urinary symptoms. On IV ceftriaxone. Was cutback IV fluids. 12/04/2023: Admitted with pneumonia and UTI. Appetite improving. Fever has been down. Overall feeling better. Continues on IV ceftriaxone. Urine culture came back negative. Active Medications Acetaminophen (Acetaminophen Tab 325 Mg Tab) 650 mg PO Q6HR PRN PRN Reason: Mild Pain or Fever > 100.5 Last Admin: 12/04/23 07:44 Dose: 650 mg Alprazolam (Alprazolam 0.25 Mg Tab) 0.25 mg PO Q6HR PRN PRN Reason: Anxiety Last Admin: 12/03/23 21:10 Dose: 0.25 mg Calcium Carbonate/Glycine (Calcium Carbonate 500 Mg Chewable) 1,000 mg PO Q4HR PRN PRN Reason: Dyspepsia Lactated Ringer's (Lactated Ringers) 1,000 mls @ 75 mls/hr IV .[id number] [facility] Last Admin: 12/04/23 13:57 Dose: 75 mls/hr Ceftriaxone Sodium 2 gm/ (Sodium Chloride) 50 mls @ 100 mls/hr IVPB Q24HR [facility]; Protocol Last Admin: 12/04/23 07:44 Dose: 100 mls/hr Lactulose (Lactulose 20 Gm/30 Ml Cup) 20 gm PO DAILY PRN PRN Reason: Constipation Levothyroxine Sodium (Levothyroxine 125 Mcg Tab) 125 mcg PO 0630 [facility] Last Admin: 12/04/23 06:21 Dose: 125 mcg Losartan Potassium (Losartan 50 Mg Tab) [address] [facility] Last Admin: 12/03/23 21:10 Dose: 50 mg Melatonin (Melatonin 5 Mg Tablet) [address] [facility] Last Admin: 12/03/23 21:10 Dose: 5 mg Naloxone HCl (Naloxone 0.4 Mg/Ml 1 Ml Vial) 0.2 mg IV Q2M PRN PRN Reason: Opioid Reversal Ondansetron HCl (Ondansetron 4 Mg/2 Ml Vial) 4 mg IVP Q8HR PRN PRN Reason: Nausea And Vomiting Past medical history to include: Pancreatic tumor 2006 with Whipple's procedure, 2069 lung cancer treated with right partial lobectomy at [facility] in 2016 with followed by chemotherapy and radiation treatment, tick bite. Lyme's disease, fibromyalgia, GERD, hypertension, hypothyroid Social history: . Started smoking age of 12 stopped in 2007 smoked 3 packs a day. Has not drank alcohol over 35 years. Physical examination: VITAL SIGNS: 97.9, 91, 17, 135/75, 97% room air GENERAL: Sitting up in a chair, looking better EYES: Pupils equal. Conjunctiva normal. HEENT: External appearance of nose and ears normal, oral cavity grossly normal. NECK: JVD not raised; masses not palpable. HEART: First and second heart sounds are normal; no edema. LUNGS: Respiratory rate normal; clear to auscultation. ABDOMEN: Soft, nontender, liver spleen not palpable, no masses palpable. PSYCH: Alert and oriented x3; mood and affect normal. MUSCULOSKELETAL:No Clubbing/cyanosis;muscles-grossly intact. OA INVESTIGATIONS, reviewed in the clinical context: Procalcitonin 2.48 12/03/2023: White count 4-year-old woman 12.4 sodium 136 potassium 3.3 creatinine 0.5 to 12/01/2023: White count 13.7 hemoglobin 13.6 platelets 184 sodium 125 progression 3.5 BUN 11 creatinine 0.82 UA positive for leukoesterase WBC 54 bacteria rare Influenza type A, type B, RSV, COVID-19: Not detected EKG tracing personally reviewed by me-normal sinus rhythm. Rate 99 Chest x-ray film personally reviewed by me-right basal haziness Assessment and plan: -Sepsis and delirium, likely from UTI/pneumonia. Suspect gram-negative organism.: Improving IV ceftriaxone. IV fluids -Right basal pneumonia suspect gram-negative organism IV ceftriaxone -Acute UTI with cystitis IV ceftriaxone -Chronic hypoxic respiratory failure from COPD On 2-2.5 L of home oxygen. 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 Status post systemic chemotherapy and subsequent immunotherapy. She was initially on Imfinzi with multiple side effects and subsequently on Opdivo which was also stopped in June 2022 due to side effects. Most recent CAT scan in July 2022 was stable. Follow-up CAT scan pending in October 2022. Being followed by Dr. Godfrey -History of Whipple's procedure for pancreatic tumor 2006 -GERD Pepcid -Essential hypertension Cozaar -Hypothyroid Levothyroxine -Chronic fibromyalgia Sputum culture requested. Clinically doing better. Discussed Past Medical History Past Medical History: Cancer, COPD, Fibromyalgia, GERD/Reflux, Hypertension, Thyroid Disorder Additional Past Medical History / Comment(s): Pancreatic tumor 2006, had Whipple; hx benign tumor Thyroid. 2017 Lung cancer-had sx, chemo and radiation. Tick bite 20 years ago, lyme's disease. History of Any Multi-Drug Resistant Organisms: ESBL Date of last positivie culture/infection: 08/19/17 MDRO Source:: ESBL URINE Past Surgical History: Adenoidectomy, Breast Surgery, Hernia Repair, Tonsillectomy Additional Past Surgical History / Comment(s): Bronchoscopy, mediastinoscopy w/biopsy in March 2017, right partial lobectomy @[facility] 05-05-17, [facility] lt upper chest. RT BREAST x 3 bx-neg. BILAT CATARACTS REMOVED. WHIPPLE 2006. Total Thyroidectomy. THYROIDECTOMY. VOCAL CORD SX Past Anesthesia/Blood Transfusion Reactions: Previous Problems w/ Anesthesia Additional Past Anesthesia/Blood Transfusion Reaction / Comment(s): Told I have "very skinny windpipe," difficult intubation. WOKE UP DURING CATARACT SURGERY, and was aware during breast sx Past Psychological History: No Psychological Hx Reported Smoking Status: Former smoker Past Alcohol Use History: None Reported Past Drug Use History: None Reported
[2023-12-04] MEDS: LOSARTAN 50 MG TAB PO SCH (22:01)
[2023-12-04] MEDS: ALPRAZolam 0.25 MG TAB PO PRN (22:05)
[2023-12-04] MEDS: MELATONIN 5 MG TABLET PO SCH (22:10)
[2023-12-05] MEDS: ACETAMINOPHEN TAB 325 MG TAB PO PRN (01:56)
[2023-12-05] MEDS: LACTATED RINGERS 1,000 ML IV SCH ×2 (02:34→23:30)
[2023-12-05] MEDS: MELATONIN 5 MG TABLET PO SCH ×2 (02:34→21:31)
[2023-12-05] MEDS: LEVOTHYROXINE 125 MCG TAB PO SCH (06:20)
[2023-12-05 10:12] LABS: Basophils % (A) 1 %; Eosinophils # (A) 0.2 k/uL (0-0.7); Eosinophils % (A) 3 %; HCT 37.6 % (34.0-46.0); HGB 12.2 gm/dL (11.4-16.0); Lymphocytes # (A) 0.4 k/uL (1.0-4.8); Lymphocytes % (A) 7 %; MCH 28.3 pg (25.0-35.0); MCHC 32.5 g/dL (31.0-37.0); MCV 87.2 fL (80.0-100.0); Mean Platelet Volume 7.6; Monocytes # (A) 0.3 k/uL (0-1.0); Monocytes % (A) 5 %; Neutrophils # (A) 4.4 k/uL (1.3-7.7); Neutrophils % (A) 80 %; Platelet Count 227 k/uL (150-450); RBC 4.31 m/uL (3.80-5.40); RDW 13.6 % (11.5-15.5); WBC 5.5 k/uL (3.8-10.6)
[2023-12-05 10:28] LABS: ALT 23 U/L (4-34); AST 22 U/L (14-36); African American GFR (CKD) >90 (>60 ml/min/1.73 sqM); Alkaline Phosphatase 137 U/L (38-126); Anion Gap 9 mmol/L; Blood Urea Nitrogen 4 mg/dL (7-17); C Reactive Protein 5.9 mg/dL (<1.0); Calcium 7.6 mg/dL (8.4-10.2); Carbon Dioxide 24 mmol/L (22-30); Chloride 104 mmol/L (98-107); Globulin 2.9 g/dL; Glucose 115 mg/dL (74-99); Non-African American GFR(CKD) >90 (>60 ml/min/1.73 sqM); Potassium 3.4 mmol/L (3.5-5.1); Sodium 137 mmol/L (137-145); Total Bilirubin 0.4 mg/dL (0.2-1.3); Total Protein 5.9 g/dL (6.3-8.2)
[2023-12-05] MEDS ORDERED: POTASSIUM CHLORIDE ER 20 MEQ TAB.ER PO STA (12:09)
[2023-12-05] MEDS: CEFEPIME 2 GM in SODIUM CHLORIDE 0.9% 100 ML IVPB SCH ×2 (12:55→16:41)
--- NOTE | 2023-12-05 13:47 | P.PN ---
Progress Note - Text Progress Note Date: 12/05/23 Chief Complaint: Fever Hospital course this is a very pleasant 73-year-old patient who follows with Dr. Cas david. Chronic stable medical conditions include fibromyalgia, GERD, hypertension, hypothyroid, 2007 had pancreatic tumor with Whipple's procedure, 2017 had lung cancer with right partial lobectomy at [facility] in 2017 followed by chemotherapy and radiation. 20 years ago had Lyme's disease with tick bite. Home oxygen 2 L. lung cancer has been in remission. followed with Dr. Godfrey. Patient now presents with fever up to 104 at home. For last 5 days. Patient has noticed some dysuria and frequency of the urine. Patient is independent chronic cough. Nothing new. Appetite has been decreased. She states that her has been telling her that she has been babbling at home. She went to see her doctor today and she was sent to the ER for that reason. Given vancomycin and Levaquin in the ER. Was tired. No nausea vomiting. Doesn't feel confused this morning. 12/03/2023: Laying in bed. Feeling better. Did eat some breakfast. No further fever. Improvement in urinary symptoms. On IV ceftriaxone. Was cutback IV fluids. 12/04/2023: Admitted with pneumonia and UTI. Appetite improving. Fever has been down. Overall feeling better. Continues on IV ceftriaxone. Urine culture came back negative. 12/05/2023: Patient with a low-grade fever last night. Feels tired. Eating fair. Labs of the patient for one more day. Continue IV ceftriaxone. Cultures have been negative until now. Clear sputum Active Medications Acetaminophen (Acetaminophen Tab 325 Mg Tab) 650 mg PO Q6HR PRN PRN Reason: Mild Pain or Fever > 100.5 Last Admin: 12/05/23 01:56 Dose: 650 mg Alprazolam (Alprazolam 0.25 Mg Tab) 0.25 mg PO Q6HR PRN PRN Reason: Anxiety Last Admin: 12/04/23 22:05 Dose: 0.25 mg Calcium Carbonate/Glycine (Calcium Carbonate 500 Mg Chewable) 1,000 mg PO Q4HR PRN PRN Reason: Dyspepsia Lactated Ringer's (Lactated Ringers) 1,000 mls @ 20 mls/hr IV .Q24H [facility] Last Admin: 12/05/23 02:34 Dose: 75 mls/hr Cefepime HCl 2 gm/ Sodium (Chloride) 100 mls @ 25 mls/hr IVPB Q8HR [facility]; Protocol Last Admin: 12/05/23 12:55 Dose: 25 mls/hr Lactulose (Lactulose 20 Gm/30 Ml Cup) 20 gm PO DAILY PRN PRN Reason: Constipation Levothyroxine Sodium (Levothyroxine 125 Mcg Tab) 125 mcg PO 0630 [facility] Last Admin: 12/05/23 06:20 Dose: 125 mcg Losartan Potassium (Losartan 50 Mg Tab) 50 mg PO [facility] Last Admin: 12/04/23 22:01 Dose: 50 mg Melatonin (Melatonin 5 Mg Tablet) 5 mg PO [facility] Last Admin: 12/05/23 02:34 Dose: 5 mg Naloxone HCl (Naloxone 0.4 Mg/Ml 1 Ml Vial) 0.2 mg IV Q2M PRN PRN Reason: Opioid Reversal Ondansetron HCl (Ondansetron 4 Mg/2 Ml Vial) 4 mg IVP Q8HR PRN PRN Reason: Nausea And Vomiting Past medical history to include: Pancreatic tumor 2006 with Whipple's procedure, 2069 lung cancer treated with right partial lobectomy at [facility] in 2016 with followed by chemotherapy and radiation treatment, tick bite. Lyme's disease, fibromyalgia, GERD, hypertension, hypothyroid Social history: . Started smoking age of 12 stopped in 2007 smoked 3 packs a day. Has not drank alcohol over 35 years. Physical examination: VITAL SIGNS: 98.7, 87, 16, 146/81, 90% room air GENERAL: Sitting up in a chair, comfortable EYES: Pupils equal. Conjunctiva normal. HEENT: External appearance of nose and ears normal, oral cavity grossly normal. NECK: JVD not raised; masses not palpable. HEART: First and second heart sounds are normal; no edema. LUNGS: Respiratory rate normal; clear to auscultation. ABDOMEN: Soft, nontender, liver spleen not palpable, no masses palpable. PSYCH: Alert and oriented x3; mood and affect normal. MUSCULOSKELETAL:No Clubbing/cyanosis;muscles-grossly intact. OA INVESTIGATIONS, reviewed in the clinical context: Procalcitonin 2.48 12/03/2023: White count 4-year-old woman 12.4 sodium 136 potassium 3.3 creatinine 0.5 to 12/01/2023: White count 13.7 hemoglobin 13.6 platelets 184 sodium 125 progr ession 3.5 BUN 11 creatinine 0.82 UA positive for leukoesterase WBC 54 bacteria rare Influenza type A, type B, RSV, COVID-19: Not detected EKG tracing personally reviewed by me-normal sinus rhythm. Rate 99 Chest x-ray film personally reviewed by me-right basal haziness Assessment and plan: -Sepsis and delirium, likely from UTI/pneumonia. Suspect gram-negative organism.: Improving IV ceftriaxone. IV fluids -Right basal pneumonia suspect gram-negative organism: Clinically improving IV ceftriaxone -Acute UTI with cystitis IV ceftriaxone -Chronic hypoxic respiratory failure from COPD On 2-2.5 L of home oxygen. 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 Status post systemic chemotherapy and subsequent immunotherapy. She was initially on Imfinzi with multiple side effects and subsequently on Opdivo which was also stopped in June 2022 due to side effects. Most recent CAT scan in July 2022 was stable. Follow-up CAT scan pending in October 2022. Being followed by Dr. Godfrey -History of Whipple's procedure for pancreatic tumor 2006 -GERD Pepcid -Essential hypertension Cozaar -Hypothyroid Levothyroxine -Chronic fibromyalgia Observe for another one day. Cutback IV fluids. Continue current antibiotics. Past Medical History Past Medical History: Cancer, COPD, Fibromyalgia, GERD/Reflux, Hypertension, Thyroid Disorder Additional Past Medical History / Comment(s): Pancreatic tumor 2006, had Whipp le; hx benign tumor Thyroid. 2017 Lung cancer-had sx, chemo and radiation. Tick bite 20 years ago, lyme's disease. History of Any Multi-Drug Resistant Organisms: ESBL Date of last positivie culture/infection: 08/19/17 MDRO Source:: ESBL URINE Past Surgical History: Adenoidectomy, Breast Surgery, Hernia Repair, Tonsillectomy Additional Past Surgical History / Comment(s): Bronchoscopy, mediastinoscopy w/biopsy in March 2017, right partial lobectomy @[facility] 05-05-17, mediport lt upper chest. RT BREAST x 3 bx-neg. BILAT CATARACTS REMOVED. WHIPPLE 2006. Total Thyroidectomy. THYROIDECTOMY. VOCAL CORD SX Past Anesthesia/Blood Transfusion Reactions: Previous Problems w/ Anesthesia Additional Past Anesthesia/Blood Transfusion Reaction / Comment(s): Told I have "very skinny windpipe," difficult intubation. WOKE UP DURING CATARACT SURGERY, and was aware during breast sx Past Psychological History: No Psychological Hx Reported Smoking Status: Former smoker Past Alcohol Use History: None Reported Past Drug Use History: None Reported
[2023-12-05 14:38] LABS: Appearance,Urine Clear (Clear); Bilirubin,Urine Negative (Negative); Blood,Urine Negative (Negative); Color,Urine Colorless; Glucose,Urine (UA) Negative (Negative); Ketones,Urine Negative (Negative); Leukocyte Esterase,Urine Negative (Negative); Nitrite,Urine Negative (Negative); PH, Urine 7.5 (5.0-8.0); Protein,Urine Negative (Negative); Specific Gravity,Urine 1.009 (1.001-1.035); Urobilinogen,Urine <2.0 mg/dL (<2.0)
[2023-12-05] MEDS: LOSARTAN 50 MG TAB PO SCH (21:30)
[2023-12-05] MEDS: ALPRAZolam 0.25 MG TAB PO PRN (21:31)
[2023-12-06] MEDS: CEFEPIME 2 GM in SODIUM CHLORIDE 0.9% 100 ML IVPB SCH ×2 (01:20→08:50)
[2023-12-06] MEDS: ACETAMINOPHEN TAB 325 MG TAB PO PRN (04:17)
[2023-12-06] MEDS: LEVOTHYROXINE 125 MCG TAB PO SCH (06:16)
[2023-12-06 07:53] VITALS: RESP 20
[2023-12-06 12:59] VITALS: BP 97/57; PULSE 104; TEMP 98.3
--- NOTE | 2023-12-06 14:55 | P.DS ---
Providers Date of admission: 12/02/23 00:53 Expected date of discharge: 12/06/23 Attending physician: David Dwyer Consults: 12/02/23 00:53 Consult Physician Routine Consulting Provider: Ton Lerner Consult Reason/Comments: Fever, uti Do you want consulting provider notified?: Yes Primary care physician: Cas Armani [facility] Hospital Course: Chief Complaint: Fever Hospital course this is a very pleasant 73-year-old patient who follows with Dr. Cas david. Chronic stable medical conditions include fibromyalgia, GERD, hypertension, hypothyroid, 2006 had pancreatic tumor with Whipple's procedure, 2016 had lung cancer with right partial lobectomy at [facility] in 2016 followed by chemotherapy and radiation. 20 years ago had Lyme's disease with tick bite. Home oxygen 2 L. lung cancer has been in remission. followed with Dr. Godfrey. Patient now presents with fever up to 104 at home. For last 5 days. Patient has noticed some dysuria and frequency of the urine. Patient is independent chronic cough. Nothing new. Appetite has been decreased. She states that her has been telling her that she has been babbling at home. She went to see her doctor today and she was sent to the ER for that reason. Given vancomycin and Levaquin in the ER. Was tired. No nausea vomiting. Doesn't feel confused this morning. 12/03/2023: Laying in bed. Feeling better. Did eat some breakfast. No further fever. Improvement in urinary symptoms. On IV ceftriaxone. Was cutback IV fluids. 12/04/2023: Admitted with pneumonia and UTI. Appetite improving. Fever has been down. Overall feeling better. Continues on IV ceftriaxone. Urine culture came back negative. 12/05/2023: Patient with a low-grade fever last night. Feels tired. Eating fair. Labs of the patient for one more day. Continue IV ceftriaxone. Cultures have been negative until now. Clear sputum 12/06/2023: Doing better. Appetite improving. No fever. Up and about. Sputum is cleared up. Overall feeling much better. No urinary symptoms. Very keen to go home. Discussed with patient. Past medical history to include: Pancreatic tumor 2006 with Whipple's procedure, 2069 lung cancer treated with right partial lobectomy at [facility] in 2016 with followed by chemotherapy and radiation treatment, tick bite. Lyme's disease, fibromyalgia, GERD, hypertension, hypothyroid Social history: . Started smoking age of 12 stopped in 2007 smoked 3 packs a day. Has not drank alcohol over 35 years. Physical examination: VITAL SIGNS: 98.3, 93, 20, 140/81, 92% on room air GENERAL: comfortable EYES: Pupils equal. Conjunctiva normal. HEENT: External appearance of nose and ears normal, oral cavity grossly normal. NECK: JVD not raised; masses not palpable. HEART: First and second heart sounds are normal; no edema. LUNGS: Respiratory rate normal; clear to auscultation. ABDOMEN: Soft, nontender, liver spleen not palpable, no masses palpable. PSYCH: Alert and oriented x3; mood and affect normal. MUSCULOSKELETAL:No Clubbing/cyanosis;muscles-grossly intact. OA INVESTIGATIONS, reviewed in the clinical context: Blood culture December 01: Negative 12/06/2023: Procalcitonin 0.44 Procalcitonin 2.48 12/03/2023: White count 4-year-old woman 12.4 sodium 136 potassium 3.3 creatinine 0.5 to 12/01/2023: White count 13.7 hemoglobin 13.6 platelets 184 sodium 125 progression 3.5 BUN 11 creatinine 0.82 UA positive for leukoesterase WBC 54 bacteria rare Influenza type A, type B, RSV, COVID-19: Not detected EKG tracing personally reviewed by me-normal sinus rhythm. Rate 99 Chest x-ray film personally reviewed by me-right basal haziness Assessment and plan: -Sepsis and delirium, likely from UTI/pneumonia. Suspect gram-negative organism.: Improved IV ceftriaxone. IV fluids -Right basal pneumonia suspect gram-negative organism: Clinically improving IV ceftriaxone. Continue Ceftin for 2 more days. Given history of immunosuppression from prior lung cancers and treatment. -Acute UTI with cystitis IV ceftriaxone -Chronic hypoxic respiratory failure from COPD On 2-2.5 L of home oxygen. 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 Status post systemic chemotherapy and subsequent immunotherapy. She was initially on Imfinzi with multiple side effects and subsequently on Opdivo which was also stopped in June 2022 due to side effects. Most recent CAT scan in July 2022 was stable. Follow-up CAT scan pending in October 2022. Being followed by Dr. Godfrey -History of Whipple's procedure for pancreatic tumor 2006 -GERD Pepcid -Essential hypertension Cozaar -Hypothyroid Levothyroxine -Chronic fibromyalgia Disposition: Home Past Medical History Past Medical History: Cancer, COPD, Fibromyalgia, GERD/Reflux, Hypertension, Thyroid Disorder Additional Past Medical History / Comment(s): Pancreatic tumor 2006, had Whipple; hx benign tumor Thyroid. 2017 Lung cancer-had sx, chemo and radiation. Tick bite 20 years ago, lyme's disease. History of Any Multi-Drug Resistant Organisms: ESBL Date of last positivie culture/infection: 08/19/17 MDRO Source:: ESBL URINE Past Surgical History: Adenoidectomy, Breast Surgery, Hernia Repair, Tonsillectomy Additional Past Surgical History / Comment(s): Bronchoscopy, mediastinoscopy w/biopsy in March 2017, right partial lobectomy @[facility] 05-05-17, mediport upper chest. RT BREAST x 3 bx-neg. BILAT CATARACTS REMOVED. WHIPPLE 2006. Total Thyroidectomy. THYROIDECTOMY. VOCAL CORD SX Past Anesthesia/Blood Transfusion Reactions: Previous Problems w/ Anesthesia Additional Past Anesthesia/Blood Transfusion Reaction / Comment(s): Told I have "very skinny windpipe," difficult intubation. WOKE UP DURING CATARACT SURGERY, and was aware during breast sx Past Psychological History: No Psychological Hx Reported Smoking Status: Former smoker Past Alcohol Use History: None Reported Past Drug Use History: None Reported Plan - Discharge Summary Discharge Rx Participant: No New Discharge Prescriptions: New cefUROXime axetiL [Ceftin] 500 mg PO BID #4 tab Continue Losartan Potassium [Cozaar] 50 mg PO HS Acetaminophen Tab [Tylenol] 1,000 mg PO Q5H Levothyroxine Sodium [Euthyrox] 125 mcg PO DAILY Discontinued Ciprofloxacin HCl [Cipro] 500 mg PO Q12HR Discharge Medication List Losartan Potassium [Cozaar] 50 mg PO HS 03/31/17 [History] Levothyroxine Sodium [Euthyrox] 125 mcg PO DAILY 07/31/22 [History] Acetaminophen Tab [Tylenol] 1,000 mg PO Q5H 12/01/23 [History] cefUROXime axetiL [Ceftin] 500 mg PO BID #4 tab 12/06/23 [Rx] Follow up Appointment(s)/Referral(s): Cas David MD [Primary Care Provider] - 1-2 days Patient Instructions/Handouts: Cefuroxime (By mouth), Urinary Tract Infection i n Women (DC) Activity/Diet/Wound Care/Special Instructions: PT diet as tolerated Activity limited until seen by DrPérez Discharge Disposition: HOME SELF-CARE
== END 2023-12-06 13:37 | disposition home or self-care (01) | DRG 871 ==
LOC: EC 21:42 → 3SCARD 12-02 00:53 → 5NMEDONC 12-02 12:34
PROVIDERS: ADMIT Hospitalist; ATTEND Hospitalist
DX: A41.89 Other specified sepsis (principal); J15.69 Pneumonia due to other Gram-negative bacteria; J96.11 Chronic respiratory failure with hypoxia; N30.00 Acute cystitis without hematuria; F05 Delirium due to known physiological condition; J44.0 Chronic obstructive pulmonary disease with (acute) lower respiratory infection; I10 Essential (primary) hypertension; K52.9 Noninfective gastroenteritis and colitis, unspecified; M79.7 Fibromyalgia; Z92.21 Personal history of antineoplastic chemotherapy; E89.0 Postprocedural hypothyroidism; F41.9 Anxiety disorder, unspecified; Z79.890 Hormone replacement therapy; Z85.118 Personal history of other malignant neoplasm of bronchus and lung; Z90.411 Acquired partial absence of pancreas; Z88.0 Allergy status to penicillin; Z11.52 Encounter for screening for COVID-19
CPT/HCPCS: 36415; 71046; 80048; 80053; 81001; 81003; 83605; 83735; 84145; 84484; 85025; 85610; 85730; 86140; 87040; 87086; 87636; 93005; 96361; 96365; 96366; 96367; 96368; 99285

== ENCOUNTER → 2024-07-28 | Outpatient (CLI) | payer MEDICARE, BC ==
--- NOTE | 2024-07-28 11:07 | CT ---
EXAMINATION TYPE: CT chest wo con DATE OF EXAM: 07/28/2024 COMPARISON: 01/28/2024 HISTORY: lung CA CT DLP: 301.1 mGycm. Automated Exposure Control for Dose Reduction was Utilized. TECHNIQUE: CT scan of the thorax is performed without IV contrast. FINDINGS: LUNGS: Right upper lobe area of soft tissue fullness and pleural-based thickening and consolidation i s stable. Tiny right pleural effusion. Maximal dimension of the soft tissue component is 3 cm and sta ble. Diffuse emphysematous changes. Subpleural micronodule left lower lobe measuring 2 mm has a benign jose luis earance. Apical pleural thickening or scarring. Subsegmental consolidation left upper lobe likely in the basis of atelectasis. MEDIASTINUM: Lack of IV contrast is noted to limit evaluation for mediastinal and especially hilar ad enopathy. There are no definitive greater than 1 cm hilar or mediastinal lymph nodes. The heart is en larged and there is coronary artery calcification. Ectasia of the ascending aorta measuring 3.9 cm. OTHER: Mediport catheter is incidentally noted. There is an indeterminate mass involving the left adr enal gland stable measuring 2 cm. Underlying metastatic disease not excluded. Previous surgery in the region of the stomach and small bowel noted and there is stable pneumobilia. Small hiatal hernia. Fa tty atrophy of the pancreas.. IMPRESSION: 1. Stable right upper lobe soft tissue mass or consolidation extending to the pleura. Finding may rep resent underlying neoplastic process with or without post therapeutic change. No significant interval change. 2. Small right pleural effusion which may be partially loculated is stable. 3. Diffuse emphysematous changes. Follow-up recommendations for incidental pulmonary nodules are per [employer] or [employer].
== END | disposition home or self-care (01) ==
LOC: RADCTMAIN 10:30
PROVIDERS: ATTEND Internal Medicine Hematology & Oncology
DX: C34.31 Malignant neoplasm of lower lobe, right bronchus or lung
CPT/HCPCS: 71250

== ENCOUNTER → 2025-02-08 | Outpatient (CLI) | payer MEDICARE, BC ==
--- NOTE | 2025-02-08 15:07 | CT ---
EXAMINATION TYPE: CT ChestAbdPelvis wo con DATE OF EXAM: 02/08/2025 COMPARISON: CT chest 07/28/2024 CLINICAL INDICATION: Female, 74 years old with history of C34.31 Lung cancer; PHH, Lung ca, pancreati c whipple TECHNIQUE: CT scan of the thorax, abdomen and pelvis is performed without IV contrast. CT DLP: 574.[address] CTDI: mGy Automated exposure control for dose reduction was used. FINDINGS: CT chest: There are stable marked emphysematous changes. There is stable thickening broad bands of density with scattered dense calcifications extending from the hilum anteriorly to the pleural surface of the right middle lobe. Findings most likely related to therapy. There is no interval change 7 no definite evidence of recurrent neoplasm. There is stable posterior right pleural thickening. There is no suspicious lung nodule or mass within the left lung. There is a Mediport catheter on the right. The great vessels chest are normal. There is no mediastinal, hilar or axillary adenopathy. There are no focal osseous lesions. CT abdomen and pelvis: There is surgical absence of the gallbladder. There is mild pneumobilia. There is pancreatic atrophy but no pancreatic mass. There is no splenomegaly. A 17 mm low density mas s in the left most likely representing a benign adenoma. There is no renal calcification or hydronephrosis. Caliber of the abdominal aorta is normal. No retroperitoneal adenopathy or hemorrhage. The bowel loops are normal in caliber and no dilatation or obstruction. No inflammatory changes are i dentified in the bowel wall or mesentery. No free intraperitoneal air or fluid. There is popcorn calcification of the uterus consistent with a large calcified uterine fibroid. There are no adnexal masses. There is no pelvic adenopathy or free fluid. There are no focal osseous lesio ns involving lumbar spine or pelvis. IMPRESSION: 1. Marked emphysematous changes. 2. Stable Abnormal right hilar bandlike density and right middle lobe density with calcification, mos t likely post therapy induced changes without definite evidence of recurrent neoplasm. 3. No evidence of metastatic disease within the abdomen or pelvis. [facility], , 02/08/2025 3:04 PM
== END | disposition home or self-care (01) ==
LOC: RADCTMAIN 01-31 14:06
PROVIDERS: ATTEND Internal Medicine Hematology & Oncology
DX: Z53.9 Procedure and treatment not carried out, unspecified reason (principal)
CPT/HCPCS: 71250; 74176

== ENCOUNTER 2025-06-17 16:13 | Emergency (ER) | payer MEDICARE, BC ==
[2025-06-17 16:28] VITALS: TEMP 98.7
[2025-06-17 16:55] LABS: Basophils # (A) 0.04 10*3/uL (0.00-0.10); Basophils % (A) 0.5 %; Eosinophils # (A) 0.07 10*3/uL (0.04-0.35); Eosinophils % (A) 0.9 %; HCT 41.0 % (37.2-46.3); HGB 13.6 g/dL (12.0-15.0); Lymphocytes # (A) 0.61 10*3/uL (0.90-5.00); Lymphocytes % (A) 7.9 %; MCH 29.2 pg (27.0-32.0); MCHC 33.2 g/dL (32.0-37.0); MCV 88.0 fL (80.0-97.0); Monocytes # (A) 0.64 10*3/uL (0.20-1.00); Monocytes % (A) 8.3 %; Neutrophils # (A) 6.31 10*3/uL (1.80-7.70); Neutrophils % (A) 82.1 %; Platelet Count 234 10*3/uL (140-440); RBC 4.66 10*6/uL (4.10-5.20); RDW 13.4 % (11.5-14.5); WBC 7.69 10*3/uL (4.50-10.00)
[2025-06-17 17:01] LABS: Bacteria,Urine Occasional /hpf; Bilirubin,Urine Negative (Negative); Blood,Urine Negative (Negative); Color,Urine Colorless; Glucose,Urine (UA) Negative (Negative); Ketones,Urine Negative (Negative); Leukocyte Esterase,Urine Moderate (Negative); Mucus,Urine Rare /hpf; Nitrite,Urine Negative (Negative); PH, Urine 6.5 (5.0-8.0); Protein,Urine Negative (Negative); RBC,Urine 1 /hpf (0-5); Specific Gravity,Urine 1.004 (1.001-1.035); Squamous Epithelial Cell,Urine <1 /hpf (0-4); Urobilinogen,Urine <2.0 mg/dL (<2.0); WBC,Urine 8 /hpf (0-5)
[2025-06-17 17:02] LABS: INR 1.0 (<1.2); Prothrombin Time 10.9 sec (10.0-12.5)
[2025-06-17 17:16] LABS: ALT 47 U/L (4-34); AST 39 U/L (14-36); African American GFR (CKD) >90 (>60 ml/min/1.73 sqM); Albumin 4.3 g/dL (3.5-5.0); Alkaline Phosphatase 105 U/L (38-126); Anion Gap 11 mmol/L; Blood Urea Nitrogen 11 mg/dL (7-17); Calcium 8.5 mg/dL (8.4-10.2); Carbon Dioxide 28 mmol/L (22-30); Chloride 99 mmol/L (98-107); Glucose 90 mg/dL (74-99); Non-African American GFR(CKD) 87 (>60 ml/min/1.73 sqM); Potassium 4.9 mmol/L (3.5-5.1); Sodium 138 mmol/L (137-145); Total Protein 7.3 g/dL (6.3-8.2)
--- NOTE | 2025-06-17 17:33 | ED ---
Dizziness HPI - General Chief Complaint: Dizziness Stated Complaint: Dizziness Time Seen by Provider: 06/17/25 16:23 Source: patient, RN notes reviewed Mode of arrival: ambulatory Limitations: no limitations - History of Present Illness Initial Comments: 74-year-old female presents emergency department with chief complaint of lightheadedness. Patient states she is felt lightheaded over the last 3 days. Patient states is not worse with movement. Patient states she felt she is in a pass out. She also notes that she has had leg cramping, muscle spasms at nighttime without leg swelling or discoloration. Patient denies any fevers or chills no complaints of chest pain shortness of breath currently. But states that she has had intermittent symptoms. Denies fevers or chills no urinary symptoms she also complains of some vaginal spotting last couple weeks. Patient states that she has a history of small cell lung cancer. Patient states she sto pped immunotherapy several months ago. - Related Data Home Medications Medication Instructions Recorded Confirmed Losartan Potassium [Cozaar] 50 mg PO HS 03/31/17 12/01/23 Levothyroxine Sodium [Euthyrox] 125 mcg PO DAILY 07/31/22 12/01/23 Acetaminophen Tab [Tylenol] 1,000 mg PO Q5H 12/01/23 12/01/23 Previous Rx's Medication Instructions Recorded cefuroxime axetiL [Ceftin] 500 mg PO BID #4 tab 12/06/23 Allergies Allergy/AdvReac Type Severity Reaction Status Date / Time Penicillins Allergy Anaphylaxis, Verified 12/01/23 22:56 swelling of face & lips ethanol alcohol AdvReac avoids Uncoded 12/01/23 22:56 drinking alcohol (recovering alcoholic) Review of Systems ROS Statement: Those systems with pertinent positive or pertinent negative responses have been documented in the HPI. ROS Other: All systems not noted in ROS Statement are negative. Past Medical History Past Medical History: Cancer, COPD, Fibromyalgia, GERD/Reflux, Hypertension, Thyroid Disorder Additional Past Medical History / Comment(s): Pancreatic tumor 2007, had Whipple; hx benign tumor Thyroid. 2017 Lung cancer-had sx, chemo and radiation. Tick bite 20 years ago, lyme's disease. History of Any Multi-Drug Resistant Organisms: ESBL Date of last positivie culture/infection: 08/19/17 MDRO Source:: ESBL URINE Past Surgical History: Adenoidectomy, Breast Surgery, Hernia Repair, Tonsillectomy Additional Past Surgical History / Comment(s): Bronchoscopy, mediastinoscopy w/biopsy in March 2017, right [facility] lob[facility] 05[facility], [facility] upper chest. RT BREAST x 3 bx-neg. BILAT CATARACTS REMOVED. MONALISAIPPAWILDA 2006. Total Thyroidectomy. THYROIDECTOMY. VOCAL CORD SX Past Anesthesia/Blood Transfusion Reactions: Previous Problems w/ Anesthesia Additional Past Anesthesia/Blood Transfusion Reaction / Comment(s): Told I have "very skinny windpipe," difficult intubation. WOKE UP DURING CATARACT SURGERY, and was aware during breast sx Past Psychological History: No Psychological Hx Reported Smoking Status: Former smoker Past Alcohol Use History: None Reported Past Drug Use History: None Reported - Past Family History Mother Family Medical History: Deep Vein Thrombosis (DVT) Father Family Medical History: Cancer Additional Family Medical History / Comment(s): lung cancer General Exam Limitations: no limitations General appearance: alert, in no apparent distress Head exam: Present: atraumatic, normocephalic, normal inspection Eye exam: Present: normal appearance, PERRL, EOMI. Absent: scleral icterus, conjunctival injection, periorbital swelling ENT exam: Present: normal exam, normal oropharynx, mucous membranes moist Neck exam: Present: normal inspection, full ROM. Absent: tenderness, meningismus, lymphadenopathy Respiratory exam: Present: normal lung sounds bilaterally. Absent: respiratory distress, wheezes, rales, rhonchi, stridor Cardiovascular Exam: Present: regular rate, normal rhythm, normal heart sounds. Absent: systolic murmur, diastolic murmur, rubs, gallop, clicks GI/Abdominal exam: Present: soft, normal bowel sounds. Absent: distended, tenderness, guarding, rebound, rigid Neurological exam: Present: alert, oriented X3, CN II-XII intact, reflexes normal. Absent: motor sensory deficit Skin exam: Present: warm, dry, intact, normal color. Absent: rash Course Vital Signs 06/17/25 06/17/25 06/17/25 16:23 21:12 22:45 Temperature 98.7 F Pulse Rate 90 90 97 Respiratory 20 18 18 Rate Blood Pressure 170/83 158/95 143/103 O2 Sat by Pulse 95 98 94 L Oximetry EKG Findings - EKG Comments: EKG Findings:: EKG performed at 17: 13 sinus rhythm with first-degree block rate of 97 DE 224 QRS 99 QT/QTc 353/408 - EKG Results: EKG: interpreted by ESTEE Medical Decision Making - Medical Decision Making Was pt. sent in by a medical professional or institution (, PA, [employer], urgent care, hospital, or fdc...) When possible be specific @ -No Did you speak to anyone other than the patient for history (EMS, parent, family, police, friend...)? What history was obtained from this source @ -No Did you review nursing and triage notes (agree or disagree)? Why? @ -I reviewed and agree with nursing and triage notes Were old charts reviewed (outside hosp., previous admission, EMS record, old E KG, old radiological studies, urgent care reports/EKG's, fdc records)? Report findings @ -No old charts were reviewed Differential Diagnosis (chest pain, altered mental status, abdominal pain women, abdominal pain men, vaginal bleeding, weakness, fever, dyspnea, syncope, headache, dizziness, GI bleed, back pain, seizure, CVA, palpatations, mental health, musculoskeletal)? @ -Differential Dizziness: Benign paroxysmal positional Vertigo, Meniere's disease, otitis media, acoustic neuroma, vertebrobasilar insufficiency, cerebellar stroke, encephalitis, hypovolemic, arrhythmia, coronary artery syndrome, anemia, this is not meant to be an all-inclusive list EKG interpreted by me (3pts min.). @ -As above X-rays interpreted by me (1pt min.). @Chest x-ray shows postsurgical changes right lower CT interpreted by me (1pt min.). @ -CT brain showing no acute intracranial hemorrhage, mass effect U/S interpreted by me (1pt. min.). @ -Ultrasound transvaginal pelvic showing fibroid What testing was considered but not performed or refused? (CT, X-rays, U/S, labs)? Why? @ -None What meds were considered but not given or refused? Why? @ -None Did you discuss the management of the patient with other professionals (professionals i.e. , LETI, [employer], lab, RT, psych nurse, social science manager, particleboard factory worker, teacher, agricultural loan officer, case work aide)? Give summary @ -No Was smoking cessation discussed for >3mins.? @ -No Was critical care preformed (if so, how long)? @ -No Were there social determinants of health that impacted care today? How? (Homelessness, low income, unemployed, alcoholism, drug addiction, transportation, low edu. Level, literacy, decrease access to med. care, care home, rehab)? @ -No Was there de-escalation of care discussed even if they declined (Discuss DNR or withdrawal of care, Hospice)? DNR status @ -No What co-morbidities impacted this encounter? (DM, HTN, Smoking, COPD, CAD, Ca ncer, CVA, ARF, Chemo, Hep., AIDS, mental health diagnosis, sleep apnea, morbid obesity)? @ -None Was patient admitted / discharged? Hospital course, mention meds given and route, prescriptions, significant lab abnormalities, going to OR and other pertinent info. @ -Discharge patient presented for intermittent lightheadedness. Patient laboratory studies unremarkable EKG unremarkable CT of the brain was reviewed showed no acute process. Patient complained of vaginal spotting no she does have a fibroid she is advised to follow-up with her oncologist, [employer] patient x-ray showed possible pleural effusion consolidation though patient states this is standard for her x-ray as she has had postsurgical changes and this is a typical finding. Patient is feeling proved after IV fluids will be discharged in stable condition with close follow-up. Undiagnosed new problem with uncertain prognosis? @ -No Drug Therapy requiring intensive monitoring for toxicity (Heparin, Nitro, Insulin, Cardizem)? @ -No Were any procedures done? @ -No Diagnosis/symptom? @ -Lightheadedness Acute, or Chronic, or Acute on Chronic? @ -Acute Uncomplicated (without systemic symptoms) or Complicated (systemic symptoms)? @ -Complicated Side effects of treatment? @ -No Exacerbation, Progression, or Severe Exacerbation? @ -No Poses a threat to life or bodily function? How? (Chest pain, USA, SD, pneumonia, PE, COPD, DKA, ARF, appy, cholecystitis, CVA, Diverticulitis, Homicidal, Suicidal, threat to staff... and all critical care pts) @ -No - Lab Data Result diagrams: 06/17/25 16:33 06/17/25 16:33 Lab Results 06/17/25 06/17/25 06/17/25 Range/Units 16:33 16:33 16:33 WBC 7.69 (4.50-10.00) 10*3/uL RBC 4.66 (4.10-5.20) 10*6/uL Hgb 13.6 (12.0-15.0) g/dL Hct 41.0 (37.2-46.3) % MCV 88.0 (80.0-97.0) fL MCH 29.2 (27.0-32.0) pg MCHC 33.2 (32.0-37.0) g/dL Plt Count 234 (140-440) 10*3/uL MPV 8.9 L (9.5-12.2) fL Immature Gran % (Auto) 0.3 % Neutrophils % 82.1 % Lymphocytes % 7.9 % Monocytes % 8.3 % Eosinophils % 0.9 % Basophils % 0.5 % Immature Gran # 0.02 (0.00-0.04) 10*3/uL Neutrophils # 6.31 (1.80-7.70) 10*3/uL Lymphocytes # 0.61 L (0.90-5.00) 10*3/uL Monocytes # 0.64 (0.20-1.00) 10*3/uL Eosinophils # 0.07 (0.04-0.35) 10*3/uL Basophils # 0.04 (0.00-0.10) 10*3/uL PT 10.9 (10.0-12.5) sec INR 1.0 (<1.2) Sodium (137-145) mmol/L Potassium (3.5-5.1) mmol/L Chloride (98-107) mmol/L Carbon Dioxide (22-30) mmol/L Anion Gap mmol/L BUN (7-17) mg/dL Creatinine (0.52-1.04) mg/dL Est GFR (CKD-EPI)AfAm (>60 ml/min/1.73 sqM) Est GFR (CKD-EPI)NonAf (>60 ml/min/1.73 sqM) Glucose (74-99) mg/dL Calcium (8.4-10.2) mg/dL Magnesium (1.6-2.3) mg/dL Total Bilirubin (0.2-1.3) mg/dL AST (14-36) U/L ALT (4-34) U/L Alkaline Phosphatase (38-126) U/L Troponin I (0.000-0.034) ng/mL Total Protein (6.3-8.2) g/dL Albumin (3.5-5.0) g/dL Urine Color Colorless Urine Appearance Clear (Clear) Urine pH 6.5 (5.0-8.0) Ur Specific Flora 1.004 (1.001-1.035) Urine Protein Negative (Negative) Urine Glucose (UA) Negative (Negative) Urine Ketones Negative (Negative) Urine Blood Negative (Negative) Urine Nitrite Negative (Negative) Urine Bilirubin Negative (Negative) Urine Urobilinogen <2.0 (<2.0) mg/dL Ur Leukocyte Esterase Moderate H (Negative) Urine RBC 1 (0-5) /hpf Urine WBC 8 H (0-5) /hpf Ur Squamous Epith Cells <1 (0-4) /hpf Urine Bacteria Occasional H (None) /hpf Urine Mucus Rare H (None) /hpf 06/17/25 06/17/25 06/17/25 Range/Units 16:33 16:33 16:33 WBC (4.50-10.00) 10*3/uL RBC (4.10-5.20) 10*6/uL Hgb (12.0-15.0) g/dL Hct (37.2-46.3) % MCV (80.0-97.0) fL MCH (27.0-32.0) pg MCHC (32.0-37.0) g/dL Plt Count (140-440) 10*3/uL MPV (9.5-12.2) fL Immature Gran % (Auto) % Neutrophils % % Lymphocytes % % Monocytes % % Eosinophils % % Basophils % % Immature Gran # (0.00-0.04) 10*3/uL Neutrophils # (1.80-7.70) 10*3/uL Lymphocytes # (0.90-5.00) 10*3/uL Monocytes # (0.20-1.00) 10*3/uL Eosinophils # (0.04-0.35) 10*3/uL Basophils # (0.00-0.10) 10*3/uL PT (10.0-12.5) sec INR (<1.2) Sodium 138 (137-145) mmol/L Potassium 4.9 (3.5-5.1) mmol/L Chloride 99 (98-107) mmol/L Carbon Dioxide 28 (22-30) mmol/L Anion Gap 11 mmol/L BUN 11 (7-17) mg/dL Creatinine 0.66 (0.52-1.04) mg/dL Est GFR (CKD-EPI)AfAm >90 (>60 ml/min/1.73 sqM) Est GFR (CKD-EPI)NonAf 87 (>60 ml/min/1.73 sqM) Glucose 90 (74-99) mg/dL Calcium 8.5 (8.4-10.2) mg/dL Magnesium 2.0 (1.6-2.3) mg/dL Total Bilirubin 0.7 (0.2-1.3) mg/dL AST 39 H (14-36) U/L ALT 47 H (4-34) U/L Alkaline Phosphatase 105 (38-126) U/L Troponin I <0.012 (0.000-0.034) ng/mL Total Protein 7.3 (6.3-8.2) g/dL Albumin 4.3 (3.5-5.0) g/dL Urine Color Urine Appearance (Clear) Urine pH (5.0-8.0) Ur Specific Flora (1.001-1.035) Urine Protein (Negative) Urine Glucose (UA) (Negative) Urine Ketones (Negative) Urine Blood (Negative) Urine Nitrite (Negative) Urine Bilirubin (Negative) Urine Urobilinogen (<2.0) mg/dL Ur Leukocyte Esterase (Negative) Urine RBC (0-5) /hpf Urine WBC (0-5) /hpf Ur Squamous Epith Cells (0-4) /hpf Urine Bacteria (None) /hpf Urine Mucus (None) /hpf Disposition Clinical Impression: Lightheadedness Disposition: HOME SELF-CARE Condition: Stable Instructions (If sedation given, give patient instructions): Dizziness (ED) Additional Instructions: Please return to the Emergency Department if symptoms worsen or any other concerns. Is patient prescribed a controlled substance at d/c from ED?: No Referrals: Cas Lomeli MD [Primary Care Provider] - 1-2 days Time of Disposition: 22:28
--- NOTE | 2025-06-17 17:40 | XR ---
EXAMINATION TYPE: XR chest 2V DATE OF EXAM: 06/17/2025 5:22 PM COMPARISON: Prior chest radiograph, most recently dated 12/04/2023. CLINICAL INDICATION: Female, 74 years old with history of dizziness sob; PHH TECHNIQUE: XR chest 2V Frontal and lateral views of the chest. FINDINGS: Lungs/Pleura: Small right pleural effusion with adjacent right lower lobe compressive atelectasis. In terstitial opacities in the upper lobes and scarring/atelectasis. Lungs hyperinflated with coarsening of interstitial markings. Pulmonary vascularity: Unremarkable. Heart/mediastinum: Cardiomediastinal silhouette is unremarkable. Musculoskeletal: No acute osseous pathology. Other findings: None IMPRESSION: Small right pleural effusion with adjacent right lower lobe consolidative changes. [facility], , 06/17/2025 5:37 PM
[2025-06-17] MEDS: SODIUM CHLORIDE 0.9% 500 ML 500 ML IV ONE (19:23)
--- NOTE | 2025-06-17 19:36 | CT ---
EXAMINATION TYPE: CT brain wo con DATE OF EXAM: 06/17/2025 7:23 PM COMPARISON: None. CLINICAL INDICATION: Female, 74 years old with history of dizziness history of lung CA, dizziness, hx of lung ca TECHNIQUE: Brain: Axial CT images of the brain were obtained with coronal and sagittal reformats created and rev iewed. Contrast used: None. Oral contrast used: None. CT DLP: 1117.2 mGycm, Automated exposure control for dose reduction was used. FINDINGS: Brain: Extra-axial spaces: No abnormal extra-axial fluid collections. Ventricular system: Within normal limits Cerebral parenchyma: No acute intraparenchymal hemorrhage or mass effect. The avila-white junction is well differentiated. Cerebellum: Unremarkable. Mass effect: No evidence of midline shift. Intracranial vasculature: unremarkable Soft tissues: Normal. Calvarium/osseous structures: No depressed skull fracture. Paranasal sinuses and mastoid air cells: Mild scattered paranasal sinus disease. Visualized orbits: The lenses are surgically removed from the globes. IMPRESSION: No acute intracranial process. [facility], , 06/17/2025 7:33 PM
[2025-06-17] MEDS: SODIUM CHLORIDE 0.9% 1,000 ML IV ONE (19:52)
[2025-06-17 21:13] VITALS: RESP 18
--- NOTE | 2025-06-17 22:03 | US ---
EXAMINATION TYPE: US pelvic complete DATE OF EXAM: 06/17/2025 COMPARISON: CT 2024 CLINICAL INDICATION: Female, 74 years old with history of Vaginal bleeding; TECHNIQUE: Transvaginal (TV). FINDINGS: Date of LMP: 20+ years ago EXAM MEASUREMENTS: Uterus: 6.6 x 4.0 x 4.0 cm Endometrial Stripe: not seen Right Ovary: not seen Left Ovary: not seen 1. Uterus: anteverted. Heterogeneous uterine echotexture with 4.1 cm calcified fibroid. Shadowing fr om fibroids significantly limits evaluation of the uterus and surrounding pelvis. 2. Endometrium: not seen 3. Right Ovary: not seen 4. Left Ovary: not seen 5. Bilateral Adnexa: wnl 6. Posterior cul-de-sac: wnl IMPRESSION: 1. Heterogeneous calcified fibroid within the uterus. 2. Ovaries not discretely visualized, likely due to patient's postmenopausal status and shadowing linnea wel gas artifact. No suspicious adnexal mass identified. [facility], , 06/17/2025 10:00 PM
[2025-06-17 22:48] VITALS: BP 143/103; PULSE 97
== END 2025-06-17 22:45 | disposition home or self-care (01) ==
LOC: EC 16:13
DX: R42 Dizziness and giddiness (principal); Z85.118 Personal history of other malignant neoplasm of bronchus and lung; Z87.891 Personal history of nicotine dependence; Z88.0 Allergy status to penicillin; Z88.8 Allergy status to other drugs, medicaments and biological substances
CPT/HCPCS: 36415; 70450; 71046; 76830; 80053; 81001; 83735; 84484; 85025; 85610; 93005; 96360; 96361; 99285